=== PATIENT | male | born 1980 | race Caucasian/White ===

== ENCOUNTER → 2017-08-22 | Outpatient (CLI) | payer OTHER ==
--- NOTE | 2017-08-22 11:05 | XR ---
EXAMINATION TYPE: XR knee complete RT DATE OF EXAM: 08/22/2017 CLINICAL HISTORY: Fall injury at work today. TECHNIQUE: Three views of the right knee are obtained. COMPARISON: None. FINDINGS: There is no acute fracture/dislocation evident in right knee. There is mild joint space lo ss medial and lateral tibiofemoral compartments slightly more prominent medially. Mild to moderate aury int space loss patellofemoral compartment is seen. The overlying soft tissue appears unremarkable. IMPRESSION: There is no acute fracture or dislocation in the right knee.
== END | disposition home or self-care (01) ==
LOC: RADXRMAIN 10:33
PROVIDERS: ATTEND Emergency Medicine
DX: S83.8X1A Sprain of other specified parts of right knee, initial encounter (principal)

== ENCOUNTER → 2017-09-10 | Outpatient (CLI) | payer OTHER ==
--- NOTE | 2017-09-10 23:21 | MR ---
EXAMINATION TYPE: MR knee RT wo con DATE OF EXAM: 09/10/2017 COMPARISON: Brain August 22, 2017 HISTORY: Rt knee sprain per order. Pain and swelling after injury 3 weeks ago per patient. TECHNIQUE: Multiplanar, multisequence images of the knee is performed without IV contrast. FINDINGS: MEDIAL MENISCUS: Anterior and posterior horns are intact without tear. LATERAL MENISCUS: Anterior and posterior horns are intact without tear. CRUCIATE LIGAMENTS: The anterior and posterior cruciate ligaments are intact and unremarkable. COLLATERAL LIGAMENTS: The medial collateral ligament and lateral collateral ligament complex are inta ct and unremarkable. EXTENSOR MECHANISM: Visualized quadriceps and patellar tendons are intact. EFFUSION: There is a small suprapatellar joint effusion. POPLITEAL CYST: There is a small irregular popliteal/espinoza cyst. TRICOMPARTMENT SPACES: Tricompartment joint spaces are fairly well-maintained. No significant spurrin g is seen. CARTILAGE: Small focal area measuring 4 x 4 millimeters of cartilaginous injury posterior aspect dist al lateral femoral epicondyle seen on sagittal image 24 and coronal image 23. BONE MARROW SIGNAL: No focal abnormal marrow signal is appreciated. OTHER: No additional significant abnormality is appreciated. IMPRESSION: 1. No meniscal or ligamentous tear is seen. 2. Small area of cartilaginous injury without osseous edema or injury identified. 3. Small leaking popliteal cyst. 4. Small suprapatellar joint effusion.
== END | disposition home or self-care (01) ==
LOC: RADMRIMAIN 20:53
PROVIDERS: ATTEND Emergency Medicine
DX: S83.8X1D Sprain of other specified parts of right knee, subsequent encounter (principal); M71.21 Synovial cyst of popliteal space [Baker], right knee

== ENCOUNTER 2020-12-22 11:35 | Emergency (ER) | payer BC ==
[2020-12-22 11:46] VITALS: RESP 18
[2020-12-22] MEDS ORDERED: SODIUM CHLORIDE 0.9% 1,000 ML IV STA ×2 (11:53→13:29)
[2020-12-22] MEDS ORDERED: KETOROLAC 15 MG/ML 1 ML VIAL IVP STA (11:53)
[2020-12-22] MEDS ORDERED: ONDANSETRON 4 MG/2 ML VIAL IVP STA (11:53)
--- NOTE | 2020-12-22 11:57 | ED ---
General Adult HPI - General Chief complaint: Abdominal Pain Stated complaint: Dehydrated/nausea/vomiting 3xweeks/covid+ 12/06/00 Time Seen by Provider: 12/22/20 11:47 Source: patient Mode of arrival: ambulatory Limitations: no limitations - History of Present Illness Initial comments: 40-year-old male without any significant past medical history presents to the emergency room for a chief complaint of nausea vomiting diarrhea. Patient reports that he was diagnosed with Covid on 12/06/2020. States he has had nausea vomiting diarrhea since that time. He did start to feel better and went back to work a few days ago. However the past 2 days he started to feel worse again. He states he is not able to keep down liquids. He has been having diarrhea twice every hour for the past day. Admits to minimal left lower quadrant abdominal pain. Denies fevers or chills. Patient reports he saw his doctor yesterday who gave him omeprazole but it has not helped.Patient has no other complaints at this time including shortness of breath, chest pain, head ache, or visual changes. - Related Data Home Medications Medication Instructions Recorded Confirmed Omeprazole [PriLOSEC] 20 mg PO DAILY 12/22/20 12/22/20 Previous Rx's Medication Instructions Recorded Ondansetron [Zofran ODT] 4 mg PO Q8HR PRN #15 tab 12/22/20 Allergies Allergy/AdvReac Type Severity Reaction Status Date / Time codeine AdvReac Hallucinati Verified 12/22/20 12:24 ons Review of Systems ROS Statement: Those systems with pertinent positive or pertinent negative responses have been documented in the HPI. ROS Other: All systems not noted in ROS Statement are negative. Past Medical History Past Medical History: No Reported History History of Any Multi-Drug Resistant Organisms: None Reported Past Surgical History: No Surgical Hx Reported Past Psychological History: No Psychological Hx Reported Smoking Status: Never smoker Past Alcohol Use History: None Reported Past Drug Use History: None Reported General Exam Limitations: no limitations General appearance: alert Head exam: Present: atraumatic Eye exam: Present: normal appearance, PERRL, EOMI. Absent: scleral icterus ENT exam: Present: normal exam, mucous membranes moist Neck exam: Present: normal inspection, full ROM. Absent: tenderness Respiratory exam: Present: normal lung sounds bilaterally. Absent: respiratory distress, wheezes Cardiovascular Exam: Present: regular rate, normal rhythm, normal heart sounds GI/Abdominal exam: Present: soft, distended, tenderness (minimal LLQ tenderness), normal bowel sounds. Absent: guarding, rebound, rigid Back exam: Absent: CVA tenderness (R), CVA tenderness (L) Neurological exam: Present: alert Course Vital Signs 12/22/20 11:42 Temperature 98.5 F Pulse Rate 100 Respiratory 18 Rate Blood Pressure 116/72 O2 Sat by Pulse 98 Oximetry Medical Decision Making - Medical Decision Making Vitals are stable. CBC unremarkable. CMP does show mild hypokalemia likely secondary to diarrhea. This was replaced orally. Lactic acid of 2.5 is likely secondary to dehydration. Ketonuria likely secondary to dehydration as well. Patient was given 2 L of normal saline. CT abdomen and pelvis showed findings consistent with colitis. This is likely secondary to coronavirus. He'll be discharged home with Zofran and a few pills of Imodium. He will follow-up with his doctor. He will return here for any worsening symptoms. I discussed this case with attending Dr. Simeon who agrees with this assessment and treatment plan. - Lab Data Result diagrams: 12/22/20 12:06 12/22/20 12:06 Lab Results 12/22/20 12/22/20 12/22/20 Range/Units 12:06 12:06 12:06 WBC 9.9 (3.8-10.6) k/uL RBC 4.49 (4.30-5.90) m/uL Hgb 13.8 (13.0-17.5) gm/dL Hct 38.6 L (39.0-53.0) % MCV 85.9 (80.0-100.0) fL MCH 30.8 (25.0-35.0) pg MCHC 35.9 (31.0-37.0) g/dL RDW 12.1 (11.5-15.5) % Plt Count 278 (150-450) k/uL MPV 6.6 Neutrophils % (Manual) 57 % Band Neuts % (Manual) 14 % Lymphocytes % (Manual) 13 % Monocytes % (Manual) 17 % Metamyelocytes % 1 % Neutrophils # (Manual) 7.00 (1.3-7.7) k/uL Lymphocytes # (Manual) 1.29 (1.0-4.8) k/uL Monocytes # (Manual) 1.68 H (0-1.0) k/uL Metamyelocytes # (Man) 0.10 H (0) k/uL Nucleated RBCs 0 (0-0) /100 WBC Manual Slide Review Performed Toxic Granulation Present Sodium 132 L (137-145) mmol/L Potassium 3.3 L (3.5-5.1) mmol/L Chloride 94 L (98-107) mmol/L Carbon Dioxide 25 (22-30) mmol/L Anion Gap 13 mmol/L BUN 11 (9-20) mg/dL Creatinine 1.19 (0.66-1.25) mg/dL Est GFR (CKD-EPI)AfAm 87 (>60 ml/min/1.73 sqM) Est GFR (CKD-EPI)NonAf 76 (>60 ml/min/1.73 sqM) Glucose 114 H (74-99) mg/dL Plasma Lactic Acid Yemi 2.5 H* (0.7-2.0) mmol/L Calcium 8.6 (8.4-10.2) mg/dL Magnesium (1.6-2.3) mg/dL Total Bilirubin 1.3 (0.2-1.3) mg/dL AST 17 (17-59) U/L ALT 14 (4-49) U/L Alkaline Phosphatase 63 (38-126) U/L Total Protein 6.7 (6.3-8.2) g/dL Albumin 3.8 (3.5-5.0) g/dL Amylase 38 (30-110) U/L Lipase 35 (23-300) U/L Urine Color Urine Appearance (Clear) Urine pH (5.0-8.0) Ur Specific [place] (1.001-1.035) Urine Protein (Negative) Urine Glucose (UA) (Negative) Urine Ketones (Negative) Urine Blood (Negative) Urine Nitrite (Negative) Urine Bilirubin (Negative) Urine Urobilinogen (<2.0) mg/dL Ur Leukocyte Esterase (Negative) Urine RBC (0-5) /hpf Urine WBC (0-5) /hpf Ur Squamous Epith Cells (0-4) /hpf Urine Mucus (None) /hpf 12/22/20 12/22/20 Range/Units 12:06 13:09 WBC (3.8-10.6) k/uL RBC (4.30-5.90) m/uL Hgb (13.0-17.5) gm/dL Hct (39.0-53.0) % MCV (80.0-100.0) fL MCH (25.0-35.0) pg MCHC (31.0-37.0) g/dL RDW (11.5-15.5) % Plt Count (150-450) k/uL MPV Neutrophils % (Manual) % Band Neuts % (Manual) % Lymphocytes % (Manual) % Monocytes % (Manual) % Metamyelocytes % % Neutrophils # (Manual) (1.3-7.7) k/uL Lymphocytes # (Manual) (1.0-4.8) k/uL Monocytes # (Manual) (0-1.0) k/uL Metamyelocytes # (Man) (0) k/uL Nucleated RBCs (0-0) /100 WBC Manual Slide Review Toxic Granulation Sodium (137-145) mmol/L Potassium (3.5-5.1) mmol/L Chloride (98-107) mmol/L Carbon Dioxide (22-30) mmol/L Anion Gap mmol/L BUN (9-20) mg/dL Creatinine (0.66-1.25) mg/dL Est GFR (CKD-EPI)AfAm (>60 ml/min/1.73 sqM) Est GFR (CKD-EPI)NonAf (>60 ml/min/1.73 sqM) Glucose (74-99) mg/dL Plasma Lactic Acid Yemi (0.7-2.0) mmol/L Calcium (8.4-10.2) mg/dL Magnesium 1.6 (1.6-2.3) mg/dL Total Bilirubin (0.2-1.3) mg/dL AST (17-59) U/L ALT (4-49) U/L Alkaline Phosphatase (38-126) U/L Total Protein (6.3-8.2) g/dL Albumin (3.5-5.0) g/dL Amylase (30-110) U/L Lipase (23-300) U/L Urine Color Yellow Urine Appearance Clear (Clear) Urine pH 6.5 (5.0-8.0) Ur Specific [place] >1.050 H (1.001-1.035) Urine Protein 1+ H (Negative) Urine Glucose (UA) Negative (Negative) Urine Ketones 4+ H (Negative) Urine Blood Negative (Negative) Urine Nitrite Negative (Negative) Urine Bilirubin Negative (Negative) Urine Urobilinogen <2.0 (<2.0) mg/dL Ur Leukocyte Esterase Negative (Negative) Urine RBC 3 (0-5) /hpf Urine WBC 1 (0-5) /hpf Ur Squamous Epith Cells <1 (0-4) /hpf Urine Mucus Rare H (None) /hpf Disposition Clinical Impression: Nausea, vomiting, and diarrhea Disposition: HOME SELF-CARE Condition: Good Instructions (If sedation given, give patient instructions): Acute Diarrhea (ED), Potassium Content of Foods List (ED) Additional Instructions: Please eat a diet rich in high potassium. Take Zofran as needed for nausea. Take Imodium for the next day or 2 for diarrhea. Do not take this on an extended term basis. Follow-up with your doctor in one to 2 days. Return to the emergency room for any worsening symptoms. Prescriptions: Ondansetron [Zofran ODT] 4 mg PO Q8HR PRN #15 tab PRN Reason: Nausea Is patient prescribed a controlled substance at d/c from ED?: No Referrals: Joanne Mario NPC [REFERRING] - 1-2 days Time of Disposition: 13:43
[2020-12-22 12:25] LABS: HCT 38.6 % (39.0-53.0); HGB 13.8 gm/dL (13.0-17.5); MCH 30.8 pg (25.0-35.0); MCHC 35.9 g/dL (31.0-37.0); MCV 85.9 fL (80.0-100.0); Mean Platelet Volume 6.6; Platelet Count 278 k/uL (150-450); RBC 4.49 m/uL (4.30-5.90); RDW 12.1 % (11.5-15.5); WBC 9.9 k/uL (3.8-10.6)
[2020-12-22 12:33] LABS: Albumin 3.8 g/dL (3.5-5.0); Calcium 8.6 mg/dL (8.4-10.2); Potassium 3.3 mmol/L (3.5-5.1); Total Bilirubin 1.3 mg/dL (0.2-1.3); Total Protein 6.7 g/dL (6.3-8.2)
[2020-12-22 12:45] LABS: Metamyelocytes % 1 %; Monocytes # (M) 1.68 k/uL (0-1.0); Nucleated Red Blood Cells 0 /100 WBC (0-0)
[2020-12-22 12:47] LABS: Band Neutrophils % 14 %; Lymphocytes # (M) 1.29 k/uL (1.0-4.8); Neutrophils % (M) 57 %; Total Cells Counted 200
[2020-12-22 12:48] LABS: Toxic Granulation Present
[2020-12-22 13:26] LABS: Appearance,Urine Clear (Clear); Bilirubin,Urine Negative (Negative); Blood,Urine Negative (Negative); Color,Urine Yellow; Glucose,Urine (UA) Negative (Negative); Ketones,Urine 4+ (Negative); Leukocyte Esterase,Urine Negative (Negative); Mucus,Urine Rare /hpf; Nitrite,Urine Negative (Negative); PH, Urine 6.5 (5.0-8.0); Protein,Urine 1+ (Negative); RBC,Urine 3 /hpf (0-5); Squamous Epithelial Cell,Urine <1 /hpf (0-4); Urobilinogen,Urine <2.0 mg/dL (<2.0); WBC,Urine 1 /hpf (0-5)
[2020-12-22 13:27] LABS: Specific Gravity,Urine >1.050 (1.001-1.035)
[2020-12-22] MEDS ORDERED: POTASSIUM CHLORIDE ER 20 MEQ TAB.ER PO STA (13:29)
--- NOTE | 2020-12-22 13:34 | CT ---
EXAMINATION TYPE: CT abdomen pelvis w con DATE OF EXAM: 12/22/2020 COMPARISON: HISTORY: LLQ pain, positive covid diagnosis 12/06/2020 CT DLP: 957.1 mGycm Automated exposure control for dose reduction was used. TECHNIQUE: Helical acquisition of images from the lung bases through the pelvis have been completed. CONTRAST: Performed without Oral Contrast and with IV Contrast, patient injected with 100 mL of Isovue 300. FINDINGS: LUNG BASES: No significant abnormality is appreciated. AORTA: No significant abnormality is appreciated. LIVER/GB: No liver shows low attenuation and is enlarged consistent with hepatic steatosis. Gallbladd er is unremarkable. PANCREAS: No significant abnormality is seen. SPLEEN: Borderline enlarged ADRENALS: No significant abnormality is seen. KIDNEYS: No significant abnormality is seen. REPRODUCTIVE ORGANS: No significant abnormality is seen BOWEL: Diffuse colonic wall thickening is present, there is pericolonic inflammatory change seen. No evident bowel obstruction. The appendix is partially air filled, appendicolith is present proximally . FREE AIR: No Free Air visible. ASCITES: Small amount of fluid present in the pelvis. PELVIC ADENOPATHY: None visualized. RETROPERITONEAL ADENOPATHY: No Retroperitoneal Adenopathy visible. URINARY BLADDER: No significant abnormality is seen. OSSEOUS STRUCTURES: No significant abnormality is seen. IMPRESSION: FINDINGS CONSISTENT WITH COLITIS, CORRELATE. HEPATOSPLENOMEGALY, HEPATIC STEATOSIS.
[2020-12-22 15:04] VITALS: BP 133/78; PULSE 80; TEMP 98
== END 2020-12-22 15:04 | disposition home or self-care (01) ==
LOC: EC 11:35
DX: R11.2 Nausea with vomiting, unspecified (principal); R19.7 Diarrhea, unspecified; U07.1 COVID-19; R10.32 Left lower quadrant pain; R82.4 Acetonuria; E86.0 Dehydration; Z79.899 Other long term (current) drug therapy; Z88.5 Allergy status to narcotic agent
CPT/HCPCS: 36415; 80053; 82150; 83605; 83690; 83735; 85025; 81001; 74177; 99284; 96374; 96375; 96361 ×2; J2405; J1885; Q9967

== ENCOUNTER 2020-12-23 22:06 | Inpatient (IN) | payer BC ==
[2020-12-23] MEDS ORDERED: SODIUM CHLORIDE 0.9% 1,000 ML IV STA ×2 (22:38)
[2020-12-23] MEDS ORDERED: SODIUM CHLORIDE 0.9% 500 ML 500 ML IV STA (22:38)
[2020-12-23] MEDS ORDERED: PANTOPRAZOLE 40 MG/10 ML VIAL IVP STA (22:38)
[2020-12-23] MEDS ORDERED: ONDANSETRON 4 MG/2 ML VIAL IVP STA (22:38)
--- NOTE | 2020-12-23 22:59 | ED ---
Recheck HPI - General Chief Complaint: Abdominal Pain Stated Complaint: NVD Time Seen by Provider: 12/23/20 22:22 Source: patient, EMS, RN notes reviewed, old records reviewed Mode of arrival: EMS Limitations: no limitations - History of Present Illness Initial Comments: This is a 40-year-old male DF for evaluation. Patient is about 2 weeks of positive diagnosis for coronavirus. Persistent nausea vomiting and diarrhea symptoms have been progressive throughout the entire time but worsening yesterday was here in the ER and a progressively worsening today. Recurrent fevers. Generalized body aches and pains MD Complaint: other (Persistent nausea vomiting diarrhea and weakness) -: week(s) (2) Returns Today for: persistent/worsening pain related to initial visit, other (N [place] vomiting diarrhea) Symptoms Since Prior Visit: worsening pain, fever Associated Symptoms: fever, chills, malaise, nausea Treatments Prior to Arrival: other medications - Related Data Home Medications Medication Instructions Recorded Confirmed Omeprazole [PriLOSEC] 20 mg PO DAILY 12/22/20 12/22/20 Previous Rx's Medication Instructions Recorded Loperamide [Imodium] 2 mg PO TID #6 capsule 12/22/20 Ondansetron [Zofran ODT] 4 mg PO Q8HR PRN #15 tab 12/22/20 Allergies Allergy/AdvReac Type Severity Reaction Status Date / Time codeine AdvReac Hallucinati Verified 12/22/20 12:24 ons Review of Systems ROS Statement: Those systems with pertinent positive or pertinent negative responses have been documented in the HPI. ROS Other: All systems not noted in ROS Statement are negative. Past Medical History Past Medical History: No Reported History History of Any Multi-Drug Resistant Organisms: None Reported Past Surgical History: No Surgical Hx Reported Past Psychological History: No Psychological Hx Reported Smoking Status: Never smoker Past Alcohol Use History: None Reported Past Drug Use History: None Reported General Exam Limitations: no limitations General appearance: alert, in no apparent distress Head exam: Present: atraumatic, normocephalic, normal inspection Eye exam: Present: normal appearance, PERRL, EOMI. Absent: scleral icterus, conjunctival injection, periorbital swelling ENT exam: Present: normal exam, mucous membranes dry Neck exam: Present: normal inspection. Absent: tenderness, meningismus, lymphadenopathy Respiratory exam: Present: normal lung sounds bilaterally. Absent: respiratory distress, wheezes, rales, rhonchi, stridor Cardiovascular Exam: Present: normal rhythm, tachycardia, normal heart sounds. Absent: systolic murmur, diastolic murmur, rubs, gallop, clicks GI/Abdominal exam: Present: soft, normal bowel sounds. Absent: distended, tenderness, guarding, rebound, rigid Extremities exam: Present: normal inspection, full ROM, normal capillary refill. Absent: tenderness, pedal edema, joint swelling, calf tenderness Back exam: Present: normal inspection Neurological exam: Present: alert, oriented X3, CN II-XII intact Psychiatric exam: Present: normal affect, normal mood Skin exam: Present: warm, dry, intact, normal color. Absent: rash Course Vital Signs 12/23/20 12/24/20 22:10 00:00 Temperature 100.4 F H Pulse Rate 103 H 100 Respiratory 18 16 Rate Blood Pressure 132/78 128/68 O2 Sat by Pulse 99 97 Oximetry - Reevaluation(s) Reevaluation #1: 12/24/20 01:10 Medical records reviewed 12/24/20 01:10 Prior ER visit is been reviewed Medical Decision Making - Medical Decision Making 40 male DF for evaluation of persistent nausea vomiting diarrhea and fevers. Patient has persistent symptoms here in the ER as well as ER visit yesterday. Patient is to be admitted for further evaluation management - Lab Data Result diagrams: 12/23/20 22:57 12/23/20 22:57 Lab Results 12/23/20 12/23/20 12/23/20 Range/Units 22:57 22:57 22:57 WBC 10.0 (3.8-10.6) k/uL RBC 4.17 L (4.30-5.90) m/uL Hgb 12.6 L (13.0-17.5) gm/dL Hct 36.5 L (39.0-53.0) % MCV 87.5 (80.0-100.0) fL MCH 30.1 (25.0-35.0) pg MCHC 34.4 (31.0-37.0) g/dL RDW 12.5 (11.5-15.5) % Plt Count 235 (150-450) k/uL MPV 7.5 Neutrophils % (Manual) 68 % Band Neuts % (Manual) 15 % Lymphocytes % (Manual) 7 % Monocytes % (Manual) 10 % Neutrophils # (Manual) 8.30 H (1.3-7.7) k/uL Lymphocytes # (Manual) 0.70 L (1.0-4.8) k/uL Monocytes # (Manual) 1.00 (0-1.0) k/uL Nucleated RBCs 0 (0-0) /100 WBC Manual Slide Review Performed Sodium 132 L (137-145) mmol/L Potassium 3.9 (3.5-5.1) mmol/L Chloride 97 L (98-107) mmol/L Carbon Dioxide 22 (22-30) mmol/L Anion Gap 13 mmol/L BUN 9 (9-20) mg/dL Creatinine 1.05 (0.66-1.25) mg/dL Est GFR (CKD-EPI)AfAm >90 (>60 ml/min/1.73 sqM) Est GFR (CKD-EPI)NonAf 88 (>60 ml/min/1.73 sqM) Glucose 109 H (74-99) mg/dL Plasma Lactic Acid Yemi 1.1 (0.7-2.0) mmol/L Calcium 8.0 L (8.4-10.2) mg/dL Magnesium 1.9 (1.6-2.3) mg/dL Total Bilirubin 0.9 (0.2-1.3) mg/dL AST 17 (17-59) U/L ALT 13 (4-49) U/L Alkaline Phosphatase 48 (38-126) U/L Lactate Dehydrogenase 406 (313-618) U/L C-Reactive Protein 372.7 H (<10.0) mg/L Total Protein 5.7 L (6.3-8.2) g/dL Albumin 3.0 L (3.5-5.0) g/dL - EKG Data -: EKG Interpreted by Me (EKG is sinus tachycardia 103 [place] 1 6056 QRS 94 QTC 471) - Radiology Data Radiology results: report reviewed (Chest x-rays negative for acute disease), image reviewed Disposition Clinical Impression: Nausea, vomiting, and diarrhea, Abdominal pain, Coronavirus infection, Gastroenteritis Disposition: ADMITTED IP TO THIS [facility] Condition: Fair Is patient prescribed a controlled substance at d/c from ED?: No
[2020-12-23 23:17] LABS: ALT 13 U/L (4-49); AST 17 U/L (17-59); African American GFR (CKD) >90 (>60 ml/min/1.73 sqM); Alkaline Phosphatase 48 U/L (38-126); Anion Gap 13 mmol/L; Blood Urea Nitrogen 9 mg/dL (9-20); Carbon Dioxide 22 mmol/L (22-30); Chloride 97 mmol/L (98-107); Glucose 109 mg/dL (74-99); LDH 406 U/L (313-618); Magnesium 1.9 mg/dL (1.6-2.3); Non-African American GFR(CKD) 88 (>60 ml/min/1.73 sqM); Potassium 3.9 mmol/L (3.5-5.1); Sodium 132 mmol/L (137-145); Total Bilirubin 0.9 mg/dL (0.2-1.3); Total Protein 5.7 g/dL (6.3-8.2)
[2020-12-23 23:49] LABS: C Reactive Protein 372.7 mg/L (<10.0)
[2020-12-23 23:51] LABS: HCT 36.5 % (39.0-53.0); HGB 12.6 gm/dL (13.0-17.5); MCH 30.1 pg (25.0-35.0); MCHC 34.4 g/dL (31.0-37.0); MCV 87.5 fL (80.0-100.0); Mean Platelet Volume 7.5; Platelet Count 235 k/uL (150-450); RBC 4.17 m/uL (4.30-5.90); RDW 12.5 % (11.5-15.5)
[2020-12-24] LABS: Band Neutrophils % 15 %; Neutrophils % (M) 68 %; Nucleated Red Blood Cells 0 /100 WBC (0-0); Total Cells Counted 100
[2020-12-24] MEDS ORDERED: KETOROLAC 15 MG/ML 1 ML VIAL IVP STA (00:18)
[2020-12-24] MEDS ORDERED: ACETAMINOPHEN TAB 500 MG TAB PO STA (00:18)
[2020-12-24] MEDS ORDERED: NALOXONE 0.4 MG/ML 1 ML VIAL IV PRN (00:25)
[2020-12-24] MEDS ORDERED: MORPHINE SULFATE 4 MG/ML SYRINGE IV PRN (00:25)
[2020-12-24] MEDS ORDERED: ONDANSETRON 4 MG/2 ML VIAL IVP PRN (00:25)
[2020-12-24] MEDS ORDERED: HYDROmorphone 0.5 MG/0.5 ML SYRINGE IVP STA (00:48)
[2020-12-24] MEDS: SODIUM CHLORIDE 0.9% 1,000 ML IV SCH ×3 (00:48→17:45)
--- NOTE | 2020-12-24 01:02 | XR ---
EXAM: XR Chest, 1 View CLINICAL HISTORY: ITS.REASON XR Reason: fever TECHNIQUE: Frontal view of the chest. COMPARISON: No relevant prior studies available. FINDINGS: Lungs: Underinflated lungs with slightly prominent interstitial markings in the lung bases bilaterally. Mild interstitial infiltrate cannot be excluded. No focal consolidation is seen. Pleural space: No pneumothorax or pleural effusion is seen. Heart: Unremarkable. No cardiomegaly. Mediastinum: Unremarkable. Bones/joints: Unremarkable. IMPRESSION: Underinflated lungs with slightly prominent interstitial markings in the lung bases bilaterally. Mild interstitial infiltrate cannot be excluded. No focal consolidation is seen.
[2020-12-24] MEDS: ENOXAPARIN 40 MG/0.4 ML SYRINGE SQ SCH (07:56)
[2020-12-24] MEDS ORDERED: PANTOPRAZOLE 40 MG/10 ML VIAL IV SCH (09:00)
[2020-12-24 09:26] LABS: Ferritin 738.4 ng/mL (22.0-322.0)
--- NOTE | 2020-12-24 09:59 | P.HPIM ---
History of Present Illness Patient is a pleasant 48-year-old male came in with complaints of nausea vomiting diarrhea patient states he has multiple episodes around 20-30 episodes of diarrhea every day. Patient started having symptoms of diarrhea and fever on new years sulma fever resolved but the diarrhea continued. Patient was diagnosed with the hope did 19 shortly after. Patient is still having some body aches and pains patient is comparing of severe crampy lower abdominal pain patient was seen in ER about 3 days ago at that time patient had a CT of the abdomen which showed a colon colitis. C. diff will be obtained patient is bit hyponatremic and receiving IV fluids at this time. Review of Systems REVIEW OF SYSTEMS: CONSTITUTIONAL: No fever, no malaise, no fatigue. HEENT: No recent visual problems or hearing problems. Denied any sore throat. CARDIOVASCULAR: No chest pain, orthopnea, PND, no palpitations, no syncope. PULMONARY: No shortness of breath, no cough, no hemoptysis. GASTROINTESTINAL: As mentioned in HPI NEUROLOGICAL: No headaches, no weakness, no numbness. HEMATOLOGICAL: Denies any bleeding or petechiae. GENITOURINARY: Denies any burning micturition, frequency, or urgency. MUSCULOSKELETAL/RHEUMATOLOGICAL: Denies any joint pain, swelling, or any muscle pain. ENDOCRINE: Denies any polyuria or polydipsia. The rest of the 14-point review of systems is negative. Past Medical History Past Medical History: No Reported History History of Any Multi-Drug Resistant Organisms: None Reported Past Surgical History: No Surgical Hx Reported Past Anesthesia/Blood Transfusion Reactions: No Reported Reaction Past Psychological History: No Psychological Hx Reported Smoking Status: Never smoker Past Alcohol Use History: None Reported Past Drug Use History: None Reported Medications and Allergies Home Medications Medication Instructions Recorded Confirmed Type Ondansetron [Zofran ODT] 4 mg PO Q8HR PRN #15 tab 12/22/20 12/24/20 Rx Allergies Allergy/AdvReac Type Severity Reaction Status Date / Time codeine AdvReac Hallucinati Verified 12/24/20 07:27 ons Physical Exam Vitals: Vital Signs Temp Pulse Pulse Resp BP BP Pulse Ox 12/24/20 05:38 97.6 F 75 106/58 99 12/24/20 01:20 98.7 F 97 108/63 95 12/24/20 00:00 100 16 128/68 97 12/23/20 22:10 100.4 F H 103 H 18 132/78 99 Intake and Output 12/23/20 12/24/20 12/24/20 22:59 06:59 14:59 Other: Voiding Method Toilet Weight 90.718 kg 90.718 kg PHYSICAL EXAMINATION: GENERAL: The patient is alert and oriented x3, not in any acute distress. Well developed, well nourished. HEENT: Pupils are round and equally reacting to light. EOMI. No scleral icterus. No conjunctival pallor. Normocephalic, atraumatic. No pharyngeal erythema. No thyromegaly. CARDIOVASCULAR: S1 and S2 present. No murmurs, rubs, or gallops. PULMONARY: Chest is clear to auscultation, no wheezing or crackles. ABDOMEN: Soft, but distended with hyperactive bowel sounds, nondistended, No palpable organomegaly. MUSCULOSKELETAL: No joint swelling or deformity. EXTREMITIES: No cyanosis, clubbing, or pedal edema. NEUROLOGICAL: Gross neurological examination did not reveal any focal deficits. SKIN: No rashes. Results CBC & Chem 7: 12/23/20 22:57 12/23/20 22:57 Labs: Abnormal Lab Results - Last 24 Hours (Table) 12/23/20 12/23/20 Range/Units 22:57 22:57 RBC 4.17 L (4.30-5.90) m/uL Hgb 12.6 L (13.0-17.5) gm/dL Hct 36.5 L (39.0-53.0) % Neutrophils # (Manual) 8.30 H (1.3-7.7) k/uL Lymphocytes # (Manual) 0.70 L (1.0-4.8) k/uL Sodium 132 L (137-145) mmol/L Chloride 97 L (98-107) mmol/L Glucose 109 H (74-99) mg/dL Calcium 8.0 L (8.4-10.2) mg/dL Ferritin 738.4 H (22.0-322.0) ng/mL C-Reactive Protein 372.7 H (<10.0) mg/L Total Protein 5.7 L (6.3-8.2) g/dL Albumin 3.0 L (3.5-5.0) g/dL Thrombosis Risk Factor Assmnt - Choose All That Apply Each Factor Represents 1 point: Obesity (BMI >25) Thrombosis Risk Factor Assessment Total Risk Factor Score: 1 Thrombosis Risk Factor Assessment Level: Low Risk Assessment and Plan Plan: -Colitis: Secondary to possibly covid 19 considering the duration of symptoms, I'll consult the gastroenterology. Patient is on morphine which will be continued. We will obtain C. diff if C. diff is negative we'll start him on Bentyl. 3 with IV fluids -Hypovolemic hyponatremia: Continue with IV fluids -Covid 19 infection DVT prophylaxis with lower Lovenox
[2020-12-24] MEDS: CHOLESTYRAMINE (WITH SUGAR) 4 GM PACKET PO SCH ×3 (12:21→17:51)
[2020-12-24] MEDS ORDERED: TRIMETHOBENZAMIDE 300 MG CAP PO PRN (15:05)
--- NOTE | 2020-12-24 17:35 | XR ---
EXAMINATION TYPE: XR KUB DATE OF EXAM: 12/24/2020 COMPARISON: NONE HISTORY: Abdominal pain TECHNIQUE: 2 views FINDINGS: There are multiple distended gas-filled loops of bowel in the abdomen. There is gas down to the mid sigmoid colon. There is no sign of free air. There is some mild infiltrate and atelectasis l eft lung base. There are no pathologic calcifications over the kidneys. IMPRESSION: Large amount of intestinal gas consistent with ileus. No free air.
[2020-12-24] MEDS: ONDANSETRON 4 MG/2 ML VIAL IVP SCH (17:43)
[2020-12-24] MEDS: metroNIDAZOLE-NS PMX 500 MG in SALINE 1 100ML.BAG IVPB SCH (17:43)
[2020-12-24] MEDS: PANTOPRAZOLE 40 MG/10 ML VIAL IVP SCH (22:04)
--- NOTE | 2020-12-24 23:21 | CONS ---
CONSULTATION DATE OF SERVICE: 12/24/2020. REASON FOR CONSULTATION: Covid/Colitis. HISTORY OF PRESENT ILLNESS: The patient is 40-year-old male. Still having symptoms after the new year mostly with fever, nausea, vomiting and diarrhea. The patient mentioned that his fever subsequently resolved. However, he continued having diarrhea with multiple loose stools. No blood or mucus in the stool. Did have episodes of vomiting. Has been complaining of some crampy lower abdominal pain, intensity 5 to 6 out of 10 and no radiation and unable to keep anything down. With these symptoms, the patient was evaluated at [facility] on December 22 where the patient did have a CT of abdomen and pelvis which did show evidence of colitis. The patient was discharged home however presenting back to the hospital within 24 hours with persistent symptoms of nausea, vomiting and diarrhea. He also had a low-grade fever of 100.4. The patient did have a normal white count with no lymphopenia as well as left shift. Did have a normal creatinine . Liver enzymes are normal. CRP is 372. Procalcitonin 2.03. The patient did have a chest x-ray which shows under inflated lungs with slightly prominent interstitial markings in the lung bases bilaterally. Mild cannot be excluded. The patient has been admitted to the hospital. Infectious Disease was consulted with positive Covid test and sputum and GI symptoms. The patient currently denies having any fever or any chills and is breathing comfortably currently on 97% on room air. REVIEW OF SYSTEMS: Positive points have been mentioned in HPI. Rest of the systems are negative. PAST MEDICAL HISTORY: No major illnesses. PAST SURGICAL HISTORY: No surgery. SOCIAL HISTORY: Denies smoking, drinking or drug use. FAMILY HISTORY: No pertinent findings noticed. ALLERGIES: ALLERGIES TO CODEINE. MEDICATIONS: The patient is currently on Questran, Lovenox, morphine sulfate, Narcan, Zofran, Protonix, IV fluids and Tigan. PHYSICAL EXAMINATION: Blood pressure 115/74 with a pulse of 100. Temperature of 99.1, T-max 100.7. He is 97% on room air. General description is a middle-aged male lying in bed in no distress. No tachypnea or accessory muscles of respiration use. HEENT: Examination shows no pallor or scleral icterus. Oral mucous membranes dry. No pharyngeal erythema or thrush. NECK: Trachea central. No thyromegaly. LUNGS: Unlabored breathing and is clear to auscultation anteriorly. HEART: S1, S2. Regular rate. ABDOMEN: Soft. Mildly distended. No guarding. No rigidity. EXTREMITIES: No edema of the feet. SKIN examination: No rash or mass palpable. NEUROLOGICAL: Patient is awake, alert, oriented times three. Mood and affect normal. LABS: Hemoglobin is 12.7, white count 10.0. BUN of 9, creatinine 1.05. Electrolytes have been normal. Lactic acid was 1.1 and LDH 406. Ferritin elevated. CRP was 372. Procalcitonin 2.03. Stool for C difficile is negative. DIAGNOSTIC IMPRESSION AND PLAN: Patient admitted to hospital with intractable nausea, vomiting and diarrhea. This patient's symptoms have been going on for more than 2 weeks now with diagnosis of COVID- 19 on December 06, the patient currently did not have any respiratory symptoms and is saturating 97% on room air. Though most of his gastrointestinal symptoms more likely related to infectious etiology, question related to Covid versus other bacterial versus viral infection. PLAN: 1. We will obtain culture, stool for C difficile is currently negative. 2. We will empirically add Rocephin 2 grams daily and Flagyl in view of elevated procalcitonin. 3. Gentle IV fluids. 4. If symptoms persist or any worsening, may benefit from a repeat CT. 5. We will follow on his clinical condition and culture to further adjust medication if needed. Thank you for this consultation. We will follow the patient along with you. MMVIRGILL / CHELAN: [id number] /
[2020-12-25] MEDS: ONDANSETRON 4 MG/2 ML VIAL IVP SCH ×4 (00:12→23:54)
[2020-12-25] MEDS: metroNIDAZOLE-NS PMX 500 MG in SALINE 1 100ML.BAG IVPB SCH ×4 (00:17→23:53)
[2020-12-25] MEDS: SODIUM CHLORIDE 0.9% 1,000 ML IV SCH ×3 (05:19→22:15)
[2020-12-25] MEDS: PANTOPRAZOLE 40 MG/10 ML VIAL IVP SCH ×2 (07:54→22:10)
[2020-12-25] MEDS: ENOXAPARIN 40 MG/0.4 ML SYRINGE SQ SCH (07:59)
[2020-12-25] MEDS: CHOLESTYRAMINE (WITH SUGAR) 4 GM PACKET PO SCH (08:00)
[2020-12-25] MEDS: KETOROLAC 15 MG/ML 1 ML VIAL IVP PRN ×2 (08:48→22:09)
[2020-12-25] MEDS ORDERED: PANTOPRAZOLE 40 MG TABLET PO SCH (09:00)
[2020-12-25 09:38] LABS: African American GFR (CKD) >90 (>60 ml/min/1.73 sqM); Anion Gap 12 mmol/L; Blood Urea Nitrogen 9 mg/dL (9-20); Calcium 7.5 mg/dL (8.4-10.2); Carbon Dioxide 19 mmol/L (22-30); Chloride 102 mmol/L (98-107); Glucose 127 mg/dL (74-99); Non-African American GFR(CKD) >90 (>60 ml/min/1.73 sqM); Potassium 3.3 mmol/L (3.5-5.1); Sodium 133 mmol/L (137-145)
--- NOTE | 2020-12-25 11:14 | P.PN ---
Subjective Patient is a pleasant 48-year-old male came in with complaints of nausea vomiting diarrhea patient states he has multiple episodes around 20-30 episodes of diarrhea every day. Patient started having symptoms of diarrhea and fever on sulma fever resolved but the diarrhea continued. Patient was diagnosed with the hope did 19 shortly after. Patient is still having some body aches and pains patient is comparing of severe crampy lower abdominal pain patient was seen in ER about 3 days ago at that time patient had a CT of the abdomen which showed a colon colitis. C. diff will be obtained patient is bit hyponatremic and receiving IV fluids at this time. 12/25/2020 Patient diarrhea resolved the patient has very minimal diarrhea patient appears to have ileus at this time will obtain abdominal x-ray discontinue Questran, wean off morphine patient will be started on Toradol for pain we'll continue with IV fluids patient's sodium improved minimally potassium is low which will be replaced her creatinine improved. A she is abdomen is distended and tympanic. Patient was also started on IV antibiotics were infectious disease metronidazole and ceftriaxone for colitis Constitutional: Denied any fatigue denied any fever. Cardio vascular: denied any chest pain, palpitations Gastrointestinal the patient abdominal discomfort along with nausea Pulmonary: Denied any shortness of breath cough Neurologic denied any new focal deficits All inpatient medications were reviewed and appropriate changes in these medications as dictated in the interval history and assessment and plan. Objective - Vital Signs Vital signs: Vital Signs Temp 98.4 F 12/25/20 10:00 Pulse 89 12/25/20 10:00 Resp 20 12/25/20 10:00 BP 116/69 12/25/20 10:00 Pulse Ox 99 12/25/20 10:00 Intake & Output 12/24/20 12/25/20 12/25/20 18:59 06:59 18:59 Intake Total 1520 Balance 1520 Weight 90.718 kg Intake: Intake, IV Titration 1520 Amount Sodium Chloride 0.9% 1, 1320 000 ml @ 120 mls/hr IV . Q8H20M [facility] Rx#:[id number] cefTRIAXone 2 gm In 100 Sodium Chloride 0.9% 50 ml @ 100 mls/hr IVPB Q24HR [facility] Rx#:[id number] metroNIDAZOLE-NS PMX 500 100 mg In Saline 1 100ml.bag @ 100 mls/hr IVPB Q8HR [facility] Rx#:[id number] Other: Voiding Method Toilet # Voids 4 # Bowel Movements 4 - Exam PHYSICAL EXAMINATION: GENERAL: The patient is alert and oriented x3, not in any acute distress. Well developed, well nourished. HEENT: Pupils are round and equally reacting to light. EOMI. No scleral icterus. No conjunctival pallor. Normocephalic, atraumatic. No pharyngeal erythema. No thyromegaly. CARDIOVASCULAR: S1 and S2 present. No murmurs, rubs, or gallops. PULMONARY: Chest is clear to auscultation, no wheezing or crackles. ABDOMEN: Abdomen is distended bowel sounds are present tympanic MUSCULOSKELETAL: No joint swelling or deformity. EXTREMITIES: No cyanosis, clubbing, or pedal edema. NEUROLOGICAL: Gross neurological examination did not reveal any focal deficits. SKIN: No rashes. - Labs CBC & Chem 7: 12/23/20 22:57 12/25/20 09:09 Labs: Abnormal Lab Results - Last 24 Hours (Table) 12/23/20 12/25/20 Range/Units 22:57 09:09 Sodium 133 L (137-145) mmol/L Potassium 3.3 L (3.5-5.1) mmol/L Carbon Dioxide 19 L (22-30) mmol/L Glucose 127 H (74-99) mg/dL Calcium 7.5 L (8.4-10.2) mg/dL Procalcitonin 2.03 H (0.02-0.09) ng/mL Microbiology - Last 24 Hours (Table) 12/24/20 10:50 Stool Culture - Preliminary Stool Assessment and Plan Plan: -Colitis: Secondary to possibly covid 19 , patient was started on antivirals for an infectious colitis because of the duration of symptoms. Unable to obtain C. diff -Possible ileus: Patient will be made nothing by mouth bowel rest, wean off morphine discontinue Questran -Acute renal failure improved with IV fluids -Hypovolemic hyponatremia: Continue with IV fluids -Covid 19 infection DVT prophylaxis with lower Lovenox
--- NOTE | 2020-12-25 11:57 | P.CONS ---
History of Present Illness - Reason for Consult Consult date: 12/24/20 Diarrhea, colitis Requesting physician: Lesia Schumacher - Chief Complaint Diarrhea, abdominal pain - History of Present Illness 40-year-old male presenting to the hospital with nausea, vomiting and diarrhea. The patient was treated for infection with Covid 19 on 12/05/2020. He reports symptoms of nausea, vomiting and diarrhea which have been present since 11/25/2021. He reports loose frequent bowel movements up to 20-30 times per day. He underwent evaluation with computed tomography scan of the abdomen on 12/22/2020 consistent with colitis and hepatomegaly as well as hepatic steatosis. He reports associated diffuse abdominal pain and distention with nausea and vomiting. He reports poor oral intake and association with his symptoms. No prior colonoscopy. No chronicity of his symptoms. Testing for Clostridium difficile toxin was negative. Laboratory evaluation on presentation significant for WBC 10, hemoglobin 12.7, platelet count 235,000, total bilirubin 0.4, alkaline phosphatase 40, AST 17 and ALT 13 with CRP 327. Review of Systems REVIEW OF SYSTEMS: CONSTITUTIONAL: Denies any fevers, chills, weight change or fatigue. CARDIOVASCULAR: Denies any chest pain, palpitations high or low blood pressures RESPIRATORY: Denies any shortness of breath, hemoptysis or cough. GENITOURINARY: No dysuria or hematuria. MUSCULOSKELETAL: No weakness reported. SKIN: Denies any new rashes or lesions, jaundice or pallor. PSYCHIATRIC: Denies any depression or anxiety. NEUROLOGY: Denies headache, denies any new focal deficits. EARS/NOSE/THROAT: No recent hearing change, congestion, nasal discharge or sore throat. EYES: No pain in eyes, discharge or change in vision. GASTROINTESTINAL: As per HPI. Past Medical History Past Medical History: No Reported History History of Any Multi-Drug Resistant Organisms: None Reported Past Surgical History: No Surgical Hx Reported Past Anesthesia/Blood Transfusion Reactions: No Reported Reaction Past Psychological History: No Psychological Hx Reported Smoking Status: Never smoker Past Alcohol Use History: None Reported Past Drug Use History: None Reported Additional History: Family history: Reviewed with the patient and noncontributory to current medical presentation. Medications and Allergies Home Medications Medication Instructions Recorded Confirmed Type Ondansetron [Zofran ODT] 4 mg PO Q8HR PRN #15 tab 12/22/20 12/24/20 Rx Allergies Allergy/AdvReac Type Severity Reaction Status Date / Time codeine AdvReac Hallucinati Verified 12/24/20 07:27 ons Physical Exam Vitals: Vital Signs Temp Pulse Pulse Resp BP BP Pulse Ox 12/24/20 09:31 98.2 F 101 H 18 126/76 100 12/24/20 05:38 97.6 F 75 106/58 99 12/24/20 01:20 98.7 F 97 108/63 95 12/24/20 00:00 100 16 128/68 97 12/23/20 22:10 100.4 F H 103 H 18 132/78 99 Intake and Output 12/24/20 12/24/20 12/24/20 06:59 14:59 22:59 Other: Voiding Method Toilet Weight 90.718 kg 90.718 kg On physical examination, patient appears comfortable in no apparent distress. HEAD: Normocephalic, atraumatic. EYES: No scleral icterus. No conjunctival injection. MOUTH: No lesions, tongue midline. NECK: Trachea midline, no gross abnormalities. CHEST: Clear to auscultation with no wheezing or rhonchi appreciated. HEART: Regular rate and rhythm. ABDOMEN: Soft, mild diffuse tenderness and slightly distended. Bowel sounds are positive. No organomegaly. No guarding or rigidity. EXTREMITIES: No pedal edema. SKIN: No rashes, no jaundice. NEUROLOGIC: Alert and oriented x3. No focal deficits. Results CBC & Chem 7: 12/23/20 22:57 12/25/20 09:09 Labs: Abnormal Lab Results - Last 24 Hours (Table) 12/23/20 12/23/20 12/23/20 Range/Units 22:57 22:57 22:57 RBC 4.17 L (4.30-5.90) m/uL Hgb 12.6 L (13.0-17.5) gm/dL Hct 36.5 L (39.0-53.0) % Neutrophils # (Manual) 8.30 H (1.3-7.7) k/uL Lymphocytes # (Manual) 0.70 L (1.0-4.8) k/uL Sodium 132 L (137-145) mmol/L Chloride 97 L (98-107) mmol/L Glucose 109 H (74-99) mg/dL Calcium 8.0 L (8.4-10.2) mg/dL Ferritin 738.4 H (22.0-322.0) ng/mL C-Reactive Protein 372.7 H (<10.0) mg/L Total Protein 5.7 L (6.3-8.2) g/dL Albumin 3.0 L (3.5-5.0) g/dL Procalcitonin 2.03 H (0.02-0.09) ng/mL CT scan - abdomen: report reviewed (Computed tomography scan of the abdomen from 12/22 significant for diffuse colitis with hepatosplenomegaly and hepatic steatosis noted.) Assessment and Plan (1) Colitis Narrative/Plan: 40-year-old male presenting to the hospital with complaints of nausea, vomiting, diarrhea and abdominal pain. Previous diagnosis of infection with Covid 19 a presented back to the hospital with complaints of frequent loose bowel movements up to 20-30 daily with associated nausea and vomiting and diffuse abdominal pain. CT scan of the abdomen performed on 12/22/2020 consistent with diffuse colitis with hepatosplenomegaly and hepatic steatosis. Concern was for possible Clostridium difficile testing with initial EIA negative for C. diff toxin. The patient has been started on broad-spectrum antibiotic therapy. Unclear etiology, suspicion is for infective colitis, less likely ischemic or inflammatory process given the acuity of symptoms and diffuse nature of findings, may also be related to underlying infection with coronavirus or other etiology. Current Visit: Yes Status: Acute Code(s): K52.9 - NONINFECTIVE GASTROENTERITIS AND COLITIS, UNSPECIFIED SNOMED Code(s): 44317607 (2) Abdominal pain Current Visit: Yes Status: Acute Code(s): R10.9 - UNSPECIFIED ABDOMINAL PAIN SNOMED Code(s): 33732852 (3) Nausea, vomiting, and diarrhea Current Visit: Yes Status: Acute Code(s): R11.2 - NAUSEA WITH VOMITING, UNSPECIFIED; R19.7 - DIARRHEA, UNSPECIFIED SNOMED Code(s): 8432848 Plan: Supportive care Clear liquid diet So [place] ensure [id number] with Tigan as needed for breakthrough nausea Protonix increased to twice daily Abdominal x-ray ordered Continue broad-spectrum antibiotic therapy for treatment of colitis Infectious disease consult to see the patient Thank you for allowing us to participate in the care of the patient we will continue to follow
--- NOTE | 2020-12-25 14:37 | XR ---
EXAMINATION TYPE: XR abdomen acute w cxr DATE OF EXAM: 12/25/2020 COMPARISON: Yesterday HISTORY: Abdominal pain TECHNIQUE: 4 views FINDINGS: There is some mild subsegmental atelectasis at the lung bases. Heart size is normal. There are no hilar masses. There is no heart failure. There is gas-filled multiple loops of large and small bowel throughout the abdomen. There is some tiffanie mbprinting of the transverse colon. IMPRESSION: There is thumbprinting of the transverse colon near the hepatic flexure that is also evid ent on the CT scan of 12/22/2020 and suggestive of some nonspecific colitis.. No free air. Mild atelectasis at the lung bases.
--- NOTE | 2020-12-25 18:58 | PN ---
PROGRESS NOTE DATE OF SERVICE: 12/25/2020 REASON FOR FOLLOWUP: Colitis. INTERVAL HISTORY: The patient's overall fever pattern has improved. The patient is feeling better. No further vomiting. The patient's abdominal pain is decreased in intensity. Denies any chest pain. No shortness of breath or cough and diarrhea has slowed down. PHYSICAL EXAMINATION: Blood pressure 160/69, pulse of 89, temperature 98.4. He is 99% on room air. General description is a middle-aged male lying in bed in no distress. Respiratory system: Unlabored breathing, clear to auscultation anteriorly. Heart S1, S2. Regular rate and rhythm. Abdomen soft, mildly distended. No guarding, no rigidity. Extremities, no edema of the feet. LABS: BUN of 9, creatinine 0.90. DIAGNOSTIC IMPRESSION AND PLAN: Patient with colitis, possible infectious. Patient responding to Rocephin and Flagyl, to continue while waiting for the stool culture to finalize and continue supportive care. MMODL / IJN: [id number] /
[2020-12-26] MEDS: SODIUM CHLORIDE 0.9% 1,000 ML IV SCH ×2 (05:46→20:12)
[2020-12-26] MEDS: PANTOPRAZOLE 40 MG/10 ML VIAL IVP SCH ×2 (08:44→20:12)
[2020-12-26] MEDS: ENOXAPARIN 40 MG/0.4 ML SYRINGE SQ SCH (08:44)
[2020-12-26] MEDS: KETOROLAC 15 MG/ML 1 ML VIAL IVP PRN ×2 (08:45→20:12)
[2020-12-26] MEDS: ONDANSETRON 4 MG/2 ML VIAL IVP SCH ×3 (08:45→23:54)
[2020-12-26] MEDS: metroNIDAZOLE-NS PMX 500 MG in SALINE 1 100ML.BAG IVPB SCH ×3 (08:45→23:55)
[2020-12-26] MEDS ORDERED: Potassium Replacement Protocol 1 EACH MISC MISCELLANE PRN (10:04)
--- NOTE | 2020-12-26 10:08 | P.PN ---
Subjective Patient is a pleasant 48-year-old male came in with complaints of nausea vomiting diarrhea patient states he has multiple episodes around 20-30 episodes of diarrhea every day. Patient started having symptoms of diarrhea and fever on sulma fever resolved but the diarrhea continued. Patient was diagnosed with the hope did 19 shortly after. Patient is still having some body aches and pains patient is comparing of severe crampy lower abdominal pain patient was seen in ER about 3 days ago at that time patient had a CT of the abdomen which showed a colon colitis. C. diff will be obtained patient is bit hyponatremic and receiving IV fluids at this time. 12/25/2020 Patient diarrhea resolved the patient has very minimal diarrhea patient appears to have ileus at this time will obtain abdominal x-ray discontinue Questran, wean off morphine patient will be started on Toradol for pain we'll continue with IV fluids patient's sodium improved minimally potassium is low which will be replaced her creatinine improved. A she is abdomen is distended and tympanic. Patient was also started on IV antibiotics were infectious disease metronidazole and ceftriaxone for colitis 12/26/2020 Patient says she is still having diarrhea but small amount of stools patient abdomen was still distended. Abdominal x-ray did not show any free air but did show significant the colitis Constitutional: Denied any fatigue denied any fever. Cardio vascular: denied any chest pain, palpitations Gastrointestinal the patient abdominal discomfort along with nausea Pulmonary: Denied any shortness of breath cough Neurologic denied any new focal deficits All inpatient medications were reviewed and appropriate changes in these medications as dictated in the interval history and assessment and plan. Objective - Vital Signs Vital signs: Vital Signs Temp 98.1 F 12/26/20 05:53 Pulse 109 H 12/26/20 05:53 Resp 14 12/26/20 05:53 BP 119/64 12/26/20 05:53 Pulse Ox 97 12/26/20 05:53 Intake & Output 12/25/20 12/26/20 12/26/20 18:59 06:59 18:59 Intake Total 1450 1550 Balance 1450 1550 Intake: Intake, IV Titration 1450 1300 Amount Sodium Chloride 0.9% 1, 1200 1200 000 ml @ 100 mls/hr IV . Q10H [facility] Rx#:[id number] cefTRIAXone 2 gm In 50 Sodium Chloride 0.9% 50 ml @ 100 mls/hr IVPB Q24HR [facility] Rx#:[id number] metroNIDAZOLE-NS PMX 500 200 100 mg In Saline 1 100ml.bag @ 100 mls/hr IVPB Q8HR [facility] Rx#:[id number] Oral 250 Other: Voiding Method Toilet - Exam PHYSICAL EXAMINATION: GENERAL: The patient is alert and oriented x3, not in any acute distress. Well developed, well nourished. HEENT: Pupils are round and equally reacting to light. EOMI. No scleral icterus. No conjunctival pallor. Normocephalic, atraumatic. No pharyngeal erythema. No thyromegaly. CARDIOVASCULAR: S1 and S2 present. No murmurs, rubs, or gallops. PULMONARY: Chest is clear to auscultation, no wheezing or crackles. ABDOMEN: Abdomen is distended bowel sounds are present tympanic MUSCULOSKELETAL: No joint swelling or deformity. EXTREMITIES: No cyanosis, clubbing, or pedal edema. NEUROLOGICAL: Gross neurological examination did not reveal any focal deficits. SKIN: No rashes. - Labs CBC & Chem 7: 12/23/20 22:57 12/25/20 09:09 Assessment and Plan Plan: -Colitis: Secondary to possibly covid 19 , patient was started on antivirals for an infectious colitis because of the duration of symptoms. She still having diarrhea awaiting recommendations from gastroenterology -Acute renal failure improved with IV fluids -Hypovolemic hyponatremia: Continue with IV fluids -Covid 19 infection DVT prophylaxis with lower Lovenox
[2020-12-26 10:59] LABS: African American GFR (CKD) 122.5 (60.0-200.0); Anion Gap 12.2 mmol/L (4.00-12.00); BUN/Creat Ratio 11.11 Ratio (12.00-20.00); Calcium 7.8 mg/dL (8.7-10.3); Carbon Dioxide 21.8 mmol/L (21.6-31.8); Non-African American GFR(CKD) 105.7 (60.0-200.0); Potassium 3.4 mmol/L (3.5-5.5)
[2020-12-26 12:22] LABS: HCT 34.1 % (39.0-53.0); HGB 11.1 gm/dL (13.0-17.5); MCH 29.1 pg (25.0-35.0); MCHC 32.7 g/dL (31.0-37.0); MCV 89.1 fL (80.0-100.0); Platelet Count 339 k/uL (150-450); RBC 3.82 m/uL (4.30-5.90); RDW 12.7 % (11.5-15.5); WBC 6.8 k/uL (3.8-10.6)
[2020-12-26 12:49] LABS: Nucleated Red Blood Cells 0 /100 WBC (0-0)
[2020-12-26 12:52] LABS: Band Neutrophils % 18 %; Lymphocytes # (M) 0.95 k/uL (1.0-4.8); Metamyelocytes % 3 %; Monocytes # (M) 0.88 k/uL (0-1.0); Neutrophils % (M) 52 %; Total Cells Counted 200
[2020-12-26 12:53] LABS: Poikilocytosis (M) Present; Toxic Granulation Present
--- NOTE | 2020-12-26 14:02 | XR ---
EXAMINATION TYPE: XR chest 1V portable DATE OF EXAM: 12/26/2020 COMPARISON: Chest x-ray dated 12/24/2020 HISTORY: NG tube placement TECHNIQUE: Single frontal view of the chest is obtained. FINDINGS: There is been interval placement of NG tube which is coiled within the stomach. No other s ignificant interval change. IMPRESSION: NG tube as described.
--- NOTE | 2020-12-26 18:28 | P.PN ---
Subjective Progress Note Date: 12/25/20 Principal diagnosis: colitis, abdominal pain, nausea and vomiting Attempted to see the patient today, however he was undergoing imaging and not available. Will follow up tomorrow. Continue current medical management. Objective - Vital Signs Vital signs: Vital Signs Temp 98.4 F 12/25/20 10:00 Pulse 89 12/25/20 10:00 Resp 20 12/25/20 10:00 BP 116/69 12/25/20 10:00 Pulse Ox 99 12/25/20 10:00 Intake & Output 12/24/20 12/25/20 12/25/20 18:59 06:59 18:59 Intake Total 1520 Balance 1520 Weight 90.718 kg Intake: Intake, IV Titration 1520 Amount Sodium Chloride 0.9% 1, 1320 000 ml @ 120 mls/hr IV . Q8H20M [facility] Rx#:[id number] cefTRIAXone 2 gm In 100 Sodium Chloride 0.9% 50 ml @ 100 mls/hr IVPB Q24HR [facility] Rx#:[id number] metroNIDAZOLE-NS PMX 500 100 mg In Saline 1 100ml.bag @ 100 mls/hr IVPB Q8HR [facility] Rx#:[id number] Other: Voiding Method Toilet # Voids 4 # Bowel Movements 4 - Labs CBC & Chem 7: 12/26/20 05:54 12/26/20 05:54 Labs: Abnormal Lab Results - Last 24 Hours (Table) 12/25/20 Range/Units 09:09 Sodium 133 L (137-145) mmol/L Potassium 3.3 L (3.5-5.1) mmol/L Carbon Dioxide 19 L (22-30) mmol/L Glucose 127 H (74-99) mg/dL Calcium 7.5 L (8.4-10.2) mg/dL Microbiology - Last 24 Hours (Table) 12/24/20 10:50 Stool Culture - Preliminary Stool Assessment and Plan (1) Colitis Current Visit: Yes Status: Acute Code(s): K52.9 - NONINFECTIVE GASTROENTERITIS AND COLITIS, UNSPECIFIED SNOMED Code(s): 59870644 (2) Abdominal pain Current Visit: Yes Status: Acute Code(s): R10.9 - UNSPECIFIED ABDOMINAL PAIN SNOMED Code(s): 51483481 (3) Nausea, vomiting, and diarrhea Current Visit: Yes Status: Acute Code(s): R11.2 - NAUSEA WITH VOMITING, UNSP ECIFIED; R19.7 - DIARRHEA, UNSPECIFIED SNOMED Code(s): 5334939
--- NOTE | 2020-12-26 18:33 | P.PN ---
Subjective Progress Note Date: 12/26/20 Principal diagnosis: colitis, abdominal pain, nausea and vomiting The patient was seen lying in bed today still reporting abdominal distention. He has passed small amounts of stool and a little bit of bright red blood. No further nausea or vomiting. Objective - Vital Signs Vital signs: Vital Signs Temp 98.1 F 12/26/20 05:53 Pulse 109 H 12/26/20 08:45 Resp 14 12/26/20 08:45 BP 119/64 12/26/20 05:53 Pulse Ox 97 12/26/20 05:53 Intake & Output 12/25/20 12/26/20 12/26/20 18:59 06:59 18:59 Intake Total 1450 1550 Balance 1450 1550 Intake: Intake, IV Titration 1450 1300 Amount Sodium Chloride 0.9% 1, 1200 1200 000 ml @ 100 mls/hr IV . Q10H [facility] Rx#:[id number] cefTRIAXone 2 gm In 50 Sodium Chloride 0.9% 50 ml @ 100 mls/hr IVPB Q24HR [facility] Rx#:[id number] metroNIDAZOLE-NS PMX 500 200 100 mg In Saline 1 100ml.bag @ 100 mls/hr IVPB Q8HR [facility] Rx#:[id number] Oral 250 Other: Voiding Method Toilet Toilet - Exam On physical examination, patient appears comfortable in no apparent distress. HEAD: Normocephalic, atraumatic. EYES: No scleral icterus. No conjunctival injection. MOUTH: No lesions, tongue midline. NECK: Trachea midline, no gross abnormalities. ABDOMEN: Soft, obese, mildly tender and distended. Bowel sounds are positive. No organomegaly. No guarding or rigidity. EXTREMITIES: No pedal edema. SKIN: No rashes, no jaundice. NEUROLOGIC: Alert and oriented x3. No focal deficits. - Labs CBC & Chem 7: 12/26/20 05:54 12/26/20 05:54 Assessment and Plan (1) Colitis Narrative/Plan: 40-year-old male presenting to the hospital with complaints of nausea, vomiting, diarrhea and abdominal pain. Previous diagnosis of infection with Covid 19 a presented back to the hospital with complaints of frequent loose bowel movements up to 20-30 daily with associated nausea and vomiting and diffuse abdominal pain. CT scan of the abdomen performed on 12/22/2020 consistent with diffuse colitis with hepatosplenomegaly and hepatic steatosis. Concern was for possible Clostridium difficile testing with initial EIA negative for C. diff toxin. The patient has been started on broad-spectrum antibiotic therapy. Unclear etiology, suspicion is for infective colitis, less likely ischemic or inflammatory process given the acuity of symptoms and diffuse nature of findings, may also be related to underlying infection with coronavirus or other etiology. x-ray performed in evaluation 2 days ago showed ileus and yesterday consistent with colitis. Today he continues to complain of distention. Current Visit: Yes Status: Acute Code(s): K52.9 - NONINFECTIVE GASTROENTERITIS AND COLITIS, UNSPECIFIED SNOMED Code(s): 94443077 (2) Abdominal pain Current Visit: Yes Status: Acute Code(s): R10.9 - UNSPECIFIED ABDOMINAL PAIN SNOMED Code(s): 77522086 (3) Nausea, vomiting, and diarrhea Current Visit: Yes Status: Acute Code(s): R11.2 - NAUSEA WITH VOMITING, UNSPECIFIED; R19.7 - DIARRHEA, UNSPECIFIED SNOMED Code(s): 1378672 Plan: Supportive care nothing by mouth Discussed with the primary team and based on continued abdominal distention and findings of ileus on x-ray previously would recommend nasogastric tube placement on low intermittent suction and surgical consult Continue antiemetic therapy as needed for nausea Protonix twice daily Abdominal series from yesterday consistent with colitis, can consider reimaging with computed tomography scan if symptoms persist Continue broad-spectrum antibiotic therapy for treatment of colitis Infectious disease following the patient Thank you for allowing us to participate in the care of the patient we will continue to follow
--- NOTE | 2020-12-26 23:47 | PN ---
PROGRESS NOTE DATE OF SERVICE: 12/26/2020 REASON FOR FOLLOWUP: Fever and colitis. INTERVAL HISTORY: The patient overall fever has resolved. The patient did have an NG tube placed in for the ileus. The patient denies having any chest pain or shortness of breath or cough. Still having diarrhea. PHYSICAL EXAMINATION: Blood pressure is 118/70 with a pulse of 108. Temperature 98.3. He is 95% on room air. General description is a middle-aged male lying in bed in no distress. Respiratory system: Unlabored breathing. Clear to auscultation anteriorly. HEART S1, S2. Regular rate and rhythm. ABDOMEN: Soft, nondistended. No guarding. No rigidity. LABS: Hemoglobin 11.1, white count 6.8. BUN of 10, creatinine 0.9. Wound cultures currently pending. DIAGNOSTIC IMPRESSION AND PLAN: Patient admitted to the hospital with acute nausea, vomiting, diarrhea and abdominal pain with evidence of C colitis. The patient's stool culture pending. Currently covered with Rocephin and Flagyl to continue and may benefit from repeat CT or endoscopy. We will discuss with surgery GI. Continue supportive care. MMODL / IJN: [id number] /
[2020-12-27] MEDS: SODIUM CHLORIDE 0.9% 1,000 ML IV SCH ×4 (02:27→23:32)
[2020-12-27] MEDS: ONDANSETRON 4 MG/2 ML VIAL IVP SCH ×3 (08:35→23:38)
[2020-12-27] MEDS: PANTOPRAZOLE 40 MG/10 ML VIAL IVP SCH ×2 (08:35→21:09)
[2020-12-27] MEDS: ENOXAPARIN 40 MG/0.4 ML SYRINGE SQ SCH (08:35)
[2020-12-27] MEDS: metroNIDAZOLE-NS PMX 500 MG in SALINE 1 100ML.BAG IVPB SCH ×2 (08:39→19:09)
[2020-12-27 10:44] LABS: Basophils % (A) 0 %; Eosinophils # (A) 0.1 k/uL (0-0.7); Eosinophils % (A) 1 %; HCT 31.8 % (39.0-53.0); Lymphocytes # (A) 0.8 k/uL (1.0-4.8); Lymphocytes % (A) 10 %; MCH 30.6 pg (25.0-35.0); MCHC 34.7 g/dL (31.0-37.0); MCV 88.1 fL (80.0-100.0); Mean Platelet Volume 6.6; Monocytes # (A) 0.6 k/uL (0-1.0); Monocytes % (A) 7 %; Neutrophils # (A) 6.4 k/uL (1.3-7.7); Neutrophils % (A) 79 %; Platelet Count 297 k/uL (150-450); RBC 3.61 m/uL (4.30-5.90); RDW 12.7 % (11.5-15.5); WBC 8.2 k/uL (3.8-10.6)
[2020-12-27 11:10] LABS: African American GFR (CKD) >90 (>60 ml/min/1.73 sqM); Anion Gap 11 mmol/L; Blood Urea Nitrogen 10 mg/dL (9-20); Calcium 7.3 mg/dL (8.4-10.2); Carbon Dioxide 19 mmol/L (22-30); Chloride 102 mmol/L (98-107); Glucose 97 mg/dL (74-99); Non-African American GFR(CKD) >90 (>60 ml/min/1.73 sqM); Potassium 3.3 mmol/L (3.5-5.1); Sodium 132 mmol/L (137-145)
[2020-12-27] MEDS: KETOROLAC 15 MG/ML 1 ML VIAL IVP PRN (11:44)
--- NOTE | 2020-12-27 12:21 | P.PN ---
Subjective Patient is a pleasant 48-year-old male came in with complaints of nausea vomiting diarrhea patient states he has multiple episodes around 20-30 episodes of diarrhea every day. Patient started having symptoms of diarrhea and fever on sulma fever resolved but the diarrhea continued. Patient was diagnosed with the hope did 19 shortly after. Patient is still having some body aches and pains patient is comparing of severe crampy lower abdominal pain patient was seen in ER about 3 days ago at that time patient had a CT of the abdomen which showed a colon colitis. C. diff will be obtained patient is bit hyponatremic and receiving IV fluids at this time. 12/25/2020 Patient diarrhea resolved the patient has very minimal diarrhea patient appears to have ileus at this time will obtain abdominal x-ray discontinue Questran, wean off morphine patient will be started on Toradol for pain we'll continue with IV fluids patient's sodium improved minimally potassium is low which will be replaced her creatinine improved. A she is abdomen is distended and tympanic. Patient was also started on IV antibiotics were infectious disease metronidazole and ceftriaxone for colitis 12/26/2020 Patient says she is still having diarrhea but small amount of stools patient abdomen was still distended. Abdominal x-ray did not show any free air but did show significant the colitis 12/27/2020 Still has abdominal distention patient had an NG tube drained about 800 mL presently has additional 200 mL in the canister now patient's IV fluids will be increased and patient continues to have diarrhea. Increasing the IV fluids to 1 25 mL/h Constitutional: Denied any fatigue denied any fever. Cardio vascular: denied any chest pain, palpitations Gastrointestinal the patient abdominal discomfort along with nausea Pulmonary: Denied any shortness of breath cough Neurologic denied any new focal deficits All inpatient medications were reviewed and appropriate changes in these medications as dictated in the interval history and assessment and plan. Objective - Vital Signs Vital signs: Vital Signs Temp 98.4 F 12/27/20 09:20 Pulse 91 12/27/20 09:20 Resp 18 12/27/20 09:20 BP 118/72 12/27/20 09:20 Pulse Ox 95 12/27/20 09:20 Intake & Output 12/26/20 12/27/20 12/27/20 18:59 06:59 18:59 Intake Total 1450 1840 Output Total 200 800 Balance 1250 1840 -800 Intake: Intake, IV Titration 1450 1300 Amount Sodium Chloride 0.9% 1, 1200 1200 000 ml @ 100 mls/hr IV . Q10H [facility] Rx#:[id number] cefTRIAXone 2 gm In 50 Sodium Chloride 0.9% 50 ml @ 100 mls/hr IVPB Q24HR [facility] Rx#:[id number] metroNIDAZOLE-NS PMX 500 200 100 mg In Saline 1 100ml.bag @ 100 mls/hr IVPB Q8HR [facility] Rx#:[id number] Oral 540 Output: Gastric Drainage 200 800 Other: Voiding Method Toilet Toilet - Exam PHYSICAL EXAMINATION: GENERAL: The patient is alert and oriented x3, not in any acute distress. Well developed, well nourished. HEENT: Pupils are round and equally reacting to light. EOMI. No scleral icterus. No conjunctival pallor. Normocephalic, atraumatic. No pharyngeal erythema. No thyromegaly. CARDIOVASCULAR: S1 and S2 present. No murmurs, rubs, or gallops. PULMONARY: Chest is clear to auscultation, no wheezing or crackles. ABDOMEN: Abdomen is distended bowel sounds are present tympanic MUSCULOSKELETAL: No joint swelling or deformity. EXTREMITIES: No cyanosis, clubbing, or pedal edema. NEUROLOGICAL: Gross neurological examination did not reveal any focal deficits. SKIN: No rashes. - Labs CBC & Chem 7: 12/27/20 10:16 12/27/20 10:16 Labs: Abnormal Lab Results - Last 24 Hours (Table) 12/26/20 12/27/20 12/27/20 Range/Units 05:54 10:16 10:16 RBC 3.82 L 3.61 L (4.30-5.90) m/uL Hgb 11.1 L 11.0 L (13.0-17.5) gm/dL Hct 34.1 L 31.8 L (39.0-53.0) % Lymphocytes # 0.8 L (1.0-4.8) k/uL Lymphocytes # (Manual) 0.95 L (1.0-4.8) k/uL Metamyelocytes # (Man) 0.20 H (0) k/uL Sodium 132 L (137-145) mmol/L Potassium 3.3 L (3.5-5.1) mmol/L Carbon Dioxide 19 L (22-30) mmol/L Calcium 7.3 L (8.4-10.2) mg/dL Assessment and Plan Plan: -Colitis and enteritis: Secondary to possibly covid 19 , patient was started on antivirals for an infectious colitis because of the duration of symptoms. She still having diarrhea awaiting recommendations from gastroenterology patient is still having diarrhea and still having abdominal distention presently has an NG tube in place for and bowel rest and patient will remain nothing by mouth. Although eating ice chips. -Acute renal failure improved with IV fluids -Hypovolemic hyponatremia: Continue with IV fluids and increase IV fluids 1 50 mL per hour -Covid 19 infection DVT prophylaxis with Lovenox
--- NOTE | 2020-12-27 14:12 | P.PN ---
Subjective Progress Note Date: 12/27/20 HISTORY OF PRESENT ILLNESS This is a 40-year-old male patient treated for fever and colitis. Patient has NG tube in place for ileus. He states that his belly pain is improving. He had 6 episodes of diarrhea last evening. He states he was told there was some blood in it. No mucus. Abdomen is less tender. Patient is currently covered with Rocephin and Flagyl. WBC 8.2, hemoglobin 11, creatinine 0.84. COVID-19 positive. C. difficile toxin negative PHYSICAL EXAMINATION Gen: This is a 40-year-old male patient. He is resting but appears to be comfortable. HEENT: Head is atraumatic, normocephalic. Pupils equal, round. Sclerae is anicteric. NECK: Supple. No JVD. No lymphadenopathy. LUNGS: Clear to auscultation. No wheezes or rhonchi. No intercostal retractions. HEART: Regular rate and rhythm. No murmur. ABDOMEN: Soft. Bowel sounds are present. No masses. Mild tenderness. EXTREMITIES: No pedal edema. No calf tenderness. NEUROLOGICAL: Patient is awake, alert and oriented x3. ASSESSMENT Colitis Ileus COVID-19 infection PLAN Continue Rocephin and Flagyl Continue supportive care The above dictated assessment and findings were discussed with Dr. Pantoja. The impression and plan of care have been directed as dictated. Tamanna Goodson nurse practitioner acting as scribe for Dr. Pantoja. Objective - Vital Signs Vital signs: Vital Signs Temp 98.4 F 12/27/20 09:20 Pulse 91 12/27/20 09:20 Resp 18 12/27/20 09:20 BP 118/72 12/27/20 09:20 Pulse Ox 95 12/27/20 09:20 Intake & Output 12/26/20 12/27/20 12/27/20 18:59 06:59 18:59 Intake Total 1450 1840 Output Total 200 800 Balance 1250 1840 -800 Intake: Intake, IV Titration 1450 1300 Amount Sodium Chloride 0.9% 1, 1200 1200 000 ml @ 100 mls/hr IV . Q10H [facility] Rx#:[id number] cefTRIAXone 2 gm In 50 Sodium Chloride 0.9% 50 ml @ 100 mls/hr IVPB Q24HR [facility] Rx#:[id number] metroNIDAZOLE-NS PMX 500 200 100 mg In Saline 1 100ml.bag @ 100 mls/hr IVPB Q8HR [facility] Rx#:[id number] Oral 540 Output: Gastric Drainage 200 800 Other: Voiding Method Toilet Toilet - Labs CBC & Chem 7: 12/27/20 10:16 12/27/20 10:16 Labs: Abnormal Lab Results - Last 24 Hours (Table) 12/26/20 12/26/20 Range/Units 05:54 05:54 RBC 3.82 L (4.30-5.90) m/uL Hgb 11.1 L (13.0-17.5) gm/dL Hct 34.1 L (39.0-53.0) % Lymphocytes # (Manual) 0.95 L (1.0-4.8) k/uL Metamyelocytes # (Man) 0.20 H (0) k/uL Potassium 3.4 L (3.5-5.5) mmol/L Anion Gap 12.20 H (4.00-12.00) mmol/L BUN/Creatinine Ratio 11.11 L (12.00-20.00) Ratio Calcium 7.8 L (8.7-10.3) mg/dL
[2020-12-27] MEDS: IOPAMIDOL CONTRAST (ORAL USE) VIAL PO PRN ×2 (14:47→16:21)
--- NOTE | 2020-12-27 14:56 | P.GSCN ---
History of Present Illness Consult date: 12/27/20 History of present illness: CHIEF COMPLAINT: Abdominal pain HISTORY OF PRESENT ILLNESS: This is a 40-year-old male who presented to hospital with complaints of nausea, vomiting and diarrhea. Patient did have Covid 19 on 12/05/2020. Patient has had frequent bowel movements up to 20-30 times per day. He is being followed by GI service. He had a computed tomography scan of the abdomen and pelvis on 12/22/2020 consistent with colitis, hepatomegaly and hepatic steatosis. He also is complaining of abdominal distention with diffuse abdominal pain. He's had no prior history of colonoscopy. Denies any family history of inflammatory bowel disease. Patient's stool for C. diff was negative. Patient has NG tube in place with minimal yellowish fluid output. Acute abdominal series x-ray shows thumbprinting of the transverse colon near the hepatic flexure that is also evident on the CT on 12/22/2020 and suggestive of non-specific colitis. No free air. Patient denies any fever chills or sweats. He is having bloody watery stools. PAST MEDICAL HISTORY: See list. PAST SURGICAL HISTORY: See list. MEDICATIONS: See list. ALLERGIES: See list. SOCIAL HISTORY: No illicit drug use. REVIEW OF SYSTEMS: CONSTITUTIONAL: Denies fever or chills. HEENT: Denies blurred vision, vision changes, or eye pain. Denies hemoptysis CARDIOVASCULAR: Denies chest pain or pressure. RESPIRATORY: No shortness of breath. GASTROINTESTINAL: See HPI for pertinent findings HEMATOLOGIC: Denies bleeding disorders. GENITOURINARY: Denies any blood in urine or increased urinary frequency. SKIN: Denies pruitis. Denies rash. PHYSICAL EXAM: VITAL SIGNS: Reviewed GENERAL: Well-developed in no acute distress. HEENT: No sclera icterus. Extraocular movements grossly intact. Moist buccal mucosa. Head is atraumatic, normocephalic. No nasal drainage. ABDOMEN: Distended with diffuse abdominal tenderness NEUROLOGIC: Alert and oriented. Cranial nerves II through XII grossly intact. LABORATORY DATA: WBC 8.2 hemoglobin 11.0 sodium 132 potassium is 3.3 creatinine 0.84 Covid detected C. diff negative LFTs normal C-reactive active protein elevated IMAGING: computed tomography scan of the abdomen and pelvis on 12/22/2020 consistent with colitis, hepatomegaly and hepatic steatosis acute abdominal series x-ray shows thumbprinting of the transverse colon near the hepatic flexure that is also evident on the CT on 12/22/2020 and suggestive of non-specific colitis ASSESSMENT: 1. Abdominal pain with abdominal distention 2. Nausea vomiting and bloody diarrhea 3. Colitis 4. Hypokalemia replace per protocol and check magnesium level PLAN: -Discussed case with GI service they've ordered a computed tomography scan of the abdomen and pelvis with contrast -We will follow-up on computed tomography scan results -Continue supportive care -Continue NG tube for decompression -Continue IV fluids -Antibiotics per ID Thank you for this consultation Physician Tower Switch Operator note has been reviewed by physician. Signing provider agrees with the documented findings, assessment, and plan of care. Past Medical History Past Medical History: No Reported History History of Any Multi-Drug Resistant Organisms: None Reported Past Surgical History: No Surgical Hx Reported Past Anesthesia/Blood Transfusion Reactions: No Reported Reaction Past Psychological History: No Psychological Hx Reported Smoking Status: Never smoker Past Alcohol Use History: None Reported Past Drug Use History: None Reported Medications and Allergies Home Medications Medication Instructions Recorded Confirmed Type Ondansetron [Zofran ODT] 4 mg PO Q8HR PRN #15 tab 12/22/20 12/24/20 Rx Allergies Allergy/AdvReac Type Severity Reaction Status Date / Time codeine AdvReac Hallucinati Verified 12/24/20 07:27 ons Surgical - Exam Vital Signs Temp Pulse Resp BP Pulse Ox 100.4 F H 103 H 18 132/78 99 12/23/20 22:10 12/23/20 22:10 12/23/20 22:10 12/23/20 22:10 12/23/20 22:10 Results - Labs 12/27/20 10:16 12/27/20 10:16 Abnormal Lab Results - Last 24 Hours (Table) 12/27/20 12/27/20 12/27/20 Range/Units 10:16 10:16 12:50 RBC 3.61 L (4.30-5.90) m/uL Hgb 11.0 L (13.0-17.5) gm/dL Hct 31.8 L (39.0-53.0) % Lymphocytes # 0.8 L (1.0-4.8) k/uL Sodium 132 L (137-145) mmol/L Potassium 3.3 L (3.5-5.1) mmol/L Carbon Dioxide 19 L (22-30) mmol/L Calcium 7.3 L (8.4-10.2) mg/dL Coronavirus (PCR) Detected A (Not Detectd) Diabetes panel 12/27/20 Range/Units 10:16 Sodium 132 L (137-145) mmol/L Potassium 3.3 L (3.5-5.1) mmol/L Chloride 102 (98-107) mmol/L Carbon Dioxide 19 L (22-30) mmol/L BUN 10 (9-20) mg/dL Creatinine 0.84 (0.66-1.25) mg/dL Glucose 97 (74-99) mg/dL Calcium 7.3 L (8.4-10.2) mg/dL Calcium panel 12/27/20 Range/Units 10:16 Calcium 7.3 L (8.4-10.2) mg/dL Pituitary panel 12/27/20 Range/Units 10:16 Sodium 132 L (137-145) mmol/L Potassium 3.3 L (3.5-5.1) mmol/L Chloride 102 (98-107) mmol/L Carbon Dioxide 19 L (22-30) mmol/L BUN 10 (9-20) mg/dL Creatinine 0.84 (0.66-1.25) mg/dL Glucose 97 (74-99) mg/dL Calcium 7.3 L (8.4-10.2) mg/dL Adrenal panel 12/27/20 Range/Units 10:16 Sodium 132 L (137-145) mmol/L Potassium 3.3 L (3.5-5.1) mmol/L Chloride 102 (98-107) mmol/L Carbon Dioxide 19 L (22-30) mmol/L BUN 10 (9-20) mg/dL Creatinine 0.84 (0.66-1.25) mg/dL Glucose 97 (74-99) mg/dL Calcium 7.3 L (8.4-10.2) mg/dL
--- NOTE | 2020-12-27 15:07 | P.PN ---
Subjective Progress Note Date: 12/27/20 Principal diagnosis: Colitis, abdominal pain, nausea and vomiting This is a 40-year-old male who presented to the hospital with complaints of nausea vomiting and diarrhea. He tested positive for occult 19 infection 12/06/2020. He came into the hospital with severe abdominal pain, 20-30 episodes of diarrhea daily along with vomiting. Over the weekend he had terminal x-rays which showed ileus, continued abdominal dilation and therefore NG tube was placed and surgical consult ordered. Today he is seen and examined with complaints of abdominal pain, he states his distention has improved some, diarrhea has improved as well as no further episodes of vomiting. He states th ough he did have 7 episodes of diarrhea through the evening with small amounts of streaks of blood. It was reported he had 800 mL of fluid from his NG tube through the night, however patient has been also having ice chips. Objective - Vital Signs Vital signs: Vital Signs Temp 97.6 F 12/27/20 14:00 Pulse 78 12/27/20 14:00 Resp 18 12/27/20 14:00 BP 109/70 12/27/20 14:00 Pulse Ox 96 12/27/20 14:00 Intake & Output 12/26/20 12/27/20 12/27/20 18:59 06:59 18:59 Intake Total 1450 1840 Output Total 200 800 Balance 1250 1840 -800 Weight 90.718 kg Intake: Intake, IV Titration 1450 1300 Amount Sodium Chloride 0.9% 1, 1200 1200 000 ml @ 100 mls/hr IV . Q10H [facility] Rx#:[id number] cefTRIAXone 2 gm In 50 Sodium Chloride 0.9% 50 ml @ 100 mls/hr IVPB Q24HR [facility] Rx#:[id number] metroNIDAZOLE-NS PMX 500 200 100 mg In Saline 1 100ml.bag @ 100 mls/hr IVPB Q8HR [facility] Rx#:[id number] Oral 540 Output: Gastric Drainage 200 800 Other: Voiding Method Toilet Toilet - Exam General appearance: The patient is alert, oriented, appears in no acute distress. HET: Head is normocephalic and atraumatic. Conjunctiva pink. Sclera anicteric. NG tube intact with suction. Neck: Supple without lymphadenopathy. Abdomen: Soft, diffuse tenderness, distended with bowel sounds. No guarding or rigidity. Extremities: Normal skin color and turgor. No pedal edema Neurological: No focal deficits. Alert and oriented 3. - Labs CBC & Chem 7: 12/27/20 10:16 12/27/20 10:16 Labs: Abnormal Lab Results - Last 24 Hours (Table) 12/27/20 12/27/20 12/27/20 Range/Units 10:16 10:16 12:50 RBC 3.61 L (4.30-5.90) m/uL Hgb 11.0 L (13.0-17.5) gm/dL Hct 31.8 L (39.0-53.0) % Lymphocytes # 0.8 L (1.0-4.8) k/uL Sodium 132 L (137-145) mmol/L Potassium 3.3 L (3.5-5.1) mmol/L Carbon Dioxide 19 L (22-30) mmol/L Calcium 7.3 L (8.4-10.2) mg/dL Coronavirus (PCR) Detected A (Not Detectd) Assessment and Plan (1) Colitis Narrative/Plan: 40-year-old male presenting to the hospital with complaints of nausea, vomiting, diarrhea and abdominal pain. Previous diagnosis of infection with Covid 19 a presented back to the hospital with complaints of frequent loose bowel movements up to 20-30 daily with associated nausea and vomiting and diffuse abdominal pain. CT scan of the abdomen performed on 12/22/2020 consistent with diffuse colitis with hepatosplenomegaly and hepatic steatosis. Concern was for possible Clostridium difficile testing with initial EIA negative for C. diff toxin. The patient has been started on broad-spectrum antibiotic therapy. Unclear etiology, suspicion is for infective colitis, less likely ischemic or inflammatory process given the acuity of symptoms and diffuse nature of findings, may also be related to underlying infection with coronavirus or other etiology. x-ray performed in evaluation 2 days ago showed ileus and yesterday consistent with colitis. Today he continues to complain of distention. Current Visit: Yes Status: Acute Code(s): K52.9 - NONINFECTIVE GASTROENTERITIS AND COLITIS, UNSPECIFIED SNOMED Code(s): 12183926 (2) Abdominal pain Current Visit: Yes Status: Acute Code(s): R10.9 - UNSPECIFIED ABDOMINAL PAIN SNOMED Code(s): 82775981 (3) Nausea, vomiting, and diarrhea Current Visit: Yes Status: Acute Code(s): R11.2 - NAUSEA WITH VOMITING, UNSPECIFIED; R19.7 - DIARRHEA, UNSPECIFIED SNOMED Code(s): 9817953 Plan: Supportive care nothing by mouth Continue nasogastric tube placement on low intermittent suction Continue antiemetic therapy as needed for nausea Protonix twice daily CT abdomen pelvis with oral and IV contrast Continue broad-spectrum antibiotic therapy for treatment of colitis Infectious disease following the patient Appreciate recommendations from surgical services Thank you for allowing us to participate in the care of the patient we will continue to follow Dr. Mir Eng I agree with the dictator's note, documented as a scribe by Radha Rodas.
[2020-12-27] MEDS: POTASSIUM CHLORIDE 10 MEQ in WATER FOR INJECTION 1 100ML.BAG IVPB SCH ×3 (16:22→23:31)
[2020-12-27] MEDS ORDERED: Magnesium Replacement Protocol 1 EACH MISC MISCELLANE PRN (17:50)
--- NOTE | 2020-12-27 18:10 | CT ---
EXAMINATION TYPE: CT abdomen pelvis w con DATE OF EXAM: 12/27/2020 COMPARISON: 12/22/2020 HISTORY: abdominal distention, abdominal pain CT DLP: 1072.2 mGycm Automated exposure control for dose reduction was used. CONTRAST: Performed with IV Contrast, patient injected with 100 mL of Isovue 300. Images were obtained from the diaphragm to the floor the pelvis with oral and IV contrast. There are mild bilateral pleural effusions. There is bilateral basilar infiltrate and atelectasis. He art size is normal. There is no pericardial effusion. There is nasogastric tube in the gastric antrum . Liver and spleen are intact. The bile ducts are not dilated. Gallbladder measures 4.2 cm. There is no evidence of pancreatic mass. The stomach has normal size. There is no adrenal mass. Kidneys show satisfactory contrast opacification. There is no hydronephrosi s. Delayed images show normal renal excretion. The ureters are not dilated. There are some distended fluid-filled small bowel loops in the mid abdomen. These measure up to 3 cm. There is some diffuse wall thickening of the large bowel. This is more noticeable in the cecum and in the sigmoid colon. The appendix is normal. There is no free air. There is tiny amount of fluid in th e paracolic gutters. Bladder distends smoothly. There is no inguinal hernia. The lumbar vertebra have normal alignment. Th ere is no compression fracture. The bony pelvis is intact. There is free fluid in the pelvis. This sosa s low attenuation. IMPRESSION: There is large bowel wall thickening consistent with colitis that appears worse than recent CT scan. There is mild abdominal ascites fluid slightly increased compared to old exam. There are mildly diste nded small bowel loops with fluid levels consistent with ileus. There is new small pleural effusions and basilar pulmonary infiltrates and atelectasis compared to re cent exam.
[2020-12-28] MEDS: metroNIDAZOLE-NS PMX 500 MG in SALINE 1 100ML.BAG IVPB SCH ×4 (00:37→23:32)
[2020-12-28] MEDS: POTASSIUM CHLORIDE 10 MEQ in WATER FOR INJECTION 1 100ML.BAG IVPB SCH ×2 (01:38→21:03)
[2020-12-28] MEDS: KETOROLAC 15 MG/ML 1 ML VIAL IVP PRN ×3 (07:38→22:11)
[2020-12-28] MEDS: PANTOPRAZOLE 40 MG/10 ML VIAL IVP SCH ×2 (07:38→21:05)
[2020-12-28 09:23] LABS: HCT 31.4 % (39.6-50.0); HGB 10.3 g/dL (13.0-17.0); MCH 29.2 pg (27.0-32.0); MCHC 32.8 g/dL (32.0-37.0); Mean Platelet Volume 9.5 fL (9.5-12.2); Platelet Count 342 X 10*3/uL (140-440); RBC 3.53 X 10*6/uL (4.40-5.60)
[2020-12-28 09:48] LABS: African American GFR (CKD) 128.6 (60.0-200.0); Anion Gap 11.9 mmol/L (4.00-12.00); Calcium 7.3 mg/dL (8.7-10.3); Carbon Dioxide 21.1 mmol/L (21.6-31.8); Magnesium 1.9 mg/dL (1.5-2.4); Potassium 3.7 mmol/L (3.5-5.5)
[2020-12-28] MEDS: ENOXAPARIN 40 MG/0.4 ML SYRINGE SQ SCH (09:49)
[2020-12-28] MEDS: ONDANSETRON 4 MG/2 ML VIAL IVP SCH ×3 (09:49→23:32)
--- NOTE | 2020-12-28 13:39 | P.PN ---
Subjective Progress Note Date: 12/28/20 Principal diagnosis: Colitis, abdominal pain, nausea and vomiting This is a 40-year-old male who presented to the hospital with complaints of nausea vomiting and diarrhea. He tested positive for occult 19 infection 12/06/2020. He came into the hospital with severe abdominal pain, 20-30 episodes of diarrhea daily along with vomiting. Over the weekend he had abdominal x-rays which showed ileus, continued abdominal dilation and therefore NG tube was placed and surgical consult ordered. Today he is seen and examined, and abdominal pain and distention have improved. He denies any further episodes of nausea or vomiting. He has had about 8-10 episodes of diarrhea through the night, he states they are nonbloody but does have some blood on the tissue with wiping. CT of the abdomen yesterday which showed some worsening of large bowel wall thickening. Objective - Vital Signs Vital signs: Vital Signs Temp 98.8 F 12/28/20 06:00 Pulse 97 12/28/20 06:00 Resp 20 12/28/20 06:00 BP 128/71 12/28/20 06:00 Pulse Ox 97 12/28/20 06:00 Intake & Output 12/27/20 12/28/20 12/28/20 18:59 06:59 18:59 Intake Total 0 Output Total 800 Balance -800 0 Weight 90.718 kg Intake: Oral 0 Output: Gastric Drainage 800 Other: Voiding Method Toilet Toilet # Voids 4 3 - Exam General appearance: The patient is alert, oriented, appears in no acute distress. HET: Head is normocephalic and atraumatic. Conjunctiva pink. Sclera anicteric. NG tube intact with suction. Neck: Supple without lymphadenopathy. Abdomen: Soft, I'll tenderness, mild distention with improvement with bowel sounds. No guarding or rigidity. Extremities: Normal skin color and turgor. No pedal edema Neurological: No focal deficits. Alert and oriented 3. - Labs CBC & Chem 7: 12/28/20 04:19 12/28/20 04:19 Labs: Abnormal Lab Results - Last 24 Hours (Table) 12/27/20 12/27/20 12/27/20 Range/Units 10:16 10:16 12:50 RBC (4.40-5.60) X 10*6/uL Hgb (13.0-17.0) g/dL Hct (39.6-50.0) % Sodium 132 L (137-145) mmol/L Potassium 3.3 L (3.5-5.1) mmol/L Carbon Dioxide 19 L (22-30) mmol/L BUN (9.0-27.0) mg/dL BUN/Creatinine Ratio (12.00-20.00) Ratio Calcium 7.3 L (8.4-10.2) mg/dL Procalcitonin 0.77 H (0.02-0.09) ng/mL Coronavirus (PCR) Detected A (Not Detectd) 12/28/20 12/28/20 Range/Units 04:19 04:19 RBC 3.53 L (4.40-5.60) X 10*6/uL Hgb 10.3 L (13.0-17.0) g/dL Hct 31.4 L (39.6-50.0) % Sodium (137-145) mmol/L Potassium (3.5-5.1) mmol/L Carbon Dioxide 21.1 L (22-30) mmol/L BUN 8.0 L (9.0-27.0) mg/dL BUN/Creatinine Ratio 10.00 L (12.00-20.00) Ratio Calcium 7.3 L (8.4-10.2) mg/dL Procalcitonin (0.02-0.09) ng/mL Coronavirus (PCR) (Not Detectd) Microbiology - Last 24 Hours (Table) 12/24/20 10:50 Stool Culture - Final Stool Assessment and Plan (1) Colitis Narrative/Plan: 40-year-old male presenting to the hospital with complaints of nausea, vomiting, diarrhea and abdominal pain. Previous diagnosis of infection with Covid 19 a presented back to the hospital with complaints of frequent loose bowel movements up to 20-30 daily with associated nausea and vomiting and diffuse abdominal pain. CT scan of the abdomen performed on 12/22/2020 consistent with diffuse colitis with hepatosplenomegaly and hepatic steatosis. Concern was for possible Clostridium difficile testing with initial EIA negative for C. diff toxin. The patient has been started on broad-spectrum antibiotic therapy. Unclear etiology, suspicion is for infective colitis, less likely ischemic or inflammatory process given the acuity of symptoms and diffuse nature of findings, may also be related to underlying infection with coronavirus or other etiology. x-ray performed in evaluation 2 days ago showed ileus and yesterday consistent with colitis. CT of the abdomen repeated, there is large bowel wall thickening consistent with colitis that appears worse than recent computed tomography scan. Mild abdominal ascites fluid slightly increased compared to old exam. There are mildly distended small bowel loops fluid-filled levels consistent with ileus. New small pleural effusions and basilar pulmonary infiltrates and atelectasis compared to recent exam. Current Visit: Yes Status: Acute Code(s): K52.9 - NONINFECTIVE GASTROENTERITIS AND COLITIS, UNSPECIFIED SNOMED Code(s): 62279126 (2) Abdominal pain Current Visit: Yes Status: Acute Code(s): R10.9 - UNSPECIFIED ABDOMINAL PAIN SNOMED Code(s): 62224675 (3) Nausea, vomiting, and diarrhea Current Visit: Yes Status: Acute Code(s): R11.2 - NAUSEA WITH VOMITING, UNSPECIFIED; R19.7 - DIARRHEA, UNSPECIFIED SNOMED Code(s): 2794475 Plan: Supportive care nothing by mouth Continue nasogastric tube placement on low intermittent suction Continue antiemetic therapy as needed for nausea Protonix twice daily CT abdomen pelvis ordered and reviewed Continue broad-spectrum antibiotic therapy for treatment of colitis Infectious disease following the patient Appreciate recommendations from surgical services Patient is scheduled for flex sigmoid/colonoscopy tomorrow Bowel prep this evening Thank you for allowing us to participate in the care of the patient we will c david to follow Dr. Mir Eng I agree with the dictator's note, documented as a scribe by Radha Rodas.
--- NOTE | 2020-12-28 14:24 | P.PN ---
Subjective Progress Note Date: 12/28/20 CHIEF COMPLAINT: Abdominal pain with nausea and vomiting HISTORY OF PRESENT ILLNESS: Patient is being followed for colitis. He has NG tube in place. His abdominal distention is improving. He is having diarrhea. No blood in stools. He had 300 of brownish fluid output through NG tube. Computed tomography scan abdomen and pelvis shows large bowel wall thickening consistent with colitis that appears worse than recent CT. There is mild abdominal ascites fluid slightly increased compared to old exam. There are mildly distended small bowel loops with fluid levels consistent with ileus. Afebrile. WBC 8.90 hemoglobin 10.3 potassium 3.7 magnesium 1.9 PHYSICAL EXAM: VITAL SIGNS: Reviewed. GENERAL: Well-developed in no acute distress. HEENT: No sclera icterus. Extraocular movements grossly intact. Moist buccal mucosa. Head is atraumatic, normocephalic. ABDOMEN: Soft. Decrease in abdominal distention NEUROLOGIC: Alert and oriented. Cranial nerves II through XII grossly intact. ASSESSMENT: 1. Abdominal pain with abdominal distention 2. Nausea vomiting diarrhea 3. Colitis 4. Ileus 5. Hypokalemia improved PLAN: -Continue NG tube for decompression -Continue supportive care -Continue IV fluids -Antibiotics per ID -No plans for surgical intervention Physician Bus Monitor note has been reviewed by physician. Signing provider agrees with the documented findings, assessment, and plan of care. Objective - Vital Signs Vital signs: Vital Signs Temp 99.3 F 12/28/20 10:00 Pulse 79 12/28/20 10:00 Resp 18 12/28/20 10:00 BP 108/66 12/28/20 10:00 Pulse Ox 96 12/28/20 10:00 Intake & Output 12/27/20 12/28/20 12/28/20 18:59 06:59 18:59 Intake Total 0 Output Total 800 Balance -800 0 Weight 90.718 kg Intake: Oral 0 Output: Gastric Drainage 800 Other: Voiding Method Toilet Toilet # Voids 4 3 - Labs CBC & Chem 7: 12/28/20 04:19 12/28/20 04:19 Labs: Abnormal Lab Results - Last 24 Hours (Table) 12/27/20 12/28/20 12/28/20 Range/Units 10:16 04:19 04:19 RBC 3.53 L (4.40-5.60) X 10*6/uL Hgb 10.3 L (13.0-17.0) g/dL Hct 31.4 L (39.6-50.0) % Carbon Dioxide 21.1 L (21.6-31.8) mmol/L BUN 8.0 L (9.0-27.0) mg/dL BUN/Creatinine Ratio 10.00 L (12.00-20.00) Ratio Calcium 7.3 L (8.7-10.3) mg/dL Procalcitonin 0.77 H (0.02-0.09) ng/mL Microbiology - Last 24 Hours (Table) 12/24/20 10:50 Stool Culture - Final Stool
--- NOTE | 2020-12-28 16:04 | P.PN ---
Subjective Progress Note Date: 12/28/20 Patient is a pleasant 48-year-old male came in with complaints of nausea vomiting diarrhea patient states he has multiple episodes around 20-30 episodes of diarrhea every day. Patient started having symptoms of diarrhea and fever on sulma fever resolved but the diarrhea continued. Patient was diagnosed with the hope did 19 shortly after. Patient is still having some body aches and pains patient is comparing of severe crampy lower abdominal pain patient was seen in ER about 3 days ago at that time patient had a CT of the abdomen which showed a colon colitis. C. diff will be obtained patient is bit hyponatremic and receiving IV fluids at this time. 12/25/2020 Patient diarrhea resolved the patient has very minimal diarrhea patient appears to have ileus at this time will obtain abdominal x-ray discontinue Questran, wean off morphine patient will be started on Toradol for pain we'll continue with IV fluids patient's sodium improved minimally potassium is low which will be replaced her creatinine improved. A she is abdomen is distended and tympanic. Patient was also started on IV antibiotics were infectious disease metronidazole and ceftriaxone for colitis 12/26/2020 Patient says she is still having diarrhea but small amount of stools patient abdomen was still distended. Abdominal x-ray did not show any free air but did show significant the colitis 12/27/2020 Still has abdominal distention patient had an NG tube drained about 800 mL presently has additional 200 mL in the canister now patient's IV fluids will be increased and patient continues to have diarrhea. Increasing the IV fluids to 125 mL/h 12/28/2020 Patient is seen and evaluated in follow-up this morning and continues to have diarrhea and was noted to have some blood in the stool and GI was consulted. P atient states he has a past medical history of hemorrhoids and has been having diarrhea for the last month. Patient currently continues with an NG tube and continues to have abdominal distention and will continue at this time. In pain on IV fluids along with IV antibiotics in the form of ceftriaxone and Flagyl. Infectious disease is following. Patient underwent abdominal CT showing large bowel wall thickening consistent with colitis that appears worse than recent CT along with mild abdominal ascites fluid that is increased since previous exam and mildly distended small bowel loops with fluid levels consistent with ileus along with new small pleural effusions and basilar pulmonary infiltrates and atelectasis. Sodium today is 140 with a potassium of 3.7 and current creatinine is 0.8 and magnesium is 1.9. GI recommending possible flex sigmoidoscopy in the a.m. Hemoglobin today is 10.3. Incentive spirometer ordered. Constitutional: Denied any fatigue denied any fever. Cardio vascular: denied any chest pain, palpitations Gastrointestinal: patient reports continued abdominal discomfort and distention along with continued diarrhea multiple times daily Pulmonary: Denied any shortness of breath cough Neurologic denied any new focal deficits All inpatient medications were reviewed and appropriate changes in these medications as dictated in the interval history and assessment and plan. Objective - Vital Signs Vital signs: Vital Signs Temp 98.8 F 12/28/20 06:00 Pulse 97 12/28/20 06:00 Resp 20 12/28/20 06:00 BP 128/71 12/28/20 06:00 Pulse Ox 97 12/28/20 06:00 Intake & Output 12/27/20 12/28/20 12/28/20 18:59 06:59 18:59 Intake Total 0 Output Total 800 Balance -800 0 Weight 90.718 kg Intake: Oral 0 Output: Gastric Drainage 800 Other: Voiding Method Toilet Toilet # Voids 4 3 - Exam GENERAL: The patient is alert and oriented x3, not in any acute distress. Well developed, well nourished. HEENT: Pupils are round and equally reacting to light. EOMI. No scleral icterus. No conjunctival pallor. Normocephalic, atraumatic. No pharyngeal erythema. No thyromegaly. CARDIOVASCULAR: S1 and S2 present. No murmurs, rubs, or gallops. PULMONARY: Chest is clear to auscultation, no wheezing or crackles. ABDOMEN: Abdomen is distended bowel sounds are present tympanic MUSCULOSKELETAL: No joint swelling or deformity. EXTREMITIES: No cyanosis, clubbing, or pedal edema. NEUROLOGICAL: Gross neurological examination did not reveal any focal deficits. SKIN: No rashes. - Labs CBC & Chem 7: 12/28/20 04:19 12/28/20 04:19 Labs: Abnormal Lab Results - Last 24 Hours (Table) 12/27/20 12/27/20 12/27/20 Range/Units 10:16 10:16 12:50 RBC (4.40-5.60) X 10*6/uL Hgb (13.0-17.0) g/dL Hct (39.6-50.0) % Sodium 132 L (137-145) mmol/L Potassium 3.3 L (3.5-5.1) mmol/L Carbon Dioxide 19 L (22-30) mmol/L BUN (9.0-27.0) mg/dL BUN/Creatinine Ratio (12.00-20.00) Ratio Calcium 7.3 L (8.4-10.2) mg/dL Procalcitonin 0.77 H (0.02-0.09) ng/mL Coronavirus (PCR) Detected A (Not Detectd) 12/28/20 12/28/20 Range/Units 04:19 04:19 RBC 3.53 L (4.40-5.60) X 10*6/uL Hgb 10.3 L (13.0-17.0) g/dL Hct 31.4 L (39.6-50.0) % Sodium (137-145) mmol/L Potassium (3.5-5.1) mmol/L Carbon Dioxide 21.1 L (22-30) mmol/L BUN 8.0 L (9.0-27.0) mg/dL BUN/Creatinine Ratio 10.00 L (12.00-20.00) Ratio Calcium 7.3 L (8.4-10.2) mg/dL Procalcitonin (0.02-0.09) ng/mL Coronavirus (PCR) (Not Detectd) Microbiology - Last 24 Hours (Table) 12/24/20 10:50 Stool Culture - Final Stool Assessment and Plan Assessment: -Colitis and enteritis: Secondary to possibly covid 19 , patient was started on antivirals for an infectious colitis because of the duration of symptoms. Patient continues to have diarrhea and will undergo flex sigmoidoscopy with GI tomorrow. Continue with NG tube and bowel rest and IV fluids along with antibiotic in the form of ceftriaxone and Flagyl -Acute renal failure improved with IV fluids -Hypovolemic hyponatremia: Continue with IV fluids -Covid 19 infection -DVT prophylaxis with Lovenox -GI prophylaxis Protonix -Full code Plan: Continue with current medications and continue with IV antibiotics. Patient undergo flex sigmoidoscopy with GI in the morning. Continue with bowel rest with occasional ice chips and maintain NG tube for abdominal distention and decompression. Incentive spirometer ordered instructed the patient to continue using at least 10 times every hour while awake. Will repeat a.m. labs.
[2020-12-28] MEDS ORDERED: LIDOCAINE 1% (10MG/ML) FOR IV START INTRADERMA PRN (17:21)
[2020-12-28] MEDS ORDERED: LACTATED RINGERS 1,000 ML IV SCH (17:30)
[2020-12-28] MEDS: SODIUM CHLORIDE 0.9% 1,000 ML IV SCH ×2 (17:31)
--- NOTE | 2020-12-28 18:40 | PN ---
PROGRESS NOTE DATE OF SERVICE: 12/28/2020 REASON FOR FOLLOWUP: Colitis. INTERVAL HISTORY: The patient is currently afebrile. The patient is feeling slightly better today. Abdominal pain has decreased in intensity. Denies having any chest pain or shortness of breath or cough. Still has the NG and continues to complain of diarrhea. PHYSICAL EXAMINATION: Blood pressure 109/70 with a pulse 88, temperature 98.6. He is 97% on room air. General description is a middle-aged male lying in bed in no distress. RESPIRATORY SYSTEM: Unlabored breathing. Clear to auscultation anteriorly. HEART: S1, S2. Regular rate and rhythm. ABDOMEN: Soft. Mildly distended. No guarding or rigidity. LABS: Hemoglobin 10.3, white count 8.90, BUN of 8, creatinine 0.8. C difficile PCR negative. [place] PCR is positive. Stool culture has been negative. DIAGNOSTIC IMPRESSION AND PLAN: Patient with colitis without a clear etiology. Workup has been negative so far. The patient continues to have an NG for decompression and is on empiric Rocephin and Flagyl; to continue. Will discuss further with GI. Continue with supportive care. MMODL / IJN: [id number] /
[2020-12-28] MEDS ORDERED: Potassium Replacement Protocol 1 EACH MISC MISCELLANE PRN (18:54)
[2020-12-28] MEDS ORDERED: MAGNESIUM CITRATE 296 ML BOTTLE PO ONE (19:00)
[2020-12-29] MEDS: POTASSIUM CHLORIDE 10 MEQ in WATER FOR INJECTION 1 100ML.BAG IVPB SCH (01:05)
[2020-12-29] MEDS: SODIUM CHLORIDE 0.9% 1,000 ML IV SCH ×4 (01:53→17:06)
[2020-12-29] MEDS: KETOROLAC 15 MG/ML 1 ML VIAL IVP PRN ×3 (03:39→23:43)
[2020-12-29] MEDS: PANTOPRAZOLE 40 MG/10 ML VIAL IVP SCH ×2 (07:59→20:11)
[2020-12-29] MEDS: metroNIDAZOLE-NS PMX 500 MG in SALINE 1 100ML.BAG IVPB SCH ×3 (08:00→23:44)
[2020-12-29] MEDS: ENOXAPARIN 40 MG/0.4 ML SYRINGE SQ SCH (08:00)
[2020-12-29] MEDS: ONDANSETRON 4 MG/2 ML VIAL IVP SCH ×3 (08:00→23:43)
[2020-12-29 09:46] LABS: African American GFR (CKD) 122.5 (60.0-200.0); Anion Gap 15.5 mmol/L (4.00-12.00); Calcium 7.4 mg/dL (8.7-10.3); Carbon Dioxide 18.5 mmol/L (21.6-31.8); Non-African American GFR(CKD) 105.7 (60.0-200.0); Potassium 3.9 mmol/L (3.5-5.5)
[2020-12-29 10:47] LABS: HCT 32.3 % (39.6-50.0); HGB 10.8 g/dL (13.0-17.0); MCH 29.6 pg (27.0-32.0); MCHC 33.4 g/dL (32.0-37.0); MCV 88.5 fL (80.0-97.0); Mean Platelet Volume 9.3 fL (9.5-12.2); Platelet Count 341 X 10*3/uL (140-440); RBC 3.65 X 10*6/uL (4.40-5.60); RDW 13.2 % (11.5-14.5); WBC 6.95 X 10*3/uL (4.50-10.00)
[2020-12-29 10:48] LABS: Basophils # (M) 0 X 10*3/uL (0.00-0.10); Eosinophils # (M) 0.07 X 10*3/uL (0.04-0.35); Lymphocytes # (M) 0.21 X 10*3/uL (0.90-5.00); Metamyelocytes % 4 % (0-0); Monocytes # (M) 0.76 X 10*3/uL (0.20-1.00); Myelocytes % 2 % (0-0); Neutrophils # (M) 5.49 X 10*3/uL (2.00-8.90); Neutrophils % (M) 79 %
[2020-12-29] MEDS ORDERED: PROPOFOL 10 MG/ML 20 ML VIAL IV ONE (13:53)
[2020-12-29] MEDS ORDERED: LIDOCAINE 1% INJ 10MG/ML (20 ML MDV) ONE (13:53)
[2020-12-29] MEDS ORDERED: SODIUM CHLORIDE 0.9% 500 ML 500 ML IV ONE ×2 (14:02)
--- NOTE | 2020-12-29 14:17 | P.PCN ---
Date of Procedure: 12/29/20 Procedure(s) Performed: BRIEF HISTORY: Patient is a 40-year-old pleasant white male admitted hospital with chronic diarrhea for the last 1 month duration. He initially was having bowel movements anywhere from 4-6 a day still loose to watery in consistency however for the last 1 week history of having 10-15 bowel movements daily. CAT scan of abdomen showed diffuse thickening of the colon consistent with colitis. He was started on proximal rectum antibiotics and he continues remains symptomatic. He developed ileus 3 days ago and hence had an NG tube placed. Stool studies so far have been negative. His and scheduled for colonoscopy to evaluate for inflammatory bowel disease. PROCEDURE PERFORMED: Colonoscopy multiple random biopsies . PREOPERATIVE DIAGNOSIS: Chronic diarrhea for 1 month duration/CAT scan showing diffuse thickening of the colon. IV sedation per Anesthesia. PROCEDURE: After informed consent was obtained, the patient, was brought into the endoscopy unit. IV sedation was administered by Anesthesia under continuous monitoring. Digital rectal examination was normal. Initially the Olympus CF-160 flexible video colonoscope was then inserted in the rectum, gradually advanced into the cecum without any difficulty. Careful examination was performed as the scope was gradually being withdrawn. Ileocecal valve and the appendiceal orifice were visualized and appeared normal. There was severe diffuse colitis noted throughout the entire colon with mucosal edema friability and severe cobblestoning of the mucosa involving the entire colon except the cecum and mild involvement in the rectum consistent with inflammatory bowel disease. Multiple random biopsies were done in the colon.. The patient tolerated the procedure well. IMPRESSION: Severe diffuse colitis involving the entire colon with mucosal erythema, friability and cobblestoning of the mucosa involving the entire colon except the cecum and mild involvement in the rectum all consistent with inflammatory bowel disease RECOMMENDATIONS: Findings of this examination were discussed with the patient . He will be started on IV Solu-Medrol 20 mg every 8 hours. Consider starting TPN.
--- NOTE | 2020-12-29 14:48 | P.PN ---
Subjective Progress Note Date: 12/29/20 Patient is a pleasant 48-year-old male came in with complaints of nausea vomiting diarrhea patient states he has multiple episodes around 20-30 episodes of diarrhea every day. Patient started having symptoms of diarrhea and fever on sulma fever resolved but the diarrhea continued. Patient was diagnosed with the hope did 19 shortly after. Patient is still having some body aches and pains patient is comparing of severe crampy lower abdominal pain patient was seen in ER about 3 days ago at that time patient had a CT of the abdomen which showed a colon colitis. C. diff will be obtained patient is bit hyponatremic and receiving IV fluids at this time. 12/25/2020 Patient diarrhea resolved the patient has very minimal diarrhea patient appears to have ileus at this time will obtain abdominal x-ray discontinue Questran, wean off morphine patient will be started on Toradol for pain we'll continue with IV fluids patient's sodium improved minimally potassium is low which will be replaced her creatinine improved. A she is abdomen is distended and tympanic. Patient was also started on IV antibiotics were infectious disease metronidazole and ceftriaxone for colitis 12/26/2020 Patient says she is still having diarrhea but small amount of stools patient abdomen was still distended. Abdominal x-ray did not show any free air but did show significant the colitis 12/27/2020 Still has abdominal distention patient had an NG tube drained about 800 mL presently has additional 200 mL in the canister now patient's IV fluids will be increased and patient continues to have diarrhea. Increasing the IV fluids to 125 mL/h 12/28/2020 Patient is seen and evaluated in follow-up this morning and continues to have diarrhea and was noted to have some blood in the stool and GI was consulted. P atient states he has a past medical history of hemorrhoids and has been having diarrhea for the last month. Patient currently continues with an NG tube and continues to have abdominal distention and will continue at this time. In pain on IV fluids along with IV antibiotics in the form of ceftriaxone and Flagyl. Infectious disease is following. Patient underwent abdominal CT showing large bowel wall thickening consistent with colitis that appears worse than recent CT along with mild abdominal ascites fluid that is increased since previous exam and mildly distended small bowel loops with fluid levels consistent with ileus along with new small pleural effusions and basilar pulmonary infiltrates and atelectasis. Sodium today is 140 with a potassium of 3.7 and current creatinine is 0.8 and magnesium is 1.9. GI recommending possible flex sigmoidoscopy in the a.m. Hemoglobin today is 10.3. Incentive spirometer ordered. 12/29/2020 Patient is seen this morning continues to have output noted in the NG with abdominal distention and discomfort. Patient also continues with multiple epi sodes of loose stool and waiting to undergo flex sigmoidoscopy with GI Dr. Eng today. Infectious disease and surgery also following and patient is maintained on IV antibiotics in the form of ceftriaxone and Flagyl and will continue at this time. Per patient there is some white blood noted in the stool and hemoglobin today is 10.8. Current sodium is 140 with a potassium of 3.9, current creatinine is 0.9. Patient has been nothing by mouth with just occasional ice chips and is maintained on IV fluids. Constitutional: Denied any fatigue denied any fever. Cardio vascular: denied any chest pain, palpitations Gastrointestinal: patient reports continued abdominal discomfort and distention along with continued loose stools multiple times today. Reports some mild blood in the stool noted Pulmonary: Denied any shortness of breath cough Neurologic denied any new focal deficits All inpatient medications were reviewed and appropriate changes in these medications as dictated in the interval history and assessment and plan. Objective - Vital Signs Vital signs: Vital Signs Temp 98.6 F 12/29/20 05:35 Pulse 109 H 12/29/20 05:35 Resp 18 12/29/20 05:35 BP 121/71 12/29/20 05:35 Pulse Ox 94 L 12/29/20 05:35 Intake & Output 12/28/20 12/29/20 12/29/20 18:59 06:59 18:59 Intake Total 0 Output Total 300 904 Balance -300 -904 Intake: Oral 0 Output: Gastric Drainage 300 400 Stool 500 Urine/Stool Mix 3 Emesis 1 Other: Voiding Method Toilet # Voids 3 1 # Bowel Movements 1 - Exam GENERAL: The patient is alert and oriented x3, not in any acute distress. Well developed, well nourished. HEENT: Pupils are round and equally reacting to light. EOMI. No scleral icterus. No conjunctival pallor. Normocephalic, atraumatic. No pharyngeal erythema. No thyromegaly. NG tube noted CARDIOVASCULAR: S1 and S2 present. No murmurs, rubs, or gallops. PULMONARY: Chest is clear to auscultation, no wheezing or crackles. ABDOMEN: Abdomen is distended bowel sounds are present, tympanic, slightly improved distention MUSCULOSKELETAL: No joint swelling or deformity. EXTREMITIES: No cyanosis, clubbing, or pedal edema. NEUROLOGICAL: Gross neurological examination did not reveal any focal deficits. SKIN: No rashes. - Labs CBC & Chem 7: 12/29/20 05:41 12/29/20 05:41 Labs: Abnormal Lab Results - Last 24 Hours (Table) 12/28/20 12/28/20 Range/Units 04:19 04:19 RBC 3.53 L (4.40-5.60) X 10*6/uL Hgb 10.3 L (13.0-17.0) g/dL Hct 31.4 L (39.6-50.0) % Carbon Dioxide 21.1 L (21.6-31.8) mmol/L BUN 8.0 L (9.0-27.0) mg/dL BUN/Creatinine Ratio 10.00 L (12.00-20.00) Ratio Calcium 7.3 L (8.7-10.3) mg/dL Microbiology - Last 24 Hours (Table) 12/24/20 10:50 Stool Culture - Final Stool Assessment and Plan Assessment: -Colitis and enteritis: Secondary to possibly covid 19 , patient was started on antivirals for an infectious colitis because of the duration of symptoms. Patient scheduled to undergo flex sigmoidoscopy with GI this afternoon. Continue with NG tube and bowel rest and IV fluids along with antibiotic in the form of ceftriaxone and Flagyl. Patient is nothing by mouth and will discuss possible parenteral nutrition (TPN) -Severe diffuse colitis with mucosal erythema and cobblestoning of the mucosa consistent with IBS as noted on sigmoidoscopy, GI is following, patient will be started on IV steroids -Acute renal failure improved with IV fluids -Hypovolemic hyponatremia: Continue with IV fluids -Covid 19 infection -DVT prophylaxis with Lovenox -GI prophylaxis Protonix -Full code Plan: Continue with current medications and continue with IV antibiotics. Patient underwent flex sigmoidoscopy with GI showing severe diffuse colitis involving the entire colon with mucosal erythema, friability, and cobblestoning of the mucosa involving the entire colon except the cecum and mild involvement in the rectum all consistent with IBS. Patient be started on IV steroids with the possibility of TPN as patient has been nothing by mouth. Will order PICC line and consult dietitian. Continue with bowel rest and maintain NG tube for abdominal distention and decompression. Continue to encourage Incentive spirometer. Will repeat a.m. labs. Consult dietitian.
[2020-12-29 15:08] LABS: INR 1.6 (<1.2); Prothrombin Time 16.3 sec (9.0-12.0)
[2020-12-29] MEDS: methylPREDNISolone SOD SUCCI 40 MG/ML 1 ML VIAL IV SCH ×3 (15:25→23:45)
[2020-12-29 15:33] LABS: Ionized Calcium 5.1 mg/dL (4.5-5.3)
[2020-12-29 15:46] LABS: Magnesium 2.1 mg/dL (1.6-2.3); Phosphorus 3.2 mg/dL (2.5-4.5)
--- NOTE | 2020-12-29 16:22 | P.PN ---
Progress Note - Text Progress Note Date: 12/29/20 Patient states he feels better. He still is having diarrhea. He is less abdominal distention. Patient underwent colonoscopy Dr. Eng today he has severe colitis involving the entire colon. Multiple biopsies were performed. Colitis pathology pending. Patient will receive supportive care.
--- NOTE | 2020-12-29 23:24 | PN ---
PROGRESS NOTE DATE OF SERVICE: 12/29/2020 REASON FOR FOLLOWUP: Colitis, possible inflammatory bowel disease. INTERVAL HISTORY: The patient is currently afebrile. The patient was taken to the OR. The patient is status post colonoscopy with evidence of significant inflammatory changes to his colon with some necrotic changes. The patient's abdominal pain is currently controlled. He still has the NG and no worsening diarrhea. PHYSICAL EXAMINATION: Blood pressure 102/66, pulse of 75, temperature 98. He is 94% on room air. General description is a middle-aged male lying in bed in no distress. RESPIRATORY SYSTEM: Unlabored breathing. Clear to auscultation anteriorly. HEART: S1, S2. Regular rate and rhythm. ABDOMEN: Soft. Mildly distended. No guarding or rigidity. LABS: Hemoglobin is 10, white count 6.95, BUN of 9, creatinine 0.9. DIAGNOSTIC IMPRESSION AND PLAN: Patient with colitis and concern about inflammatory bowel disease involving most of his colon. General Surgery is on the case. The patient may need a total colectomy as per discussion with GI. Steroid has been added. Continue with empiric Rocephin and Flagyl while monitoring his clinical course closely. MMODL / IJN: [id number] /
[2020-12-30] MEDS: SODIUM CHLORIDE 0.9% 1,000 ML IV SCH ×3 (03:32→14:08)
[2020-12-30] MEDS: methylPREDNISolone SOD SUCCI 40 MG/ML 1 ML VIAL IV SCH ×4 (05:47→23:39)
[2020-12-30] MEDS: PANTOPRAZOLE 40 MG/10 ML VIAL IVP SCH ×2 (08:36→20:15)
[2020-12-30] MEDS: ENOXAPARIN 40 MG/0.4 ML SYRINGE SQ SCH (08:37)
[2020-12-30] MEDS: ONDANSETRON 4 MG/2 ML VIAL IVP SCH ×3 (08:37→23:39)
[2020-12-30] MEDS: metroNIDAZOLE-NS PMX 500 MG in SALINE 1 100ML.BAG IVPB SCH ×3 (08:38→23:39)
[2020-12-30] MEDS ORDERED: LIDOCAINE 1% INJ 10MG/ML (20 ML MDV) ONE (10:49)
[2020-12-30] MEDS ORDERED: LIDOCAINE 1% INJ 10MG/ML (20 ML MDV) SQ ONE (11:21)
[2020-12-30 12:00] LABS: African American GFR (CKD) 128.6 (60.0-200.0); Anion Gap 13.5 mmol/L (4.00-12.00); Calcium 7.8 mg/dL (8.7-10.3); Carbon Dioxide 21.5 mmol/L (21.6-31.8); Magnesium 2.2 mg/dL (1.5-2.4); Potassium 4.4 mmol/L (3.5-5.5)
--- NOTE | 2020-12-30 12:21 | XR ---
EXAMINATION TYPE: XR chest 1V portable DATE OF EXAM: 12/30/2020 COMPARISON: 12/26/2020 INDICATION: PICC line placement TECHNIQUE: Single frontal view of the chest is obtained. FINDINGS: The heart size is normal. The pulmonary vasculature is normal. The lungs are clear. Nasogastric tube transverses the thorax the tip within the right upper quadrant of the abdomen. PICC line is been placed on the left tip within the proximal right atrium. IMPRESSION: 1. No acute pulmonary process. 2. PICC line placement with tip in the proximal right atrium.
--- NOTE | 2020-12-30 13:01 | IR ---
EXAMINATION TYPE: IR cvc insert >=5 years DATE OF EXAM: 12/30/2020 COMPARISON: NONE HISTORY: Needs long-term intravenous access for total parenteral nutrition, Crohn's disease, Covid in fection FINDINGS: Maximal barrier technique was utilized. Hand hygiene obtained with soap and water and alco hol-based hand rub. The skin overlying the left basilic vein was localized with ultrasound and noted to be compressible and patent by ultrasound. An ultrasound image was obtained and submitted on yadi soto's chart. Sterile technique utilized with the ultrasound machine. The skin overlying was prepped an d draped and Lidocaine used for local anesthesia. A skin davide was made with a scalpel. Access was g ained to the vein under direct ultrasound guidance with a 21-gauge needle and a 0.018 inch wire was a dvanced. Access site was dilated with a peel-away sheath and the catheter tailored to length. Mariajose ter advanced centrally and a post procedure chest x-ray verified placement with the tip in the right atrium. Catheter was fixed to the skin and a sterile dressing placed. Hemostasis achieved and the c atheter was aspirated and flushed with sterile saline. The patient remained in stable condition. IMPRESSION: STATUS POST ULTRASOUND GUIDED PICC LINE PLACEMENT, READY FOR USE. THIS PROCEDURE WAS PER FORMED BY THE UNDERSIGNED.
--- NOTE | 2020-12-30 13:31 | P.PN ---
Subjective Progress Note Date: 12/30/20 Patient is a pleasant 48-year-old male came in with complaints of nausea vomiting diarrhea patient states he has multiple episodes around 20-30 episodes of diarrhea every day. Patient started having symptoms of diarrhea and fever on sulma fever resolved but the diarrhea continued. Patient was diagnosed with the hope did 19 shortly after. Patient is still having some body aches and pains patient is comparing of severe crampy lower abdominal pain patient was seen in ER about 3 days ago at that time patient had a CT of the abdomen which showed a colon colitis. C. diff will be obtained patient is bit hyponatremic and receiving IV fluids at this time. 12/25/2020 Patient diarrhea resolved the patient has very minimal diarrhea patient appears to have ileus at this time will obtain abdominal x-ray discontinue Questran, wean off morphine patient will be started on Toradol for pain we'll continue with IV fluids patient's sodium improved minimally potassium is low which will be replaced her creatinine improved. A she is abdomen is distended and tympanic. Patient was also started on IV antibiotics were infectious disease metronidazole and ceftriaxone for colitis 12/26/2020 Patient says she is still having diarrhea but small amount of stools patient abdomen was still distended. Abdominal x-ray did not show any free air but did show significant the colitis 12/27/2020 Still has abdominal distention patient had an NG tube drained about 800 mL presently has additional 200 mL in the canister now patient's IV fluids will be increased and patient continues to have diarrhea. Increasing the IV fluids to 125 mL/h 12/28/2020 Patient is seen and evaluated in follow-up this morning and continues to have diarrhea and was noted to have some blood in the stool and GI was consulted. P atient states he has a past medical history of hemorrhoids and has been having diarrhea for the last month. Patient currently continues with an NG tube and continues to have abdominal distention and will continue at this time. In pain on IV fluids along with IV antibiotics in the form of ceftriaxone and Flagyl. Infectious disease is following. Patient underwent abdominal CT showing large bowel wall thickening consistent with colitis that appears worse than recent CT along with mild abdominal ascites fluid that is increased since previous exam and mildly distended small bowel loops with fluid levels consistent with ileus along with new small pleural effusions and basilar pulmonary infiltrates and atelectasis. Sodium today is 140 with a potassium of 3.7 and current creatinine is 0.8 and magnesium is 1.9. GI recommending possible flex sigmoidoscopy in the a.m. Hemoglobin today is 10.3. Incentive spirometer ordered. 12/29/2020 Patient is seen this morning continues to have output noted in the NG with abdominal distention and discomfort. Patient also continues with multiple epi sodes of loose stool and waiting to undergo flex sigmoidoscopy with GI Dr. Eng today. Infectious disease and surgery also following and patient is maintained on IV antibiotics in the form of ceftriaxone and Flagyl and will continue at this time. Per patient there is some white blood noted in the stool and hemoglobin today is 10.8. Current sodium is 140 with a potassium of 3.9, current creatinine is 0.9. Patient has been nothing by mouth with just occasional ice chips and is maintained on IV fluids. 12/30/2020 Patient continues to have abdominal discomfort with occasional nausea and cont inued diarrhea noted. Patient is status post sigmoidoscopy showing severe diffuse colitis involving the entire colon with mucosal erythema, friability, pot cobblestoning of the mucosa involving the entire colon except the cecum and mild involvement in the rectum. NG tube currently clamped per GI r ecommendations. She is to receive a PICC line today and will initiate TPN. Dietitian consulted. Potassium currently 4.4, sodium is 143, current creatinine is 0.8 and magnesium is 2.2. Patient is maintained on IV antibiotics in the form of Flagyl and ceftriaxone. Infectious disease is following. Patient started on IV Solu-Medrol and will continue with IV hydration as well. Will repeat a.m. labs. Constitutional: Denied any fatigue denied any fever. Cardio vascular: denied any chest pain, palpitations Gastrointestinal: patient reports continued abdominal discomfort and distention along with continued loose stools multiple times today. Reports continued mild blood in the stool noted Pulmonary: Denied any shortness of breath cough Neurologic denied any new focal deficits All inpatient medications were reviewed and appropriate changes in these medications as dictated in the interval history and assessment and plan. Objective - Vital Signs Vital signs: Vital Signs Temp 98.0 F 12/30/20 06:00 Pulse 85 12/30/20 06:00 Resp 19 12/30/20 06:00 BP 110/71 12/30/20 06:00 Pulse Ox 97 12/30/20 06:00 Intake & Output 12/29/20 12/30/20 12/30/20 18:59 06:59 18:59 Intake Total 100 Output Total 400 Balance 100 -400 Weight 90.718 kg Intake: IV 100 Oral 0 Output: Gastric Drainage 300 Stool 100 Other: Voiding Method Toilet # Voids 3 1 - Exam GENERAL: The patient is alert and oriented x3, not in any acute distress. Well developed, well nourished. HEENT: Pupils are round and equally reacting to light. EOMI. No scleral icterus. No conjunctival pallor. Normocephalic, atraumatic. No pharyngeal erythema. No thyromegaly. NG tube noted andcurrently clamped CARDIOVASCULAR: S1 and S2 present. No murmurs, rubs, or gallops. PULMONARY: Chest is clear to auscultation, no wheezing or crackles. ABDOMEN: Abdomen is distended bowel sounds are present, tympanic, tenderness noted on exam, slightly improved distention MUSCULOSKELETAL: No joint swelling or deformity. EXTREMITIES: No cyanosis, clubbing, or pedal edema. NEUROLOGICAL: Gross neurological examination did not reveal any focal deficits. SKIN: No rashes. - Labs CBC & Chem 7: 12/29/20 05:41 12/30/20 06:05 Labs: Abnormal Lab Results - Last 24 Hours (Table) 12/29/20 12/29/20 12/29/20 Range/Units 05:41 05:41 05:41 RBC 3.65 L (4.40-5.60) X 10*6/uL Hgb 10.8 L (13.0-17.0) g/dL Hct 32.3 L (39.6-50.0) % MPV 9.3 L (9.5-12.2) fL Metamyelocytes % 4 H (0-0) % Myelocytes % 2 H (0-0) % Lymphocytes # (Manual) 0.21 L (0.90-5.00) X 10*3/uL PT 16.3 H (9.0-12.0) sec INR 1.6 H (<1.2) Carbon Dioxide 18.5 L (21.6-31.8) mmol/L Anion Gap 15.50 H (4.00-12.00) mmol/L BUN/Creatinine Ratio 10.00 L (12.00-20.00) Ratio Calcium 7.4 L (8.7-10.3) mg/dL Albumin (3.5-5.0) g/dL 12/29/20 Range/Units 05:41 RBC (4.40-5.60) X 10*6/uL Hgb (13.0-17.0) g/dL Hct (39.6-50.0) % MPV (9.5-12.2) fL Metamyelocytes % (0-0) % Myelocytes % (0-0) % Lymphocytes # (Manual) (0.90-5.00) X 10*3/uL PT (9.0-12.0) sec INR (<1.2) Carbon Dioxide (21.6-31.8) mmol/L Anion Gap (4.00-12.00) mmol/L BUN/Creatinine Ratio (12.00-20.00) Ratio Calcium (8.7-10.3) mg/dL Albumin 2.0 L (3.5-5.0) g/dL Assessment and Plan Assessment: -Colitis and enteritis: Secondary to possibly covid 19 , patient was started on antivirals for an infectious colitis because of the duration of symptoms. Osorio maradiaga underwent flex sigmoidoscopy with GI as mentioned previously. Continue with NG tube and bowel rest and IV fluids along with antibiotic in the form of ceftriaxone and Flagyl. Patient is nothing by mouth and awaiting receive PICC line for TPN, NG tube currently clamped per GI recommendations. -Severe diffuse colitis with mucosal erythema and cobblestoning of the mucosa consistent with IBS as noted on sigmoidoscopy, GI is following, patient maintained on IV steroids -Acute renal failure improved with IV fluids -Hypovolemic hyponatremia: Continue with IV fluids -Covid 19 infection -DVT prophylaxis with Lovenox -GI prophylaxis Protonix -Full code Plan: Continue with current medications and continue with IV antibiotics. Patient was started on IV steroids and will continue. Patient underwent flex sigmoidoscopy with GI showing severe diffuse colitis involving the entire colon with mucosal erythema, friability, and cobblestoning of the mucosa involving the entire colon except the cecum and mild involvement in the rectum all consistent with IBS. Patient to receive a PICC line and initiate TPN and continue with bowel rest. Patient continues to have multiple episodes of diarrhea and reports blood noted in the stool. Will repeat CBC with a.m. labs. Continue to encourage Incentive spirometer. If clinical status continues to show no improvement patient may likely require transfer to tertiary treatment center and will discuss with GI along with case management in the near future.
--- NOTE | 2020-12-30 13:35 | P.PN ---
Subjective Progress Note Date: 12/30/20 CHIEF COMPLAINT: Abdominal pain with nausea and vomiting HISTORY OF PRESENT ILLNESS: Patient is being followed for colitis. Patient is status post colonoscopy which had shown severe colitis. GI services started patient on IV Solu-Medrol and ordered TPN. He is scheduled for his PICC line placement today to start TPN. He is currently nothing by mouth. He did have 300 mL output through his NG tube last night. His abdominal pain and distention has slightly improved. He is still having bloody diarrhea. He denies any nausea. His NG tube is currently clamped. And working on trying to discontinue NG tube. Patient is hesitant to have it removed and then have to have it replaced. Afebrile. PHYSICAL EXAM: VITAL SIGNS: Reviewed. GENERAL: Well-developed in no acute distress. HEENT: No sclera icterus. Extraocular movements grossly intact. Moist buccal mucosa. Head is atraumatic, normocephalic. ABDOMEN: Soft. Decrease in abdominal distention NEUROLOGIC: Alert and oriented. Cranial nerves II through XII grossly intact. ASSESSMENT: 1. Severe colitis 2. Ileus PLAN: -If patient has no nausea with NG tube clamped. NG tube can be discontinued -Continue supportive care -Continue IV fluids -Antibiotics per ID -Continue to monitor Physician Regional Operations Director note has been reviewed by physician. Signing provider agrees with the documented findings, assessment, and plan of care. Objective - Vital Signs Vital signs: Vital Signs Temp 98.4 F 12/30/20 10:00 Pulse 83 12/30/20 10:00 Resp 18 12/30/20 10:00 BP 105/70 12/30/20 10:00 Pulse Ox 100 12/30/20 10:00 Intake & Output 12/29/20 12/30/20 12/30/20 18:59 06:59 18:59 Intake Total 100 Output Total 400 Balance 100 -400 Weight 90.718 kg Intake: IV 100 Oral 0 Output: Gastric Drainage 300 Stool 100 Other: Voiding Method Toilet # Voids 3 1 - Labs CBC & Chem 7: 12/29/20 05:41 12/30/20 06:05 Labs: Abnormal Lab Results - Last 24 Hours (Table) 12/29/20 12/29/20 12/30/20 Range/Units 05:41 05:41 06:05 PT 16.3 H (9.0-12.0) sec INR 1.6 H (<1.2) Carbon Dioxide 21.5 L (21.6-31.8) mmol/L Anion Gap 13.50 H (4.00-12.00) mmol/L Glucose 131 H (70-110) mg/dL Calcium 7.8 L (8.7-10.3) mg/dL Albumin 2.0 L (3.5-5.0) g/dL
[2020-12-30] MEDS ORDERED: MVI, ADULT NO.4 WITH VIT K 10 ML, TRACE (CONC-1ML/DOSE) 1 ML in AMINO ACID 5%-D20W+LYTE... IV SCH ×3 (14:00)
--- NOTE | 2020-12-30 15:04 | P.PN ---
Subjective Progress Note Date: 12/30/20 Principal diagnosis: Colitis, abdominal pain, nausea and vomiting This is a 40-year-old male who presented to the hospital with complaints of nausea vomiting and diarrhea. He tested positive for occult 19 infection 12/06/2020. He came into the hospital with severe abdominal pain, 20-30 episodes of diarrhea daily along with vomiting. The patient underwent colonoscopy yesterday which showed severe diffuse colitis friability, cobblestoning CONSISTENT with irritable bowel disease. He was started on Solu- Medrol 20 mg every 8 hours. NG tube was clamped, however through the night he was connected to intermittent suction with another 300-400 mL of output. He has seen and examined today. He states his abdominal pain has improved, however he still had some discomfort yesterday evening. Continues with diarrhea with some noted blood streaks, states he had approximately 7 episodes. Objective - Vital Signs Vital signs: Vital Signs Temp 98.0 F 12/30/20 06:00 Pulse 85 12/30/20 06:00 Resp 19 12/30/20 06:00 BP 110/71 12/30/20 06:00 Pulse Ox 97 12/30/20 06:00 Intake & Output 12/29/20 12/30/20 12/30/20 18:59 06:59 18:59 Intake Total 100 Output Total 400 Balance 100 -400 Weight 90.718 kg Intake: IV 100 Oral 0 Output: Gastric Drainage 300 Stool 100 Other: Voiding Method Toilet # Voids 3 1 - Exam General appearance: The patient is alert, oriented, appears in no acute distress. HET: Head is normocephalic and atraumatic. Conjunctiva pink. Sclera anicteric. NG tube intact with suction. Neck: Supple without lymphadenopathy. Abdomen: Soft, lower abdominal tenderness, mild distention. No guarding or rigidity. Extremities: Normal skin color and turgor. No pedal edema Neurological: No focal deficits. Alert and oriented 3. - Labs CBC & Chem 7: 12/29/20 05:41 12/30/20 06:05 Labs: Abnormal Lab Results - Last 24 Hours (Table) 12/29/20 12/29/20 12/29/20 Range/Units 05:41 05:41 05:41 RBC 3.65 L (4.40-5.60) X 10*6/uL Hgb 10.8 L (13.0-17.0) g/dL Hct 32.3 L (39.6-50.0) % MPV 9.3 L (9.5-12.2) fL Metamyelocytes % 4 H (0-0) % Myelocytes % 2 H (0-0) % Lymphocytes # (Manual) 0.21 L (0.90-5.00) X 10*3/uL PT 16.3 H (9.0-12.0) sec INR 1.6 H (<1.2) Carbon Dioxide 18.5 L (21.6-31.8) mmol/L Anion Gap 15.50 H (4.00-12.00) mmol/L BUN/Creatinine Ratio 10.00 L (12.00-20.00) Ratio Calcium 7.4 L (8.7-10.3) mg/dL Albumin (3.5-5.0) g/dL 12/29/20 Range/Units 05:41 RBC (4.40-5.60) X 10*6/uL Hgb (13.0-17.0) g/dL Hct (39.6-50.0) % MPV (9.5-12.2) fL Metamyelocytes % (0-0) % Myelocytes % (0-0) % Lymphocytes # (Manual) (0.90-5.00) X 10*3/uL PT (9.0-12.0) sec INR (<1.2) Carbon Dioxide (21.6-31.8) mmol/L Anion Gap (4.00-12.00) mmol/L BUN/Creatinine Ratio (12.00-20.00) Ratio Calcium (8.7-10.3) mg/dL Albumin 2.0 L (3.5-5.0) g/dL Assessment and Plan (1) Colitis Narrative/Plan: 40-year-old male presenting to the hospital with complaints of nausea, vomiting, diarrhea and abdominal pain. Previous diagnosis of infection with Covid 19 a pr esented back to the hospital with complaints of frequent loose bowel movements up to 20-30 daily with associated nausea and vomiting and diffuse abdominal pain. CT scan of the abdomen performed on 12/22/2020 consistent with diffuse colitis with hepatosplenomegaly and hepatic steatosis. Concern was for possible Clostridium difficile testing with initial EIA negative for C. diff toxin. The patient has been started on broad-spectrum antibiotic therapy. Unclear etiology, suspicion is for infective colitis, less likely ischemic or inflammatory process given the acuity of symptoms and diffuse nature of findings, may also be related to underlying infection with coronavirus or other etiology. x-ray performed in evaluation 2 days ago showed ileus and yesterday consistent with colitis. CT of the abdomen repeated, there is large bowel wall thickening consistent with colitis that appears worse than recent computed tomography scan. Mild abdominal ascites fluid slightly increased compared to old exam. There are mildly distended small bowel loops fluid-filled levels consistent with ileus. New small pleural effusions and basilar pulmonary infiltrates and atelectasis compared to recent exam. Patient is status post colonoscopy with findings of severe use colitis involving the entire colon with mucosal erythema, friability, and cobblestoning of the mucosa involving the entire colon except the cecum and mild involvement in the rectum CONSISTENT WITH INFLAMMATORY BOWEL DISEASE. Current Visit: Yes Status: Acute Code(s): K52.9 - NONINFECTIVE GASTROENTERITIS AND COLITIS, UNSPECIFIED SNOMED Code(s): 71665738 (2) Abdominal pain Current Visit: Yes Status: Acute Code(s): R10.9 - UNSPECIFIED ABDOMINAL PAIN SNOMED Code(s): 19147864 (3) Nausea, vomiting, and diarrhea Current Visit: Yes Status: Acute Code(s): R11.2 - NAUSEA WITH VOMITING, UNSPECIFIED; R19.7 - DIARRHEA, UNSPECIFIED SNOMED Code(s): 9396550 Plan: Supportive care A advanced to clear liquid diet Nasogastric tube may be clamped Continue antiemetic therapy as needed for nausea Protonix twice daily CT abdomen pelvis ordered and reviewed Continue broad-spectrum antibiotic therapy for treatment of colitis Infectious disease following the patient Appreciate recommendations from surgical services Patient is status post colonoscopy IV Solu-Medrol 20 mg IV push every 8 hours Sed rate and CRP and morning It was discussed with the patient if no continued improvement, may consider transfer to tertiary center Thank you for allowing us to participate in the care of the patient we will continue to follow Dr. Mir Eng I agree with the dictator's note, documented as a scribe by Radha Rodas.
--- NOTE | 2020-12-30 15:31 | PN ---
PROGRESS NOTE DATE OF SERVICE: 12/30/2020 REASON FOR FOLLOWUP: Colitis. INTERVAL HISTORY: The patient is currently afebrile. Patient is breathing comfortably. The patient's abdominal pain has currently decreased in intensity. No chest pain, shortness of breath or cough. PHYSICAL EXAMINATION: Blood pressure 105/70 with a pulse of 83, temperature 98.4. He is 100% on room air. General description is a middle-aged male lying in bed in no distress. RESPIRATORY SYSTEM: Unlabored breathing, clear to auscultation anteriorly. HEART: S1, S2. Regular rate and rhythm. ABDOMEN: Soft. Mildly distended. No guarding or rigidity. LABS: Creatinine 0.8, white count 6.95. DIAGNOSTIC IMPRESSION AND PLAN: Patient with colitis, extensive, possibly inflammatory bowel disease is currently being treated with bowel rest, steroids, antibiotic to continue and monitor clinical course closely. MMODL / IJN: [id number] /
[2020-12-30 17:07] LABS: Glucose,Whole Blood 178 mg/dL (75-99)
[2020-12-30] MEDS: INSULIN ASPART (NovoLOG) 100 UNIT/ML VIAL SQ SCH ×2 (17:29→23:38)
[2020-12-30] MEDS: KETOROLAC 15 MG/ML 1 ML VIAL IVP PRN (18:27)
[2020-12-30 23:37] LABS: Glucose,Whole Blood 225 mg/dL (75-99)
[2020-12-31] MEDS: KETOROLAC 15 MG/ML 1 ML VIAL IVP PRN ×3 (02:21→15:10)
[2020-12-31] MEDS: SODIUM CHLORIDE 0.9% 1,000 ML IV SCH ×3 (05:04→23:21)
[2020-12-31 05:37] LABS: Glucose,Whole Blood 227 mg/dL (75-99)
[2020-12-31] MEDS: methylPREDNISolone SOD SUCCI 40 MG/ML 1 ML VIAL IV SCH ×4 (05:56→23:19)
[2020-12-31] MEDS: INSULIN ASPART (NovoLOG) 100 UNIT/ML VIAL SQ SCH ×4 (05:57→23:19)
[2020-12-31] MEDS: metroNIDAZOLE-NS PMX 500 MG in SALINE 1 100ML.BAG IVPB SCH ×3 (09:28→23:20)
[2020-12-31] MEDS: ONDANSETRON 4 MG/2 ML VIAL IVP SCH ×3 (09:28→23:19)
[2020-12-31] MEDS: FAT EMULSION 20% 250 ML in EMPTY BAG 1 BAG IV SCH (09:29)
[2020-12-31] MEDS: ENOXAPARIN 40 MG/0.4 ML SYRINGE SQ SCH (09:29)
[2020-12-31] MEDS: PANTOPRAZOLE 40 MG/10 ML VIAL IVP SCH ×2 (09:29→20:59)
[2020-12-31 09:55] LABS: African American GFR (CKD) 135.9 (60.0-200.0); Anion Gap 4.7 mmol/L (4.00-12.00); BUN/Creat Ratio 22.86 Ratio (12.00-20.00); C Reactive Protein 10.6 mg/dL (0.0-0.8); Calcium 7.2 mg/dL (8.7-10.3); Carbon Dioxide 26.3 mmol/L (21.6-31.8); Magnesium 2.1 mg/dL (1.5-2.4); Non-African American GFR(CKD) 117.2 (60.0-200.0); Phosphorus 2.8 mg/dL (2.4-5.1); Potassium 3.9 mmol/L (3.5-5.5)
[2020-12-31 10:23] LABS: Anisocytosis (M) 2+; Basophils # (A) 0.01 X 10*3/uL (0.00-0.10); Basophils % (A) 0.1 %; Eosinophils # (A) 0 X 10*3/uL (0.04-0.35); Eosinophils % (A) 0 %; HGB 10.5 g/dL (13.0-17.0); Lymphocytes # (A) 0.72 X 10*3/uL (0.90-5.00); Lymphocytes % (A) 9.7 %; MCH 29.7 pg (27.0-32.0); MCHC 33.9 g/dL (32.0-37.0); MCV 87.6 fL (80.0-97.0); Mean Platelet Volume 9.5 fL (9.5-12.2); Monocytes # (A) 0.49 X 10*3/uL (0.20-1.00); Monocytes % (A) 6.6 %; Neutrophils # (A) 5.91 X 10*3/uL (1.80-7.70); Platelet Count 347 X 10*3/uL (140-440); RBC 3.54 X 10*6/uL (4.40-5.60); RDW 13.3 % (11.5-14.5)
--- NOTE | 2020-12-31 11:22 | P.PN ---
Subjective Progress Note Date: 12/31/20 CHIEF COMPLAINT: Abdominal pain with nausea and vomiting HISTORY OF PRESENT ILLNESS: Patient is being followed for colitis. Patient is status post colonoscopy which had shown severe colitis. GI services started patient on IV Solu-Medrol. He is nothing by mouth and has been started on TPN due to being on bowel rest. He does have some abdominal pain but better than admission. He has some abdominal distention but reports that he just ate that clear breakfast tray. He denies any nausea or vomiting. His NG tube is currently clamped. His diarrhea is becoming less frequent but still has blood present. Pathology report did show chronic and active colitis with focal ulceration in the ascending colon, transverse colon and descending colon. Rectal biopsy had shown active proctitis. Afebrile. WBC 7.4 CRP down to 10.6 GI services recommending that patient be transferred to tertiary care center PHYSICAL EXAM: VITAL SIGNS: Reviewed. GENERAL: Well-developed in no acute distress. HEENT: No sclera icterus. Extraocular movements grossly intact. Moist buccal mucosa. Head is atraumatic, normocephalic. ABDOMEN: Soft. Distended NEUROLOGIC: Alert and oriented. Cranial nerves II through XII grossly intact. ASSESSMENT: 1. Severe colitis 2. Ileus PLAN: -Continue supportive care -Continue IV fluids -Continue TPN for nutrition support -Continue IV steroids per GI service -Antibiotics per ID Physician Multicultural Manager note has been reviewed by physician. Signing provider agrees with the documented findings, assessment, and plan of care. Objective - Vital Signs Vital signs: Vital Signs Temp 98.1 F 12/31/20 10:00 Pulse 93 12/31/20 10:00 Resp 18 12/31/20 10:00 BP 115/78 12/31/20 10:00 Pulse Ox 94 L 12/31/20 10:00 Intake & Output 12/30/20 12/31/20 12/31/20 18:59 06:59 18:59 Output Total 100 Balance -100 Output: Stool 100 Other: Voiding Method Toilet # Voids 3 3 - Labs CBC & Chem 7: 12/31/20 06:12 12/31/20 06:12 Labs: Abnormal Lab Results - Last 24 Hours (Table) 12/30/20 12/30/20 12/30/20 Range/Units 06:05 17:05 23:35 RBC (4.40-5.60) X 10*6/uL Hgb (13.0-17.0) g/dL Hct (39.6-50.0) % Absolute Nucleated RBC (0.00-0.00) X 10*3/uL Immature Gran # (0.00-0.04) X 10*3/uL Lymphocytes # (0.90-5.00) X 10*3/uL Eosinophils # (0.04-0.35) X 10*3/uL NRBC/100 WBC Diff (0.0-0.0) /100 WBCS Carbon Dioxide 21.5 L (21.6-31.8) mmol/L Anion Gap 13.50 H (4.00-12.00) mmol/L BUN/Creatinine Ratio (12.00-20.00) Ratio Glucose 131 H (70-110) mg/dL POC Glucose (mg/dL) 178 H 225 H (75-99) mg/dL Calcium 7.8 L (8.7-10.3) mg/dL C-Reactive Protein (0.0-0.8) mg/dL 12/31/20 12/31/20 12/31/20 Range/Units 05:35 06:12 06:12 RBC 3.54 L (4.40-5.60) X 10*6/uL Hgb 10.5 L (13.0-17.0) g/dL Hct 31.0 L (39.6-50.0) % Absolute Nucleated RBC 0.02 H (0.00-0.00) X 10*3/uL Immature Gran # 0.27 H (0.00-0.04) X 10*3/uL Lymphocytes # 0.72 L (0.90-5.00) X 10*3/uL Eosinophils # 0 L (0.04-0.35) X 10*3/uL NRBC/100 WBC Diff 0.3 H (0.0-0.0) /100 WBCS Carbon Dioxide (21.6-31.8) mmol/L Anion Gap (4.00-12.00) mmol/L BUN/Creatinine Ratio 22.86 H (12.00-20.00) Ratio Glucose 216 H (70-110) mg/dL POC Glucose (mg/dL) 227 H (75-99) mg/dL Calcium 7.2 L (8.7-10.3) mg/dL C-Reactive Protein 10.6 H (0.0-0.8) mg/dL
[2020-12-31 12:07] LABS: Glucose,Whole Blood 191 mg/dL (75-99)
[2020-12-31 12:10] LABS: Erythrocyte Sedimentation Rate 34 mm/Hr (0-15)
--- NOTE | 2020-12-31 13:41 | P.PN ---
Subjective Progress Note Date: 12/31/20 Principal diagnosis: Colitis, abdominal pain, nausea and vomiting This is a 40-year-old male who presented to the hospital with complaints of nausea vomiting and diarrhea. He tested positive for occult 19 infection 12/06/2020. He came into the hospital with severe abdominal pain, 20-30 episodes of diarrhea daily along with vomiting. The patient underwent colonoscopy which showed severe diffuse colitis friability, cobblestoning CONSISTENT with irritable bowel disease. He was started on Solu-Medrol 20 mg every 8 hours. NG tube was clamped, was started on clear liquid diet. He states he had approximately 7 bowel movements in the night, while her quantity without blood. He is having some increased abdominal pain after liquids with increased abdominal distention. Objective - Vital Signs Vital signs: Vital Signs Temp 98.2 F 12/31/20 05:49 Pulse 73 12/31/20 05:49 Resp 18 12/31/20 05:49 BP 139/78 12/31/20 05:49 Pulse Ox 96 12/31/20 05:49 Intake & Output 12/30/20 12/31/20 12/31/20 18:59 06:59 18:59 Output Total 100 Balance -100 Output: Stool 100 Other: Voiding Method Toilet # Voids 3 3 - Exam General appearance: The patient is alert, oriented, appears in no acute distress. HET: Head is normocephalic and atraumatic. Conjunctiva pink. Sclera anicteric. NG tube intact with suction. Neck: Supple without lymphadenopathy. Abdomen: Soft, diffuse abdominal tenderness, distended. No guarding or rigidity. Extremities: Normal skin color and turgor. Bilateral pedal edema. Neurological: No focal deficits. Alert and oriented 3. - Labs CBC & Chem 7: 12/31/20 06:12 12/31/20 06:12 Labs: Abnormal Lab Results - Last 24 Hours (Table) 12/30/20 12/30/20 12/30/20 Range/Units 06:05 17:05 23:35 Carbon Dioxide 21.5 L (21.6-31.8) mmol/L Anion Gap 13.50 H (4.00-12.00) mmol/L Glucose 131 H (70-110) mg/dL POC Glucose (mg/dL) 178 H 225 H (75-99) mg/dL Calcium 7.8 L (8.7-10.3) mg/dL 12/31/20 Range/Units 05:35 Carbon Dioxide (21.6-31.8) mmol/L Anion Gap (4.00-12.00) mmol/L Glucose (70-110) mg/dL POC Glucose (mg/dL) 227 H (75-99) mg/dL Calcium (8.7-10.3) mg/dL Assessment and Plan (1) Colitis Current Visit: Yes Status: Acute Code(s): K52.9 - NONINFECTIVE GASTROENTERITIS AND COLITIS, UNSPECIFIED SNOMED Code(s): 54531934 (2) Abdominal pain Current Visit: Yes Status: Acute Code(s): R10.9 - UNSPECIFIED ABDOMINAL PAIN SNOMED Code(s): 20451299 (3) Nausea, vomiting, and diarrhea Current Visit: Yes Status: Acute Code(s): R11.2 - NAUSEA WITH VOMITING, UNSPECIFIED; R19.7 - DIARRHEA, UNSPECIFIED SNOMED Code(s): 6910993 Plan: Supportive care Advanced to clear liquid diet Nasogastric tube may be clamped Continue antiemetic therapy as needed for nausea Protonix twice daily CT abdomen pelvis ordered and reviewed Continue broad-spectrum antibiotic therapy for treatment of colitis Infectious disease following the patient Appreciate recommendations from surgical services Patient is status post colonoscopy with biopsy IV Solu-Medrol 20 mg IV push every 8 hours TPN started per dietitian Abdominal x-ray ordered Recommend transfer to tertiary center for higher level of care, [facility] or [facility] Case management consulted for transfer Thank you for allowing us to participate in the care of the patient we will continue to follow Dr. Mir Eng I agree with the dictator's note, documented as a scribe by Radha Rodas.
[2020-12-31] MEDS ORDERED: SODIUM CHLORIDE 0.9% 1,000 ML IV ONE ×2 (14:29→20:42)
[2020-12-31] MEDS: MORPHINE SULFATE 4 MG/ML SYRINGE IV PRN ×3 (14:39→23:59)
--- NOTE | 2020-12-31 14:47 | PN ---
PROGRESS NOTE DATE OF SERVICE: 12/31/2020 REASON FOR FOLLOWUP: Colitis, possible inflammatory bowel disease. INTERVAL HISTORY: The patient is currently afebrile, has been breathing comfortably. The patient mentioned he was doing good last night. However, he ate something this morning and having more abdominal pain now. He still has the NG, no worsening output and no worsening diarrhea. PHYSICAL EXAMINATION: Blood pressure 115/78 with a pulse of 93, temperature 98.1. He is 94% on room air. General description is a middle-aged male lying in bed in no distress. RESPIRATORY SYSTEM: Unlabored breathing, clear to auscultation anteriorly. HEART: S1, S2. Regular rate and rhythm. ABDOMEN: Soft, no tenderness. LABS: Hemoglobin 10.5, white count 7.40, BUN of 16, creatinine 0.7. DIAGNOSTIC IMPRESSION AND PLAN: Patient with colitis, possible inflammatory bowel disease, status post colonoscopy, biopsy. Biopsy report is currently pending. Patient is covered with and Flagyl to continue while monitoring his clinical course closely. MMODL / IJN: [id number] /
--- NOTE | 2020-12-31 16:03 | XR ---
EXAMINATION TYPE: XR abdomen 1V DATE OF EXAM: 12/31/2020 COMPARISON: NONE HISTORY: Pain TECHNIQUE: Single supine KUB image of the abdomen is obtained FINDINGS: There is double wall sign noted which can indicate underlying pneumoperitoneum. NG tube is in place. There is dilated small bowel measuring up to 4.3 cm. Nodular thickening is noted of the transverse co juanjose. IMPRESSION: 1. The findings are felt to reflect pneumoperitoneum. 2. NG tube appropriately placed. A Red level critical message alert has been initiated for Tahir Morrison via the [employer] System on 12/31/2020 4:01 PM. This message alert has been sent to Tahir Morrison via [employer] preferences provided by the clinician for the receipt of Radiology Critical Findings. Message ID [id number].
--- NOTE | 2020-12-31 16:07 | XR ---
EXAMINATION TYPE: XR chest 1V portable DATE OF EXAM: 12/31/2020 COMPARISON: CT abdomen pelvis 12/27/2020, chest x-ray 12/30/2020 HISTORY: Abdominal and epigastric pain TECHNIQUE: Single frontal view of the chest is obtained. FINDINGS: There is been interval development of a large amount of free air underneath the hemidiaphr agms. NG tube remains in place. There is no evident pneumothorax. Bibasilar airspace disease or basil ar atelectasis is present. Left-sided PICC line remains in place with the distal tip in the right atr ium. IMPRESSION: Pneumoperitoneum has developed in the interval. A Red level critical message alert has been initiated for Tahir Morrison via the [employer] System on 12/31/2020 4:04 PM. This message alert has been sent to Tahir Morrison via e preferences provided by the clinician for the receipt of Radiology Critical Findings. Message ID [id number].
[2020-12-31 17:12] LABS: Glucose,Whole Blood 162 mg/dL (75-99)
--- NOTE | 2020-12-31 17:41 | P.PN ---
Subjective Progress Note Date: 12/31/20 48-year-old male came in with complaints of nausea vomiting diarrhea patient states he has multiple episodes around 20-30 episodes of diarrhea every day. Patient started having symptoms of diarrhea and fever on new years sulma fever resolved but the diarrhea continued. Patient was diagnosed with the hope did 19 shortly after. Patient is still having some body aches and pains patient is comparing of severe crampy lower abdominal pain patient was seen in ER about 3 days ago at that time patient had a CT of the abdomen which showed a colon colitis. C. diff will be obtained patient is bit hyponatremic and receiving IV fluids at this time. 12/31/2020 Patient is seen and evaluated in room at bedside; patient is demanding to be transferred to here; her social work lecturer talked to the patient and recommended possible transfer to [facility] due to possibility of patient being accepted today; patient is agreeable; Arrangements were made for patient's transferred to [facility] under Dr. Khalil, however abdominal x-ray done this afternoon reveals pneumoperiton eum; surgery was notified; Dr. Deal we will see the patient with possibility of OR tonight; fluid was called and spoke with RN and canceled patient transferred to [facility] Objective - Vital Signs Vital signs: Vital Signs Temp 98.1 F 12/31/20 10:00 Pulse 93 12/31/20 10:00 Resp 18 12/31/20 10:00 BP 115/78 12/31/20 10:00 Pulse Ox 94 L 12/31/20 10:00 Intake & Output 12/30/20 12/31/20 12/31/20 18:59 06:59 18:59 Output Total 100 Balance -100 Output: Stool 100 Other: Voiding Method Toilet # Voids 3 3 - Exam GENERAL: The patient is alert and oriented x3, not in any acute distress. Well developed, well nourished. HEENT: Pupils are round and equally reacting to light. EOMI. No scleral icterus. No conjunctival pallor. Normocephalic, atraumatic. No pharyngeal erythema. No thyromegaly. NG tube noted andcurrently clamped CARDIOVASCULAR: S1 and S2 present. No murmurs, rubs, or gallops. PULMONARY: Chest is clear to auscultation, no wheezing or crackles. ABDOMEN: Abdomen is distended bowel sounds are present, tympanic, tenderness noted on exam, slightly improved distention MUSCULOSKELETAL: No joint swelling or deformity. EXTREMITIES: No cyanosis, clubbing, or pedal edema. NEUROLOGICAL: Gross neurological examination did not reveal any focal deficits. SKIN: No rashes. - Labs CBC & Chem 7: 12/31/20 06:12 12/31/20 06:12 Labs: Abnormal Lab Results - Last 24 Hours (Table) 12/30/20 12/30/20 12/31/20 Range/Units 17:05 23:35 05:35 RBC (4.40-5.60) X 10*6/uL Hgb (13.0-17.0) g/dL Hct (39.6-50.0) % Absolute Nucleated RBC (0.00-0.00) X 10*3/uL Immature Gran # (0.00-0.04) X 10*3/uL Lymphocytes # (0.90-5.00) X 10*3/uL Eosinophils # (0.04-0.35) X 10*3/uL NRBC/100 WBC Diff (0.0-0.0) /100 WBCS ESR (0-15) mm/Hr BUN/Creatinine Ratio (12.00-20.00) Ratio Glucose (70-110) mg/dL POC Glucose (mg/dL) 178 H 225 H 227 H (75-99) mg/dL Calcium (8.7-10.3) mg/dL C-Reactive Protein (0.0-0.8) mg/dL 12/31/20 12/31/20 12/31/20 Range/Units 06:12 06:12 11:56 RBC 3.54 L (4.40-5.60) X 10*6/uL Hgb 10.5 L (13.0-17.0) g/dL Hct 31.0 L (39.6-50.0) % Absolute Nucleated RBC 0.02 H (0.00-0.00) X 10*3/uL Immature Gran # 0.27 H (0.00-0.04) X 10*3/uL Lymphocytes # 0.72 L (0.90-5.00) X 10*3/uL Eosinophils # 0 L (0.04-0.35) X 10*3/uL NRBC/100 WBC Diff 0.3 H (0.0-0.0) /100 WBCS ESR 34 H (0-15) mm/Hr BUN/Creatinine Ratio 22.86 H (12.00-20.00) Ratio Glucose 216 H (70-110) mg/dL POC Glucose (mg/dL) 191 H (75-99) mg/dL Calcium 7.2 L (8.7-10.3) mg/dL C-Reactive Protein 10.6 H (0.0-0.8) mg/dL Assessment and Plan Assessment: - Pneumoperitoneum on abdominal x-ray; we will plan to hold patient's transfer to [facility] for urgent evaluation by surgical team -Colitis and enteritis: Secondary to possibly covid 19 , patient was started on antivirals for an infectious colitis because of the duration of symptoms. Patient underwent flex sigmoidoscopy with GI as mentioned previously. Continue with NG tube and bowel rest and IV fluids along with antibiotic in the form of ceftriaxone and Flagyl. Patient is nothing by mouth and awaiting receive PICC line for TPN, NG tube currently clamped per GI recommendations. -Severe diffuse colitis with mucosal erythema and cobblestoning of the mucosa consistent with IBS as noted on sigmoidoscopy, GI is following, patient maintained on IV steroids -Acute renal failure improved with IV fluids -Hypovolemic hyponatremia: Continue with IV fluids -Covid 19 infection -DVT prophylaxis with Lovenox -GI prophylaxis Protonix -Full code Plan: Continue with current medications and continue with IV antibiotics. Patient was started on IV steroids and will continue. Patient underwent flex sigmoidoscopy with GI showing severe diffuse colitis involving the entire colon with mucosal erythema, friability, and cobblestoning of the mucosa involving the entire colon except the cecum and mild involvement in the rectum all consistent with IBS. Patient to receive a PICC line and initiate TPN and continue with bowel rest. Patient continues to have multiple episodes of diarrhea and reports blood noted in the stool. Will repeat CBC with a.m. labs. Continue to encourage Incentive spirometer. If clinical status continues to show no improvement patient may likely require transfer to tertiary treatment center and will discuss with GI along with case management in the near future.
[2020-12-31] MEDS: 1: MVI, ADULT NO.4 WITH VIT K 10 ML, TRACE (CONC-1ML/DOSE) 1 ML in AMINO ACID 5%-D20W+LY IV SCH ×6 (18:18→23:21)
[2020-12-31] MEDS ORDERED: KETAMINE 10 MG/ML 20 ML VIAL ONE (19:16)
[2020-12-31] MEDS ORDERED: HYDROmorphone (PF) 1 MG/ML ONE (19:16)
[2020-12-31] MEDS ORDERED: MIDAZOLAM 2 MG/2 ML VIAL ONE (19:16)
[2020-12-31] MEDS ORDERED: PROPOFOL 10 MG/ML 20 ML VIAL IV ONE (19:16)
[2020-12-31] MEDS ORDERED: fentaNYL (PF) 50 MCG/ML 2 ML AMP ONE (19:16)
[2020-12-31] MEDS ORDERED: SUCCINYLCHOLINE CHLORIDE 100 MG/5 ML SYR IV ONE (19:16)
[2020-12-31] MEDS ORDERED: KETOROLAC 15 MG/ML 1 ML VIAL ONE (19:16)
[2020-12-31] MEDS ORDERED: NEOSTIGMINE 1 MG/ML 10 ML VIAL ONE (19:16)
[2020-12-31] MEDS ORDERED: ROCURONIUM 10 MG/ML (5 ML VIAL) IV ONE (19:16)
[2020-12-31] MEDS ORDERED: LIDOCAINE 1% INJ 10MG/ML (20 ML MDV) ONE (19:16)
[2020-12-31] MEDS ORDERED: GLYCOPYRROLATE 0.2 MG/ML 2 ML VIAL ONE (19:16)
[2020-12-31] MEDS ORDERED: LACTATED RINGERS 1,000 ML IV ONE ×3 (19:20→21:25)
--- NOTE | 2020-12-31 19:41 | P.GSCN ---
History of Present Illness Consult date: 12/31/20 History of present illness: This is a 40-year-old male who I was called about by Dr. Eng. He has been in the hospital being followed for ulcerative colitis he was also COVID19 positive last month month ago and was tested positive again this week. The patient had been being followed by another surgical service apparently today the patient became unstable on the floor hypotensive severe abdominal pain he is found to have pneumoperitoneum and fulminant ulcerative colitis. The surgical team that was covering for him and following him stated they were unavailable to operate. I was asked to consult on the patient urgently at 6:30 PM. He apparently was hypotensive on the floor at 1 PM. Patient states that he's having severe abdominal pain he denies any past surgical history he denies any significant past medical history other than the Covid positive result from a month ago he denies ever having a cough loss of taste or smell or fevers. Past Medical History Past Medical History: No Reported History History of Any Multi-Drug Resistant Organisms: None Reported Past Surgical History: No Surgical Hx Reported Past Anesthesia/Blood Transfusion Reactions: No Reported Reaction Past Psychological History: No Psychological Hx Reported Smoking Status: Never smoker Past Alcohol Use History: None Reported Past Drug Use History: None Reported Medications and Allergies Home Medications Medication Instructions Recorded Confirmed Type Ondansetron [Zofran ODT] 4 mg PO Q8HR PRN #15 tab 12/22/20 12/24/20 Rx Allergies Allergy/AdvReac Type Severity Reaction Status Date / Time codeine AdvReac Hallucinati Verified 12/24/20 07:27 ons Surgical - Exam Osteopathic Statement: *. No significant issues noted on an osteopathic structural exam other than those noted in the History and Physical/Consult. Vital Signs Temp Pulse Resp BP Pulse Ox 100.4 F H 103 H 18 132/78 99 12/23/20 22:10 12/23/20 22:10 12/23/20 22:10 12/23/20 22:10 12/23/20 22:10 - General well developed, well nourished, severe distress, severe pain - Neck trachea midline - Cardiovascular Rhythm: regular - Abdomen Distended markedly, rigid, grossly peritoneal - Neurologic normal coordination, normal sensation - Psychiatric oriented to time, oriented to person, oriented to place Results - Labs 12/31/20 06:12 12/31/20 06:12 Abnormal Lab Results - Last 24 Hours (Table) 12/30/20 12/31/20 12/31/20 Range/Units 23:35 05:35 06:12 RBC (4.40-5.60) X 10*6/uL Hgb (13.0-17.0) g/dL Hct (39.6-50.0) % Absolute Nucleated RBC (0.00-0.00) X 10*3/uL Immature Gran # (0.00-0.04) X 10*3/uL Lymphocytes # (0.90-5.00) X 10*3/uL Eosinophils # (0.04-0.35) X 10*3/uL NRBC/100 WBC Diff (0.0-0.0) /100 WBCS ESR (0-15) mm/Hr BUN/Creatinine Ratio 22.86 H (12.00-20.00) Ratio Glucose 216 H (70-110) mg/dL POC Glucose (mg/dL) 225 H 227 H (75-99) mg/dL Calcium 7.2 L (8.7-10.3) mg/dL C-Reactive Protein 10.6 H (0.0-0.8) mg/dL 12/31/20 12/31/20 12/31/20 Range/Units 06:12 11:56 16:45 RBC 3.54 L (4.40-5.60) X 10*6/uL Hgb 10.5 L (13.0-17.0) g/dL Hct 31.0 L (39.6-50.0) % Absolute Nucleated RBC 0.02 H (0.00-0.00) X 10*3/uL Immature Gran # 0.27 H (0.00-0.04) X 10*3/uL Lymphocytes # 0.72 L (0.90-5.00) X 10*3/uL Eosinophils # 0 L (0.04-0.35) X 10*3/uL NRBC/100 WBC Diff 0.3 H (0.0-0.0) /100 WBCS ESR 34 H (0-15) mm/Hr BUN/Creatinine Ratio (12.00-20.00) Ratio Glucose (70-110) mg/dL POC Glucose (mg/dL) 191 H 162 H (75-99) mg/dL Calcium (8.7-10.3) mg/dL C-Reactive Protein (0.0-0.8) mg/dL Diabetes panel 12/31/20 Range/Units 06:12 Sodium 139 (135-145) mmol/L Potassium 3.9 (3.5-5.5) mmol/L Chloride 108 (96-109) mmol/L Carbon Dioxide 26.3 (21.6-31.8) mmol/L BUN 16.0 (9.0-27.0) mg/dL Creatinine 0.7 (0.6-1.5) mg/dL Glucose 216 H (70-110) mg/dL Calcium 7.2 L (8.7-10.3) mg/dL Calcium panel 12/31/20 Range/Units 06:12 Calcium 7.2 L (8.7-10.3) mg/dL Phosphorus 2.8 (2.4-5.1) mg/dL Pituitary panel 12/31/20 Range/Units 06:12 Sodium 139 (135-145) mmol/L Potassium 3.9 (3.5-5.5) mmol/L Chloride 108 (96-109) mmol/L Carbon Dioxide 26.3 (21.6-31.8) mmol/L BUN 16.0 (9.0-27.0) mg/dL Creatinine 0.7 (0.6-1.5) mg/dL Glucose 216 H (70-110) mg/dL Calcium 7.2 L (8.7-10.3) mg/dL Adrenal panel 12/31/20 Range/Units 06:12 Sodium 139 (135-145) mmol/L Potassium 3.9 (3.5-5.5) mmol/L Chloride 108 (96-109) mmol/L Carbon Dioxide 26.3 (21.6-31.8) mmol/L BUN 16.0 (9.0-27.0) mg/dL Creatinine 0.7 (0.6-1.5) mg/dL Glucose 216 H (70-110) mg/dL Calcium 7.2 L (8.7-10.3) mg/dL Assessment and Plan Assessment: Fulminant ulcerative colitis Septic shock Pneumoperitoneum Plan: Although this patient has been hypotensive since 1 PM I was just consult on him. Plan is for immediate surgical intervention patient has fulminant ulcerative colitis with pneumoperitoneum and will not survive without subtotal colectomy this was discussed with the patient who was agreeable to subtotal colectomy with end ileostomy. I did have a discussion with Dr. Eng who performed his colonoscopy and stated that there was minimal rectal involvement and she thought that we could safely spare his rectum. Patient will be resuscitated with IV fluid bolus as needed
--- NOTE | 2020-12-31 22:04 | P.OP ---
Date of Procedure: 12/31/20 Preoperative Diagnosis: Fulminant ulcerative colitis Perforated viscus pneumoperitoneum Postoperative Diagnosis: Same Procedure(s) Performed: Exploratory laparotomy with subtotal colectomy and creation of end ileostomy Anesthesia: MAC Surgeon: Shyam Chris Estimated Blood Loss (ml): 100 Condition: critical Disposition: ICU Description of Procedure: Patient was brought back to the operative suite remained in supine position underwent general endotracheal anesthesia per Department of anesthesia prepped and draped usual sterile fashion timeout was performed correct patient correct procedure correct site was verified. Incision was made in the midline carried down the fascia which was incised in the usual fashion and opened immediately there was a large amount of foul-smelling air and purulent fluid. 3 L of purulent brown fluid were suctioned this appeared to be stool. The entire colon was inspected and the entire colon to the rectum was noted to be ischemic appearing with multiple perforations this is consistent with fulminant ulcerative colitis. The terminal ileum was identified and stapled across using a 60 mm purple load Endo SD stapler. The colon was released from its peritoneal attachments along the white line on the right the hepatic flexure was taken down the splenic flexure was taken down and the colon was released along the white line of Toldt on the left colon. Using an ensure LigaSure device the mesenteric attachments to the colon were taken down being sure to visualize the duodenum the ligament of Treitz. This was taken down into the pelvis ensuring that the ureter was preserved. The colon was dissected down to the peritoneal reflection and healthy colon was noted at the rectum. A black load 60 mm Endo SD stapler was used to staple across the rectosigmoid junction. The specimen was removed and sent to pathology. A 19-Azeri channel drain was placed in the pelvis and sutured to the skin using 3-0 nylon all 4 quadrants were copiously irrigated and suctioned the terminal ileum was dissected free the entire small bowel was run and noted to be healthy and pink 3cm circular incision was made in the right lower quadrant carried down the fascia was incised and the rectus was bluntly spread the terminal ileum was brought up through this and noted to be free and pain with good blood supply. The midline incision was then closed with looped PDS sutures skin sierra were used and sterile towel was placed over the dressing while the ostomy was matured 3-0 Vicryl stitches were used as brooking stitches and simple interrupted 3-0 Vicryl stitches. Ostomy appliance was applied sterile dressing was applied patient tolerated the procedure well he will go to the ICU in critical condition.
[2020-12-31 23:14] LABS: Glucose,Whole Blood 174 mg/dL (75-99)
[2021-01-01] MEDS: KETOROLAC 15 MG/ML 1 ML VIAL IVP PRN ×3 (04:33→15:58)
[2021-01-01 04:35] LABS: ALT 12 U/L (4-49); AST 16 U/L (17-59); Albumin 1.5 g/dL (3.5-5.0); Alkaline Phosphatase 28 U/L (38-126); Total Bilirubin 0.8 mg/dL (0.2-1.3); Total Protein 3.4 g/dL (6.3-8.2)
[2021-01-01 06:12] LABS: Glucose,Whole Blood 264 mg/dL (75-99)
[2021-01-01] MEDS: INSULIN ASPART (NovoLOG) 100 UNIT/ML VIAL SQ SCH ×4 (06:17→23:28)
[2021-01-01] MEDS: methylPREDNISolone SOD SUCCI 40 MG/ML 1 ML VIAL IV SCH ×4 (06:17→23:27)
[2021-01-01 07:11] LABS: Potassium 3.8 mmol/L (3.5-5.1)
[2021-01-01 07:12] LABS: African American GFR (CKD) >90 (>60 ml/min/1.73 sqM); Anion Gap 6 mmol/L; Blood Urea Nitrogen 14 mg/dL (9-20); Carbon Dioxide 23 mmol/L (22-30); Chloride 105 mmol/L (98-107); Glucose 240 mg/dL (74-99); Non-African American GFR(CKD) >90 (>60 ml/min/1.73 sqM); Phosphorus 3.7 mg/dL (2.5-4.5); Sodium 134 mmol/L (137-145)
--- NOTE | 2021-01-01 07:33 | XR ---
EXAMINATION TYPE: XR chest 1V portable DATE OF EXAM: 01/01/2021 COMPARISON: NONE HISTORY: SOB, Follow Up FINDINGS: Indwelling tubes and catheters are unchanged. Basilar atelectasis persists. Stable appearance of the cardio-mediastinal structures at this time. IMPRESSION: 1. Basilar atelectasis. Clinical correlation and follow up until resolution is recommended.
[2021-01-01] MEDS: ENOXAPARIN 40 MG/0.4 ML SYRINGE SQ SCH (08:47)
[2021-01-01] MEDS: metroNIDAZOLE-NS PMX 500 MG in SALINE 1 100ML.BAG IVPB SCH (08:47)
[2021-01-01] MEDS: PANTOPRAZOLE 40 MG/10 ML VIAL IVP SCH ×2 (08:47→19:56)
[2021-01-01] MEDS: ONDANSETRON 4 MG/2 ML VIAL IVP SCH ×3 (08:48→23:27)
[2021-01-01] MEDS: MORPHINE SULFATE 4 MG/ML SYRINGE IV PRN (09:22)
[2021-01-01 10:28] LABS: HCT 30.4 % (39.0-53.0); HGB 10.3 gm/dL (13.0-17.5); MCH 30.2 pg (25.0-35.0); MCHC 33.9 g/dL (31.0-37.0); Platelet Count 298 k/uL (150-450); Poikilocytosis Slight; RBC 3.41 m/uL (4.30-5.90); RDW 13.5 % (11.5-15.5); WBC 20.9 k/uL (3.8-10.6)
[2021-01-01 11:24] LABS: Basophils # (M) 0 X 10*3/uL (0.00-0.10); Eosinophils # (M) 0 X 10*3/uL (0.04-0.35); HGB 10.1 g/dL (13.0-17.0); Lymphocytes # (M) 1.03 X 10*3/uL (0.90-5.00); MCH 29.4 pg (27.0-32.0); MCHC 32.6 g/dL (32.0-37.0); MCV 90.4 fL (80.0-97.0); Mean Platelet Volume 9.6 fL (9.5-12.2); Metamyelocytes % 1 % (0-0); Monocytes # (M) 0.41 X 10*3/uL (0.20-1.00); Myelocytes % 2 % (0-0); Neutrophils # (M) 18.47 X 10*3/uL (2.00-8.90); Neutrophils % (M) 90 %; Platelet Count 323 X 10*3/uL (140-440); RBC 3.43 X 10*6/uL (4.40-5.60); RDW 13.7 % (11.5-14.5); WBC 20.52 X 10*3/uL (4.50-10.00)
--- NOTE | 2021-01-01 11:28 | P.CNPUL ---
History of Present Illness Consult date: 01/01/21 Requesting physician: Lesia Schumacher Reason for consult: other Chief complaint: Perforated viscus, ICU management History of present illness: 40-year-old male who presented to the emergency department on December 23 at 2206. He apparently was brought in by EMS. His chief complaint at that time was abdominal pain, but he also had persistent nausea, vomiting, diarrhea. The patient tested positive for coronavirus, initially on December 06, and then again on December 27. His symptoms of nausea, vomiting, diarrhea, abdominal pain, have been going on for a day or so prior to admission, but got worse a day of admission. That's why he came in. In addition, the patient had recurrent temperature elevations, with generalized body aches and pains. Apparently yesterday, according to the surgeon, it was noted that he had a perforated viscus, and he went to the operating room where he had an exploratory laparotomy, and a colectomy with ileostomy. The surgeon was Dr. Chris. The patient was able to be extubated in the recovery area, but the surgeon was concerned about the patient's overall situation and wanted the patient watched in the intensive care unit. We spoke on the phone and I agreed to take the patient. Currently, the patient's on O2 at 4 L by nasal cannula, saline at 75 mL an hour, and TPN at 75 mL an hour. Prior to this episode, according to his medical records, the patient has no prior medical history, and no prior surgical history. He wasn't really taking any medication at home on a regular basis. Abdominal and pelvic computed tomography scan on December 27 showed large bowel wall thickening consistent with colitis, mild abdominal ascites, distended small bowel loops with air-fluid levels consistent with ileus, and small bilateral pleural effusions and basilar atelectasis. Current white count is 20.9, hemoglobin 10.3, hematocrit 30.4, and platelet count 298,000. Sodium 134, potassium 3.8, chlorides 105, CO2 23, anion gap 6, BUN 14, and creatinine 0.89. Albumin is 1.5. Review of Systems REVIEW OF SYSTEMS: CONSTITUTIONAL: Fever. NEUROLOGIC: [ Negative.] HEENT: [ Negative.] CARDIAC: [Negative.] PULMONARY: [Negative.] GI: Abdominal pain, nausea, vomiting, and diarrhea. : [Negative.] RHEUMATOLOGIC: [ Negative.] IMMUNOLOGIC: [ Negative.] ENDOCRINE: [Negative. ] DERMATOLOGIC: [Negative.] Past Medical History Past Medical History: No Reported History History of Any Multi-Drug Resistant Organisms: None Reported Past Surgical History: No Surgical Hx Reported Past Anesthesia/Blood Transfusion Reactions: No Reported Reaction Past Psychological History: No Psychological Hx Reported Smoking Status: Never smoker Past Alcohol Use History: None Reported Past Drug Use History: None Reported Medications and Allergies Home Medications Medication Instructions Recorded Confirmed Type Ondansetron [Zofran ODT] 4 mg PO Q8HR PRN #15 tab 12/22/20 12/24/20 Rx Allergies Allergy/AdvReac Type Severity Reaction Status Date / Time codeine AdvReac Hallucinati Verified 12/24/20 07:27 ons Physical Exam Osteopathic Statement: *. No significant issues noted on an osteopathic structural exam other than those noted in the History and Physical/Consult. Vitals: Vital Signs Temp Pulse Pulse Resp BP BP Pulse Ox 01/01/21 10:00 82 16 101/63 94 L 01/01/21 09:30 83 14 95/62 94 L 01/01/21 09:00 82 16 90/59 94 L 01/01/21 08:30 80 16 91/58 95 01/01/21 08:00 98.0 F 79 26 H 90/58 96 01/01/21 07:30 79 16 91/56 95 01/01/21 07:00 80 13 92/59 95 01/01/21 06:30 84 14 92/55 94 L 01/01/21 06:00 80 13 93/55 95 01/01/21 05:30 82 13 100/64 95 01/01/21 05:00 83 16 98/64 95 01/01/21 04:30 87 15 90/58 96 01/01/21 04:00 98.5 F 90 12 93/59 95 01/01/21 03:30 84 14 95 01/01/21 03:00 85 15 92/59 97 01/01/21 02:30 82 13 92/60 96 01/01/21 02:00 85 13 92/60 96 01/01/21 01:30 87 15 89/62 95 01/01/21 01:00 89 11 L 90/61 97 01/01/21 00:30 86 13 90/59 96 02/06/21 00:10 87 14 97 01/01/21 00:00 98.4 F 84 12 92/63 98 12/31/20 23:30 87 15 97/67 98 12/31/20 23:00 85 12 98/65 97 12/31/20 22:30 86 15 101/65 99 12/31/20 18:30 98.5 F 65 18 99/61 94 L 12/31/20 18:00 98.5 F 109 H 18 114/67 96 12/31/20 14:00 98.5 F 85 18 95/66 95 Intake and Output 12/31/20 01/01/21 01/01/21 22:59 06:59 14:59 Intake Total 3500 1428.75 600 Output Total 603 410 365 Balance 2897 1018.75 235 Intake: IV 3500 525 300 .9 @ 75 mL/hr 525 300 Intake, IV Titration 903.75 300 Amount Amino Acid 5%-D20w+Lytes* 525 225 E* 1,000 ml @ 75 mls/hr IV .BY DURATION [facility] Rx#: [id number] Mvi, Adult No.4 with Vit 75 K 10 ml Trace (Conc-1Ml/ Dose) 1 ml In Amino Acid 5%-D20w+Lytes*E* 1,000 ml @ 30 mls/hr IV .Q24H [facility] Rx#:[id number] Mvi, Adult No.4 with Vit 378.75 K 10 ml Trace (Conc-1Ml/ Dose) 1 ml In Amino Acid 5%-D20w+Lytes*E* 1,000 ml @ 75 mls/hr IV .BY DURATION [facility] Rx#: [id number] Output: Gastric Drainage 150 Drainage 110 140 Abdomen 110 140 Urine 350 300 225 Urine/Stool Mix 3 Estimated Blood Loss 100 Other: Voiding Method Indwelling Catheter Indwelling Catheter # Voids 3 Weight 95.9 kg No acute distress, oriented 3. Nasal O2 at 4 L/m. HEENT examination is grossly unremarkable. Mucous membranes are moist. No oral lesions. Neck supple. Full range of motion. No adenopathy thyromegaly or neck vein distention. Cardiovascular examination reveals regular rhythm rate. S1-S2 normal. No S3 or S4. No discernible murmur noted. Heart rate 82 bpm. Lungs reveal mostly clear breath sounds. Her sounds are equal bilaterally. Few scattered rhonchi noted. Abdomen soft without bowel sounds. Ileostomy noted. Surgical incision is covered. Extremities are intact. No cyanosis clubbing or edema. Skin is without rash or lesion. Neurologic examination is brief but nonfocal. Results - Laboratory Findings CBC and BMP: 01/01/21 10:11 01/01/21 04:03 PT/INR, D-dimer PT 16.3 sec (9.0-12.0) H 12/29/20 05:41 INR 1.6 (<1.2) H 12/29/20 05:41 Abnormal lab findings: Abnormal Labs 12/23/20 12/23/20 12/23/20 22:57 22:57 22:57 WBC RBC 4.17 L Hgb 12.6 L Hct 36.5 L MPV Absolute Nucleated RBC Metamyelocytes % Myelocytes % Immature Gran # Neutrophils # (Manual) 8.30 H Lymphocytes # (Manual) 0.70 L Lymphocytes # Eosinophils # Metamyelocytes # (Man) NRBC/100 WBC Diff ESR PT INR Sodium 132 L Potassium Chloride 97 L Carbon Dioxide Anion Gap BUN BUN/Creatinine Ratio Glucose 109 H POC Glucose (mg/dL) Calcium 8.0 L Ferritin 738.4 H AST Alkaline Phosphatase C-Reactive Protein 372.7 H Total Protein 5.7 L Albumin 3.0 L Procalcitonin 2.03 H Coronavirus (PCR) 12/25/20 12/26/20 12/26/20 09:09 05:54 05:54 WBC RBC 3.82 L Hgb 11.1 L Hct 34.1 L MPV Absolute Nucleated RBC Metamyelocytes % Myelocytes % Immature Gran # Neutrophils # (Manual) Lymphocytes # (Manual) 0.95 L Lymphocytes # Eosinophils # Metamyelocytes # (Man) 0.20 H NRBC/100 WBC Diff ESR PT INR Sodium 133 L Potassium 3.3 L 3.4 L Chloride Carbon Dioxide 19 L Anion Gap 12.20 H BUN BUN/Creatinine Ratio 11.11 L Glucose 127 H POC Glucose (mg/dL) Calcium 7.5 L 7.8 L Ferritin AST Alkaline Phosphatase C-Reactive Protein Total Protein Albumin Procalcitonin Coronavirus (PCR) 12/27/20 12/27/20 12/27/20 10:16 10:16 10:16 WBC RBC 3.61 L Hgb 11.0 L Hct 31.8 L MPV Absolute Nucleated RBC Metamyelocytes % Myelocytes % Immature Gran # Neutrophils # (Manual) Lymphocytes # (Manual) Lymphocytes # 0.8 L Eosinophils # Metamyelocytes # (Man) NRBC/100 WBC Diff ESR PT INR Sodium 132 L Potassium 3.3 L Chloride Carbon Dioxide 19 L Anion Gap BUN BUN/Creatinine Ratio Glucose POC Glucose (mg/dL) Calcium 7.3 L Ferritin AST Alkaline Phosphatase C-Reactive Protein Total Protein Albumin Procalcitonin 0.77 H Coronavirus (PCR) 12/27/20 12/28/20 12/28/20 12:50 04:19 04:19 WBC RBC 3.53 L Hgb 10.3 L Hct 31.4 L MPV Absolute Nucleated RBC Metamyelocytes % Myelocytes % Immature Gran # Neutrophils # (Manual) Lymphocytes # (Manual) Lymphocytes # Eosinophils # Metamyelocytes # (Man) NRBC/100 WBC Diff ESR PT INR Sodium Potassium Chloride Carbon Dioxide 21.1 L Anion Gap BUN 8.0 L BUN/Creatinine Ratio 10.00 L Glucose POC Glucose (mg/dL) Calcium 7.3 L Ferritin AST Alkaline Phosphatase C-Reactive Protein Total Protein Albumin Procalcitonin Coronavirus (PCR) Detected A 12/29/20 12/29/20 12/29/20 05:41 05:41 05:41 WBC RBC 3.65 L Hgb 10.8 L Hct 32.3 L MPV 9.3 L Absolute Nucleated RBC Metamyelocytes % 4 H Myelocytes % 2 H Immature Gran # Neutrophils # (Manual) Lymphocytes # (Manual) 0.21 L Lymphocytes # Eosinophils # Metamyelocytes # (Man) NRBC/100 WBC Diff ESR PT 16.3 H INR 1.6 H Sodium Potassium Chloride Carbon Dioxide 18.5 L Anion Gap 15.50 H BUN BUN/Creatinine Ratio 10.00 L Glucose POC Glucose (mg/dL) Calcium 7.4 L Ferritin AST Alkaline Phosphatase C-Reactive Protein Total Protein Albumin Procalcitonin Coronavirus (PCR) 12/29/20 12/30/20 12/30/20 05:41 06:05 17:05 WBC RBC Hgb Hct MPV Absolute Nucleated RBC Metamyelocytes % Myelocytes % Immature Gran # Neutrophils # (Manual) Lymphocytes # (Manual) Lymphocytes # Eosinophils # Metamyelocytes # (Man) NRBC/100 WBC Diff ESR PT INR Sodium Potassium Chloride Carbon Dioxide 21.5 L Anion Gap 13.50 H BUN BUN/Creatinine Ratio Glucose 131 H POC Glucose (mg/dL) 178 H Calcium 7.8 L Ferritin AST Alkaline Phosphatase C-Reactive Protein Total Protein Albumin 2.0 L Procalcitonin Coronavirus (PCR) 12/30/20 12/31/20 12/31/20 23:35 05:35 06:12 WBC RBC Hgb Hct MPV Absolute Nucleated RBC Metamyelocytes % Myelocytes % Immature Gran # Neutrophils # (Manual) Lymphocytes # (Manual) Lymphocytes # Eosinophils # Metamyelocytes # (Man) NRBC/100 WBC Diff ESR PT INR Sodium Potassium Chloride Carbon Dioxide Anion Gap BUN BUN/Creatinine Ratio 22.86 H Glucose 216 H POC Glucose (mg/dL) 225 H 227 H Calcium 7.2 L Ferritin AST Alkaline Phosphatase C-Reactive Protein 10.6 H Total Protein Albumin Procalcitonin Coronavirus (PCR) 12/31/20 12/31/20 12/31/20 06:12 11:56 16:45 WBC RBC 3.54 L Hgb 10.5 L Hct 31.0 L MPV Absolute Nucleated RBC 0.02 H Metamyelocytes % Myelocytes % Immature Gran # 0.27 H Neutrophils # (Manual) Lymphocytes # (Manual) Lymphocytes # 0.72 L Eosinophils # 0 L Metamyelocytes # (Man) NRBC/100 WBC Diff 0.3 H ESR 34 H PT INR Sodium Potassium Chloride Carbon Dioxide Anion Gap BUN BUN/Creatinine Ratio Glucose POC Glucose (mg/dL) 191 H 162 H Calcium Ferritin AST Alkaline Phosphatase C-Reactive Protein Total Protein Albumin Procalcitonin Coronavirus (PCR) 12/31/20 01/01/21 01/01/21 23:12 04:03 06:10 WBC RBC Hgb Hct MPV Absolute Nucleated RBC Metamyelocytes % Myelocytes % Immature Gran # Neutrophils # (Manual) Lymphocytes # (Manual) Lymphocytes # Eosinophils # Metamyelocytes # (Man) NRBC/100 WBC Diff ESR PT INR Sodium 134 L Potassium Chloride Carbon Dioxide Anion Gap BUN BUN/Creatinine Ratio Glucose 240 H POC Glucose (mg/dL) 174 H 264 H Calcium 7.0 L Ferritin AST 16 L Alkaline Phosphatase 28 L C-Reactive Protein Total Protein 3.4 L Albumin 1.5 L Procalcitonin Coronavirus (PCR) 01/01/21 10:11 WBC 20.9 H RBC 3.41 L Hgb 10.3 L Hct 30.4 L MPV Absolute Nucleated RBC Metamyelocytes % Myelocytes % Immature Gran # Neutrophils # (Manual) Lymphocytes # (Manual) Lymphocytes # Eosinophils # Metamyelocytes # (Man) NRBC/100 WBC Diff ESR PT INR Sodium Potassium Chloride Carbon Dioxide Anion Gap BUN BUN/Creatinine Ratio Glucose POC Glucose (mg/dL) Calcium Ferritin AST Alkaline Phosphatase C-Reactive Protein Total Protein Albumin Procalcitonin Coronavirus (PCR) - Diagnostic Findings Chest x-ray: image reviewed Assessment and Plan Assessment: Postop day #1, status post exploratory laparotomy with subtotal colectomy and creation of end ileostomy, secondary to perforated viscus and pneumoperitoneum and fulminant ulcerative colitis. History of COVID 19 infection, initially, positive, December 06, and subsequently positive, December 27, 2020. No prior significant past medical history. Plan: Plan dated 01/01/2021. Currently, the patient is doing reasonably well. The patient was able to be successfully extubated in the recovery area. He remains on saline at 75 mL an hour, TPN at 75 mL an hour, and nasal O2 at 4 L. He currently is on Flagyl, and Rocephin. If the patient is stable, he can move to the general medical floor tomorrow. No additional recommendations are made. Prognosis is guarded. We'll continue to see the patient and make recommendations are necessary. Time with Patient: Greater than 30
[2021-01-01 11:52] LABS: Glucose,Whole Blood 297 mg/dL (75-99)
--- NOTE | 2021-01-01 12:08 | P.PN ---
Subjective Progress Note Date: 01/01/21 Patient sen and examined, vitals are stable, he is having some pain, no output from ileostomy. NGT in place. [facility] from [facility] Objective - Vital Signs Vital signs: Vital Signs Temp 98.0 F 01/01/21 08:00 Pulse 76 01/01/21 11:00 Resp 16 01/01/21 11:00 BP 93/60 01/01/21 11:00 Pulse Ox 96 01/01/21 11:00 Intake & Output 12/31/20 01/01/21 01/01/21 18:59 06:59 18:59 Intake Total 4928.75 600 Output Total 163 860 365 Balance -163 4068.75 235 Weight 90.718 kg 95.9 kg Intake: IV 4025 300 .9 @ 75 mL/hr 525 300 Intake, IV Titration 903.75 300 Amount Amino Acid 5%-D20w+Lytes* 525 225 E* 1,000 ml @ 75 mls/hr IV .BY DURATION [facility] Rx#: [id number] Mvi, Adult No.4 with Vit 75 K 10 ml Trace (Conc-1Ml/ Dose) 1 ml In Amino Acid 5%-D20w+Lytes*E* 1,000 ml @ 30 mls/hr IV .Q24H [facility] Rx#:[id number] Mvi, Adult No.4 with Vit 378.75 K 10 ml Trace (Conc-1Ml/ Dose) 1 ml In Amino Acid 5%-D20w+Lytes*E* 1,000 ml @ 75 mls/hr IV .BY DURATION [facility] Rx#: [id number] Output: Gastric Drainage 150 Drainage 110 140 Abdomen 110 140 Urine 650 225 Urine/Stool Mix 3 Emesis 10 Estimated Blood Loss 100 Other: Voiding Method Indwelling Catheter Indwelling Catheter # Voids 3 - Labs CBC & Chem 7: 01/01/21 10:11 01/01/21 04:03 Labs: Abnormal Lab Results - Last 24 Hours (Table) 12/31/20 12/31/20 12/31/20 Range/Units 06:12 11:56 16:45 WBC (4.50-10.00) X 10*3/uL RBC (4.40-5.60) X 10*6/uL Hgb (13.0-17.0) g/dL Hct (39.6-50.0) % Absolute Nucleated RBC (0.00-0.00) X 10*3/uL Metamyelocytes % (0-0) % Myelocytes % (0-0) % Neutrophils # (Manual) (2.00-8.90) X 10*3/uL Eosinophils # (Manual) (0.04-0.35) X 10*3/uL NRBC/100 WBC Diff (0.0-0.0) /100 WBCS ESR 34 H (0-15) mm/Hr Sodium (137-145) mmol/L Glucose (74-99) mg/dL POC Glucose (mg/dL) 191 H 162 H (75-99) mg/dL Calcium (8.4-10.2) mg/dL AST (17-59) U/L Alkaline Phosphatase (38-126) U/L Total Protein (6.3-8.2) g/dL Albumin (3.5-5.0) g/dL 12/31/20 01/01/21 01/01/21 Range/Units 23:12 04:03 04:03 WBC 20.52 H (4.50-10.00) X 10*3/uL RBC 3.43 L (4.40-5.60) X 10*6/uL Hgb 10.1 L (13.0-17.0) g/dL Hct 31.0 L (39.6-50.0) % Absolute Nucleated RBC 0.05 H (0.00-0.00) X 10*3/uL Metamyelocytes % 1 H (0-0) % Myelocytes % 2 H (0-0) % Neutrophils # (Manual) 18.47 H (2.00-8.90) X 10*3/uL Eosinophils # (Manual) 0 L (0.04-0.35) X 10*3/uL NRBC/100 WBC Diff 0.2 H (0.0-0.0) /100 WBCS ESR (0-15) mm/Hr Sodium 134 L (137-145) mmol/L Glucose 240 H (74-99) mg/dL POC Glucose (mg/dL) 174 H (75-99) mg/dL Calcium 7.0 L (8.4-10.2) mg/dL AST 16 L (17-59) U/L Alkaline Phosphatase 28 L (38-126) U/L Total Protein 3.4 L (6.3-8.2) g/dL Albumin 1.5 L (3.5-5.0) g/dL 01/01/01/01/21 01/01/21 Range/Units 06:10 10:11 11:50 WBC 20.9 H (4.50-10.00) X 10*3/uL RBC 3.41 L (4.40-5.60) X 10*6/uL Hgb 10.3 L (13.0-17.0) g/dL Hct 30.4 L (39.6-50.0) % Absolute Nucleated RBC (0.00-0.00) X 10*3/uL Metamyelocytes % (0-0) % Myelocytes % (0-0) % Neutrophils # (Manual) (2.00-8.90) X 10*3/uL Eosinophils # (Manual) (0.04-0.35) X 10*3/uL NRBC/100 WBC Diff (0.0-0.0) /100 WBCS ESR (0-15) mm/Hr Sodium (137-145) mmol/L Glucose (74-99) mg/dL POC Glucose (mg/dL) 264 H 297 H (75-99) mg/dL Calcium (8.4-10.2) mg/dL AST (17-59) U/L Alkaline Phosphatase (38-126) U/L Total Protein (6.3-8.2) g/dL Albumin (3.5-5.0) g/dL Assessment and Plan Assessment: POD#1 Ex lap subtotal colectomy with 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 OOBTC today. We can add robaxin for pain control today.
[2021-01-01] MEDS ORDERED: INSULIN ASPART (NovoLOG) 100 UNIT/ML VIAL SQ ONE (12:18)
[2021-01-01] MEDS: SODIUM CHLORIDE 0.9% 1,000 ML IV SCH (12:23)
[2021-01-01] MEDS: 1: MVI, ADULT NO.4 WITH VIT K 10 ML, TRACE (CONC-1ML/DOSE) 1 ML in AMINO ACID 5%-D20W+LY IV SCH ×3 (12:34)
[2021-01-01] MEDS ORDERED: DIAZEPAM 5 MG/ML 2 ML INJ IVP ONE (13:00)
[2021-01-01] MEDS: PIPERACILLIN-TAZOBACTAM 3.375 GM in SODIUM CHLORIDE 0.9% 100 ML IVPB SCH ×2 (15:59→23:27)
--- NOTE | 2021-01-01 17:37 | P.PN ---
Subjective Progress Note Date: 01/01/21 48-year-old male came in with complaints of nausea vomiting diarrhea patient states he has multiple episodes around 20-30 episodes of diarrhea every day. Patient started having symptoms of diarrhea and fever on new years sulma fever resolved but the diarrhea continued. Patient was diagnosed with the hope did 19 shortly after. Patient is still having some body aches and pains patient is comparing of severe crampy lower abdominal pain patient was seen in ER about 3 days ago at that time patient had a CT of the abdomen which showed a colon colitis. C. diff will be obtained patient is bit hyponatremic and receiving IV fluids at this time. 12/31/2020 Patient is seen and evaluated in room at bedside; patient is demanding to be transferred to here; her social service coordinator talked to the patient and recommended possible transfer to [facility] due to possibility of patient being accepted today; patient is agreeable; Arrangements were made for patient's transferred to [facility] under Dr. Khalil, however abdominal x-ray done this afternoon reveals pneumoperiton eum; surgery was notified; Dr. Deal we will see the patient with possibility of OR tonight; fluid was called and spoke with RN and canceled patient transferred to [facility] 01/01/2021 Patient is seen and evaluated in ICU that he was transferred post exploratory laparotomy with colectomy with ileostomy; patient was able to be successfully extubated the patient's on O2 at 4 L by nasal cannula, saline at 75 mL an hour, and TPN at 75 mL an hour. Prior to this episode, according to his medical records, the patient has no prior medical history, and no prior surgical history. He wasn't really taking any medication at home on a regular basis. Abdominal and pelvic computed tomography scan on December 27 showed large bowel wall thickening consistent with colitis, mild abdominal ascites, distended small bowel loops with air-fluid levels consistent with ileus, and small bilateral pleural effusions and basilar atelectasis. Current white count is 20.9, hemoglobin 10.3, hematocrit 30.4, and platelet count 298,000. Sodium 134, potassium 3.8, chlorides 105, CO2 23, anion gap 6, BUN 14, and creatinine 0.89. Albumin is 1.5. Patient remains on IV antibiotics in form of Flagyl and Rocephin Objective - Vital Signs Vital signs: Vital Signs Temp 97.7 F 01/01/21 12:00 Pulse 80 01/01/21 12:30 Resp 12 01/01/21 12:30 BP 99/65 01/01/21 12:30 Pulse Ox 96 01/01/21 12:30 Intake & Output 12/31/20 01/01/21 01/01/21 18:59 06:59 18:59 Intake Total 4928.75 1050 Output Total 163 860 644 Balance -163 4068.75 406 Weight 90.718 kg 95.9 kg Intake: IV 4025 525 .9 @ 75 mL/hr 525 525 Intake, IV Titration 903.75 525 Amount Amino Acid 5%-D20w+Lytes* 525 450 E* 1,000 ml @ 75 mls/hr IV .BY DURATION [facility] Rx#: [id number] Mvi, Adult No.4 with Vit 75 K 10 ml Trace (Conc-1Ml/ Dose) 1 ml In Amino Acid 5%-D20w+Lytes*E* 1,000 ml @ 30 mls/hr IV .Q24H [facility] Rx#:[id number] Mvi, Adult No.4 with Vit 378.75 K 10 ml Trace (Conc-1Ml/ Dose) 1 ml In Amino Acid 5%-D20w+Lytes*E* 1,000 ml @ 75 mls/hr IV .BY DURATION [facility] Rx#: [id number] Output: Gastric Drainage 150 Drainage 110 230 Abdomen 110 230 Urine 650 414 Urine/Stool Mix 3 Emesis 10 Estimated Blood Loss 100 Other: Voiding Method Indwelling Catheter Indwelling Catheter # Voids 3 - Exam GENERAL: The patient is alert and oriented x3, not in any acute distress. Well developed, well nourished. HEENT: Pupils are round and equally reacting to light. EOMI. No scleral icterus. No conjunctival pallor. Normocephalic, atraumatic. No pharyngeal erythema. No thyromegaly. NG tube noted andcurrently clamped CARDIOVASCULAR: S1 and S2 present. No murmurs, rubs, or gallops. PULMONARY: Chest is clear to auscultation, no wheezing or crackles. ABDOMEN: Abdomen is distended bowel sounds are present, tympanic, tenderness noted on exam, slightly improved distention MUSCULOSKELETAL: No joint swelling or deformity. EXTREMITIES: No cyanosis, clubbing, or pedal edema. NEUROLOGICAL: Gross neurological examination did not reveal any focal deficits. SKIN: No rashes. - Labs CBC & Chem 7: 01/01/21 10:11 01/01/21 04:03 Labs: Abnormal Lab Results - Last 24 Hours (Table) 12/31/20 12/31/20 01/01/21 Range/Units 16:45 23:12 04:03 WBC (4.50-10.00) X 10*3/uL RBC (4.40-5.60) X 10*6/uL Hgb (13.0-17.0) g/dL Hct (39.6-50.0) % Absolute Nucleated RBC (0.00-0.00) X 10*3/uL Metamyelocytes % (0-0) % Myelocytes % (0-0) % Neutrophils # (Manual) (2.00-8.90) X 10*3/uL Eosinophils # (Manual) (0.04-0.35) X 10*3/uL NRBC/100 WBC Diff (0.0-0.0) /100 WBCS Sodium 134 L (137-145) mmol/L Glucose 240 H (74-99) mg/dL POC Glucose (mg/dL) 162 H 174 H (75-99) mg/dL Calcium 7.0 L (8.4-10.2) mg/dL AST 16 L (17-59) U/L Alkaline Phosphatase 28 L (38-126) U/L Total Protein 3.4 L (6.3-8.2) g/dL Albumin 1.5 L (3.5-5.0) g/dL 01/01/21 01/01/21 01/01/21 Range/Units 04:03 06:10 10:11 WBC 20.52 H 20.9 H (4.50-10.00) X 10*3/uL RBC 3.43 L 3.41 L (4.40-5.60) X 10*6/uL Hgb 10.1 L 10.3 L (13.0-17.0) g/dL Hct 31.0 L 30.4 L (39.6-50.0) % Absolute Nucleated RBC 0.05 H (0.00-0.00) X 10*3/uL Metamyelocytes % 1 H (0-0) % Myelocytes % 2 H (0-0) % Neutrophils # (Manual) 18.47 H (2.00-8.90) X 10*3/uL Eosinophils # (Manual) 0 L (0.04-0.35) X 10*3/uL NRBC/100 WBC Diff 0.2 H (0.0-0.0) /100 WBCS Sodium (137-145) mmol/L Glucose (74-99) mg/dL POC Glucose (mg/dL) 264 H (75-99) mg/dL Calcium (8.4-10.2) mg/dL AST (17-59) U/L Alkaline Phosphatase (38-126) U/L Total Protein (6.3-8.2) g/dL Albumin (3.5-5.0) g/dL 01/01/21 Range/Units 11:50 WBC (4.50-10.00) X 10*3/uL RBC (4.40-5.60) X 10*6/uL Hgb (13.0-17.0) g/dL Hct (39.6-50.0) % Absolute Nucleated RBC (0.00-0.00) X 10*3/uL Metamyelocytes % (0-0) % Myelocytes % (0-0) % Neutrophils # (Manual) (2.00-8.90) X 10*3/uL Eosinophils # (Manual) (0.04-0.35) X 10*3/uL NRBC/100 WBC Diff (0.0-0.0) /100 WBCS Sodium (137-145) mmol/L Glucose (74-99) mg/dL POC Glucose (mg/dL) 297 H (75-99) mg/dL Calcium (8.4-10.2) mg/dL AST (17-59) U/L Alkaline Phosphatase (38-126) U/L Total Protein (6.3-8.2) g/dL Albumin (3.5-5.0) g/dL Assessment and Plan Assessment: - Pneumoperitoneum on abdominal x-ray; we will plan to hold patient's transfer to [facility] for urgent evaluation by surgical team -Colitis and enteritis: Secondary to possibly covid 19 , patient was started on antivirals for an infectious colitis because of the duration of symptoms. Patient underwent flex sigmoidoscopy with GI as mentioned previously. Continue with NG tube and bowel rest and IV fluids along with antibiotic in the form of ceftriaxone and Flagyl. Patient is nothing by mouth and awaiting receive PICC line for TPN, NG tube currently clamped per GI recommendations. -Severe diffuse colitis with mucosal erythema and cobblestoning of the mucosa consistent with IBS as noted on sigmoidoscopy, GI is following, patient maintained on IV steroids -Acute renal failure improved with IV fluids -Hypovolemic hyponatremia: Continue with IV fluids -Covid 19 infection -DVT prophylaxis with Lovenox -GI prophylaxis Protonix -Full code Plan: Continue with current medications and continue with IV antibiotics. Patient was started on IV steroids and will continue. Patient underwent flex sigmoidoscopy with GI showing severe diffuse colitis involving the entire colon with mucosal erythema, friability, and cobblestoning of the mucosa involving the entire colon except the cecum and mild involvement in the rectum all consistent with IBS. Patient to receive a PICC line and initiate TPN and continue with bowel rest. Patient continues to have multiple episodes of diarrhea and reports blood noted in the stool. Will repeat CBC with a.m. labs. Continue to encourage Incentive spirometer. If clinical status continues to show no improvement patient may likely require transfer to tertiary treatment center and will discuss with GI along with case management in the near future.
[2021-01-01 18:00] LABS: Glucose,Whole Blood 253 mg/dL (75-99)
[2021-01-01] MEDS: ACETAMINOPHEN IV (For NPO) 1,000 MG in EMPTY BAG 1 BAG IVPB SCH ×2 (18:05→23:20)
--- NOTE | 2021-01-01 18:18 | PN ---
PROGRESS NOTE DATE OF SERVICE: 01/01/2021 REASON FOR FOLLOWUP: Perforated colon with secondary peritonitis. INTERVAL HISTORY: The patient did have worsening abdominal pain yesterday. He was noticed to have a perforated large bowel. The patient has been taken to OR and is status post subtotal colectomy and ileostomy formation. The patient is currently in the ICU. The patient denies having any chest pain. No shortness of breath or cough. No worsening abdominal pain. PHYSICAL EXAMINATION: Blood pressure 96/64, pulse of 81, temperature is 97.7. General description is a male lying in bed in no distress. Respiratory system: Unlabored breathing, clear to auscultation anteriorly. Heart S1, S2. Regular rate and rhythm. Abdomen soft, mildly distended. No guarding, no rigidity. LABS: Hemoglobin is 10.8, white count 20.9. DIAGNOSTIC IMPRESSION AND PLAN: Patient with secondary peritonitis and perforated large bowel, had ( ) colitis, status post subtotal colectomy and diverting colostomy. The patient's antibiotic will be broadened to Zosyn 3.75 g every 8 hours. We will monitor clinical course closely. Continue supportive care. MMODL / IJN: [id number] /
[2021-01-01 23:05] LABS: Glucose,Whole Blood 245 mg/dL (75-99)
[2021-01-02] MEDS: 1: MVI, ADULT NO.4 WITH VIT K 10 ML, TRACE (CONC-1ML/DOSE) 1 ML in AMINO ACID 5%-D20W+LY IV SCH ×6 (00:16→18:28)
[2021-01-02] MEDS: KETOROLAC 15 MG/ML 1 ML VIAL IVP PRN ×3 (00:17→14:29)
[2021-01-02 03:50] LABS: Magnesium 2.4 mg/dL (1.6-2.3); Phosphorus 3.1 mg/dL (2.5-4.5)
[2021-01-02 03:57] LABS: Basophils # (A) 0.1 k/uL (0-0.2); Basophils % (A) 0 %; Eosinophils % (A) 0 %; HCT 27.8 % (39.0-53.0); Lymphocytes # (A) 0.5 k/uL (1.0-4.8); Lymphocytes % (A) 3 %; MCH 28.6 pg (25.0-35.0); MCHC 31.8 g/dL (31.0-37.0); Mean Platelet Volume 7.4; Monocytes # (A) 0.5 k/uL (0-1.0); Monocytes % (A) 2 %; Neutrophils # (A) 19.1 k/uL (1.3-7.7); Neutrophils % (A) 94 %; Platelet Count 301 k/uL (150-450); RBC 3.09 m/uL (4.30-5.90); RDW 13.8 % (11.5-15.5); WBC 20.3 k/uL (3.8-10.6)
[2021-01-02 04:20] LABS: HGB 8.8 gm/dL (13.0-17.5)
[2021-01-02 06:04] LABS: Glucose,Whole Blood 297 mg/dL (75-99)
[2021-01-02] MEDS: ACETAMINOPHEN IV (For NPO) 1,000 MG in EMPTY BAG 1 BAG IVPB SCH ×2 (06:07→19:21)
[2021-01-02] MEDS: methylPREDNISolone SOD SUCCI 40 MG/ML 1 ML VIAL IV SCH ×4 (06:07→23:50)
[2021-01-02] MEDS: INSULIN ASPART (NovoLOG) 100 UNIT/ML VIAL SQ SCH ×3 (06:07→19:30)
[2021-01-02 06:10] LABS: African American GFR (CKD) >90 (>60 ml/min/1.73 sqM); Anion Gap 5 mmol/L; Blood Urea Nitrogen 15 mg/dL (9-20); Calcium 7.1 mg/dL (8.4-10.2); Carbon Dioxide 25 mmol/L (22-30); Chloride 105 mmol/L (98-107); Glucose 261 mg/dL (74-99); Non-African American GFR(CKD) >90 (>60 ml/min/1.73 sqM); Potassium 2.8 mmol/L (3.5-5.1); Sodium 135 mmol/L (137-145)
[2021-01-02] MEDS: SODIUM CHLORIDE 0.9% 1,000 ML IV SCH ×2 (06:10→22:32)
[2021-01-02] MEDS ORDERED: POTASSIUM BICARBONATE/CIT AC 20 MEQ TABLET.EFF NG-TUBE SCH (07:00)
--- NOTE | 2021-01-02 07:55 | P.PN ---
Subjective Progress Note Date: 01/01/21 Principal diagnosis: colitis, abdominal pain, nausea and vomiting, status post total colectomy with end ileostomy formation The patient is seen lying in bed status post colectomy with end ileostomy formation yesterday. Currently reporting pain is controlled. No nausea or vomi ting. Objective - Vital Signs Vital signs: Vital Signs Temp 98.0 F 01/01/21 08:00 Pulse 82 01/01/21 10:00 Resp 16 01/01/21 10:00 BP 101/63 01/01/21 10:00 Pulse Ox 94 L 01/01/21 10:00 Intake & Output 12/31/20 01/01/21 01/01/21 18:59 06:59 18:59 Intake Total 4928.75 600 Output Total 163 860 365 Balance -163 4068.75 235 Weight 90.718 kg 95.9 kg Intake: IV 4025 300 .9 @ 75 mL/hr 525 300 Intake, IV Titration 903.75 300 Amount Amino Acid 5%-D20w+Lytes* 525 225 E* 1,000 ml @ 75 mls/hr IV .BY DURATION [facility] Rx#: [id number] Mvi, Adult No.4 with Vit 75 K 10 ml Trace (Conc-1Ml/ Dose) 1 ml In Amino Acid 5%-D20w+Lytes*E* 1,000 ml @ 30 mls/hr IV .Q24H [facility] Rx#:[id number] Mvi, Adult No.4 with Vit 378.75 K 10 ml Trace (Conc-1Ml/ Dose) 1 ml In Amino Acid 5%-D20w+Lytes*E* 1,000 ml @ 75 mls/hr IV .BY DURATION [facility] Rx#: [id number] Output: Gastric Drainage 150 Drainage 110 140 Abdomen 110 140 Urine 650 225 Urine/Stool Mix 3 Emesis 10 Estimated Blood Loss 100 Other: Voiding Method Indwelling Catheter Indwelling Catheter # Voids 3 - Exam On physical examination, patient appears comfortable in no apparent distress. HEAD: Normocephalic, atraumatic. EYES: No scleral icterus. No conjunctival injection. MOUTH: No lesions, tongue midline. NECK: Trachea midline, no gross abnormalities. ABDOMEN: Soft, status post ostomy formation which appears clean/eyes/intact with a small amount of output. Bowel sounds are positive. No organomegaly. No gu arding or rigidity. EXTREMITIES: No pedal edema. SKIN: No rashes, no jaundice. NEUROLOGIC: Alert and oriented x3. No focal deficits. - Labs CBC & Chem 7: 01/02/21 03:11 01/02/21 03:11 Labs: Abnormal Lab Results - Last 24 Hours (Table) 12/31/20 12/31/20 12/31/20 Range/Units 06:12 11:56 16:45 RBC 3.54 L (4.40-5.60) X 10*6/uL Hgb 10.5 L (13.0-17.0) g/dL Hct 31.0 L (39.6-50.0) % Absolute Nucleated RBC 0.02 H (0.00-0.00) X 10*3/uL Immature Gran # 0.27 H (0.00-0.04) X 10*3/uL Lymphocytes # 0.72 L (0.90-5.00) X 10*3/uL Eosinophils # 0 L (0.04-0.35) X 10*3/uL NRBC/100 WBC Diff 0.3 H (0.0-0.0) /100 WBCS ESR 34 H (0-15) mm/Hr Sodium (137-145) mmol/L Glucose (74-99) mg/dL POC Glucose (mg/dL) 191 H 162 H (75-99) mg/dL Calcium (8.4-10.2) mg/dL AST (17-59) U/L Alkaline Phosphatase (38-126) U/L Total Protein (6.3-8.2) g/dL Albumin (3.5-5.0) g/dL 12/31/20 01/01/21 01/01/21 Range/Units 23:12 04:03 06:10 RBC (4.40-5.60) X 10*6/uL Hgb (13.0-17.0) g/dL Hct (39.6-50.0) % Absolute Nucleated RBC (0.00-0.00) X 10*3/uL Immature Gran # (0.00-0.04) X 10*3/uL Lymphocytes # (0.90-5.00) X 10*3/uL Eosinophils # (0.04-0.35) X 10*3/uL NRBC/100 WBC Diff (0.0-0.0) /100 WBCS ESR (0-15) mm/Hr Sodium 134 L (137-145) mmol/L Glucose 240 H (74-99) mg/dL POC Glucose (mg/dL) 174 H 264 H (75-99) mg/dL Calcium 7.0 L (8.4-10.2) mg/dL AST 16 L (17-59) U/L Alkaline Phosphatase 28 L (38-126) U/L Total Protein 3.4 L (6.3-8.2) g/dL Albumin 1.5 L (3.5-5.0) g/dL Assessment and Plan (1) Colitis Narrative/Plan: 40-year-old male presenting to the hospital with complaints of nausea, vomiting, diarrhea and abdominal pain. Previous diagnosis of infection with Covid 19 a presented back to the hospital with complaints of frequent loose bowel movements up to 20-30 daily with associated nausea and vomiting and diffuse abdominal pain. CT scan of the abdomen performed on 12/22/2020 consistent with diffuse colitis with hepatosplenomegaly and hepatic steatosis. Concern was for possible Clostridium difficile testing with initial EIA negative for C. diff toxin. The patient has been started on broad-spectrum antibiotic therapy. Patient was t aken for flexible sigmoidoscopy with biopsies consistent with ulcerative colitis. Initially patient did well on steroid therapy and antibiotic therapy however subsequently had worsening in his condition with imaging suggestive of perforation the patient was taken for colectomy with end ileostomy formation is seen lying in bed. Current Visit: Yes Status: Acute Code(s): K52.9 - NONINFECTIVE GASTROENTERITIS AND COLITIS, UNSPECIFIED SNOMED Code(s): 27678115 (2) Abdominal pain Current Visit: Yes Status: Acute Code(s): R10.9 - UNSPECIFIED ABDOMINAL PAIN SNOMED Code(s): 41292024 (3) Nausea, vomiting, and diarrhea Current Visit: Yes Status: Acute Code(s): R11.2 - NAUSEA WITH VOMITING, UNSPECIFIED; R19.7 - DIARRHEA, UNSPECIFIED SNOMED Code(s): 8017652 Plan: Supportive care nothing by mouth, advance diet as per recommendations by the surgical service The patient's case was discussed with the surgical service and okay to continue steroid therapy for now Encourage ambulation and up to bed as tolerated Continue pain control Patient will need follow-up with gastroenterology after discharge given findings from biopsies on colonoscopy and suspected ulcerative colitis Thank you for allowing us to participate in the care of the patient
[2021-01-02] MEDS: PIPERACILLIN-TAZOBACTAM 3.375 GM in SODIUM CHLORIDE 0.9% 100 ML IVPB SCH ×3 (09:07→23:51)
[2021-01-02] MEDS: PANTOPRAZOLE 40 MG/10 ML VIAL IVP SCH ×2 (09:09→20:38)
[2021-01-02] MEDS: ONDANSETRON 4 MG/2 ML VIAL IVP SCH ×3 (09:09→23:51)
[2021-01-02] MEDS: ENOXAPARIN 40 MG/0.4 ML SYRINGE SQ SCH (09:09)
[2021-01-02] MEDS: POTASSIUM CHLORIDE 20 MEQ in WATER FOR INJECTION 1 100ML.BAG IVPB SCH ×2 (09:09→12:53)
--- NOTE | 2021-01-02 11:29 | P.PN ---
Subjective Progress Note Date: 01/02/21 Principal diagnosis: Perforated viscus pneumoperitoneum 40-year-old male who presented to the emergency department on December 23 at 2206. He apparently was brought in by EMS. His chief complaint at that time was abdominal pain, but he also had persistent nausea, vomiting, diarrhea. The patient tested positive for coronavirus, initially on December 06, and then again on December 27. His symptoms of nausea, vomiting, diarrhea, abdominal pain, have been going on for a day or so prior to admission, but got worse a day of admission. That's why he came in. In addition, the patient had recurrent temperature elevations, with generalized body aches and pains. Apparently yest erday, according to the surgeon, it was noted that he had a perforated viscus, and he went to the operating room where he had an exploratory laparotomy, and a colectomy with ileostomy. The surgeon was Dr. Chris. The patient was able to be extubated in the recovery area, but the surgeon was concerned about the patient's overall situation and wanted the patient watched in the intensive care unit. We spoke on the phone and I agreed to take the patient. Currently, the patient's on O2 at 4 L by nasal cannula, saline at 75 mL an hour, and TPN at 75 mL an hour. Prior to this episode, according to his medical records, the patient has no prior medical history, and no prior surgical history. He wasn't really taking any medication at home on a regular basis. Abdominal and pelvic computed tomography scan on December 27 showed large bowel wall thickening consistent with colitis, mild abdominal ascites, distended small bowel loops with air-fluid levels consistent with ileus, and small bilateral pleural effusions and basilar atelectasis. Current white count is 20.9, hemoglobin 10.3, hematocrit 30.4, and platelet count 298,000. Sodium 134, potassium 3.8, chlorides 105, CO2 23, anion gap 6, BUN 14, and creatinine 0.89. Albumin is 1.5. The patient is seen today for her 2020 in follow-up in the intensive care unit. He is currently awake and alert in no acute distress. He is m aintaining good O2 saturations in the 90s on room air. He has 0.9 normal saline at 75 ML's per hour. TPN at 75 mL per hour. He is receiving lipids on Sunday. White count 20.3. Hemoglobin 8.8. Sodium 135. Potassium 2.8. Creatinine 0.68. C-reactive protein 217. He remains on Lovenox for DVT prophylaxis. Protonix for GI prophylaxis. Antibiotics in the form of Zosyn. Objective - Vital Signs Vital signs: Vital Signs Temp 96.6 F L 01/02/21 08:00 Pulse 65 01/02/21 09:00 Resp 16 01/02/21 09:00 BP 111/74 01/02/21 10:00 Pulse Ox 95 01/02/21 09:00 Intake & Output 01/01/21 01/02/21 01/02/21 18:59 06:59 18:59 Intake Total 2961 1950 700 Output Total 1139 760 360 Balance 1822 1190 340 Weight 94.6 kg Intake: IV 975 825 300 .9 @ 75 mL/hr 975 825 300 Intake, IV Titration 1985 1125 400 Amount ACETAMINOPHEN IV (For NPO 200 ) 1,000 mg In Empty Bag 1 bag @ 400 mls/hr IVPB Q6HR [facility] Rx#:[id number] Amino Acid 5%-D20w+Lytes* 750 825 75 E* 1,000 ml @ 75 mls/hr IV .BY DURATION [facility] Rx#: [id number] Mvi, Adult No.4 with Vit 75 K 10 ml Trace (Conc-1Ml/ Dose) 1 ml In Amino Acid 5%-D20w+Lytes*E* 1,000 ml @ 30 mls/hr IV .Q24H [facility] Rx#:[id number] Mvi, Adult No.4 with Vit 1011 K 10 ml Trace (Conc-1Ml/ Dose) 1 ml In Amino Acid 5%-D20w+Lytes*E* 1,000 ml @ 75 mls/hr IV .BY DURATION [facility] Rx#: [id number] Piperacillin-Tazobactam 3 100 100 .375 gm In Sodium Chloride 0.9% 100 ml @ 25 mls/hr IVPB Q8HR [facility] Rx# :[id number] Sodium Acetate 40 meq 225 Potassium Chloride 40 meq Calcium Gluconate 1 gm Potassium Phosphate 15 mmol Mvi, Adult No.4 with Vit K 10 ml Trace (Conc- 1Ml/Dose) 1 ml In Amino Acids 5 %/Dextrose 20 % 1 ,000 ml @ 75 mls/hr IV . BY DURATION [facility] Rx#: [id number] Sodium Chloride 0.9% 1, 150 000 ml @ 75 mls/hr IV . [id number] [facility] Rx#:[id number] Output: Drainage 380 110 130 Abdomen 380 110 130 Urine 759 650 210 Stool 20 Other: Voiding Method Indwelling Catheter Indwelling Catheter Indwelling Catheter - Exam Very pleasant 40-year-old gentleman. On room air. No acute distress, oriented 3. HEENT examination is grossly unremarkable. Mucous membranes are moist. No oral lesions. Neck supple. Full range of motion. No adenopathy thyromegaly or neck vein distention. Cardiovascular examination reveals regular rhythm rate. S1-S2 normal. No S3 or S4. No discernible murmur noted. Heart rate 82 bpm. Lungs reveal mostly clear breath sounds, equal bilaterally. Few scattered rhonchi noted. Abdomen soft without bowel sounds. Ileostomy noted. Surgical incision is covered. Extremities are intact. No cyanosis clubbing or edema. Skin is without rash or lesion. Neurologic examination is brief but nonfocal. - Labs CBC & Chem 7: 01/02/21 03:11 01/02/21 03:11 Labs: Abnormal Lab Results - Last 24 Hours (Table) 01/01/21 01/01/21 01/01/21 Range/Units 04:03 11:50 17:58 WBC 20.52 H (4.50-10.00) X 10*3/uL RBC 3.43 L (4.40-5.60) X 10*6/uL Hgb 10.1 L (13.0-17.0) g/dL Hct 31.0 L (39.6-50.0) % Absolute Nucleated RBC 0.05 H (0.00-0.00) X 10*3/uL Metamyelocytes % 1 H (0-0) % Myelocytes % 2 H (0-0) % Neutrophils # (1.3-7.7) k/uL Neutrophils # (Manual) 18.47 H (2.00-8.90) X 10*3/uL Lymphocytes # (1.0-4.8) k/uL Eosinophils # (Manual) 0 L (0.04-0.35) X 10*3/uL NRBC/100 WBC Diff 0.2 H (0.0-0.0) /100 WBCS Sodium (137-145) mmol/L Potassium (3.5-5.1) mmol/L Glucose (74-99) mg/dL POC Glucose (mg/dL) 297 H 253 H (75-99) mg/dL Calcium (8.4-10.2) mg/dL Magnesium (1.6-2.3) mg/dL C-Reactive Protein (<10.0) mg/L 01/01/21 01/02/21 01/02/21 Range/Units 23:02 03:11 03:11 WBC 20.3 H (4.50-10.00) X 10*3/uL RBC 3.09 L (4.40-5.60) X 10*6/uL Hgb 8.8 L D (13.0-17.0) g/dL Hct 27.8 L (39.6-50.0) % Absolute Nucleated RBC (0.00-0.00) X 10*3/uL Metamyelocytes % (0-0) % Myelocytes % (0-0) % Neutrophils # 19.1 H (1.3-7.7) k/uL Neutrophils # (Manual) (2.00-8.90) X 10*3/uL Lymphocytes # 0.5 L (1.0-4.8) k/uL Eosinophils # (Manual) (0.04-0.35) X 10*3/uL NRBC/100 WBC Diff (0.0-0.0) /100 WBCS Sodium (137-145) mmol/L Potassium (3.5-5.1) mmol/L Glucose (74-99) mg/dL POC Glucose (mg/dL) 245 H (75-99) mg/dL Calcium (8.4-10.2) mg/dL Magnesium 2.4 H (1.6-2.3) mg/dL C-Reactive Protein (<10.0) mg/L 01/02/21 01/02/21 01/02/21 Range/Units 03:11 03:11 06:03 WBC (4.50-10.00) X 10*3/uL RBC (4.40-5.60) X 10*6/uL Hgb (13.0-17.0) g/dL Hct (39.6-50.0) % Absolute Nucleated RBC (0.00-0.00) X 10*3/uL Metamyelocytes % (0-0) % Myelocytes % (0-0) % Neutrophils # (1.3-7.7) k/uL Neutrophils # (Manual) (2.00-8.90) X 10*3/uL Lymphocytes # (1.0-4.8) k/uL Eosinophils # (Manual) (0.04-0.35) X 10*3/uL NRBC/100 WBC Diff (0.0-0.0) /100 WBCS Sodium 135 L (137-145) mmol/L Potassium 2.8 L (3.5-5.1) mmol/L Glucose 261 H (74-99) mg/dL POC Glucose (mg/dL) 297 H (75-99) mg/dL Calcium 7.1 L (8.4-10.2) mg/dL Magnesium (1.6-2.3) mg/dL C-Reactive Protein 217.3 H (<10.0) mg/L Assessment and Plan Assessment: Postop day #2, status post exploratory laparotomy with subtotal colectomy and creation of end ileostomy, secondary to perforated viscus and pneumoperitoneum and fulminant ulcerative colitis. History of COVID 19 infection, initially, positive, December 06, and subsequently positive, December 27, 2020. No prior significant past medical history. Plan: The patient was seen and evaluated by Dr. Parks Currently stable from the pulmonary and critical care standpoint To be transferred out of the ICU to the general medical floor today Continue Zosyn Encouraged regarding the increased use the incentive spirometer and cough and deep breathing exercises Increase his activity as tolerated I, the cosigning physician, performed a history & physical examination of the patient. Lungs sounds with few scattered rhonchi. Maintaining good O2 saturations in the 90s on room air. I discussed the assessment and plan of care with my nurse practitioner, Naty Onofre. I attest to the above note as dictated by her.
[2021-01-02 12:00] LABS: Glucose,Whole Blood 251 mg/dL (75-99)
[2021-01-02 13:29] VITALS: BMI 27.5
--- NOTE | 2021-01-02 14:44 | P.PN ---
Subjective Progress Note Date: 01/02/21 Patient seen and examined, vitals are stable, pain is well tolerated, small amount of gas and bile output from ileostomy. NGT in place. Serosang from [facility] Objective - Vital Signs Vital signs: Vital Signs Temp 96.6 F L 01/02/21 08:00 Pulse 65 01/02/21 09:00 Resp 16 01/02/21 09:00 BP 111/74 01/02/21 10:00 Pulse Ox 95 01/02/21 09:00 Intake & Output 01/01/21 01/02/21 01/02/21 18:59 06:59 18:59 Intake Total 2961 1950 700 Output Total 1139 760 360 Balance 1822 1190 340 Weight 94.6 kg 94.6 kg Intake: IV 975 825 300 .9 @ 75 mL/hr 975 825 300 Intake, IV Titration 1985 1125 400 Amount ACETAMINOPHEN IV (For NPO 200 ) 1,000 mg In Empty Bag 1 bag @ 400 mls/hr IVPB Q6HR [facility] Rx#:[id number] Amino Acid 5%-D20w+Lytes* 750 825 75 E* 1,000 ml @ 75 mls/hr IV .BY DURATION [facility] Rx#: [id number] Mvi, Adult No.4 with Vit 75 K 10 ml Trace (Conc-1Ml/ Dose) 1 ml In Amino Acid 5%-D20w+Lytes*E* 1,000 ml @ 30 mls/hr IV .Q24H [facility] Rx#:[id number] Mvi, Adult No.4 with Vit 1011 K 10 ml Trace (Conc-1Ml/ Dose) 1 ml In Amino Acid 5%-D20w+Lytes*E* 1,000 ml @ 75 mls/hr IV .BY DURATION [facility] Rx#: [id number] Piperacillin-Tazobactam 3 100 100 .375 gm In Sodium Chloride 0.9% 100 ml @ 25 mls/hr IVPB Q8HR [facility] Rx# :[id number] Sodium Acetate 40 meq 225 Potassium Chloride 40 meq Calcium Gluconate 1 gm Potassium Phosphate 15 mmol Mvi, Adult No.4 with Vit K 10 ml Trace (Conc- 1Ml/Dose) 1 ml In Amino Acids 5 %/Dextrose 20 % 1 ,000 ml @ 75 mls/hr IV . BY DURATION [facility] Rx#: [id number] Sodium Chloride 0.9% 1, 150 000 ml @ 75 mls/hr IV . [id number] [facility] Rx#:[id number] Output: Drainage 380 110 130 Abdomen 380 110 130 Urine 759 650 210 Stool 20 Other: Voiding Method Indwelling Catheter Indwelling Catheter Indwelling Catheter - Constitutional General appearance: Present: cooperative - Respiratory Details: nonlabored - Cardiovascular Rhythm: regular - Gastrointestinal Gastrointestinal Comment(s): S/NT/ND, incision CDI [facility] serous Ostomy pink patient with bile and gas in bag - Psychiatric Psychiatric: Present: A&O x's 3 - Labs CBC & Chem 7: 01/02/21 03:11 01/02/21 03:11 Labs: Abnormal Lab Results - Last 24 Hours (Table) 01/01/21 01/01/21 01/02/21 Range/Units 17:58 23:02 03:11 WBC (3.8-10.6) k/uL RBC (4.30-5.90) m/uL Hgb (13.0-17.5) gm/dL Hct (39.0-53.0) % Neutrophils # (1.3-7.7) k/uL Lymphocytes # (1.0-4.8) k/uL Sodium (137-145) mmol/L Potassium (3.5-5.1) mmol/L Glucose (74-99) mg/dL POC Glucose (mg/dL) 253 H 245 H (75-99) mg/dL Calcium (8.4-10.2) mg/dL Magnesium 2.4 H (1.6-2.3) mg/dL C-Reactive Protein (<10.0) mg/L 01/02/21 01/02/21 01/02/21 Range/Units 03:11 03:11 03:11 WBC 20.3 H (3.8-10.6) k/uL RBC 3.09 L (4.30-5.90) m/uL Hgb 8.8 L D (13.0-17.5) gm/dL Hct 27.8 L (39.0-53.0) % Neutrophils # 19.1 H (1.3-7.7) k/uL Lymphocytes # 0.5 L (1.0-4.8) k/uL Sodium 135 L (137-145) mmol/L Potassium 2.8 L (3.5-5.1) mmol/L Glucose 261 H (74-99) mg/dL POC Glucose (mg/dL) (75-99) mg/dL Calcium 7.1 L (8.4-10.2) mg/dL Magnesium (1.6-2.3) mg/dL C-Reactive Protein 217.3 H (<10.0) mg/L 01/02/21 01/02/21 Range/Units 06:03 11:58 WBC (3.8-10.6) k/uL RBC (4.30-5.90) m/uL Hgb (13.0-17.5) gm/dL Hct (39.0-53.0) % Neutrophils # (1.3-7.7) k/uL Lymphocytes # (1.0-4.8) k/uL Sodium (137-145) mmol/L Potassium (3.5-5.1) mmol/L Glucose (74-99) mg/dL POC Glucose (mg/dL) 297 H 251 H (75-99) mg/dL Calcium (8.4-10.2) mg/dL Magnesium (1.6-2.3) mg/dL C-Reactive Protein (<10.0) mg/L Assessment and Plan Assessment: POD#2 Ex lap subtotal colectomy with creation of end ileostomy Fulminant ulcerative colitis Septic shock Pneumoperitoneum Plan: Clamp NGT, DC smith, decrease IVF, cont. TPN. Patient pregressing well, up to chair. Ambulate in halls. Continue IS. SCDs and subQ heparin
[2021-01-02 15:54] LABS: Basophils # (A) 0.1 k/uL (0-0.2); Basophils % (A) 0 %; Eosinophils % (A) 0 %; HCT 28.3 % (39.0-53.0); HGB 9.1 gm/dL (13.0-17.5); Lymphocytes # (A) 0.9 k/uL (1.0-4.8); Lymphocytes % (A) 4 %; MCV 90.5 fL (80.0-100.0); Mean Platelet Volume 7.4; Monocytes # (A) 0.7 k/uL (0-1.0); Monocytes % (A) 3 %; Neutrophils # (A) 21.5 k/uL (1.3-7.7); Neutrophils % (A) 92 %; Platelet Count 326 k/uL (150-450); Poikilocytosis Slight; RBC 3.12 m/uL (4.30-5.90); RDW 14.2 % (11.5-15.5); WBC 23.4 k/uL (3.8-10.6)
--- NOTE | 2021-01-02 16:19 | P.PN ---
Subjective Progress Note Date: 01/02/21 Principal diagnosis: colitis, abdominal pain, nausea and vomiting, status post total colectomy with end ileostomy formation The patient is seen sitting bedside postop day #2 after colectomy with end ileostomy formation. He is asking for something to drink. he is still reporti ng some postsurgical abdominal pain with some gas and liquid output from his ostomy. Objective - Vital Signs Vital signs: Vital Signs Temp 96.6 F L 01/02/21 08:00 Pulse 65 01/02/21 09:00 Resp 16 01/02/21 09:00 BP 112/75 01/02/21 09:00 Pulse Ox 95 01/02/21 09:00 Intake & Output 01/01/21 01/02/21 01/02/21 18:59 06:59 18:59 Intake Total 2961 1950 700 Output Total 1139 760 360 Balance 1822 1190 340 Weight 94.6 kg Intake: IV 975 825 300 .9 @ 75 mL/hr 975 825 300 Intake, IV Titration 1985 1125 400 Amount ACETAMINOPHEN IV (For NPO 200 ) 1,000 mg In Empty Bag 1 bag @ 400 mls/hr IVPB Q6HR [facility] Rx#:[id number] Amino Acid 5%-D20w+Lytes* 750 825 75 E* 1,000 ml @ 75 mls/hr IV .BY DURATION [facility] Rx#: [id number] Mvi, Adult No.4 with Vit 75 K 10 ml Trace (Conc-1Ml/ Dose) 1 ml In Amino Acid 5%-D20w+Lytes*E* 1,000 ml @ 30 mls/hr IV .Q24H [facility] Rx#:[id number] Mvi, Adult No.4 with Vit 1011 K 10 ml Trace (Conc-1Ml/ Dose) 1 ml In Amino Acid 5%-D20w+Lytes*E* 1,000 ml @ 75 mls/hr IV .BY DURATION [facility] Rx#: [id number] Piperacillin-Tazobactam 3 100 100 .375 gm In Sodium Chloride 0.9% 100 ml @ 25 mls/hr IVPB Q8HR [facility] Rx# :[id number] Sodium Acetate 40 meq 225 Potassium Chloride 40 meq Calcium Gluconate 1 gm Potassium Phosphate 15 mmol Mvi, Adult No.4 with Vit K 10 ml Trace (Conc- 1Ml/Dose) 1 ml In Amino Acids 5 %/Dextrose 20 % 1 ,000 ml @ 75 mls/hr IV . BY DURATION [facility] Rx#: [id number] Sodium Chloride 0.9% 1, 150 000 ml @ 75 mls/hr IV . [id number] [facility] Rx#:[id number] Output: Drainage 380 110 130 Abdomen 380 110 130 Urine 759 650 210 Stool 20 Other: Voiding Method Indwelling Catheter Indwelling Catheter Indwelling Catheter - Exam On physical examination, patient appears comfortable in no apparent distress. HEAD: Normocephalic, atraumatic. EYES: No scleral icterus. No conjunctival injection. MOUTH: No lesions, tongue midline. NECK: Trachea midline, no gross abnormalities. ABDOMEN: Soft, status post ostomy formation which appears clean/eyes/intact with a small amount of output. Bowel sounds are positive. No organomegaly. No guarding or rigidity. EXTREMITIES: No pedal edema. SKIN: No rashes, no jaundice. NEUROLOGIC: Alert and oriented x3. No focal deficits. - Labs CBC & Chem 7: 01/02/21 15:00 01/02/21 03:11 Labs: Abnormal Lab Results - Last 24 Hours (Table) 01/01/21 01/01/21 01/01/21 Range/Units 04:03 10:11 11:50 WBC 20.52 H 20.9 H (4.50-10.00) X 10*3/uL RBC 3.43 L 3.41 L (4.40-5.60) X 10*6/uL Hgb 10.1 L 10.3 L (13.0-17.0) g/dL Hct 31.0 L 30.4 L (39.6-50.0) % Absolute Nucleated RBC 0.05 H (0.00-0.00) X 10*3/uL Metamyelocytes % 1 H (0-0) % Myelocytes % 2 H (0-0) % Neutrophils # (1.3-7.7) k/uL Neutrophils # (Manual) 18.47 H (2.00-8.90) X 10*3/uL Lymphocytes # (1.0-4.8) k/uL Eosinophils # (Manual) 0 L (0.04-0.35) X 10*3/uL NRBC/100 WBC Diff 0.2 H (0.0-0.0) /100 WBCS Sodium (137-145) mmol/L Potassium (3.5-5.1) mmol/L Glucose (74-99) mg/dL POC Glucose (mg/dL) 297 H (75-99) mg/dL Calcium (8.4-10.2) mg/dL Magnesium (1.6-2.3) mg/dL 01/01/21 01/01/21 01/02/21 Range/Units 17:58 23:02 03:11 WBC (4.50-10.00) X 10*3/uL RBC (4.40-5.60) X 10*6/uL Hgb (13.0-17.0) g/dL Hct (39.6-50.0) % Absolute Nucleated RBC (0.00-0.00) X 10*3/uL Metamyelocytes % (0-0) % Myelocytes % (0-0) % Neutrophils # (1.3-7.7) k/uL Neutrophils # (Manual) (2.00-8.90) X 10*3/uL Lymphocytes # (1.0-4.8) k/uL Eosinophils # (Manual) (0.04-0.35) X 10*3/uL NRBC/100 WBC Diff (0.0-0.0) /100 WBCS Sodium (137-145) mmol/L Potassium (3.5-5.1) mmol/L Glucose (74-99) mg/dL POC Glucose (mg/dL) 253 H 245 H (75-99) mg/dL Calcium (8.4-10.2) mg/dL Magnesium 2.4 H (1.6-2.3) mg/dL 01/02/21 01/02/21 01/02/21 Range/Units 03:11 03:11 06:03 WBC 20.3 H (4.50-10.00) X 10*3/uL RBC 3.09 L (4.40-5.60) X 10*6/uL Hgb 8.8 L D (13.0-17.0) g/dL Hct 27.8 L (39.6-50.0) % Absolute Nucleated RBC (0.00-0.00) X 10*3/uL Metamyelocytes % (0-0) % Myelocytes % (0-0) % Neutrophils # 19.1 H (1.3-7.7) k/uL Neutrophils # (Manual) (2.00-8.90) X 10*3/uL Lymphocytes # 0.5 L (1.0-4.8) k/uL Eosinophils # (Manual) (0.04-0.35) X 10*3/uL NRBC/100 WBC Diff (0.0-0.0) /100 WBCS Sodium 135 L (137-145) mmol/L Potassium 2.8 L (3.5-5.1) mmol/L Glucose 261 H (74-99) mg/dL POC Glucose (mg/dL) 297 H (75-99) mg/dL Calcium 7.1 L (8.4-10.2) mg/dL Magnesium (1.6-2.3) mg/dL Assessment and Plan (1) Colitis Narrative/Plan: 40-year-old male presenting to the hospital with complaints of nausea, vomiting, diarrhea and abdominal pain. Previous diagnosis of infection with Covid 19 a presented back to the hospital with complaints of frequent loose bowel movements up to 20-30 daily with associated nausea and vomiting and diffuse abdominal pain. CT scan of the abdomen performed on 12/22/2020 consistent with diffuse colitis with hepatosplenomegaly and hepatic steatosis. Concern was for possible Clostridium difficile testing with initial EIA negative for C. diff toxin. The patient has been started on broad-spectrum antibiotic therapy. Patient was taken for flexible sigmoidoscopy with biopsies consistent with ulcerative col itis. Initially patient did well on steroid therapy and antibiotic therapy however subsequently had worsening in his condition with imaging suggestive of perforation the patient was taken for colectomy with end ileostomy formation. Current Visit: Yes Status: Acute Code(s): K52.9 - NONINFECTIVE GASTROENTERITIS AND COLITIS, UNSPECIFIED SNOMED Code(s): 57942901 (2) Abdominal pain Current Visit: Yes Status: Acute Code(s): R10.9 - UNSPECIFIED ABDOMINAL PAIN SNOMED Code(s): 56797068 (3) Nausea, vomiting, and diarrhea Current Visit: Yes Status: Acute Code(s): R11.2 - NAUSEA WITH VOMITING, UNSPECIFIED; R19.7 - DIARRHEA, UNSPECIFIED SNOMED Code(s): 4649613 Plan: Supportive care nothing by mouth, advance diet as per recommendations by the surgical service Encourage ambulation and up to chair as tolerated Continue pain control continue broad-spectrum antibiotic therapy Continue steroid therapy Patient will need follow-up with gastroenterology after discharge given findings from biopsies on colonoscopy and suspected ulcerative colitis Thank you for allowing us to participate in the care of the patient
[2021-01-02 17:00] LABS: Glucose,Whole Blood 124 mg/dL (75-99)
[2021-01-02] MEDS: CALCIUM GLUCONATE IV SCH ×7 (18:27)
[2021-01-02] MEDS: POTASSIUM CHLORIDE IV SCH ×7 (18:27)
[2021-01-02] MEDS: [UNRECOGNIZED DRUG - OTHER] IV SCH ×7 (18:27)
[2021-01-02] MEDS: SODIUM ACETATE IV SCH ×7 (18:27)
[2021-01-02] MEDS: MORPHINE SULFATE 4 MG/ML SYRINGE IV PRN (20:39)
[2021-01-02] MEDS ORDERED: INSULIN DETEMIR (LEVEMIR) 100 UNIT/ML SYR SQ ONE (23:30)
--- NOTE | 2021-01-02 23:41 | PN ---
PROGRESS NOTE DATE OF SERVICE: 01/02/2021 REASON FOR FOLLOWUP: Secondary peritonitis from perforated bowel. INTERVAL HISTORY: The patient is currently afebrile. Patient is breathing comfortably. Abdominal pain seems to be controlled. At this point, denies having nausea. No vomiting. No chest pain, shortness of breath or cough. PHYSICAL EXAMINATION: Blood pressure 118/70 with a pulse of 80. Temperature is 97.8. He is 97% on room air. General description: The patient is a middle-aged male lying in bed in no distress. Respiratory system: Unlabored breathing, clear to auscultation anteriorly. Heart S1, S2. Regular rate and rhythm. ABDOMEN: Soft, mildly distended. No guarding. No rigidity. LABS: Hemoglobin is 9.1, white count 23.2. Creatinine 0.68. DIAGNOSTIC IMPRESSION AND PLAN: Patient with perforated bowel with ulcerative colitis, status post subtotal colectomy and diverting ileostomy. The patient is covered with Zosyn. White count slightly jumping. Monitor closely. Continue supportive care. MMODL / IJN: [id number] /
[2021-01-03 00:28] LABS: Glucose,Whole Blood 186 mg/dL (75-99)
[2021-01-03] MEDS: MORPHINE SULFATE 4 MG/ML SYRINGE IV PRN ×4 (01:39→21:55)
--- NOTE | 2021-01-03 02:19 | P.PN ---
Subjective Progress Note Date: 01/03/21 Patient seen and examined, vitals are stable, pain is well tolerated, small amount of gas and bile output from ileostomy. NGT in place. Serosang from [facility] Had some nausea along with urinary retention Objective - Vital Signs Vital signs: Vital Signs Temp 97.8 F 01/02/21 17:45 Pulse 80 01/02/21 17:45 Resp 17 01/02/21 17:45 BP 111/70 01/02/21 17:45 Pulse Ox 97 01/02/21 17:45 Intake & Output 01/02/21 01/02/21 01/03/21 06:59 18:59 06:59 Intake Total 1950 700 Output Total 760 800 Balance 1190 -100 Weight 94.6 kg 94.6 kg Intake: IV 825 300 .9 @ 75 mL/hr 825 300 Intake, IV Titration 1125 400 Amount ACETAMINOPHEN IV (For NPO 200 ) 1,000 mg In Empty Bag 1 bag @ 400 mls/hr IVPB Q6HR [facility] Rx#:[id number] Amino Acid 5%-D20w+Lytes* 825 75 E* 1,000 ml @ 75 mls/hr IV .BY DURATION [facility] Rx#: [id number] Piperacillin-Tazobactam 3 100 100 .375 gm In Sodium Chloride 0.9% 100 ml @ 25 mls/hr IVPB Q8HR [facility] Rx# :[id number] Sodium Acetate 40 meq 225 Potassium Chloride 40 meq Calcium Gluconate 1 gm Potassium Phosphate 15 mmol [facility], Adult No.4 with Vit K 10 ml Trace (Conc- 1Ml/Dose) 1 ml In Amino Acids 5 %/Dextrose 20 % 1 ,000 ml @ 75 mls/hr IV . BY DURATION [facility] Rx#: [id number] Output: Drainage 110 170 Abdomen 110 170 Urine 650 610 Uretheral (Smith) 400 Stool 20 Other: Voiding Method Indwelling Catheter Indwelling Catheter - Gastrointestinal Gastrointestinal Comment(s): S/NT ostomy pink patent [facility] serous - Labs CBC & Chem 7: 01/02/21 15:00 01/02/21 03:11 Labs: Abnormal Lab Results - Last 24 Hours (Table) 01/02/21 01/02/21 01/02/21 Range/Units 03:11 03:11 03:11 WBC 20.3 H (3.8-10.6) k/uL RBC 3.09 L (4.30-5.90) m/uL Hgb 8.8 L D (13.0-17.5) gm/dL Hct 27.8 L (39.0-53.0) % Neutrophils # 19.1 H (1.3-7.7) k/uL Lymphocytes # 0.5 L (1.0-4.8) k/uL Sodium 135 L (137-145) mmol/L Potassium 2.8 L (3.5-5.1) mmol/L Glucose 261 H (74-99) mg/dL POC Glucose (mg/dL) (75-99) mg/dL Calcium 7.1 L (8.4-10.2) mg/dL Magnesium 2.4 H (1.6-2.3) mg/dL C-Reactive Protein (<10.0) mg/L Procalcitonin (0.02-0.09) ng/mL 01/02/21 01/02/21 01/02/21 Range/Units 03:11 03:11 06:03 WBC (3.8-10.6) k/uL RBC (4.30-5.90) m/uL Hgb (13.0-17.5) gm/dL Hct (39.0-53.0) % Neutrophils # (1.3-7.7) k/uL Lymphocytes # (1.0-4.8) k/uL Sodium (137-145) mmol/L Potassium (3.5-5.1) mmol/L Glucose (74-99) mg/dL POC Glucose (mg/dL) 297 H (75-99) mg/dL Calcium (8.4-10.2) mg/dL Magnesium (1.6-2.3) mg/dL C-Reactive Protein 217.3 H (<10.0) mg/L Procalcitonin 0.48 H (0.02-0.09) ng/mL 01/02/21 01/02/21 01/02/21 Range/Units 11:58 15:00 16:58 WBC 23.4 H (3.8-10.6) k/uL RBC 3.12 L (4.30-5.90) m/uL Hgb 9.1 L (13.0-17.5) gm/dL Hct 28.3 L (39.0-53.0) % Neutrophils # 21.5 H (1.3-7.7) k/uL Lymphocytes # 0.9 L (1.0-4.8) k/uL Sodium (137-145) mmol/L Potassium (3.5-5.1) mmol/L Glucose (74-99) mg/dL POC Glucose (mg/dL) 251 H 124 H (75-99) mg/dL Calcium (8.4-10.2) mg/dL Magnesium (1.6-2.3) mg/dL C-Reactive Protein (<10.0) mg/L Procalcitonin (0.02-0.09) ng/mL 01/03/21 Range/Units 00:27 WBC (3.8-10.6) k/uL RBC (4.30-5.90) m/uL Hgb (13.0-17.5) gm/dL Hct (39.0-53.0) % Neutrophils # (1.3-7.7) k/uL Lymphocytes # (1.0-4.8) k/uL Sodium (137-145) mmol/L Potassium (3.5-5.1) mmol/L Glucose (74-99) mg/dL POC Glucose (mg/dL) 186 H (75-99) mg/dL Calcium (8.4-10.2) mg/dL Magnesium (1.6-2.3) mg/dL C-Reactive Protein (<10.0) mg/L Procalcitonin (0.02-0.09) ng/mL Assessment and Plan Assessment: POD#3 Ex lap subtotal colectomy with creation of end ileostomy Fulminant ulcerative colitis Septic shock Pneumoperitoneum Plan: Cont NGT and smith, decrease IVF, cont. TPN. Patient pregressing well, up to chair. Ambulate in halls. Continue IS. SCDs and subQ heparin
[2021-01-03] MEDS: INSULIN ASPART (NovoLOG) 100 UNIT/ML VIAL SQ SCH ×4 (02:36→17:03)
[2021-01-03 05:55] LABS: Glucose,Whole Blood 227 mg/dL (75-99)
[2021-01-03] MEDS: methylPREDNISolone SOD SUCCI 40 MG/ML 1 ML VIAL IV SCH ×3 (06:07→17:03)
[2021-01-03 07:40] LABS: Basophils # (A) 0.1 k/uL (0-0.2); Basophils % (A) 0 %; Eosinophils % (A) 0 %; Lymphocytes # (A) 0.5 k/uL (1.0-4.8); Lymphocytes % (A) 3 %; MCH 29.9 pg (25.0-35.0); MCHC 33.4 g/dL (31.0-37.0); MCV 89.5 fL (80.0-100.0); Mean Platelet Volume 7.7; Monocytes # (A) 0.5 k/uL (0-1.0); Monocytes % (A) 3 %; Neutrophils # (A) 16.2 k/uL (1.3-7.7); Neutrophils % (A) 93 %; Platelet Count 323 k/uL (150-450); Poikilocytosis Slight; RBC 3.02 m/uL (4.30-5.90); RDW 14.1 % (11.5-15.5); WBC 17.4 k/uL (3.8-10.6)
[2021-01-03] MEDS: FAT EMULSION 20% 250 ML in EMPTY BAG 1 BAG IV SCH (08:29)
[2021-01-03] MEDS: ENOXAPARIN 40 MG/0.4 ML SYRINGE SQ SCH (08:30)
[2021-01-03] MEDS: PANTOPRAZOLE 40 MG/10 ML VIAL IVP SCH ×2 (08:30→20:39)
[2021-01-03] MEDS: [UNRECOGNIZED DRUG - OTHER] IV SCH ×14 (08:30→20:38)
[2021-01-03] MEDS: POTASSIUM CHLORIDE IV SCH ×14 (08:30→20:38)
[2021-01-03] MEDS: PIPERACILLIN-TAZOBACTAM 3.375 GM in SODIUM CHLORIDE 0.9% 100 ML IVPB SCH ×2 (08:30→17:03)
[2021-01-03] MEDS: SODIUM ACETATE IV SCH ×14 (08:30→20:38)
[2021-01-03] MEDS: CALCIUM GLUCONATE IV SCH ×14 (08:30→20:38)
[2021-01-03 09:53] LABS: African American GFR (CKD) 144.7 (60.0-200.0); Anion Gap 7.4 mmol/L (4.00-12.00); BUN/Creat Ratio 33.33 Ratio (12.00-20.00); Calcium 6.9 mg/dL (8.7-10.3); Carbon Dioxide 25.6 mmol/L (21.6-31.8); Non-African American GFR(CKD) 124.9 (60.0-200.0); Phosphorus 4.3 mg/dL (2.4-5.1); Potassium 3.5 mmol/L (3.5-5.5)
[2021-01-03 11:23] LABS: Glucose,Whole Blood 234 mg/dL (75-99)
[2021-01-03] MEDS: POTASSIUM CHLORIDE 20 MEQ in WATER FOR INJECTION 1 100ML.BAG IVPB SCH ×2 (11:35→15:00)
--- NOTE | 2021-01-03 12:03 | P.PN ---
Subjective Progress Note Date: 01/03/21 40-year-old male who presented to the emergency department on December 23 at 2206. He apparently was brought in by EMS. His chief complaint at that time was abdominal pain, but he also had persistent nausea, vomiting, diarrhea. The patient tested positive for coronavirus, initially on December 06, and then again on December 27. His symptoms of nausea, vomiting, diarrhea, abdominal pain, have been going on for a day or so prior to admission, but got worse a day of admission. That's why he came in. In addition, the patient had recurrent temperature elevations, with generalized body aches and pains. Apparently yesterday, according to the surgeon, it was noted that he had a perforated viscus, and he went to the operating room where he had an exploratory laparotomy, and a colectomy with ileostomy. The surgeon was Dr. Chris. The patient was able to be extubated in the recovery area, but the surgeon was concerned about the patient's overall situation and wanted the patient watched in the intensive care unit. We spoke on the phone and I agreed to take the patient. Currently, the patient's on O2 at 4 L by nasal cannula, saline at 75 mL an hour, and TPN at 75 mL an hour. Prior to this episode, according to his medical records, the patient has no prior medical history, and no prior surgical history. He wasn't really taking any medication at home on a regular basis. Abdominal and pelvic computed tomography scan on December 27 showed large bowel wall thickening consistent with colitis, mild abdominal ascites, distended small bowel loops with air-fluid levels consistent with ileus, and small bilateral pleural effusions and basilar atelectasis. Current white count is 20.9, hemogl obin 10.3, hematocrit 30.4, and platelet count 298,000. Sodium 134, potassium 3.8, chlorides 105, CO2 23, anion gap 6, BUN 14, and creatinine 0.89. Albumin is 1.5. The patient is seen today for her 2020 in follow-up in the intensive care unit. He is currently awake and alert in no acute distress. He is maintaining good O2 saturations in the 90s on room air. He has 0.9 normal saline at 75 ML's per hour. TPN at 75 mL per hour. He is receiving lipids on Sunday. White count 20.3. Hemoglobin 8.8. Sodium 135. Potassium 2.8. Creatinine 0.68. C-reactive protein 217. He remains on Lovenox for DVT prophylaxis. Protonix for GI prophylaxis. Antibiotics in the form of Zosyn. On 01/03/2021 I'm seeing this patient for a follow-up. As mentioned earlier he was possible Covid 19 back in November 2020 and the patient got hospitalized for abdominal complaints and pain and is notable for mother bowel disease in the form of ulcerative colitis. Upon further evaluation, the patient was found to have perforated viscus and he was taken to the operating room where he underwent a and the surgery was done on December 312020 and the patient underwent a subtotal colectomy and creation of an and ileostomy. This was a complication of fulminant ulcerative colitis. He was in septic shock and he obviously had a pneumoperitoneum. At this point in time, the patient has a JUANCHO drain in place. Surgical wound site is dry clean and intact. Ileostomy site is showing some liquidy output. He remains on TPN for nutritional support. He is on IV Zosyn as an empiric antibiotic coverage. He is on Lovenox 40 mg subcu for DVT prophylaxis. He remains on IV Solu Medrol 20 mg every 6 hours. Note that the patient was not taking any form of steroids regarding his ulcerative colitis. He has an NG tube in place. He has a Sahni catheter in place. He ambulates in the hallway. He is using incentive spirometer. He has sequential compression devices to his lower extremities. Note that the patient was having symptoms of colitis with nausea vomiting and diarrhea and abdominal pain. He was having frequent loose bowel movements approximately 20 or 30 of them on a daily basis associated with some nausea and vomiting and diffuse abdominal pain. CAT scan of the abdomen was done on 12/22/2020 showed she is colitis with hepatosplenomegaly and hepatic steatosis. Stool for C. diff was negative. This was an inflammatory process suspected to be related to Objective - Vital Signs Vital signs: Vital Signs Temp 98.7 F 01/03/21 10:00 Pulse 90 01/03/21 10:00 Resp 18 01/03/21 10:00 BP 114/72 01/03/21 10:00 Pulse Ox 92 L 01/03/21 10:00 Intake & Output 01/02/21 01/03/21 01/03/21 18:59 06:59 18:59 Intake Total 700 Output Total 800 791 Balance -100 -791 Weight 94.6 kg Intake: IV 300 .9 @ 75 mL/hr 300 Intake, IV Titration 400 Amount Amino Acid 5%-D20w+Lytes* 75 E* 1,000 ml @ 75 mls/hr IV .BY DURATION [facility] Rx#: [id number] Piperacillin-Tazobactam 3 100 .375 gm In Sodium Chloride 0.9% 100 ml @ 25 mls/hr IVPB Q8HR [facility] Rx# :[id number] Sodium Acetate 40 meq 225 Potassium Chloride 40 meq Calcium Gluconate 1 gm Potassium Phosphate 15 mmol Mvi, Adult No.4 with Vit K 10 ml Trace (Conc- 1Ml/Dose) 1 ml In Amino Acids 5 %/Dextrose 20 % 1 ,000 ml @ 75 mls/hr IV . BY DURATION [facility] Rx#: [id number] Output: Drainage 170 240 Abdomen 170 240 Urine 610 550 Uretheral (Sahni) 400 550 Stool 20 Emesis 1 Other: Voiding Method Indwelling Catheter Indwelling Catheter Indwelling Catheter - Exam Very pleasant 40-year-old gentleman. On room air. No acute distress, oriented 3. The patient has an NG tube in place. HEENT examination is grossly unremarkable. Mucous membranes are moist. No oral lesions. Neck supple. Full range of motion. No adenopathy thyromegaly or neck vein distention. Cardiovascular examination reveals regular rhythm rate. S1-S2 normal. No S3 or S4. No discernible murmur noted. Heart rate 82 bpm. Lungs reveal mostly clear breath sounds, equal bilaterally. Few scattered rhonchi noted. Abdomen soft without bowel sounds. Ileostomy noted. Surgical incision is covered. Surgical wound site is dry clean and intact. Ileostomy site is viable and function with some minimal amount of liquidy output. JUANCHO drain is in place. Extremities are intact. No cyanosis clubbing or edema. Skin is without rash or lesion. Neurologic examination is brief but nonfocal. - Labs CBC & Chem 7: 01/03/21 05:24 01/03/21 05:21 Labs: Abnormal Lab Results - Last 24 Hours (Table) 01/02/21 01/02/21 01/02/21 Range/Units 03:11 11:58 15:00 WBC 23.4 H (3.8-10.6) k/uL RBC 3.12 L (4.30-5.90) m/uL Hgb 9.1 L (13.0-17.5) gm/dL Hct 28.3 L (39.0-53.0) % Neutrophils # 21.5 H (1.3-7.7) k/uL Lymphocytes # 0.9 L (1.0-4.8) k/uL BUN/Creatinine Ratio (12.00-20.00) Ratio Glucose (70-110) mg/dL POC Glucose (mg/dL) 251 H (75-99) mg/dL Calcium (8.7-10.3) mg/dL Procalcitonin 0.48 H (0.02-0.09) ng/mL 01/02/21 01/03/21 01/03/21 Range/Units 16:58 00:27 05:21 WBC (3.8-10.6) k/uL RBC (4.30-5.90) m/uL Hgb (13.0-17.5) gm/dL Hct (39.0-53.0) % Neutrophils # (1.3-7.7) k/uL Lymphocytes # (1.0-4.8) k/uL BUN/Creatinine Ratio 33.33 H (12.00-20.00) Ratio Glucose 225 H (70-110) mg/dL POC Glucose (mg/dL) 124 H 186 H (75-99) mg/dL Calcium 6.9 L (8.7-10.3) mg/dL Procalcitonin (0.02-0.09) ng/mL 01/03/21 01/03/21 01/03/21 Range/Units 05:24 05:53 11:18 WBC 17.4 H (3.8-10.6) k/uL RBC 3.02 L (4.30-5.90) m/uL Hgb 9.0 L (13.0-17.5) gm/dL Hct 27.0 L (39.0-53.0) % Neutrophils # 16.2 H (1.3-7.7) k/uL Lymphocytes # 0.5 L (1.0-4.8) k/uL BUN/Creatinine Ratio (12.00-20.00) Ratio Glucose (70-110) mg/dL POC Glucose (mg/dL) 227 H 234 H (75-99) mg/dL Calcium (8.7-10.3) mg/dL Procalcitonin (0.02-0.09) ng/mL Assessment and Plan Plan: 1 Postop day #3, status post exploratory laparotomy with subtotal colectomy and creation of end ileostomy, secondary to perforated viscus and pneumoperitoneum and fulminant ulcerative colitis. 2 History of COVID 19 infection, initially, positive, December 06, and subsequently positive, December 27, 2020. 3 leukocytosis secondary to intra-abdominal sepsis, recovered and her white cell count is also essentially improving 4 NPO patient is receiving TPN for nutritional support via PICC line in the left upper extremity Plan Keep the patient nothing by mouth for now TPN for nutritional support IV Zosyn White cell count is improving Pathology is consistent with ulcerative colitis and the patient is currently on IV Solu-Medrol and GI is on the case in general surgeries on the case folder the output from the JUANCHO drain Surgical wound site is dry clean and intact Education regarding ileostomy care Management of the NG tube for general surgery Follow
--- NOTE | 2021-01-03 15:29 | P.PN ---
Subjective Progress Note Date: 01/03/21 Principal diagnosis: Colitis, abdominal pain, nausea and vomiting Seen and examined lying in bed. He has status postop day #3 after colectomy with end ileostomy formation.He started having some nausea and vomiting or the night. Dr. estrella came in to see the patient, NG tube was restarted on intermittent suction. Patient also states he had urinary retention, Sahni catheter reinserted. There is approximately 400 mL from NG tube. Denies any fevers or chills. She used to have abdominal discomfort, states he has had minimal output from the ileostomy. Objective - Vital Signs Vital signs: Vital Signs Temp 97.6 F 01/03/21 05:10 Pulse 85 01/03/21 05:10 Resp 17 01/03/21 05:10 BP 115/73 01/03/21 05:10 Pulse Ox 93 L 01/03/21 05:10 Intake & Output 01/02/21 01/03/21 01/03/21 18:59 06:59 18:59 Intake Total 700 Output Total 800 791 Balance -100 -791 Weight 94.6 kg Intake: IV 300 .9 @ 75 mL/hr 300 Intake, IV Titration 400 Amount Amino Acid 5%-D20w+Lytes* 75 E* 1,000 ml @ 75 mls/hr IV .BY DURATION [facility] Rx#: [id number] Piperacillin-Tazobactam 3 100 .375 gm In Sodium Chloride 0.9% 100 ml @ 25 mls/hr IVPB Q8HR [facility] Rx# :[id number] Sodium Acetate 40 meq 225 Potassium Chloride 40 meq Calcium Gluconate 1 gm Potassium Phosphate 15 mmol Mvi, Adult No.4 with Vit K 10 ml Trace (Conc- 1Ml/Dose) 1 ml In Amino Acids 5 %/Dextrose 20 % 1 ,000 ml @ 75 mls/hr IV . BY DURATION [facility] Rx#: [id number] Output: Drainage 170 240 Abdomen 170 240 Urine 610 550 Uretheral (Sahni) 400 550 Stool 20 Emesis 1 Other: Voiding Method Indwelling Catheter Indwelling Catheter - Exam General appearance: The patient is alert, oriented, appears in no acute distress. HET: Head is normocephalic and atraumatic. Conjunctiva pink. Sclera anicteric. NG tube intact with suction. Neck: Supple without lymphadenopathy. Abdomen: Somewhat firm, ileostomy with that, incision with dressing clean dry and intact, Paul-Marley drain with serosanguineous drainage. Abdominal binder in place. No guarding or rigidity. Extremities: Normal skin color and turgor. Bilateral pedal edema. Neurological: No focal deficits. Alert and oriented 3. - Labs CBC & Chem 7: 01/03/21 05:24 01/03/21 05:21 Labs: Abnormal Lab Results - Last 24 Hours (Table) 01/02/21 01/02/21 01/02/21 Range/Units 03:11 03:11 11:58 WBC (3.8-10.6) k/uL RBC (4.30-5.90) m/uL Hgb (13.0-17.5) gm/dL Hct (39.0-53.0) % Neutrophils # (1.3-7.7) k/uL Lymphocytes # (1.0-4.8) k/uL POC Glucose (mg/dL) 251 H (75-99) mg/dL C-Reactive Protein 217.3 H (<10.0) mg/L Procalcitonin 0.48 H (0.02-0.09) ng/mL 01/02/21 01/02/21 01/03/21 Range/Units 15:00 16:58 00:27 WBC 23.4 H (3.8-10.6) k/uL RBC 3.12 L (4.30-5.90) m/uL Hgb 9.1 L (13.0-17.5) gm/dL Hct 28.3 L (39.0-53.0) % Neutrophils # 21.5 H (1.3-7.7) k/uL Lymphocytes # 0.9 L (1.0-4.8) k/uL POC Glucose (mg/dL) 124 H 186 H (75-99) mg/dL C-Reactive Protein (<10.0) mg/L Procalcitonin (0.02-0.09) ng/mL 01/03/21 01/03/21 Range/Units 05:24 05:53 WBC 17.4 H (3.8-10.6) k/uL RBC 3.02 L (4.30-5.90) m/uL Hgb 9.0 L (13.0-17.5) gm/dL Hct 27.0 L (39.0-53.0) % Neutrophils # 16.2 H (1.3-7.7) k/uL Lymphocytes # 0.5 L (1.0-4.8) k/uL POC Glucose (mg/dL) 227 H (75-99) mg/dL C-Reactive Protein (<10.0) mg/L Procalcitonin (0.02-0.09) ng/mL Assessment and Plan (1) Colitis Narrative/Plan: 40-year-old male presenting to the hospital with complaints of nausea, vomiting, diarrhea and abdominal pain. Previous diagnosis of infection with Covid 19 a presented back to the hospital with complaints of frequent loose bowel movements up to 20-30 daily with associated nausea and vomiting and diffuse abdominal pain. CT scan of the abdomen performed on 12/22/2020 consistent with diffuse colitis with hepatosplenomegaly and hepatic steatosis. Concern was for possible Clostridium difficile toxin with initial EIA negative for C. diff toxin. The patient has been started on broad-spectrum antibiotic therapy. he was taken for flexible sigmoidoscopy with biopsy consistent with ulcerative colitis. Initially patient did well on steroid therapy and antibiotic therapy however subsequently had worsened being in his condition and imaging suggestive of perforation. The patient was taken for colectomy with end ileostomy formation. Current Visit: Yes Status: Acute Code(s): K52.9 - NONINFECTIVE GAS TROENTERITIS AND COLITIS, UNSPECIFIED SNOMED Code(s): 69260306 (2) Abdominal pain Current Visit: Yes Status: Acute Code(s): R10.9 - UNSPECIFIED ABDOMINAL PAIN SNOMED Code(s): 20980676 (3) Nausea, vomiting, and diarrhea Current Visit: Yes Status: Acute Code(s): R11.2 - NAUSEA WITH VOMITING, UNSPECIFIED; R19.7 - DIARRHEA, UNSPECIFIED SNOMED Code(s): 7381051 Plan: Supportive care nothing by mouth, advance diet per recommendations by surgical services Continue antiemetic therapy as needed for nausea Protonix twice daily Encourage to increase ambulation and incentive spirometer use IV Solu-Medrol 20 mg IV push every 8 hours, consider swithcing to oral once patient is able to tolerate TPN started per dietitian Thank you for allowing us to participate in the care of the patient we will cont inue to follow Dr. Hubbard I agree with the dictator's note, documented as a scribe by Radha Rodas.
[2021-01-03] MEDS: ONDANSETRON 4 MG/2 ML VIAL IVP PRN ×2 (15:39→21:56)
[2021-01-03 16:47] LABS: Glucose,Whole Blood 225 mg/dL (75-99)
--- NOTE | 2021-01-03 21:53 | PN ---
PROGRESS NOTE DATE OF SERVICE: 01/03/2021 REASON FOR FOLLOWUP: Perforated colon with secondary peritonitis. INTERVAL HISTORY: The patient is currently afebrile. The patient is breathing comfortably. Denies having any chest pain or shortness of breath or cough. Abdominal pain is currently controlled. He still has the NG tube in. More output in the colostomy bag. PHYSICAL EXAMINATION: Blood pressure is 114/72 with a pulse of 90, temperature 98.7. He is 92% on room air. General description is a middle-aged male up in the chair in no distress. RESPIRATORY SYSTEM: Unlabored breathing. Clear to auscultation anteriorly. HEART: S1, S2. Regular rate and rhythm. ABDOMEN: Soft. No tenderness. LABS: Hemoglobin is 9, white count 17.4, BUN of 20, creatinine 0.6. DIAGNOSTIC IMPRESSION AND PLAN: Patient with fulminant ulcerative colitis with bowel perforation, status post subtotal colectomy and ileostomy. The patient's white count is showing a downward trend. Will continue with Zosyn. We will monitor his clinical course closely. MMODL / IJN: [id number] /
[2021-01-03] MEDS: SODIUM CHLORIDE 0.9% 1,000 ML IV SCH (22:05)
[2021-01-03 23:59] LABS: Glucose,Whole Blood 227 mg/dL (75-99)
[2021-01-04] MEDS: PIPERACILLIN-TAZOBACTAM 3.375 GM in SODIUM CHLORIDE 0.9% 100 ML IVPB SCH ×3 (00:06→17:06)
[2021-01-04] MEDS: methylPREDNISolone SOD SUCCI 40 MG/ML 1 ML VIAL IV SCH ×3 (00:07→11:44)
[2021-01-04] MEDS: INSULIN ASPART (NovoLOG) 100 UNIT/ML VIAL SQ SCH ×4 (00:08→17:06)
[2021-01-04 05:50] LABS: Glucose,Whole Blood 214 mg/dL (75-99)
[2021-01-04] MEDS: MORPHINE SULFATE 4 MG/ML SYRINGE IV PRN ×4 (06:00→17:08)
[2021-01-04] MEDS: ENOXAPARIN 40 MG/0.4 ML SYRINGE SQ SCH (08:42)
[2021-01-04] MEDS: PANTOPRAZOLE 40 MG/10 ML VIAL IVP SCH ×2 (08:42→21:35)
[2021-01-04] MEDS: ONDANSETRON 4 MG/2 ML VIAL IVP PRN ×2 (08:49→17:08)
[2021-01-04 10:27] LABS: HCT 26.4 % (39.6-50.0); HGB 8.5 g/dL (13.0-17.0); MCHC 32.2 g/dL (32.0-37.0); MCV 90.1 fL (80.0-97.0); Mean Platelet Volume 9.8 fL (9.5-12.2); Platelet Count 333 X 10*3/uL (140-440); RBC 2.93 X 10*6/uL (4.40-5.60); RDW 13.7 % (11.5-14.5)
[2021-01-04 10:28] LABS: Basophils # (M) 0 X 10*3/uL (0.00-0.10); Eosinophils # (M) 0 X 10*3/uL (0.04-0.35); Lymphocytes # (M) 0.77 X 10*3/uL (0.90-5.00); Monocytes # (M) 0.65 X 10*3/uL (0.20-1.00); Neutrophils # (M) 11.48 X 10*3/uL (2.00-8.90); Neutrophils % (M) 89 %
[2021-01-04] MEDS: [UNRECOGNIZED DRUG - OTHER] IV SCH ×7 (10:38)
[2021-01-04] MEDS: CALCIUM GLUCONATE IV SCH ×7 (10:38)
[2021-01-04] MEDS: SODIUM ACETATE IV SCH ×7 (10:38)
[2021-01-04] MEDS: POTASSIUM CHLORIDE IV SCH ×7 (10:38)
--- NOTE | 2021-01-04 10:41 | P.PN ---
Subjective Progress Note Date: 01/03/21 Principal diagnosis: Pneumoperitoneum Fulminant ulcerative colitis Septic shock Covid19 infection in November 2020 48-year-old male came in with complaints of nausea vomiting diarrhea patient states he has multiple episodes around 20-30 episodes of diarrhea every day. Patient started having symptoms of diarrhea and fever on new sulma fever resolved but the diarrhea continued. Patient was diagnosed with the hope did 19 shortly after. Patient is still having some body aches and pains patient is comparing of severe crampy lower abdominal pain patient was seen in ER about 3 days ago at that time patient had a CT of the abdomen which showed a colon colitis. C. diff will be obtained patient is bit hyponatremic and receiving IV fluids at this time. 12/31/2020 Patient is seen and evaluated in room at bedside; patient is demanding to be transferred to here; her group social worker talked to the patient and recommended possible transfer to [facility] due to possibility of patient being accepted today; patient is agreeable; Arrangements were made for patient's transferred to [facility] under Dr. Khalil, however abdominal x-ray done this afternoon reveals pneumoperitoneum; surgery was notified; Dr. Deal we will see the patient with possibility of OR tonight; fluid was called and spoke with RN and canceled patient transferred to [facility] 01/01/2021 Patient is seen and evaluated in ICU that he was transferred post exploratory laparotomy with colectomy with ileostomy; patient was able to be successfully extubated the patient's on O2 at 4 L by nasal cannula, saline at 75 mL an hour, and TPN at 75 mL an hour. Prior to this episode, according to his medical records, the patient has no prior medical history, and no prior surgical history. He wasn't really taking any medication at home on a regular basis. Abdominal and pelvic computed tomography scan on December 27 showed large bowel wall thickening consistent with colitis, mild abdominal ascites, distended small bowel loops with air-fluid levels consistent with ileus, and small bilateral pleural effusions and basilar atelectasis. Current white count is 20.9, hemoglobin 10.3, hematocrit 30.4, and platelet count 298,000. Sodium 134, potassium 3.8, chlorides 105, CO2 23, anion gap 6, BUN 14, and creatinine 0.89. Albumin is 1.5. Patient remains on IV antibiotics in form of Flagyl and Rocephin 01/03/2021 Patient is currently lying in the bed. Pain is daily controlled. Status post expiratory laparotomy with subtotal colectomy and creation of end ileostomy due to fulminant ulcerative colitis, pneumoperitoneum and septic shock. Postoperative day 3 Patient is on antibiotics in the form of Zosyn. Patient does have nausea and episode of vomiting O overnight. Currently being continued on NG tube. Sahni catheter is in place due to urinary retention. Patient is on TPN currently. Pulmonary, GI and general surgery is on board. Laboratory data showed WBC 17.420 down from 23.4, hemoglobin 9.0, BUN 20 and creatinine 0.6 calcium 6.9 Current medications reviewed. Objective - Vital Signs Vital signs: Vital Signs Temp 98.7 F 01/03/21 10:00 Pulse 90 01/03/21 10:00 Resp 18 01/03/21 10:00 BP 114/72 01/03/21 10:00 Pulse Ox 92 L 01/03/21 10:00 Intake & Output 01/02/21 01/03/21 01/03/21 18:59 06:59 18:59 Intake Total 700 Output Total 800 791 100 Balance -100 -791 -100 Weight 94.6 kg Intake: IV 300 .9 @ 75 mL/hr 300 Intake, IV Titration 400 Amount Amino Acid 5%-D20w+Lytes* 75 E* 1,000 ml @ 75 mls/hr IV .BY DURATION [facility] Rx#: [id number] Piperacillin-Tazobactam 3 100 .375 gm In Sodium Chloride 0.9% 100 ml @ 25 mls/hr IVPB Q8HR [facility] Rx# :[id number] Sodium Acetate 40 meq 225 Potassium Chloride 40 meq Calcium Gluconate 1 gm Potassium Phosphate 15 mmol Mvi, Adult No.4 with Vit K 10 ml Trace (Conc- 1Ml/Dose) 1 ml In Amino Acids 5 %/Dextrose 20 % 1 ,000 ml @ 75 mls/hr IV . BY DURATION [facility] Rx#: [id number] Output: Drainage 170 240 100 Abdomen 170 240 100 Urine 610 550 Uretheral (Sahni) 400 550 Stool 20 Emesis 1 Other: Voiding Method Indwelling Catheter Indwelling Catheter Indwelling Catheter - Exam - Exam GENERAL: The patient is alert and oriented x3, not in any acute distress. Lethargic and drowsy. Well developed, well nourished. HEENT: Pupils are round and equally reacting to light. EOMI. No scleral icterus. No conjunctival pallor. Normocephalic, atraumatic. No pharyngeal erythema. No thyromegaly. NG tube is present. CARDIOVASCULAR: S1 and S2 present. No murmurs, rubs, or gallops. PULMONARY: Chest is clear to auscultation, no wheezing or crackles. ABDOMEN: Abdomen soft with minimal distention and tenderness. Ostomy is pink with elevated JUANCHO drain with serous discharge. No guarding. MUSCULOSKELETAL: No joint swelling or deformity. EXTREMITIES: No cyanosis, clubbing, or pedal edema. NEUROLOGICAL: Gross neurological examination did not reveal any focal deficits. SKIN: No rashes. - Labs CBC & Chem 7: 01/04/21 05:45 01/03/21 05:21 Labs: Abnormal Lab Results - Last 24 Hours (Table) 01/02/21 01/02/21 01/02/21 Range/Units 03:11 15:00 16:58 WBC 23.4 H (3.8-10.6) k/uL RBC 3.12 L (4.30-5.90) m/uL Hgb 9.1 L (13.0-17.5) gm/dL Hct 28.3 L (39.0-53.0) % Neutrophils # 21.5 H (1.3-7.7) k/uL Lymphocytes # 0.9 L (1.0-4.8) k/uL BUN/Creatinine Ratio (12.00-20.00) Ratio Glucose (70-110) mg/dL POC Glucose (mg/dL) 124 H (75-99) mg/dL Calcium (8.7-10.3) mg/dL Procalcitonin 0.48 H (0.02-0.09) ng/mL 01/03/21 01/03/21 01/03/21 Range/Units 00:27 05:21 05:24 WBC 17.4 H (3.8-10.6) k/uL RBC 3.02 L (4.30-5.90) m/uL Hgb 9.0 L (13.0-17.5) gm/dL Hct 27.0 L (39.0-53.0) % Neutrophils # 16.2 H (1.3-7.7) k/uL Lymphocytes # 0.5 L (1.0-4.8) k/uL BUN/Creatinine Ratio 33.33 H (12.00-20.00) Ratio Glucose 225 H (70-110) mg/dL POC Glucose (mg/dL) 186 H (75-99) mg/dL Calcium 6.9 L (8.7-10.3) mg/dL Procalcitonin (0.02-0.09) ng/mL 01/03/21 01/03/21 Range/Units 05:53 11:18 WBC (3.8-10.6) k/uL RBC (4.30-5.90) m/uL Hgb (13.0-17.5) gm/dL Hct (39.0-53.0) % Neutrophils # (1.3-7.7) k/uL Lymphocytes # (1.0-4.8) k/uL BUN/Creatinine Ratio (12.00-20.00) Ratio Glucose (70-110) mg/dL POC Glucose (mg/dL) 227 H 234 H (75-99) mg/dL Calcium (8.7-10.3) mg/dL Procalcitonin (0.02-0.09) ng/mL Assessment and Plan Assessment: -Fulminant colitis with Pneumoperitoneum on abdominal x-ray; was planning to transfer patient to [facility] but needed urgent evaluation by surgical team. Patient underwent flex sigmoidoscopy with GI as mentioned previously. Continue with NG tube and bowel rest and IV fluids along with antibiotic in the form of Zosyn. -Status post subtotal colectomy with creation of endileostomy by general surgery. -Severe diffuse colitis with mucosal erythema and cobblestoning of the mucosa consistent with IBS as noted on sigmoidoscopy, GI is following, patient maintained on IV steroids -Acute renal failure improved with IV fluids -Hypovolemic hyponatremia: Continue with IV fluids -Covid 19 infection -DVT prophylaxis with Lovenox -GI prophylaxis Protonix -Full code Plan: Continue with current medications and continue with IV antibiotics. Patient was started on IV steroids and will continue. Patient underwent flex sigmoidoscopy with GI showing severe diffuse colitis involving the entire colon with mucosal erythema, friability, and cobblestoning of the mucosa involving the entire colon except the cecum and mild involvement in the rectum all consistent with IBS. Patient was seen by general surgery due to pneumoperitoneum. Status post subtotal colectomy and ostomy placement. Patient to receive a PICC line and initiate TPN and continue with bowel rest. Will repeat CBC with a.m. labs. Continue to encourage Incentive spirometer. Pulmonary, GI and general surgery is on board. Time with Patient: Greater than 30
[2021-01-04 11:38] LABS: Glucose,Whole Blood 187 mg/dL (75-99)
[2021-01-04 11:54] LABS: African American GFR (CKD) 144.7 (60.0-200.0); Albumin 2.6 g/dL (3.80-4.90); Anion Gap 4.7 mmol/L (4.00-12.00); Calcium 7.4 mg/dL (8.7-10.3); Carbon Dioxide 33.3 mmol/L (21.6-31.8); Magnesium 2.1 mg/dL (1.5-2.4); Non-African American GFR(CKD) 124.9 (60.0-200.0); Phosphorus 4.1 mg/dL (2.4-5.1); Potassium 4.7 mmol/L (3.5-5.5)
--- NOTE | 2021-01-04 12:24 | P.PN ---
Subjective Progress Note Date: 01/04/21 40-year-old male who presented to the emergency department on December 23 at 2206. He apparently was brought in by EMS. His chief complaint at that time was abdominal pain, but he also had persistent nausea, vomiting, diarrhea. The patient tested positive for coronavirus, initially on December 06, and then again on December 27. His symptoms of nausea, vomiting, diarrhea, abdominal pain, have been going on for a day or so prior to admission, but got worse a day of admission. That's why he came in. In addition, the patient had recurrent temperature elevations, with generalized body aches and pains. Apparently yesterday, according to the surgeon, it was noted that he had a perforated viscus, and he went to the operating room where he had an exploratory laparotomy, and a colectomy with ileostomy. The surgeon was Dr. Chris. The patient was able to be extubated in the recovery area, but the surgeon was concerned about the patient's overall situation and wanted the patient watched in the intensive care unit. We spoke on the phone and I agreed to take the patient. Currently, the patient's on O2 at 4 L by nasal cannula, saline at 75 mL an hour, and TPN at 75 mL an hour. Prior to this episode, according to his medical records, the patient has no prior medical history, and no prior surgical history. He wasn't really taking any medication at home on a regular basis. Abdominal and pelvic computed tomography scan on December 27 showed large bowel wall thickening consistent with colitis, mild abdominal ascites, distended small bowel loops with air-fluid levels consistent with ileus, and small bilateral pleural effusions and basilar atelectasis. Current white count is 20.9, hemogl obin 10.3, hematocrit 30.4, and platelet count 298,000. Sodium 134, potassium 3.8, chlorides 105, CO2 23, anion gap 6, BUN 14, and creatinine 0.89. Albumin is 1.5. The patient is seen today for her 2020 in follow-up in the intensive care unit. He is currently awake and alert in no acute distress. He is maintaining good O2 saturations in the 90s on room air. He has 0.9 normal saline at 75 ML's per hour. TPN at 75 mL per hour. He is receiving lipids on Sunday. White count 20.3. Hemoglobin 8.8. Sodium 135. Potassium 2.8. Creatinine 0.68. C-reactive protein 217. He remains on Lovenox for DVT prophylaxis. Protonix for GI prophylaxis. Antibiotics in the form of Zosyn. On 01/03/2021 I'm seeing this patient for a follow-up. As mentioned earlier he was possible Covid 19 back in November 2020 and the patient got hospitalized for abdominal complaints and pain and is notable for mother bowel disease in the form of ulcerative colitis. Upon further evaluation, the patient was found to have perforated viscus and he was taken to the operating room where he underwent a and the surgery was done on December 312020 and the patient underwent a subtotal colectomy and creation of an and ileostomy. This was a complication of fulminant ulcerative colitis. He was in septic shock and he obviously had a pneumoperitoneum. At this point in time, the patient has a JUANCHO drain in place. Surgical wound site is dry clean and intact. Ileostomy site is showing some liquidy output. He remains on TPN for nutritional support. He is on IV Zosyn as an empiric antibiotic coverage. He is on Lovenox 40 mg subcu for DVT prophylaxis. He remains on IV Solu Medrol 20 mg every 6 hours. Note that the patient was not taking any form of steroids regarding his ulcerative colitis. He has an NG tube in place. He has a Sahni catheter in place. He ambulates in the hallway. He is using incentive spirometer. He has sequential compression devices to his lower extremities. Note that the patient was having symptoms of colitis with nausea vomiting and diarrhea and abdominal pain. He was having frequent loose bowel movements approximately 20 or 30 of them on a daily basis associated with some nausea and vomiting and diffuse abdominal pain. CAT scan of the abdomen was done on 12/22/2020 showed she is colitis with hepatosplenomegaly and hepatic steatosis. Stool for C. diff was negative. This was an inflammatory process suspected to be related to IBD 01/04/2021, the patient is sitting up on a chair. NG tube has been clamped as the output from the NG tube is a minimal and it may be possibly removed today. He is having some liquidy output and his ileostomy. There is also some minimal amount of stool forming and is passing gas. No signs of any respiratory distress. No fever or chills. He remains on TPN for nutritional support. Remains on IV Zosyn. He remains on IV Solu-Medrol 20 mg every 6 hours and he is also receiving Lovenox subcu for DVT prophylaxis. No altered mentation. He is quite weak. Surgical wound site is dry clean and intact. JUANCHO drain is in place and putting on some minimal amount of serosanguineous drainage. The patient is ambulating without help of a Objective - Vital Signs Vital signs: Vital Signs Temp 97.9 F 01/04/21 10:00 Pulse 64 01/04/21 10:00 Resp 18 01/04/21 10:00 BP 135/81 01/04/21 10:00 Pulse Ox 95 01/04/21 10:00 Intake & Output 01/03/21 01/04/21 01/04/21 18:59 06:59 18:59 Intake Total 1055 1066 Output Total 1590 1115 50 Balance -535 -49 -50 Intake: Intake, IV Titration 1055 1066 Amount Sodium Acetate 40 meq 1055 Potassium Chloride 40 meq Calcium Gluconate 1 gm Potassium Phosphate 15 mmol In Amino Acids 5 %/ Dextrose 20 % 1,000 ml @ 75 mls/hr IV .BY DURATION [facility] Rx#:[id number] Sodium Acetate 40 meq 1066 Potassium Chloride 40 meq Calcium Gluconate 1 gm Potassium Phosphate 15 mmol Mvi, Adult No.4 with Vit K 10 ml Trace (Conc- 1Ml/Dose) 1 ml In Amino Acids 5 %/Dextrose 20 % 1 ,000 ml @ 75 mls/hr IV . BY DURATION [facility] Rx#: [id number] Output: Gastric Drainage 500 100 Drainage 190 65 50 Abdomen 190 65 50 Urine 900 950 Other: Voiding Method Indwelling Catheter Indwelling Catheter Indwelling Catheter - Exam Very pleasant 40-year-old gentleman. On room air. No acute distress, oriented 3. The patient has an NG tube in place. The NG tube is clamped at this point in time. HEENT examination is grossly unremarkable. Mucous membranes are moist. No oral lesions. Neck supple. Full range of motion. No adenopathy thyromegaly or neck vein distention. Cardiovascular examination reveals regular rhythm rate. S1-S2 normal. No S3 or S4. No discernible murmur noted. Heart rate 82 bpm. Lungs reveal mostly clear breath sounds, equal bilaterally. Few scattered rhonchi noted. Abdomen soft without bowel sounds. Ileostomy noted. Surgical incision is covered. Surgical wound site is dry clean and intact. Ileostomy site is viable and function with some minimal amount of liquidy output. JUANCHO drain is in place. Extremities are intact. No cyanosis clubbing or edema. Skin is without rash or lesion. Neurologic examination is brief but nonfocal. - Labs CBC & Chem 7: 01/04/21 05:45 01/04/21 05:45 Labs: Abnormal Lab Results - Last 24 Hours (Table) 01/03/21 01/03/21 01/04/21 Range/Units 16:44 23:58 05:45 WBC (4.50-10.00) X 10*3/uL RBC (4.40-5.60) X 10*6/uL Hgb (13.0-17.0) g/dL Hct (39.6-50.0) % Absolute Nucleated RBC (0.00-0.00) X 10*3/uL Neutrophils # (Manual) (2.00-8.90) X 10*3/uL Lymphocytes # (Manual) (0.90-5.00) X 10*3/uL Eosinophils # (Manual) (0.04-0.35) X 10*3/uL NRBC/100 WBC Diff (0.0-0.0) /100 WBCS Carbon Dioxide 33.3 H (21.6-31.8) mmol/L BUN/Creatinine Ratio 30.00 H (12.00-20.00) Ratio Glucose 211 H (70-110) mg/dL POC Glucose (mg/dL) 225 H 227 H (75-99) mg/dL Calcium 7.4 L (8.7-10.3) mg/dL Albumin 2.60 L (3.80-4.90) g/dL 01/04/21 01/04/21 01/04/21 Range/Units 05:45 05:47 11:30 WBC 12.90 H (4.50-10.00) X 10*3/uL RBC 2.93 L (4.40-5.60) X 10*6/uL Hgb 8.5 L (13.0-17.0) g/dL Hct 26.4 L (39.6-50.0) % Absolute Nucleated RBC 0.03 H (0.00-0.00) X 10*3/uL Neutrophils # (Manual) 11.48 H (2.00-8.90) X 10*3/uL Lymphocytes # (Manual) 0.77 L (0.90-5.00) X 10*3/uL Eosinophils # (Manual) 0 L (0.04-0.35) X 10*3/uL NRBC/100 WBC Diff 0.2 H (0.0-0.0) /100 WBCS Carbon Dioxide (21.6-31.8) mmol/L BUN/Creatinine Ratio (12.00-20.00) Ratio Glucose (70-110) mg/dL POC Glucose (mg/dL) 214 H 187 H (75-99) mg/dL Calcium (8.7-10.3) mg/dL Albumin (3.80-4.90) g/dL Assessment and Plan Plan: 1 Postop day #4, status post exploratory laparotomy with subtotal colectomy and creation of end ileostomy, secondary to perforated viscus and pneumoperitoneum and fulminant ulcerative colitis. 2 History of COVID 19 infection, initially, positive, December 06, and subsequently positive, December 27, 2020. 3 leukocytosis secondary to intra-abdominal sepsis, recovered and her white cell count is also essentially improving 4 NPO patient is receiving TPN for nutritional support via PICC line in the left upper extremity Plan NG tube currently clamped and possibly will be removed at a later stage of no nausea or abdominal distention TPN for nutritional support IV Zosyn White cell count is improving Pathology is consistent with ulcerative colitis and the patient is currently on IV Solu-Medrol and GI is on the case in general surgeries on the case management rn the output from the JUANCHO drain Surgical wound site is dry clean and intact Education regarding ileostomy care Management of the NG tube for general surgery No active pulmonary or critical. Initial and pulmonary care services will signed off
--- NOTE | 2021-01-04 15:21 | P.PN ---
Subjective Progress Note Date: 01/04/21 Patient seen and examined, vitals are stable, pain is well tolerated, small amount of gas and bile output from ileostomy. NGT in place. Serosang from JUANCHO Objective - Vital Signs Vital signs: Vital Signs Temp 97.5 F L 01/04/21 14:00 Pulse 71 01/04/21 14:00 Resp 18 01/04/21 14:00 BP 126/84 01/04/21 14:00 Pulse Ox 96 01/04/21 14:00 Intake & Output 01/03/21 01/04/21 01/04/21 18:59 06:59 18:59 Intake Total 1055 1066 Output Total 1590 1115 50 Balance -535 -49 -50 Intake: Intake, IV Titration 1055 1066 Amount Sodium Acetate 40 meq 1055 Potassium Chloride 40 meq Calcium Gluconate 1 gm Potassium Phosphate 15 mmol In Amino Acids 5 %/ Dextrose 20 % 1,000 ml @ 75 mls/hr IV .BY DURATION [facility] Rx#:[id number] Sodium Acetate 40 meq 1066 Potassium Chloride 40 meq Calcium Gluconate 1 gm Potassium Phosphate 15 mmol Mvi, Adult No.4 with Vit K 10 ml Trace (Conc- 1Ml/Dose) 1 ml In Amino Acids 5 %/Dextrose 20 % 1 ,000 ml @ 75 mls/hr IV . BY DURATION [facility] Rx#: [id number] Output: Gastric Drainage 500 100 Drainage 190 65 50 Abdomen 190 65 50 Urine 900 950 Other: Voiding Method Indwelling Catheter Indwelling Catheter Indwelling Catheter - Constitutional General appearance: Present: cooperative - Cardiovascular Rhythm: regular - Gastrointestinal Gastrointestinal Comment(s): S/NT/ND incision CDI ostomy pink and patent JUANCHO serosang - Psychiatric Psychiatric: Present: A&O x's 3 - Labs CBC & Chem 7: 01/04/21 05:45 01/04/21 05:45 Labs: Abnormal Lab Results - Last 24 Hours (Table) 01/03/21 01/03/21 01/04/21 Range/Units 16:44 23:58 05:45 WBC (4.50-10.00) X 10*3/uL RBC (4.40-5.60) X 10*6/uL Hgb (13.0-17.0) g/dL Hct (39.6-50.0) % Absolute Nucleated RBC (0.00-0.00) X 10*3/uL Neutrophils # (Manual) (2.00-8.90) X 10*3/uL Lymphocytes # (Manual) (0.90-5.00) X 10*3/uL Eosinophils # (Manual) (0.04-0.35) X 10*3/uL NRBC/100 WBC Diff (0.0-0.0) /100 WBCS Carbon Dioxide 33.3 H (21.6-31.8) mmol/L BUN/Creatinine Ratio 30.00 H (12.00-20.00) Ratio Glucose 211 H (70-110) mg/dL POC Glucose (mg/dL) 225 H 227 H (75-99) mg/dL Calcium 7.4 L (8.7-10.3) mg/dL Albumin 2.60 L (3.80-4.90) g/dL //21 01/04/21 01/04/21 Range/Units 05:45 05:47 11:30 WBC 12.90 H (4.50-10.00) X 10*3/uL RBC 2.93 L (4.40-5.60) X 10*6/uL Hgb 8.5 L (13.0-17.0) g/dL Hct 26.4 L (39.6-50.0) % Absolute Nucleated RBC 0.03 H (0.00-0.00) X 10*3/uL Neutrophils # (Manual) 11.48 H (2.00-8.90) X 10*3/uL Lymphocytes # (Manual) 0.77 L (0.90-5.00) X 10*3/uL Eosinophils # (Manual) 0 L (0.04-0.35) X 10*3/uL NRBC/100 WBC Diff 0.2 H (0.0-0.0) /100 WBCS Carbon Dioxide (21.6-31.8) mmol/L BUN/Creatinine Ratio (12.00-20.00) Ratio Glucose (70-110) mg/dL POC Glucose (mg/dL) 214 H 187 H (75-99) mg/dL Calcium (8.7-10.3) mg/dL Albumin (3.80-4.90) g/dL Assessment and Plan Assessment: POD#4 Ex lap subtotal colectomy with creation of end ileostomy Fulminant ulcerative colitis Septic shock Pneumoperitoneum Plan: Cont NGT and smith, cont. TPN. Patient pregressing well, up to chair. Ambulate in halls. Continue IS. SCDs and subQ heparin
--- NOTE | 2021-01-04 15:44 | P.PN ---
Subjective Progress Note Date: 01/04/21 Pneumoperitoneum Fulminant ulcerative colitis Septic shock Covid19 infection in November 2020 48-year-old male came in with complaints of nausea vomiting diarrhea patient states he has multiple episodes around 20-30 episodes of diarrhea every day. Patient started having symptoms of diarrhea and fever on sulma fever resolved but the diarrhea continued. Patient was diagnosed with the hope did 19 shortly after. Patient is still having some body aches and pains patient is comparing of severe crampy lower abdominal pain patient was seen in ER about 3 days ago at that time patient had a CT of the abdomen which showed a colon colitis. C. diff will be obtained patient is bit hyponatremic and receiving IV fluids at this time. 12/31/2020 Patient is seen and evaluated in room at bedside; patient is demanding to be transferred to here; her executive secretary social welfare talked to the patient and recommended possible transfer to [facility] due to possibility of patient being accepted today; patient is agreeable; Arrangements were made for patient's transferred to [facility] under Dr. Khalil, however abdominal x-ray done this afternoon reveals pneumoperitoneum; surgery was notified; Dr. Deal we will see the patient with possibility of OR tonight; fluid was called and spoke with RN and canceled patient transferred to [facility] 01/01/2021 Patient is seen and evaluated in ICU that he was transferred post exploratory laparotomy with colectomy with ileostomy; patient was able to be successfully extubated the patient's on O2 at 4 L by nasal cannula, saline at 75 mL an hour, and TPN at 75 mL an hour. Prior to this episode, according to his medical records, the patient has no prior medical history, and no prior surgical history. He wasn't really taking any medication at home on a regular basis. Abdominal and pelvic computed tomography scan on December 27 showed large bowel wall thickening consistent with colitis, mild abdominal ascites, distended small bowel loops with air-fluid levels consistent with ileus, and small bilateral pleural effusions and basilar atelectasis. Current white count is 20.9, hemoglobin 10.3, hematocrit 30.4, and platelet count 298,000. Sodium 134, potassium 3.8, chlorides 105, CO2 23, anion gap 6, BUN 14, and creatinine 0.89. Albumin is 1.5. Patient remains on IV antibiotics in form of Flagyl and Rocephin 01/03/2021 Patient is currently lying in the bed. Pain is daily controlled. Status post expiratory laparotomy with subtotal colectomy and creation of end ileostomy due to fulminant ulcerative colitis, pneumoperitoneum and septic shock. Postoperative day 3 Patient is on antibiotics in the form of Zosyn. Patient does have nausea and episode of vomiting O overnight. Currently being continued on NG tube. Sahni catheter is in place due to urinary retention. Patient is on TPN currently. Pulmonary, GI and general surgery is on board. Laboratory data showed WBC 17.420 down from 23.4, hemoglobin 9.0, BUN 20 and creatinine 0.6 calcium 6.9 01/04/2021 Patient is currently sitting up in the chair working with physical therapy. Patient continues to be extremely weak requiring assistance and the use of a walker. Continue with NG tube along with indwelling Sahni catheter and NG tube is currently clamped at this time. Multiple medical consultations including pulmonary, GI, and surgery following. Small amount of gas was heard and noted in the ostomy along with a scant amount of stool as well. Discussed with the today about treatment plan. Patient to continue with IV antibiotics and infectious disease is following. Patient to continue TPN until surgery clearance and then will slowly advance diet as tolerated. Hemoglobin is 8.5, white blood count is 12.9 and trending down, current sodium is 141 with a potassium of 4.7 and creatinine is stable at 0.6. Magnesium is 2.1. Continues to have abdominal tenderness although no reports of nausea and vomiting today. Review of systems: Constitutional: No reports of fatigue, fever, or chills Cardiovascular: No reports of chest pain or palpitations Respiratory: No reports of shortness of breath or cough GI: No reports of nausea, vomiting, reports abdominal tenderness : No reports of dysuria or retention Neurovascular: Reports generalized weakness All medications have been reviewed Objective - Vital Signs Vital signs: Vital Signs Temp 97.9 F 01/04/21 10:00 Pulse 64 01/04/21 10:00 Resp 18 01/04/21 10:00 BP 135/81 01/04/21 10:00 Pulse Ox 95 01/04/21 10:00 Intake & Output 01/03/21 01/04/21 01/04/21 18:59 06:59 18:59 Intake Total 1055 1066 Output Total 1590 1115 50 Balance -535 -49 -50 Intake: Intake, IV Titration 1055 1066 Amount Sodium Acetate 40 meq 1055 Potassium Chloride 40 meq Calcium Gluconate 1 gm Potassium Phosphate 15 mmol In Amino Acids 5 %/ Dextrose 20 % 1,000 ml @ 75 mls/hr IV .BY DURATION [facility] Rx#:[id number] Sodium Acetate 40 meq 1066 Potassium Chloride 40 meq Calcium Gluconate 1 gm Potassium Phosphate 15 mmol Mvi, Adult No.4 with Vit K 10 ml Trace (Conc- 1Ml/Dose) 1 ml In Amino Acids 5 %/Dextrose 20 % 1 ,000 ml @ 75 mls/hr IV . BY DURATION [facility] Rx#: [id number] Output: Gastric Drainage 500 100 Drainage 190 65 50 Abdomen 190 65 50 Urine 900 950 Other: Voiding Method Indwelling Catheter Indwelling Catheter Indwelling Catheter - Exam GENERAL: The patient is alert and oriented x3, not in any acute distress. Well developed, well nourished. HEENT: Pupils are round and equally reacting to light. EOMI. No scleral icterus. No conjunctival pallor. Normocephalic, atraumatic. No pharyngeal erythema. No thyromegaly. NG tube noted and currently clamped CARDIOVASCULAR: S1 and S2 present. No murmurs, rubs, or gallops. PULMONARY: Chest is clear to auscultation, no wheezing or crackles. ABDOMEN: Abdomen is tender on palpation, bowel sounds are present, as noted to be heard on exam and in the ostomy with a scant amount of stool noted as well MUSCULOSKELETAL: No joint swelling or deformity. EXTREMITIES: No cyanosis, clubbing, or pedal edema. NEUROLOGICAL: Gross neurological examination did not reveal any focal deficits. SKIN: No rashes. - Labs CBC & Chem 7: 01/04/21 05:45 01/04/21 05:45 Labs: Abnormal Lab Results - Last 24 Hours (Table) 01/03/21 01/03/21 01/04/21 Range/Units 16:44 23:58 05:45 WBC (4.50-10.00) X 10*3/uL RBC (4.40-5.60) X 10*6/uL Hgb (13.0-17.0) g/dL Hct (39.6-50.0) % Absolute Nucleated RBC (0.00-0.00) X 10*3/uL Neutrophils # (Manual) (2.00-8.90) X 10*3/uL Lymphocytes # (Manual) (0.90-5.00) X 10*3/uL Eosinophils # (Manual) (0.04-0.35) X 10*3/uL NRBC/100 WBC Diff (0.0-0.0) /100 WBCS Carbon Dioxide 33.3 H (21.6-31.8) mmol/L BUN/Creatinine Ratio 30.00 H (12.00-20.00) Ratio Glucose 211 H (70-110) mg/dL POC Glucose (mg/dL) 225 H 227 H (75-99) mg/dL Calcium 7.4 L (8.7-10.3) mg/dL Albumin 2.60 L (3.80-4.90) g/dL 01/04/21 01/04/21 01/04/21 Range/Units 05:45 05:47 11:30 WBC 12.90 H (4.50-10.00) X 10*3/uL RBC 2.93 L (4.40-5.60) X 10*6/uL Hgb 8.5 L (13.0-17.0) g/dL Hct 26.4 L (39.6-50.0) % Absolute Nucleated RBC 0.03 H (0.00-0.00) X 10*3/uL Neutrophils # (Manual) 11.48 H (2.00-8.90) X 10*3/uL Lymphocytes # (Manual) 0.77 L (0.90-5.00) X 10*3/uL Eosinophils # (Manual) 0 L (0.04-0.35) X 10*3/uL NRBC/100 WBC Diff 0.2 H (0.0-0.0) /100 WBCS Carbon Dioxide (21.6-31.8) mmol/L BUN/Creatinine Ratio (12.00-20.00) Ratio Glucose (70-110) mg/dL POC Glucose (mg/dL) 214 H 187 H (75-99) mg/dL Calcium (8.7-10.3) mg/dL Albumin (3.80-4.90) g/dL Assessment and Plan Assessment: -Fulminant Colitis with pneumoperitoneum on abdominal x-ray: Secondary to possibly covid 19, status post subtotal colectomy with creation of end ileostomy and surgery following closely. -Severe diffuse colitis with mucosal erythema and cobblestoning of the mucosa consistent with IBS as noted on sigmoidoscopy, GI is following, patient maint ained on IV steroids -Acute renal failure improved with IV fluids -Hypovolemic hyponatremia: Improved -Covid 19 infection -DVT prophylaxis with Lovenox -GI prophylaxis Protonix -Full code Plan: Continue with current medications and continue with IV antibiotics. Patient was started on IV steroids and will continue. Patient underwent flex sigmoidoscopy with GI showing severe diffuse colitis involving the entire colon with mucosal erythema, friability, and cobblestoning of the mucosa involving the entire colon except the cecum and mild involvement in the rectum all consistent with IBS. Patient is currently receiving TPN and will continue with NG tube at this time. Surgery Dr. estrella following. Patient is status post subtotal colectomy with creation of end ileostomy due to pneumoperitoneum. Will repeat a.m. labs. Continue to encourage Incentive spirometer. Patient working with PT/OT therapy for continued strength and mobility as patient continues to be quite weak.
[2021-01-04 17:00] LABS: Glucose,Whole Blood 190 mg/dL (75-99)
--- NOTE | 2021-01-04 23:21 | PN ---
PROGRESS NOTE DATE OF SERVICE: 01/04/2021 REASON FOR FOLLOWUP: Secondary peritonitis from perforated bowel. INTERVAL HISTORY: The patient is currently afebrile. The patient is breathing comfortably. Denies having any chest pain, shortness of breath or cough. Abdominal pain is currently controlled. He still has the NG tube in. PHYSICAL EXAMINATION: Blood pressure 127/72 with a pulse of 59, temperature 97.8. He is 95% on room air. General description is a middle-aged male lying in bed in no distress. RESPIRATORY SYSTEM: Unlabored breathing with decreased breath sounds at the base. No wheeze. HEART: S1, S2. Regular rate and rhythm. ABDOMEN: Soft. No tenderness. LABS: White count 12.90, BUN of 18, creatinine 0.60. DIAGNOSTIC IMPRESSION AND PLAN: Patient with secondary peritonitis from perforated bowel in this patient who is status post laparotomy and subtotal colectomy along with a diverting ileostomy. The patient is covered with Zosyn. White count is on a downward trend. Continue with supportive care. MMODL / IJN: [id number] /
[2021-01-05 00:01] LABS: Glucose,Whole Blood 167 mg/dL (75-99)
[2021-01-05] MEDS: PIPERACILLIN-TAZOBACTAM 3.375 GM in SODIUM CHLORIDE 0.9% 100 ML IVPB SCH ×4 (00:14→23:30)
[2021-01-05] MEDS: CALCIUM GLUCONATE IV SCH ×14 (00:15→15:35)
[2021-01-05] MEDS: [UNRECOGNIZED DRUG - OTHER] IV SCH ×14 (00:15→15:35)
[2021-01-05] MEDS: POTASSIUM CHLORIDE IV SCH ×14 (00:15→15:35)
[2021-01-05] MEDS: SODIUM ACETATE IV SCH ×14 (00:15→15:35)
[2021-01-05] MEDS: ONDANSETRON 4 MG/2 ML VIAL IVP PRN ×2 (00:16→05:35)
[2021-01-05] MEDS: MORPHINE SULFATE 4 MG/ML SYRINGE IV PRN ×2 (00:16→05:35)
[2021-01-05] MEDS: INSULIN ASPART (NovoLOG) 100 UNIT/ML VIAL SQ SCH ×5 (00:17→23:30)
[2021-01-05 05:30] LABS: Glucose,Whole Blood 171 mg/dL (75-99)
[2021-01-05] MEDS: SODIUM CHLORIDE 0.9% 1,000 ML IV SCH ×2 (05:44→21:50)
[2021-01-05] MEDS: FAT EMULSION 20% 250 ML in EMPTY BAG 1 BAG IV SCH (09:54)
[2021-01-05] MEDS: ENOXAPARIN 40 MG/0.4 ML SYRINGE SQ SCH (09:55)
[2021-01-05] MEDS: PANTOPRAZOLE 40 MG/10 ML VIAL IVP SCH ×2 (09:55→21:51)
--- NOTE | 2021-01-05 10:37 | P.PN ---
Subjective Progress Note Date: 01/05/21 Principal diagnosis: Colitis, abdominal pain, nausea and vomiting Should seen and examined at the bedside. He is postop day #5 for colectomy with ileostomy. NG tube still intact. Sahni catheter in place. Small amount of output from ileostomy. No acute changes through the night, he denies any fevers or chills. States he had quite a bit of output from his ileostomy, noted as brown. He denies any nausea or vomiting, states pain has improved. Objective - Vital Signs Vital signs: Vital Signs Temp 98.4 F 01/05/21 10:00 Pulse 96 01/05/21 10:00 Resp 18 01/05/21 10:00 BP 102/65 01/05/21 10:00 Pulse Ox 96 01/05/21 10:00 Intake & Output 01/04/21 01/05/21 01/05/21 18:59 06:59 18:59 Intake Total 1055 Output Total 3823 486 1750 Balance -65 -120 -1300 Intake: Intake, IV Titration 1055 Amount Sodium Acetate 40 meq 1055 Potassium Chloride 40 meq Calcium Gluconate 1 gm Potassium Phosphate 15 mmol In Amino Acids 5 %/ Dextrose 20 % 1,000 ml @ 75 mls/hr IV .BY DURATION [facility] Rx#:[id number] Output: Drainage 120 50 Abdomen 120 50 Urine 1000 1200 Stool 70 100 Other: Voiding Method Indwelling Catheter Indwelling Catheter - Exam General appearance: The patient is alert, oriented, appears in no acute distr ess. HET: Head is normocephalic and atraumatic. Conjunctiva pink. Sclera anicteric. NG tube intact with suction. Neck: Supple without lymphadenopathy. Abdomen: Somewhat firm, ileostomy with that, incision with dressing clean dry and intact, Paul-Marley drain with serosanguineous drainage. Abdominal binder in place. No guarding or rigidity. Extremities: Normal skin color and turgor. Bilateral pedal edema. Neurological: No focal deficits. Alert and oriented 3. - Labs CBC & Chem 7: 01/04/21 05:45 01/04/21 05:45 Labs: Abnormal Lab Results - Last 24 Hours (Table) 01/04/21 01/04/21 01/04/21 Range/Units 05:45 05:45 11:30 Neutrophils # (Manual) 11.48 H (2.00-8.90) X 10*3/uL Lymphocytes # (Manual) 0.77 L (0.90-5.00) X 10*3/uL Eosinophils # (Manual) 0 L (0.04-0.35) X 10*3/uL Carbon Dioxide 33.3 H (21.6-31.8) mmol/L BUN/Creatinine Ratio 30.00 H (12.00-20.00) Ratio Glucose 211 H (70-110) mg/dL POC Glucose (mg/dL) 187 H (75-99) mg/dL Calcium 7.4 L (8.7-10.3) mg/dL Albumin 2.60 L (3.80-4.90) g/dL 01/04/21 01/05/21 01/05/21 Range/Units 16:43 00:00 05:28 Neutrophils # (Manual) (2.00-8.90) X 10*3/uL Lymphocytes # (Manual) (0.90-5.00) X 10*3/uL Eosinophils # (Manual) (0.04-0.35) X 10*3/uL Carbon Dioxide (21.6-31.8) mmol/L BUN/Creatinine Ratio (12.00-20.00) Ratio Glucose (70-110) mg/dL POC Glucose (mg/dL) 190 H 167 H 171 H (75-99) mg/dL Calcium (8.7-10.3) mg/dL Albumin (3.80-4.90) g/dL Assessment and Plan (1) Colitis Narrative/Plan: 40-year-old male presenting to the hospital with complaints of nausea, vomiting, diarrhea and abdominal pain. Previous diagnosis of infection with Covid 19 a presented back to the hospital with complaints of frequent loose bowel movements up to 20-30 daily with associated nausea and vomiting and diffuse abdominal pain. CT scan of the abdomen performed on 12/22/2020 consistent with diffuse colitis with hepatosplenomegaly and hepatic steatosis. Concern was for possible Clostridium difficile toxin with initial EIA negative for C. diff toxin. The patient has been started on broad-spectrum antibiotic therapy. he was taken for flexible sigmoidoscopy with biopsy consistent with ulcerative colitis. Initially patient did well on steroid therapy and antibiotic therapy however subsequently had worsened being in his condition and imaging suggestive of perforation. The patient was taken for colectomy with end ileostomy formation. Current Visit: Yes Status: Acute Code(s): K52.9 - NONINFECTIVE GASTROENTERITIS AND COLITIS, UNSPECIFIED SNOMED Code(s): 88101738 (2) Abdominal pain Current Visit: Yes Status: Acute Code(s): R10.9 - UNSPECIFIED ABDOMINAL PAIN SNOMED Code(s): 80507133 (3) Nausea, vomiting, and diarrhea Current Visit: Yes Status: Acute Code(s): R11.2 - NAUSEA WITH VOMITING, UNSPECIFIED; R19.7 - DIARRHEA, UNSPECIFIED SNOMED Code(s): 1757303 Plan: Supportive care nothing by mouth, advance diet per recommendations by surgical services Continue antiemetic therapy as needed for nausea Protonix twice daily Encourage to increase ambulation and incentive spirometer use TPN started per dietitian Thank you for allowing us to participate in the care of the patient we will continue to follow Dr. Hubbard I agree with the dictator's note, documented as a scribe by Radha Rodas.
[2021-01-05 11:24] LABS: Glucose,Whole Blood 154 mg/dL (75-99)
--- NOTE | 2021-01-05 11:44 | P.PN ---
Subjective Progress Note Date: 01/04/21 Principal diagnosis: colitis, abdominal pain, nausea and vomiting, status post total colectomy with end ileostomy formation The patient is seen sitting bedside postop day #4 after colectomy with end ileostomy formation. The patient is feeling somewhat better today with less ab dominal distention. His nasogastric tube is been clamped. No nausea or vomiting. Objective - Vital Signs Vital signs: Vital Signs Temp 97.9 F 01/04/21 10:00 Pulse 64 01/04/21 10:00 Resp 18 01/04/21 10:00 BP 135/81 01/04/21 10:00 Pulse Ox 95 01/04/21 10:00 Intake & Output 01/03/21 01/04/21 01/04/21 18:59 06:59 18:59 Intake Total 1055 1066 Output Total 1590 1115 50 Balance -535 -49 -50 Intake: Intake, IV Titration 1055 1066 Amount Sodium Acetate 40 meq 1055 Potassium Chloride 40 meq Calcium Gluconate 1 gm Potassium Phosphate 15 mmol In Amino Acids 5 %/ Dextrose 20 % 1,000 ml @ 75 mls/hr IV .BY DURATION [facility] Rx#:[id number] Sodium Acetate 40 meq 1066 Potassium Chloride 40 meq Calcium Gluconate 1 gm Potassium Phosphate 15 mmol Mvi, Adult No.4 with Vit K 10 ml Trace (Conc- 1Ml/Dose) 1 ml In Amino Acids 5 %/Dextrose 20 % 1 ,000 ml @ 75 mls/hr IV . BY DURATION [facility] Rx#: [id number] Output: Gastric Drainage 500 100 Drainage 190 65 50 Abdomen 190 65 50 Urine 900 950 Other: Voiding Method Indwelling Catheter Indwelling Catheter Indwelling Catheter - Exam On physical examination, patient appears comfortable in no apparent distress. HEAD: Normocephalic, atraumatic. EYES: No scleral icterus. No conjunctival injection. MOUTH: No lesions, tongue midline. NECK: Trachea midline, no gross abnormalities. ABDOMEN: Soft, status post ostomy formation which appears clean/dry/intact with a small amount of output. Bowel sounds are positive. No organomegaly. No guarding or rigidity. EXTREMITIES: No pedal edema. SKIN: No rashes, no jaundice. NEUROLOGIC: Alert and oriented x3. No focal deficits. - Labs CBC & Chem 7: 01/04/21 05:45 01/04/21 05:45 Labs: Abnormal Lab Results - Last 24 Hours (Table) 01/03/21 01/03/21 01/04/21 Range/Units 16:44 23:58 05:45 WBC (4.50-10.00) X 10*3/uL RBC (4.40-5.60) X 10*6/uL Hgb (13.0-17.0) g/dL Hct (39.6-50.0) % Absolute Nucleated RBC (0.00-0.00) X 10*3/uL Neutrophils # (Manual) (2.00-8.90) X 10*3/uL Lymphocytes # (Manual) (0.90-5.00) X 10*3/uL Eosinophils # (Manual) (0.04-0.35) X 10*3/uL NRBC/100 WBC Diff (0.0-0.0) /100 WBCS Carbon Dioxide 33.3 H (21.6-31.8) mmol/L BUN/Creatinine Ratio 30.00 H (12.00-20.00) Ratio Glucose 211 H (70-110) mg/dL POC Glucose (mg/dL) 225 H 227 H (75-99) mg/dL Calcium 7.4 L (8.7-10.3) mg/dL Albumin 2.60 L (3.80-4.90) g/dL 01/04/21 01/04/21 01/04/21 Range/Units 05:45 05:47 11:30 WBC 12.90 H (4.50-10.00) X 10*3/uL RBC 2.93 L (4.40-5.60) X 10*6/uL Hgb 8.5 L (13.0-17.0) g/dL Hct 26.4 L (39.6-50.0) % Absolute Nucleated RBC 0.03 H (0.00-0.00) X 10*3/uL Neutrophils # (Manual) 11.48 H (2.00-8.90) X 10*3/uL Lymphocytes # (Manual) 0.77 L (0.90-5.00) X 10*3/uL Eosinophils # (Manual) 0 L (0.04-0.35) X 10*3/uL NRBC/100 WBC Diff 0.2 H (0.0-0.0) /100 WBCS Carbon Dioxide (21.6-31.8) mmol/L BUN/Creatinine Ratio (12.00-20.00) Ratio Glucose (70-110) mg/dL POC Glucose (mg/dL) 214 H 187 H (75-99) mg/dL Calcium (8.7-10.3) mg/dL Albumin (3.80-4.90) g/dL Assessment and Plan (1) Colitis Narrative/Plan: 40-year-old male presenting to the hospital with complaints of nausea, vomiting, diarrhea and abdominal pain. Previous diagnosis of infection with Covid 19 a presented back to the hospital with complaints of frequent loose bowel movements up to 20-30 daily with associated nausea and vomiting and diffuse abdominal pain. CT scan of the abdomen performed on 12/22/2020 consistent with diffuse colitis with hepatosplenomegaly and hepatic steatosis. Concern was for possible Clostridium difficile testing with initial EIA negative for C. diff toxin. The patient has been started on broad-spectrum antibiotic therapy. Patient was taken for flexible sigmoidoscopy with biopsies consistent with ulcerative colitis. Initially patient did well on steroid therapy and antibiotic therapy however subsequently had worsening in his condition with imaging suggestive of perforation the patient was taken for colectomy with end ileostomy formation for treatment of what ulcerative colitis. Current Visit: Yes Status: Acute Code(s): K52.9 - NONINFECTIVE GASTROENTERI TIS AND COLITIS, UNSPECIFIED SNOMED Code(s): 70996514 (2) Abdominal pain Current Visit: Yes Status: Acute Code(s): R10.9 - UNSPECIFIED ABDOMINAL PAIN SNOMED Code(s): 71346245 (3) Nausea, vomiting, and diarrhea Current Visit: Yes Status: Acute Code(s): R11.2 - NAUSEA WITH VOMITING, UNSPECIFIED; R19.7 - DIARRHEA, UNSPECIFIED SNOMED Code(s): 9611796 Plan: Supportive care nothing by mouth, advance diet as per recommendations by the surgical service Encourage ambulation and up to chair as tolerated Continue pain control continue broad-spectrum antibiotic therapy At this time we'll discontinue steroid therapy, can consider steroid enemas if patient has any signs of active disease in the rectal stump Patient will need follow-up with gastroenterology after discharge given findings from biopsies on colonoscopy consistent with ulcerative colitis Thank you for allowing us to participate in the care of the patient
[2021-01-05 12:46] LABS: African American GFR (CKD) 135.9 (60.0-200.0); Anion Gap 4.3 mmol/L (4.00-12.00); BUN/Creat Ratio 27.14 Ratio (12.00-20.00); Calcium 7.4 mg/dL (8.7-10.3); Carbon Dioxide 33.7 mmol/L (21.6-31.8); Magnesium 1.8 mg/dL (1.5-2.4); Non-African American GFR(CKD) 117.2 (60.0-200.0); Phosphorus 3.8 mg/dL (2.4-5.1); Potassium 4.6 mmol/L (3.5-5.5)
--- NOTE | 2021-01-05 14:04 | P.PN ---
Subjective Progress Note Date: 01/05/21 Pneumoperitoneum Fulminant ulcerative colitis Septic shock Covid19 infection in November 2020 48-year-old male came in with complaints of nausea vomiting diarrhea patient states he has multiple episodes around 20-30 episodes of diarrhea every day. Patient started having symptoms of diarrhea and fever on sulma fever resolved but the diarrhea continued. Patient was diagnosed with the hope did 19 shortly after. Patient is still having some body aches and pains patient is comparing of severe crampy lower abdominal pain patient was seen in ER about 3 days ago at that time patient had a CT of the abdomen which showed a colon colitis. C. diff will be obtained patient is bit hyponatremic and receiving IV fluids at this time. 12/31/2020 Patient is seen and evaluated in room at bedside; patient is demanding to be transferred to here; her social media community manager talked to the patient and recommended possible transfer to [facility] due to possibility of patient being accepted today; patient is agreeable; Arrangements were made for patient's transferred to [facility] under Dr. Khalil, however abdominal x-ray done this afternoon reveals pneumoperitoneum; surgery was notified; Dr. Deal we will see the patient with possibility of OR tonight; fluid was called and spoke with RN and canceled patient transferred to [facility] 01/01/2021 Patient is seen and evaluated in ICU that he was transferred post exploratory laparotomy with colectomy with ileostomy; patient was able to be successfully extubated the patient's on O2 at 4 L by nasal cannula, saline at 75 mL an hour, and TPN at 75 mL an hour. Prior to this episode, according to his medical records, the patient has no prior medical history, and no prior surgical history. He wasn't really taking any medication at home on a regular basis. Abdominal and pelvic computed tomography scan on December 27 showed large bowel wall thickening consistent with colitis, mild abdominal ascites, distended small bowel loops with air-fluid levels consistent with ileus, and small bilateral pleural effusions and basilar atelectasis. Current white count is 20.9, hemoglobin 10.3, hematocrit 30.4, and platelet count 298,000. Sodium 134, potassium 3.8, chlorides 105, CO2 23, anion gap 6, BUN 14, and creatinine 0.89. Albumin is 1.5. Patient remains on IV antibiotics in form of Flagyl and Rocephin 01/03/2021 Patient is currently lying in the bed. Pain is daily controlled. Status post expiratory laparotomy with subtotal colectomy and creation of end ileostomy due to fulminant ulcerative colitis, pneumoperitoneum and septic shock. Postoperative day 3 Patient is on antibiotics in the form of Zosyn. Patient does have nausea and episode of vomiting O overnight. Currently being continued on NG tube. Sahni catheter is in place due to urinary retention. Patient is on TPN currently. Pulmonary, GI and general surgery is on board. Laboratory data showed WBC 17.420 down from 23.4, hemoglobin 9.0, BUN 20 and creatinine 0.6 calcium 6.9 01/04/2021 Patient is currently sitting up in the chair working with physical therapy. Patient continues to be extremely weak requiring assistance and the use of a walker. Continue with NG tube along with indwelling Sahni catheter and NG tube is currently clamped at this time. Multiple medical consultations including pulmonary, GI, and surgery following. Small amount of gas was heard and noted in the ostomy along with a scant amount of stool as well. Discussed with the today about treatment plan. Patient to continue with IV antibiotics and infectious disease is following. Patient to continue TPN until surgery clearance and then will slowly advance diet as tolerated. Hemoglobin is 8.5, white blood count is 12.9 and trending down, current sodium is 141 with a potassium of 4.7 and creatinine is stable at 0.6. Magnesium is 2.1. Continues to have abdominal tenderness although no reports of nausea and vomiting today. 01/05/2021 Patient is seen and evaluated in follow-up this morning stating he continues to have abdominal discomfort and tenderness at the surgical site although has improved from yesterday. Patient was up and walking with physical therapy and nursing staff and was able to walk the halls. Patient is having active gas noted in large amounts of output in the ostomy. Patient continues with NG and will continue at this time. Abdominal distention noted although no worse than previous. Patient continues to have some discomfort although does not like the effects of the narcotics and requesting something different. Patient did all right Toradol although discussed with patient and nursing staff to defer to surgeon on proper medications to administer. He functions are stable and creatinine is 0.7 with a BUN of 19, blood sugars being monitored and treated with sliding scale and will continue. Calcium is 7.4 improved and technetium is 1.8. Patient states he was given a popsicle yesterday although unsure if tolerated as he continued to have abdominal discomfort. Patient is maintained on TPN and will continue and will need to discuss with surgery and GI about weaning attempts once diet is more tolerated. Review of systems: Constitutional: No reports of fatigue, fever, or chills Cardiovascular: No reports of chest pain or palpitations Respiratory: No reports of shortness of breath or cough GI: Reports intermittent periods of nausea, no reports of vomiting, reports abdominal tenderness : No reports of dysuria or retention, continued indwelling Sahni catheter for strict intake and output Neurovascular: Reports generalized weakness, although improved and has been up and walking the halls All medications have been reviewed Objective - Vital Signs Vital signs: Vital Signs Temp 98.4 F 01/05/21 10:00 Pulse 96 01/05/21 10:00 Resp 18 01/05/21 10:00 BP 102/65 01/05/21 10:00 Pulse Ox 96 01/05/21 10:00 Intake & Output 01/04/21 01/05/21 01/05/21 18:59 06:59 18:59 Intake Total 1055 Output Total 6939 299 8206 Balance -65 -120 -1300 Intake: Intake, IV Titration 1055 Amount Sodium Acetate 40 meq 1055 Potassium Chloride 40 meq Calcium Gluconate 1 gm Potassium Phosphate 15 mmol In Amino Acids 5 %/ Dextrose 20 % 1,000 ml @ 75 mls/hr IV .BY DURATION [facility] Rx#:[id number] Output: Drainage 120 50 Abdomen 120 50 Urine 1000 1200 Stool 70 100 Other: Voiding Method Indwelling Catheter Indwelling Catheter - Exam GENERAL: The patient is alert and oriented x3, not in any acute distress. Well developed, well nourished. HEENT: Pupils are round and equally reacting to light. EOMI. No scleral icterus. No conjunctival pallor. Normocephalic, atraumatic. No pharyngeal erythema. No thyromegaly. NG tube noted and currently clamped CARDIOVASCULAR: S1 and S2 present. No murmurs, rubs, or gallops. PULMONARY: Chest is clear to auscultation, no wheezing or crackles. ABDOMEN: Abdomen is tender on palpation, bowel sounds are present, as noted to be heard on exam and in the ostomy with brown stool noted as well MUSCULOSKELETAL: No joint swelling or deformity. EXTREMITIES: No cyanosis, clubbing, or pedal edema. NEUROLOGICAL: Gross neurological examination did not reveal any focal deficits. SKIN: No rashes. - Labs CBC & Chem 7: 01/04/21 05:45 01/05/21 06:43 Labs: Abnormal Lab Results - Last 24 Hours (Table) 01/04/21 01/04/21 01/04/21 Range/Units 05:45 11:30 16:43 Carbon Dioxide 33.3 H (21.6-31.8) mmol/L BUN/Creatinine Ratio 30.00 H (12.00-20.00) Ratio Glucose 211 H (70-110) mg/dL POC Glucose (mg/dL) 187 H 190 H (75-99) mg/dL Calcium 7.4 L (8.7-10.3) mg/dL Albumin 2.60 L (3.80-4.90) g/dL 01/05/21 01/05/21 Range/Units 00:00 05:28 Carbon Dioxide (21.6-31.8) mmol/L BUN/Creatinine Ratio (12.00-20.00) Ratio Glucose (70-110) mg/dL POC Glucose (mg/dL) 167 H 171 H (75-99) mg/dL Calcium (8.7-10.3) mg/dL Albumin (3.80-4.90) g/dL Assessment and Plan Assessment: -Fulminant Colitis with pneumoperitoneum on abdominal x-ray: Secondary to possibly covid 19, status post subtotal colectomy with creation of end ileostomy and surgery following closely. -Severe diffuse colitis with mucosal erythema and cobblestoning of the mucosa consistent with IBS as noted on sigmoidoscopy, GI is following -Acute renal failure improved with IV fluids -Hypovolemic hyponatremia: Improved -Covid 19 infection -DVT prophylaxis with Lovenox -GI prophylaxis Protonix -Full code Plan: Continue with current medications and continue with IV antibiotics. Patient underwent flex sigmoidoscopy with GI showing severe diffuse colitis involving the entire colon with mucosal erythema, friability, and cobblestoning of the mucosa involving the entire colon except the cecum and mild involvement in the rectum all consistent with IBS. Patient is currently receiving TPN and will continue with NG tube at this time. Surgery Dr. estrella following. Patient is status post subtotal colectomy with creation of end ileostomy due to pneumoperitoneum. Gas and stool noted in the ostomy. Will repeat a.m. labs. Continue to encourage Incentive spirometer. Patient working with PT/OT therapy for continued strength and mobility as patient continues to be quite weak. Per nursing staff and patient he was able to walk the halls and will continue to increase activity as tolerated. Further Recommendations to follow.
[2021-01-05] MEDS: KETOROLAC 15 MG/ML 1 ML VIAL IVP PRN ×2 (15:34→23:29)
[2021-01-05] MEDS: MAGNESIUM SULFATE-D5W PMX 1 GM in DEXTROSE/WATER 1 100ML.BAG IVPB SCH ×2 (15:36→18:32)
--- NOTE | 2021-01-05 15:54 | P.PN ---
Subjective Progress Note Date: 01/05/21 Patient seen and examined, vitals are stable, pain is well tolerated, more gas and bile output from ileostomy. NGT in place. Serosang from [facility] Objective - Vital Signs Vital signs: Vital Signs Temp 99.0 F 01/05/21 13:59 Pulse 93 01/05/21 13:59 Resp 18 01/05/21 13:59 BP 100/65 01/05/21 13:59 Pulse Ox 95 01/05/21 13:59 Intake & Output 01/04/21 01/05/21 01/05/21 18:59 06:59 18:59 Intake Total 1055 1066 Output Total 0770 110 9171 Balance -65 946 -1305 Weight 94.6 kg Intake: Intake, IV Titration 1055 1066 Amount Sodium Acetate 40 meq 1055 Potassium Chloride 40 meq Calcium Gluconate 1 gm Potassium Phosphate 15 mmol In Amino Acids 5 %/ Dextrose 20 % 1,000 ml @ 75 mls/hr IV .BY DURATION [facility] Rx#:[id number] Sodium Acetate 40 meq 1066 Potassium Chloride 40 meq Calcium Gluconate 1 gm Potassium Phosphate 15 mmol Mvi, Adult No.4 with Vit K 10 ml Trace (Conc- 1Ml/Dose) 1 ml In Amino Acids 5 %/Dextrose 20 % 1 ,000 ml @ 75 mls/hr IV . BY DURATION [facility] Rx#: [id number] Output: Drainage 120 50 5 Abdomen 120 50 5 Urine 1000 1200 Stool 70 100 Other: Voiding Method Indwelling Catheter Indwelling Catheter Indwelling Catheter - Constitutional General appearance: Present: cooperative - Cardiovascular Rhythm: regular - Gastrointestinal Gastrointestinal Comment(s): S/NT/ND incision CDI ostomy pink patent with bile and gas in bag [facility] serosang - Psychiatric Psychiatric: Present: A&O x's 3 - Labs CBC & Chem 7: 01/04/21 05:45 01/05/21 06:43 Labs: Abnormal Lab Results - Last 24 Hours (Table) 01/04/21 01/05/21 01/05/21 Range/Units 16:43 00:00 05:28 Carbon Dioxide (21.6-31.8) mmol/L BUN/Creatinine Ratio (12.00-20.00) Ratio Glucose (70-110) mg/dL POC Glucose (mg/dL) 190 H 167 H 171 H (75-99) mg/dL Calcium (8.7-10.3) mg/dL 01/05/21 01/05/21 Range/Units 06:43 11:22 Carbon Dioxide 33.7 H (21.6-31.8) mmol/L BUN/Creatinine Ratio 27.14 H (12.00-20.00) Ratio Glucose 152 H (70-110) mg/dL POC Glucose (mg/dL) 154 H (75-99) mg/dL Calcium 7.4 L (8.7-10.3) mg/dL Assessment and Plan Assessment: POD#5 Ex lap subtotal colectomy with creation of end ileostomy Fulminant ulcerative colitis Septic shock Pneumoperitoneum Plan: clamp NGT , cont. TPN. Patient pregressing well, up to chair. Ambulate in halls. Continue IS. SCDs and subQ heparin Add reglan if patient is nauseated
[2021-01-05 17:58] LABS: Glucose,Whole Blood 170 mg/dL (75-99)
--- NOTE | 2021-01-05 22:51 | PN ---
PROGRESS NOTE DATE OF SERVICE: 01/05/2021. REASON FOR FOLLOWUP: Secondary peritonitis from perforated bowel. INTERVAL HISTORY: Patient is currently afebrile. Patient is breathing comfortably. Denies having any chest pain, no shortness of breath or cough. Abdominal pain is currently controlled. Still has the NG in and did have output in the colostomy. PHYSICAL EXAMINATION: Blood pressure 99/63, pulse of 83, temperature 98.7. He is 96% on room air. General description: The patient is a middle-aged male up in the chair in no distress. Respiratory system: Unlabored breathing. Clear to auscultation anteriorly. HEART: S1, S2. Regular rate and rhythm. ABDOMEN: Soft, mildly tender. No guarding. No rigidity. LABS: BUN of 19, creatinine 0.7. DIAGNOSTIC IMPRESSION AND PLAN: Patient with secondary peritonitis from perforated bowel in this patient who is status post laparotomy and diverting subtotal colectomy and ileostomy. The patient is covered with Zosyn to continue and monitor clinical course closely. Continue supportive care. MMODL / IJN: [id number] /
[2021-01-05 23:11] LABS: Glucose,Whole Blood 187 mg/dL (75-99)
[2021-01-06] MEDS: CALCIUM GLUCONATE IV SCH ×7 (03:07)
[2021-01-06] MEDS: POTASSIUM CHLORIDE IV SCH ×7 (03:07)
[2021-01-06] MEDS: SODIUM ACETATE IV SCH ×7 (03:07)
[2021-01-06] MEDS: [UNRECOGNIZED DRUG - OTHER] IV SCH ×7 (03:07)
--- NOTE | 2021-01-06 03:07 | XR ---
EXAM: XR Chest, 1 View CLINICAL HISTORY: ITS.REASON XR Reason: Check NGT placement TECHNIQUE: Frontal view of the chest. COMPARISON: 01/01/2021 IMPRESSION: NG tube terminates in the mid stomach. Mild pleural effusions.
[2021-01-06] MEDS: ONDANSETRON 4 MG/2 ML VIAL IVP PRN (03:26)
[2021-01-06] MEDS: [UNRECOGNIZED DRUG - REMARK] IV SCH ×8 (04:22→18:18)
[2021-01-06 06:07] LABS: Glucose,Whole Blood 194 mg/dL (75-99)
[2021-01-06] MEDS: INSULIN ASPART (NovoLOG) 100 UNIT/ML VIAL SQ SCH ×3 (06:15→18:17)
[2021-01-06 10:32] LABS: Basophils # (A) 0.05 X 10*3/uL (0.00-0.10); Basophils % (A) 0.3 %; Eosinophils # (A) 0 X 10*3/uL (0.04-0.35); Eosinophils % (A) 0 %; HCT 31.3 % (39.6-50.0); HGB 10.2 g/dL (13.0-17.0); Lymphocytes # (A) 1.04 X 10*3/uL (0.90-5.00); Lymphocytes % (A) 5.6 %; MCH 29.2 pg (27.0-32.0); MCHC 32.6 g/dL (32.0-37.0); MCV 89.7 fL (80.0-97.0); Mean Platelet Volume 9.7 fL (9.5-12.2); Monocytes # (A) 0.86 X 10*3/uL (0.20-1.00); Monocytes % (A) 4.6 %; Neutrophils # (A) 15.79 X 10*3/uL (1.80-7.70); Neutrophils % (A) 85.2 %; Platelet Count 374 X 10*3/uL (140-440); RBC 3.49 X 10*6/uL (4.40-5.60); WBC 18.54 X 10*3/uL (4.50-10.00)
[2021-01-06] MEDS: PANTOPRAZOLE 40 MG/10 ML VIAL IVP SCH ×2 (11:04→20:45)
[2021-01-06] MEDS: ENOXAPARIN 40 MG/0.4 ML SYRINGE SQ SCH (11:04)
[2021-01-06] MEDS: PIPERACILLIN-TAZOBACTAM 3.375 GM in SODIUM CHLORIDE 0.9% 100 ML IVPB SCH ×2 (11:04→16:00)
[2021-01-06] MEDS: KETOROLAC 15 MG/ML 1 ML VIAL IVP PRN (11:34)
[2021-01-06 11:39] LABS: Glucose,Whole Blood 200 mg/dL (75-99)
[2021-01-06 11:41] LABS: African American GFR (CKD) 128.6 (60.0-200.0); Magnesium 2.4 mg/dL (1.5-2.4); Phosphorus 4.6 mg/dL (2.4-5.1); Potassium 5.6 mmol/L (3.5-5.5)
--- NOTE | 2021-01-06 14:19 | P.PN ---
Subjective Progress Note Date: 01/06/21 Pneumoperitoneum Fulminant ulcerative colitis Septic shock Covid19 infection in November 2020 48-year-old male came in with complaints of nausea vomiting diarrhea patient states he has multiple episodes around 20-30 episodes of diarrhea every day. Patient started having symptoms of diarrhea and fever on sulma fever resolved but the diarrhea continued. Patient was diagnosed with the hope did 19 shortly after. Patient is still having some body aches and pains patient is comparing of severe crampy lower abdominal pain patient was seen in ER about 3 days ago at that time patient had a CT of the abdomen which showed a colon colitis. C. diff will be obtained patient is bit hyponatremic and receiving IV fluids at this time. 12/31/2020 Patient is seen and evaluated in room at bedside; patient is demanding to be transferred to here; her social worker assistant talked to the patient and recommended possible transfer to [facility] due to possibility of patient being accepted today; patient is agreeable; Arrangements were made for patient's transferred to [facility] under Dr. Khalil, however abdominal x-ray done this afternoon reveals pneumoperitoneum; surgery was notified; Dr. Deal we will see the patient with possibility of OR tonight; fluid was called and spoke with RN and canceled patient transferred to [facility] 01/01/2021 Patient is seen and evaluated in ICU that he was transferred post exploratory laparotomy with colectomy with ileostomy; patient was able to be successfully extubated the patient's on O2 at 4 L by nasal cannula, saline at 75 mL an hour, and TPN at 75 mL an hour. Prior to this episode, according to his medical records, the patient has no prior medical history, and no prior surgical history. He wasn't really taking any medication at home on a regular basis. Abdominal and pelvic computed tomography scan on December 27 showed large bowel wall thickening consistent with colitis, mild abdominal ascites, distended small bowel loops with air-fluid levels consistent with ileus, and small bilateral pleural effusions and basilar atelectasis. Current white count is 20.9, hemoglobin 10.3, hematocrit 30.4, and platelet count 298,000. Sodium 134, potassium 3.8, chlorides 105, CO2 23, anion gap 6, BUN 14, and creatinine 0.89. Albumin is 1.5. Patient remains on IV antibiotics in form of Flagyl and Rocephin 01/03/2021 Patient is currently lying in the bed. Pain is daily controlled. Status post expiratory laparotomy with subtotal colectomy and creation of end ileostomy due to fulminant ulcerative colitis, pneumoperitoneum and septic shock. Postoperative day 3 Patient is on antibiotics in the form of Zosyn. Patient does have nausea and episode of vomiting O overnight. Currently being continued on NG tube. Sahni catheter is in place due to urinary retention. Patient is on TPN currently. Pulmonary, GI and general surgery is on board. Laboratory data showed WBC 17.420 down from 23.4, hemoglobin 9.0, BUN 20 and creatinine 0.6 calcium 6.9 01/04/2021 Patient is currently sitting up in the chair working with physical therapy. Patient continues to be extremely weak requiring assistance and the use of a walker. Continue with NG tube along with indwelling Sahni catheter and NG tube is currently clamped at this time. Multiple medical consultations including pulmonary, GI, and surgery following. Small amount of gas was heard and noted in the ostomy along with a scant amount of stool as well. Discussed with the today about treatment plan. Patient to continue with IV antibiotics and infectious disease is following. Patient to continue TPN until surgery clearance and then will slowly advance diet as tolerated. Hemoglobin is 8.5, white blood count is 12.9 and trending down, current sodium is 141 with a potassium of 4.7 and creatinine is stable at 0.6. Magnesium is 2.1. Continues to have abdominal tenderness although no reports of nausea and vomiting today. 01/05/2021 Patient is seen and evaluated in follow-up this morning stating he continues to have abdominal discomfort and tenderness at the surgical site although has improved from yesterday. Patient was up and walking with physical therapy and nursing staff and was able to walk the halls. Patient is having active gas noted in large amounts of output in the ostomy. Patient continues with NG and will continue at this time. Abdominal distention noted although no worse than previous. Patient continues to have some discomfort although does not like the effects of the narcotics and requesting something different. Patient did all right Toradol although discussed with patient and nursing staff to defer to surgeon on proper medications to administer. He functions are stable and creatinine is 0.7 with a BUN of 19, blood sugars being monitored and treated with sliding scale and will continue. Calcium is 7.4 improved and technetium is 1.8. Patient states he was given a popsicle yesterday although unsure if tolerated as he continued to have abdominal discomfort. Patient is maintained on TPN and will continue and will need to discuss with surgery and GI about weaning attempts once diet is more tolerated. 01/06/2021 Patient is seen and evaluated this morning and states he is exhausted as he had a rough night with no sleep. Patient was continuing to have abdominal discomfort with nausea and an episode of vomiting. Patient is continued with the NG tube with bilious output. Continued gas and output noted in the il eostomy. Ostomy nurse is following and has been working with the patient and educating about ostomy care and use. White blood count trending up and is 18.54 today, hemoglobin is 10.2, sodium is 136, potassium is 4.6, current creatinine is 0.8. Toradol has been resumed as patient was not tolerating narcotics and did not like the feel of them. Patient is continued on TPN and pharmacy to dose. Patient to continue with nothing by mouth with occasional sips of clears. Instructed the patient to continue using incentive spirometer and increasing activity as tolerated. Review of systems: Constitutional: No reports of fatigue, fever, or chills Cardiovascular: No reports of chest pain or palpitations Respiratory: No reports of shortness of breath or cough GI: Reports intermittent periods of nausea, reported vomiting earlier this morning, reports abdominal tenderness continued on exam : No reports of dysuria or retention, continued indwelling Sahni catheter for strict intake and output Neurovascular: Reports generalized weakness, although improved and has been up and walking the halls All medications have been reviewed Objective - Vital Signs Vital signs: Vital Signs Temp 99.2 F 01/06/21 05:20 Pulse 90 01/06/21 05:20 Resp 18 01/06/21 05:20 BP 100/64 01/06/21 05:20 Pulse Ox 95 01/06/21 05:20 Intake & Output 01/05/21 01/06/21 01/06/21 18:59 06:59 18:59 Output Total 2162 2325 400 Balance -2165 -2325 -400 Weight 94.6 kg Output: Gastric Drainage 300 300 Drainage 15 0 Abdomen 15 0 Urine 1850 300 100 Uretheral (Sahni) 650 Stool 300 1625 Emesis 100 Other: Voiding Method Indwelling Catheter Indwelling Catheter - Exam GENERAL: The patient is alert and oriented x3, not in any acute distress. Well developed, well nourished. lethargic although easily arousable. HEENT: Pupils are round and equally reacting to light. EOMI. No scleral icterus. No conjunctival pallor. Normocephalic, atraumatic. No pharyngeal erythema. No thyromegaly. NG tube noted and currently clamped CARDIOVASCULAR: S1 and S2 present. No murmurs, rubs, or gallops. PULMONARY: Chest is clear to auscultation, no wheezing or crackles. ABDOMEN: Abdomen is tender on palpation, bowel sounds are present, as noted to be heard on exam and in the ostomy with scant brown stool noted as well MUSCULOSKELETAL: No joint swelling or deformity. EXTREMITIES: No cyanosis, clubbing, or pedal edema. NEUROLOGICAL: Gross neurological examination did not reveal any focal deficits. SKIN: No rashes. - Labs CBC & Chem 7: 01/06/21 07:33 01/06/21 13:36 Labs: Abnormal Lab Results - Last 24 Hours (Table) 01/05/21 01/05/21 01/05/21 Range/Units 06:43 11:22 17:57 Carbon Dioxide 33.7 H (21.6-31.8) mmol/L BUN/Creatinine Ratio 27.14 H (12.00-20.00) Ratio Glucose 152 H (70-110) mg/dL POC Glucose (mg/dL) 154 H 170 H (75-99) mg/dL Calcium 7.4 L (8.7-10.3) mg/dL 01/05/21 01/06/21 Range/Units 23:10 06:06 Carbon Dioxide (21.6-31.8) mmol/L BUN/Creatinine Ratio (12.00-20.00) Ratio Glucose (70-110) mg/dL POC Glucose (mg/dL) 187 H 194 H (75-99) mg/dL Calcium (8.7-10.3) mg/dL Assessment and Plan Assessment: -Fulminant Colitis with pneumoperitoneum on abdominal x-ray: Secondary to possibly covid 19, status post subtotal colectomy with creation of end ileostomy and surgery following closely. -Severe diffuse colitis with mucosal erythema and cobblestoning of the mucosa consistent with IBS as noted on sigmoidoscopy, GI is following -Acute renal failure improved with IV fluids -Hypovolemic hyponatremia: Improved -Covid 19 infection -DVT prophylaxis with Lovenox -GI prophylaxis Protonix -Full code Plan: Continue with current medications and continue with IV antibiotics. Infectious disease, surgery, and pulmonary following along with GI. Patient is currently receiving TPN and will continue with NG tube at this time. Surgery Dr. estrella following. Patient is status post subtotal colectomy with creation of end ileostomy due to pneumoperitoneum. Gas and stool noted in the ostomy. Abdominal discomfort and tenderness noted on exam. To continue with NPO at this time. Will repeat a.m. labs. Continue to encourage Incentive spirometer. Patient instructed to increase activity as tolerated. Further Recommendations to follow based on the clinical course of the patient. Guarded prognosis.
--- NOTE | 2021-01-06 14:21 | P.PN ---
Subjective Progress Note Date: 01/06/21 Patient seen and examined, vitals are stable, pain is well tolerated, more gas and bile output from ileostomy. NGT in place. Serosang from [facility]. Patient failed the clamp trial overnight and had an episode of emesis. Objective - Vital Signs Vital signs: Vital Signs Temp 98.5 F 01/06/21 10:00 Pulse 88 01/06/21 10:00 Resp 16 01/06/21 10:00 BP 102/65 01/06/21 10:00 Pulse Ox 95 01/06/21 10:00 Intake & Output 01/05/21 01/06/21 01/06/21 18:59 06:59 18:59 Output Total 2165 2325 1300 Balance -2165 -2325 -1300 Weight 94.6 kg Output: Gastric Drainage 300 900 Drainage 15 0 Abdomen 15 0 Urine 1850 300 100 Uretheral (Sahni) 650 Stool 300 1625 300 Emesis 100 Other: Voiding Method Indwelling Catheter Indwelling Catheter - Constitutional General appearance: Present: cooperative - Cardiovascular Rhythm: regular - Gastrointestinal Gastrointestinal Comment(s): Abdomen s/nt/nd incision CDI ileostomy with bile in bag - Labs CBC & Chem 7: 01/06/21 07:33 01/06/21 13:36 Labs: Abnormal Lab Results - Last 24 Hours (Table) 01/05/21 01/05/21 01/06/21 Range/Units 17:57 23:10 06:06 WBC (4.50-10.00) X 10*3/uL RBC (4.40-5.60) X 10*6/uL Hgb (13.0-17.0) g/dL Hct (39.6-50.0) % Absolute Nucleated RBC (0.00-0.00) X 10*3/uL Immature Gran # (0.00-0.04) X 10*3/uL Neutrophils # (1.80-7.70) X 10*3/uL Eosinophils # (0.04-0.35) X 10*3/uL NRBC/100 WBC Diff (0.0-0.0) /100 WBCS Potassium (3.5-5.5) mmol/L Carbon Dioxide (21.6-31.8) mmol/L BUN/Creatinine Ratio (12.00-20.00) Ratio Glucose (70-110) mg/dL POC Glucose (mg/dL) 170 H 187 H 194 H (75-99) mg/dL Calcium (8.7-10.3) mg/dL 01/06/21 01/06/21 01/06/21 Range/Units 07:33 07:33 11:37 WBC 18.54 H (4.50-10.00) X 10*3/uL RBC 3.49 L (4.40-5.60) X 10*6/uL Hgb 10.2 L (13.0-17.0) g/dL Hct 31.3 L (39.6-50.0) % Absolute Nucleated RBC 0.02 H (0.00-0.00) X 10*3/uL Immature Gran # 0.80 H (0.00-0.04) X 10*3/uL Neutrophils # 15.79 H (1.80-7.70) X 10*3/uL Eosinophils # 0 L (0.04-0.35) X 10*3/uL NRBC/100 WBC Diff 0.1 H (0.0-0.0) /100 WBCS Potassium 5.6 H (3.5-5.5) mmol/L Carbon Dioxide 33.0 H (21.6-31.8) mmol/L BUN/Creatinine Ratio 30.00 H (12.00-20.00) Ratio Glucose 199 H (70-110) mg/dL POC Glucose (mg/dL) 200 H (75-99) mg/dL Calcium 8.0 L (8.7-10.3) mg/dL Assessment and Plan Assessment: POD#5 Ex lap subtotal colectomy with creation of end ileostomy Fulminant ulcerative colitis Septic shock Pneumoperitoneum Plan: Continue NGT, patient is still having some nausea likely related to some degree an ileus despite some function from the ileosotomy. Continue reglan and zofran as needed.
--- NOTE | 2021-01-06 14:42 | P.PN ---
Subjective Progress Note Date: 01/06/21 Principal diagnosis: Colitis, abdominal pain, nausea and vomiting Seen and examined lying in bed. NG tube in place with intermittent suction. An approximately 150 and output. States he had a bad night. States he still has some abdominal pain. He is having output from his ostomy. Denies any bloody stool. He still remains nothing by mouth with just ice chips. Denies any fevers through the night. Objective - Vital Signs Vital signs: Vital Signs Temp 99.2 F 01/06/21 05:20 Pulse 90 01/06/21 05:20 Resp 18 01/06/21 05:20 BP 100/64 01/06/21 05:20 Pulse Ox 95 01/06/21 05:20 Intake & Output 01/05/21 01/06/21 01/06/21 18:59 06:59 18:59 Output Total 2165 2325 400 Balance -2165 -2325 -400 Weight 94.6 kg Output: Gastric Drainage 300 300 Drainage 15 0 Abdomen 15 0 Urine 1850 300 100 Uretheral (Sahni) 650 Stool 300 1625 Emesis 100 Other: Voiding Method Indwelling Catheter Indwelling Catheter - Exam General appearance: The patient is alert, oriented, appears in no acute distress. HET: Head is normocephalic and atraumatic. Conjunctiva pink. Sclera anicteric. NG tube intact with suction. Neck: Supple without lymphadenopathy. Abdomen: Soft, ileostomy intact with stool output, incision with dressing clean dry and intact. Positive bowel sounds. No guarding or rigidity. Extremities: Normal skin color and turgor. Bilateral pedal edema. Neurological: No focal deficits. Alert and oriented 3. - Labs CBC & Chem 7: 01/06/21 07:33 01/06/21 13:36 Labs: Abnormal Lab Results - Last 24 Hours (Table) 01/05/21 01/05/21 01/05/21 Range/Units 06:43 11:22 17:57 Carbon Dioxide 33.7 H (21.6-31.8) mmol/L BUN/Creatinine Ratio 27.14 H (12.00-20.00) Ratio Glucose 152 H (70-110) mg/dL POC Glucose (mg/dL) 154 H 170 H (75-99) mg/dL Calcium 7.4 L (8.7-10.3) mg/dL 01/05/21 01/06/21 Range/Units 23:10 06:06 Carbon Dioxide (21.6-31.8) mmol/L BUN/Creatinine Ratio (12.00-20.00) Ratio Glucose (70-110) mg/dL POC Glucose (mg/dL) 187 H 194 H (75-99) mg/dL Calcium (8.7-10.3) mg/dL Assessment and Plan (1) Colitis Narrative/Plan: 40-year-old male presenting to the hospital with complaints of nausea, vomiting, diarrhea and abdominal pain. Previous diagnosis of infection with Covid 19 a presented back to the hospital with complaints of frequent loose bowel movements up to 20-30 daily with associated nausea and vomiting and diffuse abdominal dalia n. CT scan of the abdomen performed on 12/22/2020 consistent with diffuse colitis with hepatosplenomegaly and hepatic steatosis. Concern was for possible Clostridium difficile toxin with initial EIA negative for C. diff toxin. The patient has been started on broad-spectrum antibiotic therapy. He was taken for flexible sigmoidoscopy with biopsy consistent with ulcerative colitis. Initially patient did well on steroid therapy and antibiotic therapy however subsequently had worsened being in his condition and imaging suggestive of perforation. The patient was taken for colectomy with end ileostomy formation. Current Visit: Yes Status: Acute Code(s): K52.9 - NONINFECTIVE GASTROENTERITIS AND COLITIS, UNSPECIFIED SNOMED Code(s): 40761138 (2) Abdominal pain Current Visit: Yes Status: Acute Code(s): R10.9 - UNSPECIFIED ABDOMINAL PAIN SNOMED Code(s): 97760830 (3) Nausea, vomiting, and diarrhea Current Visit: Yes Status: Acute Code(s): R11.2 - NAUSEA WITH VOMITING, UNSPECIFIED; R19.7 - DIARRHEA, UNSPECIFIED SNOMED Code(s): 4263503 Plan: Supportive care Nothing by mouth, advance diet per recommendations by surgical services Continue antiemetic therapy as needed for nausea Protonix twice daily Encourage to increase ambulation and incentive spirometer use TPN started per dietitian Thank you for allowing us to participate in the care of the patient no further indication for gastroenterology workup. We will sign off at this time. Continue medical management per surgical services. Dr. Hubbard I agree with the dictator's note, documented as a scribe by Radha Rodas.
[2021-01-06 16:58] LABS: Glucose,Whole Blood 182 mg/dL (75-99)
[2021-01-06] MEDS: METOCLOPRAMIDE 5 MG/ML 2 ML VIAL IVP SCH (18:18)
[2021-01-06] MEDS: SODIUM CHLORIDE 0.9% 1,000 ML IV SCH (20:46)
--- NOTE | 2021-01-06 23:12 | PN ---
PROGRESS NOTE DATE OF SERVICE: 01/06/2021 REASON FOR FOLLOWUP: Secondary peritonitis from perforated bowel. INTERVAL HISTORY: The patient is currently afebrile. The patient is breathing comfortably. Denies having any chest pain, shortness of breath or cough. No nausea, no vomiting. Abdominal pain is currently controlled. PHYSICAL EXAMINATION: Blood pressure 105/69 with a pulse of 86, temperature 97.6. He is 100% on room air. General description is a young male up in the chair in no distress. RESPIRATORY SYSTEM: Unlabored breathing. Clear to auscultation anteriorly. HEART: S1, S2. Regular rate and rhythm. ABDOMEN: Soft. No tenderness. LABS: Hemoglobin is 10.2, white count 18.54. BUN of 24, creatinine 0.8. DIAGNOSTIC IMPRESSION AND PLAN: Patient with secondary peritonitis from perforated bowel in this patient subtotal colectomy and ileostomy. Patient is covered with Zosyn. He did have a slight jump in the white count. That will be monitored closely. Will continue with supportive care. MMODL / CHELAN: [id number] /
[2021-01-07 00:08] LABS: Glucose,Whole Blood 206 mg/dL (75-99)
[2021-01-07] MEDS: KETOROLAC 15 MG/ML 1 ML VIAL IVP PRN ×3 (00:22→23:00)
[2021-01-07] MEDS: METOCLOPRAMIDE 5 MG/ML 2 ML VIAL IVP SCH ×5 (00:22→23:47)
[2021-01-07] MEDS: INSULIN ASPART (NovoLOG) 100 UNIT/ML VIAL SQ SCH ×5 (00:22→23:46)
[2021-01-07] MEDS: PIPERACILLIN-TAZOBACTAM 3.375 GM in SODIUM CHLORIDE 0.9% 100 ML IVPB SCH ×4 (00:23→23:46)
[2021-01-07 06:07] LABS: Glucose,Whole Blood 209 mg/dL (75-99)
[2021-01-07] MEDS: ENOXAPARIN 40 MG/0.4 ML SYRINGE SQ SCH (08:20)
[2021-01-07] MEDS: [UNRECOGNIZED DRUG - REMARK] IV SCH ×8 (08:20→21:39)
[2021-01-07] MEDS: PANTOPRAZOLE 40 MG/10 ML VIAL IVP SCH ×2 (08:20→20:24)
[2021-01-07] MEDS: FAT EMULSION 20% 250 ML in EMPTY BAG 1 BAG IV SCH (08:20)
[2021-01-07] MEDS ORDERED: ACETAMINOPHEN IV (For NPO) 1,000 MG in EMPTY BAG 1 BAG IVPB PRN (11:14)
[2021-01-07 11:43] LABS: Glucose,Whole Blood 170 mg/dL (75-99)
--- NOTE | 2021-01-07 12:24 | P.PN ---
Subjective Progress Note Date: 01/07/21 Patient seen and examined, vitals are stable, pain is well tolerated, more gas and bile output from ileostomy. NGT in place. Serosang from [facility]. Objective - Vital Signs Vital signs: Vital Signs Temp 97.5 F L 01/07/21 07:21 Pulse 85 01/07/21 07:21 Resp 17 01/07/21 07:21 BP 101/64 01/07/21 07:21 Pulse Ox 98 01/07/21 07:21 Intake & Output 01/06/21 01/07/21 01/07/21 18:59 06:59 18:59 Intake Total 1015 Output Total 2600 510 1650 Balance -1585 -510 -1650 Intake: Intake, IV Titration 1015 Amount Potassium Chloride 30 meq 1015 In Amino Acid 5%-D20w+ Lytes*E* 1,000 ml @ 75 mls/hr IV .BY DURATION GAUDENCIO Rx#:[id number] Output: Gastric Drainage 1200 Drainage 10 650 Abdomen 10 650 Urine 793 920 3708 Stool 700 Other: Voiding Method Indwelling Catheter Indwelling Catheter Indwelling Catheter - Constitutional General appearance: Present: cooperative - Cardiovascular Rhythm: regular - Gastrointestinal Gastrointestinal Comment(s): soft, mild distention, mild TTP expected and incisional [facility] serosang Ileostomy intact pink patent with bile in bag - Labs CBC & Chem 7: 01/06/21 07:33 01/06/21 13:36 Labs: Abnormal Lab Results - Last 24 Hours (Table) 01/06/21 01/07/21 01/07/21 Range/Units 16:56 00:07 06:05 POC Glucose (mg/dL) 182 H 206 H 209 H (75-99) mg/dL 01/07/21 Range/Units 11:42 POC Glucose (mg/dL) 170 H (75-99) mg/dL Assessment and Plan Assessment: POD#6 Ex lap subtotal colectomy with creation of end ileostomy Fulminant ulcerative colitis Septic shock Pneumoperitoneum Plan: Continue NGT, attempt clamp trial this afternoon, patient is still having some nausea likely related to some degree an ileus despite some function from the ileosotomy. Continue reglan and zofran as needed.
--- NOTE | 2021-01-07 14:24 | P.PN ---
Subjective Progress Note Date: 01/07/21 Pneumoperitoneum Fulminant ulcerative colitis Septic shock Covid19 infection in November 2020 48-year-old male came in with complaints of nausea vomiting diarrhea patient states he has multiple episodes around 20-30 episodes of diarrhea every day. Patient started having symptoms of diarrhea and fever on sulma fever resolved but the diarrhea continued. Patient was diagnosed with the hope did 19 shortly after. Patient is still having some body aches and pains patient is comparing of severe crampy lower abdominal pain patient was seen in ER about 3 days ago at that time patient had a CT of the abdomen which showed a colon colitis. C. diff will be obtained patient is bit hyponatremic and receiving IV fluids at this time. 12/31/2020 Patient is seen and evaluated in room at bedside; patient is demanding to be transferred to here; her social science professor talked to the patient and recommended possible transfer to [facility] due to possibility of patient being accepted today; patient is agreeable; Arrangements were made for patient's transferred to [facility] under Dr. Khalil, however abdominal x-ray done this afternoon reveals pneumoperitoneum; surgery was notified; Dr. Deal we will see the patient with possibility of OR tonight; fluid was called and spoke with RN and canceled patient transferred to [facility] 01/01/2021 Patient is seen and evaluated in ICU that he was transferred post exploratory laparotomy with colectomy with ileostomy; patient was able to be successfully extubated the patient's on O2 at 4 L by nasal cannula, saline at 75 mL an hour, and TPN at 75 mL an hour. Prior to this episode, according to his medical records, the patient has no prior medical history, and no prior surgical history. He wasn't really taking any medication at home on a regular basis. Abdominal and pelvic computed tomography scan on December 27 showed large bowel wall thickening consistent with colitis, mild abdominal ascites, distended small bowel loops with air-fluid levels consistent with ileus, and small bilateral pleural effusions and basilar atelectasis. Current white count is 20.9, hemoglobin 10.3, hematocrit 30.4, and platelet count 298,000. Sodium 134, potassium 3.8, chlorides 105, CO2 23, anion gap 6, BUN 14, and creatinine 0.89. Albumin is 1.5. Patient remains on IV antibiotics in form of Flagyl and Rocephin 01/03/2021 Patient is currently lying in the bed. Pain is daily controlled. Status post expiratory laparotomy with subtotal colectomy and creation of end ileostomy due to fulminant ulcerative colitis, pneumoperitoneum and septic shock. Postoperative day 3 Patient is on antibiotics in the form of Zosyn. Patient does have nausea and episode of vomiting O overnight. Currently being continued on NG tube. Sahni catheter is in place due to urinary retention. Patient is on TPN currently. Pulmonary, GI and general surgery is on board. Laboratory data showed WBC 17.420 down from 23.4, hemoglobin 9.0, BUN 20 and creatinine 0.6 calcium 6.9 01/04/2021 Patient is currently sitting up in the chair working with physical therapy. Patient continues to be extremely weak requiring assistance and the use of a walker. Continue with NG tube along with indwelling Sahni catheter and NG tube is currently clamped at this time. Multiple medical consultations including pulmonary, GI, and surgery following. Small amount of gas was heard and noted in the ostomy along with a scant amount of stool as well. Discussed with the today about treatment plan. Patient to continue with IV antibiotics and infectious disease is following. Patient to continue TPN until surgery clearance and then will slowly advance diet as tolerated. Hemoglobin is 8.5, white blood count is 12.9 and trending down, current sodium is 141 with a potassium of 4.7 and creatinine is stable at 0.6. Magnesium is 2.1. Continues to have abdominal tenderness although no reports of nausea and vomiting today. 01/05/2021 Patient is seen and evaluated in follow-up this morning stating he continues to have abdominal discomfort and tenderness at the surgical site although has improved from yesterday. Patient was up and walking with physical therapy and nursing staff and was able to walk the halls. Patient is having active gas noted in large amounts of output in the ostomy. Patient continues with NG and will continue at this time. Abdominal distention noted although no worse than previous. Patient continues to have some discomfort although does not like the effects of the narcotics and requesting something different. Patient did all right Toradol although discussed with patient and nursing staff to defer to surgeon on proper medications to administer. He functions are stable and creatinine is 0.7 with a BUN of 19, blood sugars being monitored and treated with sliding scale and will continue. Calcium is 7.4 improved and technetium is 1.8. Patient states he was given a popsicle yesterday although unsure if tolerated as he continued to have abdominal discomfort. Patient is maintained on TPN and will continue and will need to discuss with surgery and GI about weaning attempts once diet is more tolerated. 01/06/2021 Patient is seen and evaluated this morning and states he is exhausted as he had a rough night with no sleep. Patient was continuing to have abdominal discomfort with nausea and an episode of vomiting. Patient is continued with the NG tube with bilious output. Continued gas and output noted in the il eostomy. Ostomy nurse is following and has been working with the patient and educating about ostomy care and use. White blood count trending up and is 18.54 today, hemoglobin is 10.2, sodium is 136, potassium is 4.6, current creatinine is 0.8. Toradol has been resumed as patient was not tolerating narcotics and did not like the feel of them. Patient is continued on TPN and pharmacy to dose. Patient to continue with nothing by mouth with occasional sips of clears. Instructed the patient to continue using incentive spirometer and increasing activity as tolerated. 01/07/2021 Patient is seen and evaluated today currently sitting up in the chair resting but easily arousable. Patient continues to have some abdominal discomfort and tenderness at the incisional site. Will add IV Tylenol and continue with Toradol and morphine as needed. Patient continues to have some nausea noted and will continue with Zofran and Reglan. NG tube is currently clamped at this time although continues to have bilious drainage noted when hooked to suction. Patient has been attempting popsicles and clears although states he feels an abdominal fullness and lump in the upper left and right quadrant after eating. Will continue with TPN for now. Surgery is following closely as well. Appreciate surgical recommendations. Continue to encourage increase in activity as tolerated. Review of systems: Constitutional: Reports fatigue, no reports of fever, or chills Cardiovascular: No reports of chest pain or palpitations Respiratory: No reports of shortness of breath or cough GI: Reports intermittent periods of nausea, reports abdominal tenderness continued on exam : No reports of dysuria or retention, continued indwelling Sahni catheter for strict intake and output Neurovascular: Reports generalized weakness, although improved and has been up and walking the halls All medications have been reviewed Objective - Vital Signs Vital signs: Vital Signs Temp 97.5 F L 01/07/21 07:21 Pulse 85 01/07/21 07:21 Resp 17 01/07/21 07:21 BP 101/64 01/07/21 07:21 Pulse Ox 98 01/07/21 07:21 Intake & Output 01/06/21 01/07/21 01/07/21 18:59 06:59 18:59 Intake Total 1015 Output Total 2600 510 1650 Balance -1585 -510 -1650 Intake: Intake, IV Titration 1015 Amount Potassium Chloride 30 meq 1015 In Amino Acid 5%-D20w+ Lytes*E* 1,000 ml @ 75 mls/hr IV .BY DURATION [facility] Rx#:[id number] Output: Gastric Drainage 1200 Drainage 10 650 Abdomen 10 650 Urine 261 688 5287 Stool 700 Other: Voiding Method Indwelling Catheter Indwelling Catheter Indwelling Catheter - Exam GENERAL: The patient is alert and oriented x3, not in any acute distress. Well developed, well nourished. Sitting up in the chair. lethargic although easily arousable. HEENT: Pupils are round and equally reacting to light. EOMI. No scleral icterus. No conjunctival pallor. Normocephalic, atraumatic. No pharyngeal erythema. No thyromegaly. NG tube noted and currently clamped CARDIOVASCULAR: S1 and S2 present. No murmurs, rubs, or gallops. PULMONARY: Chest is clear to auscultation, no wheezing or crackles. ABDOMEN: Abdomen is tender on palpation, bowel sounds are present, as noted to be heard on exam and in the ostomy with moderate brown liquid stool noted as well MUSCULOSKELETAL: No joint swelling or deformity. EXTREMITIES: No cyanosis, clubbing, or pedal edema. NEUROLOGICAL: Gross neurological examination did not reveal any focal deficits. SKIN: No rashes. - Labs CBC & Chem 7: 01/06/21 07:33 01/06/21 13:36 Labs: Abnormal Lab Results - Last 24 Hours (Table) 01/06/21 01/07/21 01/07/21 Range/Units 16:56 00:07 06:05 POC Glucose (mg/dL) 182 H 206 H 209 H (75-99) mg/dL 01/07/21 Range/Units 11:42 POC Glucose (mg/dL) 170 H (75-99) mg/dL Assessment and Plan Assessment: -Fulminant Colitis with pneumoperitoneum on abdominal x-ray: Secondary to possibly covid 19, status post subtotal colectomy with creation of end ileostomy and surgery following closely. -Severe diffuse colitis with mucosal erythema and cobblestoning of the mucosa consistent with IBS as noted on sigmoidoscopy, GI is following -Acute renal failure improved with IV fluids -Hypovolemic hyponatremia: Improved -Covid 19 infection -DVT prophylaxis with Lovenox -GI prophylaxis Protonix -Full code Plan: Continue with current medications and continue with IV antibiotics. Infectious disease, surgery, and pulmonary following along with GI. Patient is currently receiving TPN and will continue with NG tube at this time. Surgery Dr. Chris following. Patient is status post subtotal colectomy with creation of end ileostomy due to pneumoperitoneum. Gas and stool noted in the ostomy. Abdominal discomfort and tenderness noted on exam. To continue with NPO at this time. Will repeat a.m. labs. Continue to encourage Incentive spirometer. Patient instructed to increase activity as tolerated. Patient needs encouragement of increasing activity as he continues to feel fatigued and have a lot of abdominal discomfort. Discussed with nursing staff. Further Recommendations to follow based on the clinical course of the patient. Guarded prognosis.
--- NOTE | 2021-01-07 15:32 | P.PN ---
Subjective Progress Note Date: 01/07/21 Principal diagnosis: Colitis, abdominal pain, nausea and vomiting This a 40-year-old male patient who is being seen for follow-up. He was admitted to the hospital with a Coban 19 infection and colitis, later was found to have ulcerative colitis. The patient underwent a subtotal colectomy and creation of end ileostomy week ago. He states his pain has improved, however still has some pain in the abdomen. He is having output from his ileostomy. NG tube is intact with intermittent suction. He remains nothing by mouth with just sips. He is getting TPN for nutrition. Objective - Vital Signs Vital signs: Vital Signs Temp 98.1 F 01/07/21 14:00 Pulse 76 01/07/21 14:00 Resp 19 01/07/21 14:00 BP 103/58 01/07/21 14:00 Pulse Ox 99 01/07/21 14:00 Intake & Output 01/06/21 01/07/21 01/07/21 18:59 06:59 18:59 Intake Total 1015 Output Total 2600 510 1650 Balance -1585 -510 -1650 Intake: Intake, IV Titration 1015 Amount Potassium Chloride 30 meq 1015 In Amino Acid 5%-D20w+ Lytes*E* 1,000 ml @ 75 mls/hr IV .BY DURATION [facility] Rx#:[id number] Output: Gastric Drainage 1200 Drainage 10 650 Abdomen 10 650 Urine 976 493 6050 Stool 700 Other: Voiding Method Indwelling Catheter Indwelling Catheter Indwelling Catheter - Exam General appearance: The patient is alert, oriented, appears in no acute distress. HET: Head is normocephalic and atraumatic. Conjunctiva pink. Sclera anicteric. NG tube intact with suction. Neck: Supple without lymphadenopathy. Abdomen: Soft, ileostomy intact with stool output, incision with dressing clean dry and intact. Positive bowel sounds. No guarding or rigidity. Extremities: Normal skin color and turgor. Bilateral pedal edema. Neurological: No focal deficits. Alert and oriented 3. - Labs CBC & Chem 7: 01/06/21 07:33 01/06/21 13:36 Labs: Abnormal Lab Results - Last 24 Hours (Table) 01/06/21 01/07/21 01/07/21 Range/Units 16:56 00:07 06:05 POC Glucose (mg/dL) 182 H 206 H 209 H (75-99) mg/dL 01/07/21 Range/Units 11:42 POC Glucose (mg/dL) 170 H (75-99) mg/dL Assessment and Plan (1) Colitis Narrative/Plan: 40-year-old male presenting to the hospital with complaints of nausea, vomiting, diarrhea and abdominal pain. Previous diagnosis of infection with Covid 19 a presented back to the hospital with complaints of frequent loose bowel movements up to 20-30 daily with associated nausea and vomiting and diffuse abdominal pain. CT scan of the abdomen performed on 12/22/2020 consistent with diffuse colitis with hepatosplenomegaly and hepatic steatosis. Concern was for possible Clostridium difficile toxin with initial EIA negative for C. diff toxin. The patient has been started on broad-spectrum antibiotic therapy. He was taken for flexible sigmoidoscopy with biopsy consistent with ulcerative colitis. Initially patient did well on steroid therapy and antibiotic therapy however subsequently had worsening in his condition and imaging suggestive of perforation. The patient was taken for colectomy with end ileostomy formation. Current Visit: Yes Status: Acute Code(s): K52.9 - NONINFECTIVE GASTROENTERITIS AND COLITIS, UNSPECIFIED SNOMED Code(s): 56314596 (2) Abdominal pain Current Visit: Yes Status: Acute Code(s): R10.9 - UNSPECIFIED ABDOMINAL PAIN SNOMED Code(s): 27370311 (3) Nausea, vomiting, and diarrhea Current Visit: Yes Status: Acute Code(s): R11.2 - NAUSEA WITH VOMITING, UNSPECIFIED; R19.7 - DIARRHEA, UNSPECIFIED SNOMED Code(s): 9928198 Plan: Supportive care Nothing by mouth, advance diet per recommendations by surgical services Continue antiemetic therapy as needed for nausea Protonix twice daily Encourage to increase ambulation and incentive spirometer use TPN started per dietitian Thank you for allowing us to participate in the care of the patient no further indication for gastroenterology workup. We will sign off at this time. Continue medical management per surgical services. Dr. Mir Eng I agree with the dictator's note, documented as a scribe by Radha Rodas.
[2021-01-07 17:08] LABS: Glucose,Whole Blood 242 mg/dL (75-99)
[2021-01-07 18:36] LABS: African American GFR (CKD) 128.6 (60.0-200.0); Anion Gap 3.6 mmol/L (4.00-12.00); BUN/Creat Ratio 23.75 Ratio (12.00-20.00); Calcium 7.9 mg/dL (8.7-10.3); Carbon Dioxide 31.4 mmol/L (21.6-31.8); Magnesium 2.3 mg/dL (1.5-2.4); Phosphorus 3.6 mg/dL (2.4-5.1); Potassium 5.7 mmol/L (3.5-5.5)
[2021-01-07] MEDS: SODIUM CHLORIDE 0.9% 1,000 ML IV SCH (21:14)
[2021-01-07 23:42] LABS: Glucose,Whole Blood 148 mg/dL (75-99)
[2021-01-08 05:36] LABS: Glucose,Whole Blood 178 mg/dL (75-99)
[2021-01-08] MEDS: KETOROLAC 15 MG/ML 1 ML VIAL IVP PRN (05:42)
[2021-01-08] MEDS: METOCLOPRAMIDE 5 MG/ML 2 ML VIAL IVP SCH ×3 (05:42→17:08)
[2021-01-08] MEDS: INSULIN ASPART (NovoLOG) 100 UNIT/ML VIAL SQ SCH ×3 (05:42→17:57)
[2021-01-08 06:51] LABS: ALT 70 U/L (4-49); AST 43 U/L (17-59); African American GFR (CKD) >90 (>60 ml/min/1.73 sqM); Albumin 2.2 g/dL (3.5-5.0); Albumin/Globulin Ratio 0.8; Alkaline Phosphatase 288 U/L (38-126); Anion Gap 3 mmol/L; Blood Urea Nitrogen 17 mg/dL (9-20); Calcium 7.9 mg/dL (8.4-10.2); Carbon Dioxide 27 mmol/L (22-30); Chloride 101 mmol/L (98-107); Globulin 2.8 g/dL; Glucose 155 mg/dL (74-99); Magnesium 2.3 mg/dL (1.6-2.3); Non-African American GFR(CKD) >90 (>60 ml/min/1.73 sqM); Phosphorus 3.7 mg/dL (2.5-4.5); Potassium 5.5 mmol/L (3.5-5.1); Sodium 131 mmol/L (137-145); Triglycerides 103 mg/dL (<150)
[2021-01-08] MEDS: PANTOPRAZOLE 40 MG/10 ML VIAL IVP SCH ×2 (06:58→20:52)
[2021-01-08] MEDS: ENOXAPARIN 40 MG/0.4 ML SYRINGE SQ SCH (06:59)
[2021-01-08] MEDS: PIPERACILLIN-TAZOBACTAM 3.375 GM in SODIUM CHLORIDE 0.9% 100 ML IVPB SCH ×2 (06:59→17:08)
[2021-01-08 08:50] LABS: Basophils # (A) 0.02 X 10*3/uL (0.00-0.10); Basophils % (A) 0.2 %; Eosinophils # (A) 0 X 10*3/uL (0.04-0.35); Eosinophils % (A) 0 %; HCT 25.9 % (39.6-50.0); HGB 8.4 g/dL (13.0-17.0); Lymphocytes # (A) 1.08 X 10*3/uL (0.90-5.00); Lymphocytes % (A) 8.4 %; MCH 29.3 pg (27.0-32.0); MCHC 32.4 g/dL (32.0-37.0); MCV 90.2 fL (80.0-97.0); Mean Platelet Volume 9.9 fL (9.5-12.2); Monocytes % (A) 5.4 %; Neutrophils # (A) 10.88 X 10*3/uL (1.80-7.70); Neutrophils % (A) 84.7 %; Platelet Count 341 X 10*3/uL (140-440); RBC 2.87 X 10*6/uL (4.40-5.60); RDW 13.8 % (11.5-14.5); WBC 12.85 X 10*3/uL (4.50-10.00)
[2021-01-08] MEDS: [UNRECOGNIZED DRUG - REMARK] IV SCH ×4 (10:53)
[2021-01-08] MEDS ORDERED: DEXTROSE 50% SYRINGE 50 ML IVP STA (11:17)
[2021-01-08] MEDS ORDERED: INSULIN REGULAR 100 UNIT/ML VIAL IV ONE (11:17)
--- NOTE | 2021-01-08 11:59 | PN ---
PROGRESS NOTE DATE OF SERVICE: 01/08/2021 Patient is a 40-year-old white male who is status post subtotal colectomy for perforated colon a week ago with an ileostomy. He was also diagnosed with COVID-19 infection. He continues to have NG tube in place. He is feeling better today. Abdominal pain has improved. NG tube has been clamped for 24 hours. No nausea, no vomiting. Ileostomy bag had approximately 300 cc of liquid stool. No fever, chills, night sweats. PHYSICAL EXAMINATION: GENERAL: Appears comfortable. VITAL SIGNS: Stable. Blood pressure 108/86, pulse rate 81, temperature 98.1. HEENT: Examination unremarkable. Conjunctivae are pink. Sclerae anicteric. Oral cavity no lesions. NECK: No JVD or lymph node enlargement. CHEST: Clear to auscultation. HEART: Regular rate and rhythm. ABDOMEN: Soft. Ileostomy bag in place. It was benign. It was slightly distended. EXTREMITIES: No pedal edema. NEURO: He is alert and oriented x3. No focal deficits. LABS: WBC 12.8, hemoglobin 8.4, platelets normal. Basic metabolic panel is within normal limits. BUN 17, creatinine 0.79, sodium 131, potassium 5.5, BUN and creatinine normal. AST 43, ALT 70, T bilirubin is 2 and alkaline phosphatase 288. IMPRESSION: Severe ulcerative colitis with perforated colon, status post exploratory laparotomy with subtotal colectomy and ileostomy done a week ago. Patient gradually improving. He still has mild ileus. NG tube is clamped. Overall doing better. RECOMMENDATIONS: 1. Continue management as per the surgical team. 2. Continue with Protonix 40 mg daily. 3. Antiemetics as needed. 4. Monitor labs closely. 5. We will follow with you. Thank you for this consultation. MMODL / IJN: [id number] /
[2021-01-08] MEDS ORDERED: [UNRECOGNIZED DRUG - REMARK] IV SCH ×4 (12:00)
[2021-01-08 12:13] LABS: Glucose,Whole Blood 128 mg/dL (75-99)
--- NOTE | 2021-01-08 12:17 | P.PN ---
Subjective Progress Note Date: 01/08/21 The patient is a 40-year-old man who is postop day 8 from a subtotal colectomy with ileostomy formation due to fulminant ulcerative colitis with perforation. The NG tube has been clamped since yesterday. He is tolerating with no nausea or vomiting. He feels rumbling in his abdomen is having flatus and liquid stool the ostomy appliance. Requesting Tylenol for pain control. Objective - Vital Signs Vital signs: Vital Signs Temp 98.5 F 01/08/21 07:32 Pulse 82 01/08/21 07:32 Resp 16 01/08/21 07:32 BP 99/56 01/08/21 07:32 Pulse Ox 96 01/08/21 07:32 Intake & Output 01/07/21 01/08/21 01/08/21 18:59 06:59 18:59 Output Total 1999 1310 Balance -1999 -1310 Weight 94.6 kg Output: Drainage 1000 360 Abdomen 1000 10 ileostomy 350 Urine 1000 950 Other: Voiding Method Indwelling Catheter Indwelling Catheter Indwelling Catheter - Constitutional General appearance: Present: cooperative, no acute distress - Respiratory Respiratory: bilateral: CTA - Cardiovascular Rhythm: regular - Gastrointestinal General gastrointestinal: Present: normal bowel sounds, soft Localized gastrointestinal: surgical scar: diffuse (The incision is intact. There are some drainage from the inferior aspect with minimal erythema. Ileostomy is patent viable. JUANCHO is serosanguineous. Ostomy output is bilious) - Labs CBC & Chem 7: 01/08/21 05:30 01/08/21 05:30 Labs: Abnormal Lab Results - Last 24 Hours (Table) 01/07/21 01/07/21 01/07/21 Range/Units 06:50 17:06 23:41 WBC (4.50-10.00) X 10*3/uL RBC (4.40-5.60) X 10*6/uL Hgb (13.0-17.0) g/dL Hct (39.6-50.0) % Immature Gran # (0.00-0.04) X 10*3/uL Neutrophils # (1.80-7.70) X 10*3/uL Eosinophils # (0.04-0.35) X 10*3/uL Sodium (137-145) mmol/L Potassium 5.7 H (3.5-5.5) mmol/L Anion Gap 3.60 L (4.00-12.00) mmol/L BUN/Creatinine Ratio 23.75 H (12.00-20.00) Ratio Glucose 123 H (70-110) mg/dL POC Glucose (mg/dL) 242 H 148 H (75-99) mg/dL Calcium 7.9 L (8.7-10.3) mg/dL Total Bilirubin (0.2-1.3) mg/dL ALT (4-49) U/L Alkaline Phosphatase (38-126) U/L Total Protein (6.3-8.2) g/dL Albumin (3.5-5.0) g/dL 01/08/21 01/08/21 01/08/21 Range/Units 05:30 05:30 05:35 WBC 12.85 H (4.50-10.00) X 10*3/uL RBC 2.87 L (4.40-5.60) X 10*6/uL Hgb 8.4 L (13.0-17.0) g/dL Hct 25.9 L (39.6-50.0) % Immature Gran # 0.17 H (0.00-0.04) X 10*3/uL Neutrophils # 10.88 H (1.80-7.70) X 10*3/uL Eosinophils # 0 L (0.04-0.35) X 10*3/uL Sodium 131 L (137-145) mmol/L Potassium 5.5 H (3.5-5.5) mmol/L Anion Gap (4.00-12.00) mmol/L BUN/Creatinine Ratio (12.00-20.00) Ratio Glucose 155 H (70-110) mg/dL POC Glucose (mg/dL) 178 H (75-99) mg/dL Calcium 7.9 L (8.7-10.3) mg/dL Total Bilirubin 2.0 H (0.2-1.3) mg/dL ALT 70 H (4-49) U/L Alkaline Phosphatase 288 H (38-126) U/L Total Protein 5.0 L (6.3-8.2) g/dL Albumin 2.2 L (3.5-5.0) g/dL Assessment and Plan (1) Ulcerative colitis with complication Current Visit: Yes Status: Acute Code(s): K51.919 - ULCERATIVE COLITIS, UNSP WITH UNSPECIFIED COMPLICATIONS SNOMED Code(s): 38880107 Plan: The patient has tolerated the NG tube being clamped. He has good flatus and liquid output from the ileostomy. He'll be started on a clear liquid diet. If he is is able to tolerate clear liquids the NG tube will be removed later today. The lower few sierra will be removed and will put some packing in there. Mon itor ostomy output. Patient progressing slowly
[2021-01-08] MEDS: ACETAMINOPHEN IV (For NPO) 1,000 MG in EMPTY BAG 1 BAG IVPB PRN ×2 (12:30→19:48)
--- NOTE | 2021-01-08 13:01 | P.PN ---
Subjective Progress Note Date: 01/07/21 HISTORY OF PRESENT ILLNESS This is a 40-year-old male patient treated for fever and colitis and subsequent care tinnitus perforated bowel status post subtotal colectomy and ileostomy. Patient is currently on Zosyn. He is afebrile, heart rate 76, blood pressure 103/58, pulse ox 99% on room air. The patient denies any shortness of breath. Pain is currently controlled. He states his nausea is not too bad today. PHYSICAL EXAMINATION Gen: This is a 40-year-old male patient. He is resting but appears to be comfortable. HEENT: Head is atraumatic, normocephalic. Pupils equal, round. Sclerae is ani cteric. NECK: Supple. No JVD. No lymphadenopathy. LUNGS: Clear to auscultation. No wheezes or rhonchi. No intercostal retractions. HEART: Regular rate and rhythm. No murmur. ABDOMEN: Soft. No tenderness. EXTREMITIES: No pedal edema. No calf tenderness. NEUROLOGICAL: Patient is awake, alert and oriented x3. ASSESSMENT Colitis Ileus Peritonitis and perforated bowel status post subtotal colectomy and ileostomy COVID-19 infection PLAN Continue Zosyn Continue supportive care Monitor leukocytosis Further recommendations based on patient's clinical course The above dictated assessment and findings were discussed with Dr. Pantoja. The impression and plan of care have been directed as dictated. Tamanna Goodson nurse practitioner acting as scribe for Dr. Pantoja. Objective - Vital Signs Vital signs: Vital Signs Temp 97.5 F L 01/07/21 07:21 Pulse 85 01/07/21 07:21 Resp 17 01/07/21 07:21 BP 101/64 01/07/21 07:21 Pulse Ox 98 01/07/21 07:21 Intake & Output 01/06/21 01/07/21 01/07/21 18:59 06:59 18:59 Intake Total 1015 Output Total 2600 510 1650 Balance -1919 -510 1651 Intake: Intake, IV Titration 1015 Amount Potassium Chloride 30 meq 1015 In Amino Acid 5%-D20w+ Lytes*E* 1,000 ml @ 75 mls/hr IV .BY DURATION [facility] Rx#:[id number] Output: Gastric Drainage 1200 Drainage 10 650 Abdomen 10 650 Urine 609 398 0025 Stool 700 Other: Voiding Method Indwelling Catheter Indwelling Catheter Indwelling Catheter - Labs CBC & Chem 7: 01/08/21 05:30 01/08/21 05:30 Labs: Abnormal Lab Results - Last 24 Hours (Table) 01/06/21 01/07/21 01/07/21 Range/Units 16:56 00:07 06:05 POC Glucose (mg/dL) 182 H 206 H 209 H (75-99) mg/dL 01/07/21 Range/Units 11:42 POC Glucose (mg/dL) 170 H (75-99) mg/dL
[2021-01-08 17:51] LABS: Glucose,Whole Blood 126 mg/dL (75-99)
[2021-01-08] MEDS: SODIUM CHLORIDE 0.9% 1,000 ML IV SCH (22:06)
--- NOTE | 2021-01-08 23:48 | PN ---
PROGRESS NOTE DATE OF SERVICE: 01/08/2021. REASON FOR FOLLOW UP: Secondary peritonitis and perforated bowel. INTERVAL HISTORY: The patient is currently afebrile, has been breathing comfortably. Denies having any chest pain. No shortness of breath or cough. NG has been clamped. No nausea. No vomiting. PHYSICAL EXAMINATION: Blood pressure is 102/55, pulse 77, temperature 98.5, he is 99% on room air. General description: The patient is a middle-aged male up in the chair in no distress. Respiratory system: Unlabored breathing. Clear to auscultation. HEART: S1, S2. Regular rate and rhythm. ABDOMEN: Soft, no tenderness. LABS: White count down to 28.5 with creatinine 0.79. DIAGNOSTIC IMPRESSION AND PLAN: Patient with perforated bowel, status post subtotal colectomy with and diverting ileostomy. The patient is currently covered with Zosyn. White count showing a downward trend and continue supportive care. MMODL / IJN: [id number] /
[2021-01-09 00:34] LABS: Glucose,Whole Blood 153 mg/dL (75-99)
[2021-01-09] MEDS: INSULIN ASPART (NovoLOG) 100 UNIT/ML VIAL SQ SCH ×5 (00:38→23:57)
[2021-01-09] MEDS: PIPERACILLIN-TAZOBACTAM 3.375 GM in SODIUM CHLORIDE 0.9% 100 ML IVPB SCH ×4 (00:39→23:59)
[2021-01-09] MEDS: METOCLOPRAMIDE 5 MG/ML 2 ML VIAL IVP SCH ×5 (00:39→23:59)
[2021-01-09] MEDS: KETOROLAC 15 MG/ML 1 ML VIAL IVP PRN ×3 (02:11→19:25)
[2021-01-09 05:51] LABS: Glucose,Whole Blood 171 mg/dL (75-99)
[2021-01-09] MEDS: ENOXAPARIN 40 MG/0.4 ML SYRINGE SQ SCH (07:06)
[2021-01-09] MEDS: PANTOPRAZOLE 40 MG/10 ML VIAL IVP SCH ×2 (07:06→19:26)
[2021-01-09 07:32] LABS: ALT 68 U/L (4-49); AST 44 U/L (17-59); African American GFR (CKD) >90 (>60 ml/min/1.73 sqM); Albumin 2.2 g/dL (3.5-5.0); Albumin/Globulin Ratio 0.7; Alkaline Phosphatase 350 U/L (38-126); Anion Gap 6 mmol/L; Blood Urea Nitrogen 15 mg/dL (9-20); Calcium 7.7 mg/dL (8.4-10.2); Carbon Dioxide 22 mmol/L (22-30); Chloride 101 mmol/L (98-107); Glucose 142 mg/dL (74-99); Magnesium 2.2 mg/dL (1.6-2.3); Non-African American GFR(CKD) >90 (>60 ml/min/1.73 sqM); Phosphorus 4.4 mg/dL (2.5-4.5); Potassium 4.9 mmol/L (3.5-5.1); Sodium 129 mmol/L (137-145); Total Bilirubin 1.4 mg/dL (0.2-1.3); Total Protein 5.2 g/dL (6.3-8.2)
--- NOTE | 2021-01-09 11:33 | PN ---
PROGRESS NOTE DATE OF SERVICE: 01/09/2021 The patient is a 40-year-old white male with acute fulminant ulcerative colitis, status post subtotal colectomy with ileostomy, postop day #7. He is doing well. He was started on clear liquid diet by Dr. Patricia yesterday and tolerating well. This morning, he is doing much better. No abdominal pain. No nausea, no vomiting. Ileostomy output looking good. No fever, no chills. PHYSICAL EXAMINATION: GENERAL: Appears comfortable. VITAL SIGNS: Stable. Blood pressure 108/92, pulse rate 78, temperature 98.6. HEENT: Examination unremarkable. Conjunctivae are pink. Sclerae anicteric. Oral cavity no lesions. NECK: No JVD or lymph node enlargement. CHEST: Clear to auscultation. HEART: Regular rate and rhythm. ABDOMEN: Soft. Bowel sounds are positive. Ileostomy in place. It was slightly distended but was nontender. EXTREMITIES: No pedal edema. NEURO: He is alert and oriented x3. No focal deficits. LABS: From today: CBC is not done. Sodium 129, potassium 4.9, BUN and creatinine normal. AST and ALT of 44 and 68 respectively. T bilirubin is 1.4 and alkaline phosphatase is 350. IMPRESSION: 1. Acute fulminant prominent ulcerative colitis with colonic perforation, status post subtotal colectomy with ileostomy, day #7. Patient gradually improving. 2. Mild elevation of serum transaminases, probably related to TPN. 3. COVID-19 infection with no pulmonary symptoms. RECOMMENDATIONS: 1. Continue with a clear liquid diet as per surgical recommendations. 2. In regard to the elevated LFTs, we will monitor them closely. 3. We will stop the TPN once his oral intake is somewhat improved hopefully in the next 2 or 3 days. 4. Monitor LFTs closely. We will follow with you. Thank you for this consultation. MMODL / IJN: [id number] /
[2021-01-09 11:51] LABS: Glucose,Whole Blood 147 mg/dL (75-99)
[2021-01-09] MEDS ORDERED: TEMAZEPAM 15 MG CAP PO PRN (12:55)
--- NOTE | 2021-01-09 13:00 | P.PN ---
Subjective Progress Note Date: 01/09/21 The patient is status post subtotal colectomy for fulminant ulcerative colitis. He is doing well. Tolerating clear liquid diet. No nausea, vomiting or heartburn. Complaining of sleeplessness. He also had some discomfort in his left shoulder Objective - Vital Signs Vital signs: Vital Signs Temp 98.5 F 01/09/21 07:45 Pulse 78 01/09/21 07:45 Resp 20 01/09/21 07:45 BP 105/92 01/09/21 07:45 Pulse Ox 99 01/09/21 07:45 Intake & Output 01/08/21 01/09/21 01/09/21 18:59 06:59 18:59 Intake Total 320 Output Total 2200 Balance -2200 320 Intake: Oral 320 Output: Drainage 900 ileostomy 900 Urine 1300 Other: Voiding Method Indwelling Catheter Urinal - Constitutional General appearance: Present: cooperative, no acute distress - Respiratory Respiratory: bilateral: CTA - Gastrointestinal General gastrointestinal: Present: normal bowel sounds, soft Localized gastrointestinal: surgical scar: diffuse (Ostomy is pink and viable, bilious output. There is some drainage from the inferior aspect of this inc ision but overall looks better than yesterday) - Labs CBC & Chem 7: 01/08/21 05:30 01/09/21 06:41 Labs: Abnormal Lab Results - Last 24 Hours (Table) 01/08/21 01/09/21 01/09/21 Range/Units 16:57 00:33 05:49 Sodium (137-145) mmol/L Glucose (74-99) mg/dL POC Glucose (mg/dL) 126 H 153 H 171 H (75-99) mg/dL Calcium (8.4-10.2) mg/dL Total Bilirubin (0.2-1.3) mg/dL ALT (4-49) U/L Alkaline Phosphatase (38-126) U/L Total Protein (6.3-8.2) g/dL Albumin (3.5-5.0) g/dL 01/09/21 01/09/21 Range/Units 06:41 11:39 Sodium 129 L (137-145) mmol/L Glucose 142 H (74-99) mg/dL POC Glucose (mg/dL) 147 H (75-99) mg/dL Calcium 7.7 L (8.4-10.2) mg/dL Total Bilirubin 1.4 H (0.2-1.3) mg/dL ALT 68 H (4-49) U/L Alkaline Phosphatase 350 H (38-126) U/L Total Protein 5.2 L (6.3-8.2) g/dL Albumin 2.2 L (3.5-5.0) g/dL Assessment and Plan (1) Ulcerative colitis with complication Current Visit: Yes Status: Acute Code(s): K51.919 - ULCERATIVE COLITIS, UNSP WITH UNSPECIFIED COMPLICATIONS SNOMED Code(s): 97278064 (2) Hyponatremia Current Visit: Yes Status: Acute Code(s): E87.1 - HYPO-OSMOLALITY AND HYPONATREMIA SNOMED Code(s): 25452510 Plan: We'll advance the patient's diet. Monitor the ileostomy output. Explained to him consistency needs to be less watery. We'll give him something for sleep. Monitor his sodium. Progressing slowly.
[2021-01-09 17:39] LABS: Glucose,Whole Blood 132 mg/dL (75-99)
--- NOTE | 2021-01-09 22:55 | PN ---
PROGRESS NOTE DATE OF SERVICE: 01/09/2021 REASON FOR FOLLOWUP: Secondary peritonitis from perforated bowel. INTERVAL HISTORY: The patient is currently afebrile. The patient's NG has been discontinued. Has been started on a clear liquid diet. The patient has been tolerating. The patient denies having any chest pain. No shortness of breath or cough. Abdominal pain is currently controlled. PHYSICAL EXAMINATION: Blood pressure 110/69, pulse of 84, temperature 98.8. He is 95% on room air. GENERAL DESCRIPTION: The patient is a middle-aged male lying in bed in no distress. RESPIRATORY system: Unlabored breathing. Clear to auscultation anteriorly. HEART: S1, S2. Regular rate and rhythm. ABDOMEN: Soft. No tenderness. LABS: BUN of 15, creatinine 0.69. DIAGNOSTIC IMPRESSION AND PLAN: Patient with secondary peritonitis from perforated bowel, status post subtotal colectomy and diverting colostomy. The patient is currently covered with Zosyn antibiotic once his oral intake has improved. Continue supportive care. MMODL / IJN: [id number] /
[2021-01-09 23:56] LABS: Glucose,Whole Blood 124 mg/dL (75-99)
[2021-01-09] MEDS: SODIUM CHLORIDE 0.9% 1,000 ML IV SCH (23:59)
[2021-01-09] MEDS: PARENTERAL ELECTROLYTES IV SCH ×7 (23:59)
[2021-01-09] MEDS: POTASSIUM CHLORIDE IV SCH ×7 (23:59)
[2021-01-09] MEDS: SODIUM PHOSPHATE IV SCH ×7 (23:59)
[2021-01-09] MEDS: [UNRECOGNIZED DRUG - OTHER] IV SCH ×7 (23:59)
--- NOTE | 2021-01-10 02:10 | P.PN ---
Subjective Progress Note Date: 01/08/21 Principal diagnosis: Pneumoperitoneum Fulminant ulcerative colitis Septic shock Covid19 infection in November 2020 48-year-old male came in with complaints of nausea vomiting diarrhea patient states he has multiple episodes around 20-30 episodes of diarrhea every day. Patient started having symptoms of diarrhea and fever on new sulma fever resolved but the diarrhea continued. Patient was diagnosed with the hope did 19 shortly after. Patient is still having some body aches and pains patient is comparing of severe crampy lower abdominal pain patient was seen in ER about 3 days ago at that time patient had a CT of the abdomen which showed a colon colitis. C. diff will be obtained patient is bit hyponatremic and receiving IV fluids at this time. 12/31/2020 Patient is seen and evaluated in room at bedside; patient is demanding to be transferred to here; her mental health social worker talked to the patient and recommended possible transfer to [facility] due to possibility of patient being accepted today; patient is agreeable; Arrangements were made for patient's transferred to [facility] under Dr. Khalil, however abdominal x-ray done this afternoon reveals pneumoperitoneum; surgery was notified; Dr. Deal we will see the patient with possibility of OR tonight; fluid was called and spoke with RN and canceled patient transferred to [facility] 01/01/2021 Patient is seen and evaluated in ICU that he was transferred post exploratory laparotomy with colectomy with ileostomy; patient was able to be successfully extubated the patient's on O2 at 4 L by nasal cannula, saline at 75 mL an hour, and TPN at 75 mL an hour. Prior to this episode, according to his medical records, the patient has no prior medical history, and no prior surgical history. He wasn't really taking any medication at home on a regular basis. Abdominal and pelvic computed tomography scan on December 27 showed large bowel wall thickening consistent with colitis, mild abdominal ascites, distended small bowel loops with air-fluid levels consistent with ileus, and small bilateral pleural effusions and basilar atelectasis. Current white count is 20.9, hemoglobin 10.3, hematocrit 30.4, and platelet count 298,000. Sodium 134, potassium 3.8, chlorides 105, CO2 23, anion gap 6, BUN 14, and creatinine 0.89. Albumin is 1.5. Patient remains on IV antibiotics in form of Flagyl and Rocephin 01/03/2021 Patient is currently lying in the bed. Pain is daily controlled. Status post expiratory laparotomy with subtotal colectomy and creation of end ileostomy due to fulminant ulcerative colitis, pneumoperitoneum and septic shock. Postoperative day 3 Patient is on antibiotics in the form of Zosyn. Patient does have nausea and episode of vomiting O overnight. Currently being continued on NG tube. Sahni catheter is in place due to urinary retention. Patient is on TPN currently. Pulmonary, GI and general surgery is on board. Laboratory data showed WBC 17.420 down from 23.4, hemoglobin 9.0, BUN 20 and creatinine 0.6 calcium 6.9 01/08/2021 Patient is currently lying in the bed awake and alert. Patient is tolerating liquids and NG tube was clamped. Planning for removal of NG tube today. Otherwise patient is having liquid stool from the ostomy. No complaints of chest pain or shortness breath. Abdominal pain is better today. Laboratory showed WBC 12.85, hemoglobin 8.4 Sodium 131 potassium 5.5 and AST 40 ALT 17 alk phos 288 blood sugar is controlled. Patient is being continued TPN. Grandmother is on board. Current medications reviewed. Objective - Vital Signs Vital signs: Vital Signs Temp 98.5 F 01/08/21 07:32 Pulse 82 01/08/21 07:32 Resp 16 01/08/21 07:32 BP 99/56 01/08/21 07:32 Pulse Ox 96 01/08/21 07:32 Intake & Output 01/07/21 01/08/21 01/08/21 18:59 06:59 18:59 Output Total 1999 1310 Balance -2000 -1310 Weight 94.6 kg Output: Drainage 1000 360 Abdomen 1000 10 ileostomy 350 Urine 1000 950 Other: Voiding Method Indwelling Catheter Indwelling Catheter Indwelling Catheter - Exam - Exam GENERAL: The patient is alert and oriented x3, not in any acute distress. Lethargic and drowsy. Well developed, well nourished. HEENT: Pupils are round and equally reacting to light. EOMI. No scleral icterus. No conjunctival pallor. Normocephalic, atraumatic. No pharyngeal erythema. No thyromegaly. NG tube is present. CARDIOVASCULAR: S1 and S2 present. No murmurs, rubs, or gallops. PULMONARY: Chest is clear to auscultation, no wheezing or crackles. ABDOMEN: Abdomen soft with minimal distention and tenderness. Ostomy with liquid stool. No guarding. MUSCULOSKELETAL: No joint swelling or deformity. EXTREMITIES: No cyanosis, clubbing, or pedal edema. NEUROLOGICAL: Gross neurological examination did not reveal any focal deficits. SKIN: No rashes. - Labs CBC & Chem 7: 01/08/21 05:30 01/09/21 06:41 Labs: Abnormal Lab Results - Last 24 Hours (Table) 01/07/21 01/07/21 01/07/21 Range/Units 06:50 11:42 17:06 WBC (4.50-10.00) X 10*3/uL RBC (4.40-5.60) X 10*6/uL Hgb (13.0-17.0) g/dL Hct (39.6-50.0) % Immature Gran # (0.00-0.04) X 10*3/uL Neutrophils # (1.80-7.70) X 10*3/uL Eosinophils # (0.04-0.35) X 10*3/uL Sodium (137-145) mmol/L Potassium 5.7 H (3.5-5.5) mmol/L Anion Gap 3.60 L (4.00-12.00) mmol/L BUN/Creatinine Ratio 23.75 H (12.00-20.00) Ratio Glucose 123 H (70-110) mg/dL POC Glucose (mg/dL) 170 H 242 H (75-99) mg/dL Calcium 7.9 L (8.7-10.3) mg/dL Total Bilirubin (0.2-1.3) mg/dL ALT (4-49) U/L Alkaline Phosphatase (38-126) U/L Total Protein (6.3-8.2) g/dL Albumin (3.5-5.0) g/dL 01/07/21 01/08/21 01/08/21 Range/Units 23:41 05:30 05:30 WBC 12.85 H (4.50-10.00) X 10*3/uL RBC 2.87 L (4.40-5.60) X 10*6/uL Hgb 8.4 L (13.0-17.0) g/dL Hct 25.9 L (39.6-50.0) % Immature Gran # 0.17 H (0.00-0.04) X 10*3/uL Neutrophils # 10.88 H (1.80-7.70) X 10*3/uL Eosinophils # 0 L (0.04-0.35) X 10*3/uL Sodium 131 L (137-145) mmol/L Potassium 5.5 H (3.5-5.5) mmol/L Anion Gap (4.00-12.00) mmol/L BUN/Creatinine Ratio (12.00-20.00) Ratio Glucose 155 H (70-110) mg/dL POC Glucose (mg/dL) 148 H (75-99) mg/dL Calcium 7.9 L (8.7-10.3) mg/dL Total Bilirubin 2.0 H (0.2-1.3) mg/dL ALT 70 H (4-49) U/L Alkaline Phosphatase 288 H (38-126) U/L Total Protein 5.0 L (6.3-8.2) g/dL Albumin 2.2 L (3.5-5.0) g/dL 01/08/21 Range/Units 05:35 WBC (4.50-10.00) X 10*3/uL RBC (4.40-5.60) X 10*6/uL Hgb (13.0-17.0) g/dL Hct (39.6-50.0) % Immature Gran # (0.00-0.04) X 10*3/uL Neutrophils # (1.80-7.70) X 10*3/uL Eosinophils # (0.04-0.35) X 10*3/uL Sodium (137-145) mmol/L Potassium (3.5-5.5) mmol/L Anion Gap (4.00-12.00) mmol/L BUN/Creatinine Ratio (12.00-20.00) Ratio Glucose (70-110) mg/dL POC Glucose (mg/dL) 178 H (75-99) mg/dL Calcium (8.7-10.3) mg/dL Total Bilirubin (0.2-1.3) mg/dL ALT (4-49) U/L Alkaline Phosphatase (38-126) U/L Total Protein (6.3-8.2) g/dL Albumin (3.5-5.0) g/dL Assessment and Plan Assessment: -Fulminant colitis with Pneumoperitoneum on abdominal x-ray; was planning to transfer patient to [facility] but needed urgent evaluation by surgical team. Patient underwent flex sigmoidoscopy with GI as mentioned previously. Continue with NG tube and bowel rest and IV fluids along with antibiotic in the form of Zosyn. -Status post subtotal colectomy with creation of endileostomy by general surgery. -Severe diffuse colitis with mucosal erythema and cobblestoning of the mucosa consistent with IBS as noted on sigmoidoscopy, GI is following, patient maintained on IV steroids -Acute renal failure improved with IV fluids -Hypovolemic hyponatremia: Continue with IV fluids -Covid 19 infection -DVT prophylaxis with Lovenox -GI prophylaxis Protonix -Full code Plan: Continue with current medications and continue with IV antibiotics. Patient underwent flex sigmoidoscopy with GI showing severe diffuse colitis involving the entire colon with mucosal erythema, friability, and cobblestoning of the mucosa involving the entire colon except the cecum and mild involvement in the rectum all consistent with IBS. Patient was seen by general surgery due to pneumoperitoneum. Status post subtotal colectomy and ostomy placement. c/w TPN and continue with bowel rest. Will repeat CBC with a.m. labs. Continue to encourage Incentive spirometer. Pulmonary, GI and general surgery is on board. Time with Patient: Greater than 30
--- NOTE | 2021-01-10 02:13 | P.PN ---
Subjective Progress Note Date: 01/09/21 Principal diagnosis: Pneumoperitoneum Fulminant ulcerative colitis Septic shock Covid19 infection in November 2020 48-year-old male came in with complaints of nausea vomiting diarrhea patient states he has multiple episodes around 20-30 episodes of diarrhea every day. Patient started having symptoms of diarrhea and fever on new sulma fever resolved but the diarrhea continued. Patient was diagnosed with the hope did 19 shortly after. Patient is still having some body aches and pains patient is comparing of severe crampy lower abdominal pain patient was seen in ER about 3 days ago at that time patient had a CT of the abdomen which showed a colon colitis. C. diff will be obtained patient is bit hyponatremic and receiving IV fluids at this time. 12/31/2020 Patient is seen and evaluated in room at bedside; patient is demanding to be transferred to here; her case management social worker talked to the patient and recommended possible transfer to [facility] due to possibility of patient being accepted today; patient is agreeable; Arrangements were made for patient's transferred to [facility] under Dr. Khalil, however abdominal x-ray done this afternoon reveals pneumoperitoneum; surgery was notified; Dr. Deal we will see the patient with possibility of OR tonight; fluid was called and spoke with RN and canceled patient transferred to [facility] 01/01/2021 Patient is seen and evaluated in ICU that he was transferred post exploratory laparotomy with colectomy with ileostomy; patient was able to be successfully extubated the patient's on O2 at 4 L by nasal cannula, saline at 75 mL an hour, and TPN at 75 mL an hour. Prior to this episode, according to his medical records, the patient has no prior medical history, and no prior surgical history. He wasn't really taking any medication at home on a regular basis. Abdominal and pelvic computed tomography scan on December 27 showed large bowel wall thickening consistent with colitis, mild abdominal ascites, distended small bowel loops with air-fluid levels consistent with ileus, and small bilateral pleural effusions and basilar atelectasis. Current white count is 20.9, hemoglobin 10.3, hematocrit 30.4, and platelet count 298,000. Sodium 134, potassium 3.8, chlorides 105, CO2 23, anion gap 6, BUN 14, and creatinine 0.89. Albumin is 1.5. Patient remains on IV antibiotics in form of Flagyl and Rocephin 01/03/2021 Patient is currently lying in the bed. Pain is daily controlled. Status post expiratory laparotomy with subtotal colectomy and creation of end ileostomy due to fulminant ulcerative colitis, pneumoperitoneum and septic shock. Postoperative day 3 Patient is on antibiotics in the form of Zosyn. Patient does have nausea and episode of vomiting O overnight. Currently being continued on NG tube. Sahni catheter is in place due to urinary retention. Patient is on TPN currently. Pulmonary, GI and general surgery is on board. Laboratory data showed WBC 17.420 down from 23.4, hemoglobin 9.0, BUN 20 and creatinine 0.6 calcium 6.9 01/08/2021 Patient is currently lying in the bed awake and alert. Patient is tolerating liquids and NG tube was clamped. Planning for removal of NG tube today. Otherwise patient is having liquid stool from the ostomy. No complaints of chest pain or shortness breath. Abdominal pain is better today. Laboratory showed WBC 12.85, hemoglobin 8.4 Sodium 131 potassium 5.5 and AST 40 ALT 17 alk phos 288 blood sugar is controlled. Patient is being continued TPN. Grandmother is on board. 01/09/2021 Patient is more awake alert and oriented x3. NGT was removed and patient is to lerating liquids. Advance diet as tolerated. Ostomy with green-colored liquid stool. No nausea or vomiting. Abdominal discomfort is better. Patient did complain of left upper abdominal pain and left shoulder discomfort. Otherwise patient is afebrile. Laboratory data showed sodium 129 potassium 4.9. BUN 15 and creatinine 0.69 Current TPN currently. Current medications reviewed. Objective - Vital Signs Vital signs: Vital Signs Temp 98.2 F 01/09/21 14:00 Pulse 85 01/09/21 14:00 Resp 20 01/09/21 14:00 BP 97/61 01/09/21 14:00 Pulse Ox 98 01/09/21 14:00 Intake & Output 01/08/21 01/09/21 01/09/21 18:59 06:59 18:59 Intake Total 320 Output Total 2200 900 Balance -2200 -580 Intake: Oral 320 Output: Drainage 900 ileostomy 900 Urine 1300 900 Other: Voiding Method Indwelling Catheter Urinal - Exam - Exam GENERAL: The patient is alert and oriented x3, not in any acute distress. Lethargic and drowsy. Well developed, well nourished. HEENT: Pupils are round and equally reacting to light. EOMI. No scleral icterus. No conjunctival pallor. Normocephalic, atraumatic. No pharyngeal erythema. No thyromegaly. CARDIOVASCULAR: S1 and S2 present. No murmurs, rubs, or gallops. PULMONARY: Chest is clear to auscultation, no wheezing or crackles. ABDOMEN: Abdomen soft with minimal distention and tenderness. Ostomy with liquid stool. No guarding. MUSCULOSKELETAL: No joint swelling or deformity. EXTREMITIES: No cyanosis, clubbing, or pedal edema. NEUROLOGICAL: Gross neurological examination did not reveal any focal deficits. SKIN: No rashes. - Labs CBC & Chem 7: 01/08/21 05:30 01/09/21 06:41 Labs: Abnormal Lab Results - Last 24 Hours (Table) 01/08/21 01/09/21 01/09/21 Range/Units 16:57 00:33 05:49 Sodium (137-145) mmol/L Glucose (74-99) mg/dL POC Glucose (mg/dL) 126 H 153 H 171 H (75-99) mg/dL Calcium (8.4-10.2) mg/dL Total Bilirubin (0.2-1.3) mg/dL ALT (4-49) U/L Alkaline Phosphatase (38-126) U/L Total Protein (6.3-8.2) g/dL Albumin (3.5-5.0) g/dL 01/09/21 01/09/21 01/09/21 Range/Units 06:41 11:39 17:14 Sodium 129 L (137-145) mmol/L Glucose 142 H (74-99) mg/dL POC Glucose (mg/dL) 147 H 132 H (75-99) mg/dL Calcium 7.7 L (8.4-10.2) mg/dL Total Bilirubin 1.4 H (0.2-1.3) mg/dL ALT 68 H (4-49) U/L Alkaline Phosphatase 350 H (38-126) U/L Total Protein 5.2 L (6.3-8.2) g/dL Albumin 2.2 L (3.5-5.0) g/dL Assessment and Plan Assessment: -Fulminant colitis with Pneumoperitoneum on abdominal x-ray; was planning to transfer patient to [facility] but needed urgent evaluation by surgical team. Patient underwent flex sigmoidoscopy with GI as mentioned previously. Continue with NG tube and bowel rest and IV fluids along with antibiotic in the form of Zosyn. -Status post subtotal colectomy with creation of endileostomy by general surgery. -Severe diffuse colitis with mucosal erythema and cobblestoning of the mucosa consistent with IBS as noted on sigmoidoscopy, GI is following, patient maintai nakul on IV steroids -Acute renal failure improved with IV fluids -Hypovolemic hyponatremia: Continue with IV fluids -Covid 19 infection -DVT prophylaxis with Lovenox -GI prophylaxis Protonix -Full code Plan: Continue with current medications and continue with IV antibiotics. Advance diet as tolerated. NG tube was removed. Patient underwent flex sigmoidoscopy with GI showing severe diffuse colitis involving the entire colon with mucosal erythema, friability, and cobblestoning of the mucosa involving the entire colon except the cecum and mild involvement in the rectum all consistent with IBS. Patient was seen by general surgery due to pneumoperitoneum. Status post subtotal colectomy and ostomy placement. c/w TPN and continue with bowel rest. Will repeat CBC with a.m. labs. Continue to encourage Incentive spirometer. Pulmonary, GI and general surgery is on board. Time with Patient: Greater than 30
[2021-01-10] MEDS: [UNRECOGNIZED DRUG - OTHER] IV SCH ×7 (03:55)
[2021-01-10] MEDS: POTASSIUM CHLORIDE IV SCH ×7 (03:55)
[2021-01-10] MEDS: PARENTERAL ELECTROLYTES IV SCH ×7 (03:55)
[2021-01-10] MEDS: SODIUM PHOSPHATE IV SCH ×7 (03:55)
[2021-01-10 05:51] LABS: Glucose,Whole Blood 141 mg/dL (75-99)
[2021-01-10] MEDS: METOCLOPRAMIDE 5 MG/ML 2 ML VIAL IVP SCH ×4 (05:59→23:36)
[2021-01-10] MEDS: INSULIN ASPART (NovoLOG) 100 UNIT/ML VIAL SQ SCH ×3 (05:59→18:33)
[2021-01-10] MEDS: KETOROLAC 15 MG/ML 1 ML VIAL IVP PRN ×2 (06:22→18:31)
[2021-01-10 09:52] LABS: Basophils % (A) 0 %; Eosinophils # (A) 0.1 k/uL (0-0.7); Eosinophils % (A) 1 %; HCT 29.3 % (39.0-53.0); HGB 9.2 gm/dL (13.0-17.5); Hypochromasia Slight; Lymphocytes # (A) 1.3 k/uL (1.0-4.8); Lymphocytes % (A) 9 %; MCHC 31.4 g/dL (31.0-37.0); MCV 92.2 fL (80.0-100.0); Mean Platelet Volume 7.1; Monocytes # (A) 0.7 k/uL (0-1.0); Monocytes % (A) 5 %; Neutrophils # (A) 11.8 k/uL (1.3-7.7); Neutrophils % (A) 84 %; Platelet Count 380 k/uL (150-450); RBC 3.18 m/uL (4.30-5.90)
[2021-01-10 09:58] LABS: ALT 74 U/L (4-49); AST 37 U/L (17-59); African American GFR (CKD) >90 (>60 ml/min/1.73 sqM); Albumin 2.6 g/dL (3.5-5.0); Albumin/Globulin Ratio 0.8; Alkaline Phosphatase 416 U/L (38-126); Anion Gap 6 mmol/L; Blood Urea Nitrogen 18 mg/dL (9-20); Calcium 8.1 mg/dL (8.4-10.2); Carbon Dioxide 27 mmol/L (22-30); Chloride 98 mmol/L (98-107); Globulin 3.2 g/dL; Glucose 131 mg/dL (74-99); Magnesium 2.1 mg/dL (1.6-2.3); Non-African American GFR(CKD) >90 (>60 ml/min/1.73 sqM); Phosphorus 4.6 mg/dL (2.5-4.5); Potassium 4.9 mmol/L (3.5-5.1); Sodium 131 mmol/L (137-145); Total Bilirubin 1.1 mg/dL (0.2-1.3); Total Protein 5.8 g/dL (6.3-8.2)
[2021-01-10] MEDS: PIPERACILLIN-TAZOBACTAM 3.375 GM in SODIUM CHLORIDE 0.9% 100 ML IVPB SCH ×3 (10:19→23:36)
[2021-01-10] MEDS: FAT EMULSION 20% 250 ML in EMPTY BAG 1 BAG IV SCH (10:20)
[2021-01-10] MEDS: ENOXAPARIN 40 MG/0.4 ML SYRINGE SQ SCH (10:20)
[2021-01-10] MEDS: PANTOPRAZOLE 40 MG/10 ML VIAL IVP SCH ×2 (10:20→19:59)
[2021-01-10 11:51] LABS: Glucose,Whole Blood 123 mg/dL (75-99)
--- NOTE | 2021-01-10 13:24 | P.PN ---
Subjective Progress Note Date: 01/10/21 Pneumoperitoneum Fulminant ulcerative colitis Septic shock Covid19 infection in November 2020 48-year-old male came in with complaints of nausea vomiting diarrhea patient states he has multiple episodes around 20-30 episodes of diarrhea every day. Patient started having symptoms of diarrhea and fever on sulma fever resolved but the diarrhea continued. Patient was diagnosed with the hope did 19 shortly after. Patient is still having some body aches and pains patient is comparing of severe crampy lower abdominal pain patient was seen in ER about 3 days ago at that time patient had a CT of the abdomen which showed a colon colitis. C. diff will be obtained patient is bit hyponatremic and receiving IV fluids at this time. 12/31/2020 Patient is seen and evaluated in room at bedside; patient is demanding to be transferred to here; her social sciences lecturer talked to the patient and recommended possible transfer to [facility] due to possibility of patient being accepted today; patient is agreeable; Arrangements were made for patient's transferred to [facility] under Dr. Khalil, however abdominal x-ray done this afternoon reveals pneumoperitoneum; surgery was notified; Dr. Deal we will see the patient with possibility of OR tonight; fluid was called and spoke with RN and canceled patient transferred to [facility] 01/01/2021 Patient is seen and evaluated in ICU that he was transferred post exploratory laparotomy with colectomy with ileostomy; patient was able to be successfully extubated the patient's on O2 at 4 L by nasal cannula, saline at 75 mL an hour, and TPN at 75 mL an hour. Prior to this episode, according to his medical records, the patient has no prior medical history, and no prior surgical history. He wasn't really taking any medication at home on a regular basis. Abdominal and pelvic computed tomography scan on December 27 showed large bowel wall thickening consistent with colitis, mild abdominal ascites, distended small bowel loops with air-fluid levels consistent with ileus, and small bilateral pleural effusions and basilar atelectasis. Current white count is 20.9, hemoglobin 10.3, hematocrit 30.4, and platelet count 298,000. Sodium 134, potassium 3.8, chlorides 105, CO2 23, anion gap 6, BUN 14, and creatinine 0.89. Albumin is 1.5. Patient remains on IV antibiotics in form of Flagyl and Rocephin 01/03/2021 Patient is currently lying in the bed. Pain is daily controlled. Status post expiratory laparotomy with subtotal colectomy and creation of end ileostomy due to fulminant ulcerative colitis, pneumoperitoneum and septic shock. Postoperative day 3 Patient is on antibiotics in the form of Zosyn. Patient does have nausea and episode of vomiting O overnight. Currently being continued on NG tube. Sahni catheter is in place due to urinary retention. Patient is on TPN currently. Pulmonary, GI and general surgery is on board. Laboratory data showed WBC 17.420 down from 23.4, hemoglobin 9.0, BUN 20 and creatinine 0.6 calcium 6.9 01/04/2021 Patient is currently sitting up in the chair working with physical therapy. Patient continues to be extremely weak requiring assistance and the use of a walker. Continue with NG tube along with indwelling Sahni catheter and NG tube is currently clamped at this time. Multiple medical consultations including pulmonary, GI, and surgery following. Small amount of gas was heard and noted in the ostomy along with a scant amount of stool as well. Discussed with the today about treatment plan. Patient to continue with IV antibiotics and infectious disease is following. Patient to continue TPN until surgery clearance and then will slowly advance diet as tolerated. Hemoglobin is 8.5, white blood count is 12.9 and trending down, current sodium is 141 with a potassium of 4.7 and creatinine is stable at 0.6. Magnesium is 2.1. Continues to have abdominal tenderness although no reports of nausea and vomiting today. 01/05/2021 Patient is seen and evaluated in follow-up this morning stating he continues to have abdominal discomfort and tenderness at the surgical site although has improved from yesterday. Patient was up and walking with physical therapy and nursing staff and was able to walk the halls. Patient is having active gas noted in large amounts of output in the ostomy. Patient continues with NG and will continue at this time. Abdominal distention noted although no worse than previous. Patient continues to have some discomfort although does not like the effects of the narcotics and requesting something different. Patient did all right Toradol although discussed with patient and nursing staff to defer to surgeon on proper medications to administer. He functions are stable and creatinine is 0.7 with a BUN of 19, blood sugars being monitored and treated with sliding scale and will continue. Calcium is 7.4 improved and technetium is 1.8. Patient states he was given a popsicle yesterday although unsure if tolerated as he continued to have abdominal discomfort. Patient is maintained on TPN and will continue and will need to discuss with surgery and GI about weaning attempts once diet is more tolerated. 01/06/2021 Patient is seen and evaluated this morning and states he is exhausted as he had a rough night with no sleep. Patient was continuing to have abdominal discomfort with nausea and an episode of vomiting. Patient is continued with the NG tube with bilious output. Continued gas and output noted in the il eostomy. Ostomy nurse is following and has been working with the patient and educating about ostomy care and use. White blood count trending up and is 18.54 today, hemoglobin is 10.2, sodium is 136, potassium is 4.6, current creatinine is 0.8. Toradol has been resumed as patient was not tolerating narcotics and did not like the feel of them. Patient is continued on TPN and pharmacy to dose. Patient to continue with nothing by mouth with occasional sips of clears. Instructed the patient to continue using incentive spirometer and increasing activity as tolerated. 01/07/2021 Patient is seen and evaluated today currently sitting up in the chair resting but easily arousable. Patient continues to have some abdominal discomfort and tenderness at the incisional site. Will add IV Tylenol and continue with Toradol and morphine as needed. Patient continues to have some nausea noted and will continue with Zofran and Reglan. NG tube is currently clamped at this time although continues to have bilious drainage noted when hooked to suction. Patient has been attempting popsicles and clears although states he feels an abdominal fullness and lump in the upper left and right quadrant after eating. Will continue with TPN for now. Surgery is following closely as well. Appreciate surgical recommendations. Continue to encourage increase in activity as tolerated. 01/08/2021 Patient is currently lying in the bed awake and alert. Patient is tolerating liquids and NG tube was clamped. Planning for removal of NG tube today. Otherwise patient is having liquid stool from the ostomy. No complaints of chest pain or shortness breath. Abdominal pain is better today. Laboratory showed WBC 12.85, hemoglobin 8.4 Sodium 131 potassium 5.5 and AST 40 ALT 17 alk phos 288 blood sugar is co ntrolled. Patient is being continued TPN. Grandmother is on board. 01/09/2021 Patient is more awake alert and oriented x3. NGT was removed and patient is tolerating liquids. Advance diet as tolerated. Ostomy with green-colored liquid stool. No nausea or vomiting. Abdominal discomfort is better. Patient did complain of left upper abdominal pain and left shoulder discomfort. Otherwise patient is afebrile. Laboratory data showed sodium 129 potassium 4.9. BUN 15 and creatinine 0.69 Current TPN currently. 01/10/2021 Patient is seen this morning currently sitting up in the chair increasing activity as tolerated. Patient was up and walking and is at the bedside. Patient states tolerating diet with no reports of nausea or vomiting at NG tube has been removed since yesterday. Patient is maintained on TPN although will likely the begin weaning today and continue to monitor labs and vital signs. Patient's diet has been advanced to low fiber and will monitor for tolerance. Surgery following closely. White blood count slightly elevated at 14.0, hemoglobin is 9.2, sodium improved and is 131, potassium is 4.9, current creatinine is 0.89. Patient is afebrile. Continue with IV Zosyn at this time and infectious disease is following. Review of systems: Constitutional: No reports of fatigue, no reports of fever, or chills Cardiovascular: No reports of chest pain or palpitations Respiratory: No reports of shortness of breath or cough GI: No reports of nausea, vomiting, or diarrhea : No reports of dysuria or retention Neurovascular: No reports of weakness or numbness All medications have been reviewed Objective - Vital Signs Vital signs: Vital Signs Temp 98 F 01/10/21 11:37 Pulse 77 01/10/21 11:37 Resp 16 01/10/21 11:37 BP 108/70 01/10/21 11:37 Pulse Ox 97 01/10/21 11:37 Intake & Output 01/09/21 01/10/21 01/10/21 18:59 06:59 18:59 Intake Total 320 720 Output Total 900 1250 550 Balance -580 -1250 170 Intake: Oral 320 720 Output: Drainage 300 Abdomen 0 ileostomy 300 Urine 900 950 200 Stool 350 Other: Voiding Method Urinal - Exam GENERAL: The patient is alert and oriented x3, not in any acute distress. Well developed, well nourished. Sitting up in the chair. HEENT: Pupils are round and equally reacting to light. EOMI. No scleral icterus. No conjunctival pallor. Normocephalic, atraumatic. No pharyngeal erythema. No thyromegaly. NG tube noted and currently clamped CARDIOVASCULAR: S1 and S2 present. No murmurs, rubs, or gallops. PULMONARY: Chest is clear to auscultation, no wheezing or crackles. ABDOMEN: Abdomen is tender on palpation, although improving, bowel sounds are present, gas and stool noted in the ostomy MUSCULOSKELETAL: No joint swelling or deformity. EXTREMITIES: No cyanosis, clubbing, or pedal edema. NEUROLOGICAL: Gross neurological examination did not reveal any focal deficits. SKIN: No rashes. - Labs CBC & Chem 7: 01/10/21 09:01/10/21 09:21 Labs: Abnormal Lab Results - Last 24 Hours (Table) 01/09/21 01/09/21 01/10/21 Range/Units 17:14 23:55 05:48 WBC (3.8-10.6) k/uL RBC (4.30-5.90) m/uL Hgb (13.0-17.5) gm/dL Hct (39.0-53.0) % Neutrophils # (1.3-7.7) k/uL Sodium (137-145) mmol/L Glucose (74-99) mg/dL POC Glucose (mg/dL) 132 H 124 H 141 H (75-99) mg/dL Calcium (8.4-10.2) mg/dL Phosphorus (2.5-4.5) mg/dL ALT (4-49) U/L Alkaline Phosphatase (38-126) U/L Total Protein (6.3-8.2) g/dL Albumin (3.5-5.0) g/dL 01/10/21 01/10/21 01/10/21 Range/Units 09: 09:21 11:46 WBC 14.0 H (3.8-10.6) k/uL RBC 3.18 L (4.30-5.90) m/uL Hgb 9.2 L (13.0-17.5) gm/dL Hct 29.3 L (39.0-53.0) % Neutrophils # 11.8 H (1.3-7.7) k/uL Sodium 131 L (137-145) mmol/L Glucose 131 H (74-99) mg/dL POC Glucose (mg/dL) 123 H (75-99) mg/dL Calcium 8.1 L (8.4-10.2) mg/dL Phosphorus 4.6 H (2.5-4.5) mg/dL ALT 74 H (4-49) U/L Alkaline Phosphatase 416 H (38-126) U/L Total Protein 5.8 L (6.3-8.2) g/dL Albumin 2.6 L (3.5-5.0) g/dL Assessment and Plan Assessment: -Fulminant Colitis with pneumoperitoneum on abdominal x-ray: Secondary to possibly covid 19, status post subtotal colectomy with creation of end ileostomy and surgery following closely. -Severe diffuse colitis with mucosal erythema and cobblestoning of the mucosa consistent with IBS as noted on sigmoidoscopy, GI is following -Acute renal failure, improved -Hypovolemic hyponatremia: Improved -Covid 19 infection -DVT prophylaxis with Lovenox -GI prophylaxis Protonix -Full code Plan: Continue with current medications and continue with IV antibiotics. Infectious disease, surgery, and pulmonary following along with GI. Patient is continued on TPN although weaning per surgery and diet has been advanced to low fiber and will continue to monitor for tolerance. NG tube has been removed and patient denies any nausea or vomiting at this time. Ileostomy showing output and has been receiving training and education by ostomy nurse with at the bedside. Sahni catheter has been removed and patient is urinating with no difficulties. Instructed the patient to increase activity as tolerated. Will repeat a.m. labs and replace electrolytes per protocol. Continue to encourage Incentive spirometer.
--- NOTE | 2021-01-10 15:18 | P.PN ---
Subjective Progress Note Date: 01/10/21 Patient is doing much better today, tolerating diet wtih NGT out, voiding with smith out. Objective - Vital Signs Vital signs: Vital Signs Temp 98 F 01/10/21 11:37 Pulse 77 01/10/21 11:37 Resp 16 01/10/21 11:37 BP 108/70 01/10/21 11:37 Pulse Ox 97 01/10/21 11:37 Intake & Output 01/09/21 01/10/21 01/10/21 18:59 06:59 18:59 Intake Total 320 720 Output Total 900 1250 550 Balance -580 -1250 170 Intake: Oral 320 720 Output: Drainage 300 Abdomen 0 ileostomy 300 Urine 900 950 200 Stool 350 Other: Voiding Method Urinal - Constitutional General appearance: Present: cooperative - Cardiovascular Rhythm: regular - Gastrointestinal Gastrointestinal Comment(s): S/NT/ND incision CDI Ostomy pink and patent with liquid bile output - Labs CBC & Chem 7: 01/10/21 09:21 01/10/21 09:21 Labs: Abnormal Lab Results - Last 24 Hours (Table) 01/09/21 01/09/21 01/10/21 Range/Units 17:14 23:55 05:48 WBC (3.8-10.6) k/uL RBC (4.30-5.90) m/uL Hgb (13.0-17.5) gm/dL Hct (39.0-53.0) % Neutrophils # (1.3-7.7) k/uL Sodium (137-145) mmol/L Glucose (74-99) mg/dL POC Glucose (mg/dL) 132 H 124 H 141 H (75-99) mg/dL Calcium (8.4-10.2) mg/dL Phosphorus (2.5-4.5) mg/dL ALT (4-49) U/L Alkaline Phosphatase (38-126) U/L Total Protein (6.3-8.2) g/dL Albumin (3.5-5.0) g/dL 01/10/21 01/10/21 01/10/21 Range/Units 09:21 09:21 11:46 WBC 14.0 H (3.8-10.6) k/uL RBC 3.18 L (4.30-5.90) m/uL Hgb 9.2 L (13.0-17.5) gm/dL Hct 29.3 L (39.0-53.0) % Neutrophils # 11.8 H (1.3-7.7) k/uL Sodium 131 L (137-145) mmol/L Glucose 131 H (74-99) mg/dL POC Glucose (mg/dL) 123 H (75-99) mg/dL Calcium 8.1 L (8.4-10.2) mg/dL Phosphorus 4.6 H (2.5-4.5) mg/dL ALT 74 H (4-49) U/L Alkaline Phosphatase 416 H (38-126) U/L Total Protein 5.8 L (6.3-8.2) g/dL Albumin 2.6 L (3.5-5.0) g/dL Assessment and Plan Assessment: S/P Ex lap subtotal colectomy with creation of end ileostomy Fulminant ulcerative colitis Septic shock Pneumoperitoneum Plan: Continue with strict Is and Os to give a better idea of ostomy output over 24 hours. DC TPN as patient tolerating diet.
--- NOTE | 2021-01-10 15:57 | P.PN ---
Subjective Progress Note Date: 01/10/21 Principal diagnosis: Colitis, abdominal pain, nausea and vomiting This a 40-year-old male patient who is being seen for follow-up. He was admitted to the hospital with a Coban 19 infection and colitis, later was found to have ulcerative colitis. The patient underwent a subtotal colectomy and creation of end ileostomy over a week ago. He is having output from his ileostomy, NG tube has been discontinued and he is on a full liquid diet. He states abdominal pain has improved, denies any nausea, or vomiting. There is mild elevation in his liver enzymes likely related to TPN. Objective - Vital Signs Vital signs: Vital Signs Temp 98.0 F 01/10/21 08:00 Pulse 72 01/10/21 08:00 Resp 18 01/10/21 08:00 BP 99/60 01/10/21 08:00 Pulse Ox 98 01/10/21 08:00 Intake & Output 01/09/21 01/10/21 01/10/21 18:59 06:59 18:59 Intake Total 320 120 Output Total 900 1250 200 Balance -580 -1250 -80 Intake: Oral 320 120 Output: Drainage 300 Abdomen 0 ileostomy 300 Urine 900 950 Stool 200 Other: Voiding Method Urinal - Exam General appearance: The patient is alert, oriented, appears in no acute distress. HET: Head is normocephalic and atraumatic. Conjunctiva pink. Sclera anicteric. Neck: Supple without lymphadenopathy. Abdomen: Soft, ileostomy intact with stool output, incision with dressing clean dry and intact. Positive bowel sounds. No guarding or rigidity. Extremities: Normal skin color and turgor. No pedal edema. Neurological: No focal deficits. Alert and oriented 3. - Labs CBC & Chem 7: 01/10/21 09:21 01/10/21 09:21 Labs: Abnormal Lab Results - Last 24 Hours (Table) 01/09/21 01/09/21 01/09/21 Range/Units 11:39 17:14 23:55 WBC (3.8-10.6) k/uL RBC (4.30-5.90) m/uL Hgb (13.0-17.5) gm/dL Hct (39.0-53.0) % Neutrophils # (1.3-7.7) k/uL POC Glucose (mg/dL) 147 H 132 H 124 H (75-99) mg/dL 01/10/21 01/10/21 Range/Units 05:48 09:21 WBC 14.0 H (3.8-10.6) k/uL RBC 3.18 L (4.30-5.90) m/uL Hgb 9.2 L (13.0-17.5) gm/dL Hct 29.3 L (39.0-53.0) % Neutrophils # 11.8 H (1.3-7.7) k/uL POC Glucose (mg/dL) 141 H (75-99) mg/dL Assessment and Plan (1) Colitis Narrative/Plan: 40-year-old male presenting to the hospital with complaints of nausea, vomiting, diarrhea and abdominal pain. Previous diagnosis of infection with Covid 19 a presented back to the hospital with complaints of frequent loose bowel movements up to 20-30 daily with associated nausea and vomiting and diffuse abdominal pain. CT scan of the abdomen performed on 12/22/2020 consistent with diffuse colitis with hepatosplenomegaly and hepatic steatosis. Concern was for possible Clostridium difficile toxin with initial EIA negative for C. diff toxin. The patient has been started on broad-spectrum antibiotic therapy. He was taken for flexible sigmoidoscopy with biopsy consistent with ulcerative colitis. Initially patient did well on steroid therapy and antibiotic therapy however subsequently had worsening in his condition and imaging suggestive of perforation. The patient was taken for colectomy with end ileostomy formation. Current Visit: Yes Status: Acute Code(s): K52.9 - NONINFECTIVE GASTROENTERITIS AND COLITIS, UNSPECIFIED SNOMED Code(s): 38043770 (2) Abdominal pain Current Visit: Yes Status: Acute Code(s): R10.9 - UNSPECIFIED ABDOMINAL PAIN SNOMED Code(s): 09625261 (3) Nausea, vomiting, and diarrhea Current Visit: Yes Status: Acute Code(s): R11.2 - NAUSEA WITH VOMITING, UNSPECIFIED; R19.7 - DIARRHEA, UNSPECIFIED SNOMED Code(s): 9062890 (4) Elevated liver enzymes Narrative/Plan: Mild elevation of serum transaminases, probably related to TPN Current Visit: Yes Status: Acute Code(s): R74.8 - ABNORMAL LEVELS OF OTHER SERUM ENZYMES SNOMED Code(s): 788240320 Plan: 1. Continue with diet per surgical recommendations 2. Continue to monitor CMP daily 3. Once oral intake has improved, would recommend stopping TPN Thank you for this consultation we will continue to follow closely Dr. Mir Eng I agree with the dictator's note, documented as a scribe by Radha Rodas.
[2021-01-10 17:03] LABS: Glucose,Whole Blood 89 mg/dL (75-99)
[2021-01-10 19:58] LABS: Glucose,Whole Blood 88 mg/dL (75-99)
--- NOTE | 2021-01-10 23:29 | PN ---
PROGRESS NOTE DATE OF SERVICE: 01/10/2021 REASON FOR FOLLOWUP: Secondary peritonitis from perforated bowel. INTERVAL HISTORY: The patient is currently afebrile. The patient is breathing comfortably. The patient denies having any chest pain or shortness of breath or cough. No abdominal pain. Did have output in his ileostomy. EXAM: Blood pressure 108/66, pulse 84, temperature 98. He is 97% on room air. General description is a middle-aged male up in the bed in no distress. Respiratory system: Unlabored breathing. Clear to auscultation anteriorly. HEART S1, S2. Regular rate and rhythm. ABDOMEN: Soft. Midline lower incision did have slight significant purulent drainage noticed. LABS: Hemoglobin of 11.1, white count 14, BUN of 18, creatinine 0.89. DIAGNOSTIC IMPRESSION AND PLAN: Patient with secondary peritonitis and perforated bowel in this patient with status post subtotal colectomy and diverting colostomy. The patient is covered with Zosyn monitor closely. Did have slight incision but no significant monitor. Family at the bedside. Questions were answered. Examination. MMODL / IJN: [id number] /
[2021-01-10] MEDS: SODIUM CHLORIDE 0.9% 1,000 ML IV SCH (23:37)
[2021-01-11] MEDS: KETOROLAC 15 MG/ML 1 ML VIAL IVP PRN (05:35)
[2021-01-11] MEDS: METOCLOPRAMIDE 5 MG/ML 2 ML VIAL IVP SCH ×4 (05:35→23:47)
[2021-01-11] MEDS: PANTOPRAZOLE 40 MG/10 ML VIAL IVP SCH ×2 (10:32→20:37)
[2021-01-11] MEDS: PIPERACILLIN-TAZOBACTAM 3.375 GM in SODIUM CHLORIDE 0.9% 100 ML IVPB SCH ×3 (10:33→23:47)
[2021-01-11] MEDS: ENOXAPARIN 40 MG/0.4 ML SYRINGE SQ SCH (10:33)
[2021-01-11 11:55] LABS: Basophils # (A) 0.03 X 10*3/uL (0.00-0.10); Basophils % (A) 0.3 %; Eosinophils # (A) 0 X 10*3/uL (0.04-0.35); Eosinophils % (A) 0 %; HCT 26.1 % (39.6-50.0); HGB 8.4 g/dL (13.0-17.0); Lymphocytes # (A) 1.16 X 10*3/uL (0.90-5.00); Lymphocytes % (A) 10.8 %; MCHC 32.2 g/dL (32.0-37.0); Mean Platelet Volume 9.8 fL (9.5-12.2); Monocytes # (A) 0.81 X 10*3/uL (0.20-1.00); Monocytes % (A) 7.5 %; Neutrophils # (A) 8.66 X 10*3/uL (1.80-7.70); Neutrophils % (A) 80.7 %; Platelet Count 363 X 10*3/uL (140-440); RDW 13.6 % (11.5-14.5); WBC 10.74 X 10*3/uL (4.50-10.00)
[2021-01-11 12:13] LABS: African American GFR (CKD) 128.6 (60.0-200.0); Anion Gap 11.8 mmol/L (4.00-12.00); BUN/Creat Ratio 23.75 Ratio (12.00-20.00); Calcium 8.1 mg/dL (8.7-10.3); Carbon Dioxide 24.2 mmol/L (21.6-31.8); Phosphorus 5.4 mg/dL (2.4-5.1); Potassium 4.6 mmol/L (3.5-5.5)
--- NOTE | 2021-01-11 14:33 | P.PN ---
Subjective Progress Note Date: 01/11/21 Pneumoperitoneum Fulminant ulcerative colitis Septic shock Covid19 infection in November 2020 48-year-old male came in with complaints of nausea vomiting diarrhea patient states he has multiple episodes around 20-30 episodes of diarrhea every day. Patient started having symptoms of diarrhea and fever on sulma fever resolved but the diarrhea continued. Patient was diagnosed with the hope did 19 shortly after. Patient is still having some body aches and pains patient is comparing of severe crampy lower abdominal pain patient was seen in ER about 3 days ago at that time patient had a CT of the abdomen which showed a colon colitis. C. diff will be obtained patient is bit hyponatremic and receiving IV fluids at this time. 12/31/2020 Patient is seen and evaluated in room at bedside; patient is demanding to be transferred to here; her criminal justice social worker talked to the patient and recommended possible transfer to [facility] due to possibility of patient being accepted today; patient is agreeable; Arrangements were made for patient's transferred to [facility] under Dr. Khalil, however abdominal x-ray done this afternoon reveals pneumoperitoneum; surgery was notified; Dr. Deal we will see the patient with possibility of OR tonight; fluid was called and spoke with RN and canceled patient transferred to [facility] 01/01/2021 Patient is seen and evaluated in ICU that he was transferred post exploratory laparotomy with colectomy with ileostomy; patient was able to be successfully extubated the patient's on O2 at 4 L by nasal cannula, saline at 75 mL an hour, and TPN at 75 mL an hour. Prior to this episode, according to his medical records, the patient has no prior medical history, and no prior surgical history. He wasn't really taking any medication at home on a regular basis. Abdominal and pelvic computed tomography scan on December 27 showed large bowel wall thickening consistent with colitis, mild abdominal ascites, distended small bowel loops with air-fluid levels consistent with ileus, and small bilateral pleural effusions and basilar atelectasis. Current white count is 20.9, hemoglobin 10.3, hematocrit 30.4, and platelet count 298,000. Sodium 134, potassium 3.8, chlorides 105, CO2 23, anion gap 6, BUN 14, and creatinine 0.89. Albumin is 1.5. Patient remains on IV antibiotics in form of Flagyl and Rocephin 01/03/2021 Patient is currently lying in the bed. Pain is daily controlled. Status post expiratory laparotomy with subtotal colectomy and creation of end ileostomy due to fulminant ulcerative colitis, pneumoperitoneum and septic shock. Postoperative day 3 Patient is on antibiotics in the form of Zosyn. Patient does have nausea and episode of vomiting O overnight. Currently being continued on NG tube. Sahni catheter is in place due to urinary retention. Patient is on TPN currently. Pulmonary, GI and general surgery is on board. Laboratory data showed WBC 17.420 down from 23.4, hemoglobin 9.0, BUN 20 and creatinine 0.6 calcium 6.9 01/04/2021 Patient is currently sitting up in the chair working with physical therapy. Patient continues to be extremely weak requiring assistance and the use of a walker. Continue with NG tube along with indwelling Sahni catheter and NG tube is currently clamped at this time. Multiple medical consultations including pulmonary, GI, and surgery following. Small amount of gas was heard and noted in the ostomy along with a scant amount of stool as well. Discussed with the today about treatment plan. Patient to continue with IV antibiotics and infectious disease is following. Patient to continue TPN until surgery clearance and then will slowly advance diet as tolerated. Hemoglobin is 8.5, white blood count is 12.9 and trending down, current sodium is 141 with a potassium of 4.7 and creatinine is stable at 0.6. Magnesium is 2.1. Continues to have abdominal tenderness although no reports of nausea and vomiting today. 01/05/2021 Patient is seen and evaluated in follow-up this morning stating he continues to have abdominal discomfort and tenderness at the surgical site although has improved from yesterday. Patient was up and walking with physical therapy and nursing staff and was able to walk the halls. Patient is having active gas noted in large amounts of output in the ostomy. Patient continues with NG and will continue at this time. Abdominal distention noted although no worse than previous. Patient continues to have some discomfort although does not like the effects of the narcotics and requesting something different. Patient did all right Toradol although discussed with patient and nursing staff to defer to surgeon on proper medications to administer. He functions are stable and creatinine is 0.7 with a BUN of 19, blood sugars being monitored and treated with sliding scale and will continue. Calcium is 7.4 improved and technetium is 1.8. Patient states he was given a popsicle yesterday although unsure if tolerated as he continued to have abdominal discomfort. Patient is maintained on TPN and will continue and will need to discuss with surgery and GI about weaning attempts once diet is more tolerated. 01/06/2021 Patient is seen and evaluated this morning and states he is exhausted as he had a rough night with no sleep. Patient was continuing to have abdominal discomfort with nausea and an episode of vomiting. Patient is continued with the NG tube with bilious output. Continued gas and output noted in the il eostomy. Ostomy nurse is following and has been working with the patient and educating about ostomy care and use. White blood count trending up and is 18.54 today, hemoglobin is 10.2, sodium is 136, potassium is 4.6, current creatinine is 0.8. Toradol has been resumed as patient was not tolerating narcotics and did not like the feel of them. Patient is continued on TPN and pharmacy to dose. Patient to continue with nothing by mouth with occasional sips of clears. Instructed the patient to continue using incentive spirometer and increasing activity as tolerated. 01/07/2021 Patient is seen and evaluated today currently sitting up in the chair resting but easily arousable. Patient continues to have some abdominal discomfort and tenderness at the incisional site. Will add IV Tylenol and continue with Toradol and morphine as needed. Patient continues to have some nausea noted and will continue with Zofran and Reglan. NG tube is currently clamped at this time although continues to have bilious drainage noted when hooked to suction. Patient has been attempting popsicles and clears although states he feels an abdominal fullness and lump in the upper left and right quadrant after eating. Will continue with TPN for now. Surgery is following closely as well. Appreciate surgical recommendations. Continue to encourage increase in activity as tolerated. 01/08/2021 Patient is currently lying in the bed awake and alert. Patient is tolerating liquids and NG tube was clamped. Planning for removal of NG tube today. Otherwise patient is having liquid stool from the ostomy. No complaints of chest pain or shortness breath. Abdominal pain is better today. Laboratory showed WBC 12.85, hemoglobin 8.4 Sodium 131 potassium 5.5 and AST 40 ALT 17 alk phos 288 blood sugar is co ntrolled. Patient is being continued TPN. Grandmother is on board. 01/09/2021 Patient is more awake alert and oriented x3. NGT was removed and patient is tolerating liquids. Advance diet as tolerated. Ostomy with green-colored liquid stool. No nausea or vomiting. Abdominal discomfort is better. Patient did complain of left upper abdominal pain and left shoulder discomfort. Otherwise patient is afebrile. Laboratory data showed sodium 129 potassium 4.9. BUN 15 and creatinine 0.69 Current TPN currently. 01/10/2021 Patient is seen this morning currently sitting up in the chair increasing activity as tolerated. Patient was up and walking and is at the bedside. Patient states tolerating diet with no reports of nausea or vomiting at NG tube has been removed since yesterday. Patient is maintained on TPN although will likely the begin weaning today and continue to monitor labs and vital signs. Patient's diet has been advanced to low fiber and will monitor for tolerance. Surgery following closely. White blood count slightly elevated at 14.0, hemoglobin is 9.2, sodium improved and is 131, potassium is 4.9, current creatinine is 0.89. Patient is afebrile. Continue with IV Zosyn at this time and infectious disease is following. 01/11/2021 Patient is seen this morning currently maintained on low fiber diet and tolerating well. Ileostomy noted to have stool output. TPN has been weaned. Surgery continues to follow closely. White blood count continues to trend down and is 10.74, hemoglobin is stable at 8.4 with no active bleeding noted. Sodium is improved at 135 and potassium is 4.6 current creatinine is 0.8. Magnesium is 2.0. Patient is up and walking and continues to increase activity as tolerated. Infectious disease following and patient is continued with IV Zosyn and will discuss with them about discharge antibiotic recommendations. Review of systems: Constitutional: No reports of fatigue, no reports of fever, or chills Cardiovascular: No reports of chest pain or palpitations Respiratory: No reports of shortness of breath or cough GI: No reports of nausea, vomiting, or diarrhea : No reports of dysuria or retention Neurovascular: No reports of weakness or numbness All medications have been reviewed Objective - Vital Signs Vital signs: Vital Signs Temp 98.3 F 01/11/21 06:20 Pulse 87 01/11/21 06:20 Resp 15 01/11/21 06:20 BP 91/53 01/11/21 06:20 Pulse Ox 96 01/11/21 06:20 Intake & Output 01/10/21 01/11/21 01/11/21 18:59 06:59 18:59 Intake Total 720 1160 Output Total 750 1508 Balance -30 -348 Intake: Oral 720 1160 Output: Drainage 178 Abdomen 8 ileostomy 170 Urine 200 850 Stool 550 480 Other: Voiding Method Toilet Urinal # Voids 3 - Exam GENERAL: The patient is alert and oriented x3, not in any acute distress. Well developed, well nourished. Sitting up in the chair. HEENT: Pupils are round and equally reacting to light. EOMI. No scleral icterus. No conjunctival pallor. Normocephalic, atraumatic. No pharyngeal erythema. No thyromegaly. CARDIOVASCULAR: S1 and S2 present. No murmurs, rubs, or gallops. PULMONARY: Chest is clear to auscultation, no wheezing or crackles. ABDOMEN: Abdomen is tender on palpation at the surgical incision site, bowel sounds are present, gas and stool noted in the ostomy MUSCULOSKELETAL: No joint swelling or deformity. EXTREMITIES: No cyanosis, clubbing, or pedal edema. NEUROLOGICAL: Gross neurological examination did not reveal any focal deficits. SKIN: No rashes. - Labs CBC & Chem 7: 01/11/21 05:40 01/11/21 05:40 Labs: Abnormal Lab Results - Last 24 Hours (Table) 01/11/21 Range/Units 05:40 WBC 10.74 H (4.50-10.00) X 10*3/uL RBC 2.90 L (4.40-5.60) X 10*6/uL Hgb 8.4 L (13.0-17.0) g/dL Hct 26.1 L (39.6-50.0) % Immature Gran # 0.08 H (0.00-0.04) X 10*3/uL Neutrophils # 8.66 H (1.80-7.70) X 10*3/uL Eosinophils # 0 L (0.04-0.35) X 10*3/uL Assessment and Plan Assessment: -Fulminant Colitis with pneumoperitoneum on abdominal x-ray: Secondary to possibly covid 19, status post subtotal colectomy with creation of end ileostomy and surgery following closely. -Severe diffuse colitis with mucosal erythema and cobblestoning of the mucosa consistent with IBS as noted on sigmoidoscopy, GI is following -Acute renal failure, improved -Hypovolemic hyponatremia: Improved -Covid 19 infection -DVT prophylaxis with Lovenox -GI prophylaxis Protonix -Full code Plan: Continue with current medications and continue with IV antibiotics. Infectious disease, surgery, and pulmonary following along with GI. Patient has been weaned off TPN and tolerating a low fiber diet. Ileostomy showing output and has been receiving training and education by ostomy nurse with at the bedside. Patient is voiding with no difficulties. Instructed the patient to increase activity as tolerated. Repeat labs within normal limits, white blood count is trending down. Patient is maintained on IV Zosyn and will need to discuss with surgery along with infectious disease if antibiotics upon discharge as needed. Continue to encourage Incentive spirometer and increase activity. Possible discharge in 24-48 hours.
[2021-01-11 15:01] VITALS: RESP 18
--- NOTE | 2021-01-11 16:15 | P.PN ---
Subjective Progress Note Date: 01/11/21 Principal diagnosis: Colitis, abdominal pain, nausea and vomiting This a 40-year-old male patient who is being seen for follow-up. He was admitted to the hospital with a Coban 19 infection and colitis, later was found to have ulcerative colitis. The patient underwent a subtotal colectomy and creation of end ileostomy over a week ago. He is having output from his ileostomy, NG tube has and smith catheter have been discontinued. He states abdominal pain has improved, denies any nausea, or vomiting. There is mild elevation in his liver enzymes likely related to TPN. He was advanced to low fiber diet, no nausea or vomiting. TPN is being weaned and plan is likely for d ischarge tomorrow. Objective - Vital Signs Vital signs: Vital Signs Temp 98.0 F 01/11/21 15:00 Pulse 91 01/11/21 15:00 Resp 18 01/11/21 15:00 BP 101/65 01/11/21 15:00 Pulse Ox 98 01/11/21 15:00 Intake & Output 01/10/21 01/11/21 01/11/21 18:59 06:59 18:59 Intake Total 720 1160 480 Output Total 750 1508 700 Balance -30 -348 -220 Intake: Oral 720 1160 480 Output: Drainage 178 150 Abdomen 8 ileostomy 170 150 Urine 200 850 400 Stool 550 480 150 Other: Voiding Method Toilet Urinal # Voids 3 - Exam General appearance: The patient is alert, oriented, appears in no acute distress. HET: Head is normocephalic and atraumatic. Conjunctiva pink. Sclera anicteric. Neck: Supple without lymphadenopathy. Abdomen: Soft, ileostomy intact with stool output, incision with dressing cl lexi dry and intact. Positive bowel sounds. No guarding or rigidity. Extremities: Normal skin color and turgor. No pedal edema. Neurological: No focal deficits. Alert and oriented 3. - Labs CBC & Chem 7: 01/11/21 05:40 01/11/21 05:40 Labs: Abnormal Lab Results - Last 24 Hours (Table) 01/11/21 01/11/21 Range/Units 05:40 05:40 WBC 10.74 H (4.50-10.00) X 10*3/uL RBC 2.90 L (4.40-5.60) X 10*6/uL Hgb 8.4 L (13.0-17.0) g/dL Hct 26.1 L (39.6-50.0) % Immature Gran # 0.08 H (0.00-0.04) X 10*3/uL Neutrophils # 8.66 H (1.80-7.70) X 10*3/uL Eosinophils # 0 L (0.04-0.35) X 10*3/uL BUN/Creatinine Ratio 23.75 H (12.00-20.00) Ratio Calcium 8.1 L (8.7-10.3) mg/dL Phosphorus 5.4 H (2.4-5.1) mg/dL Assessment and Plan (1) Colitis Narrative/Plan: 40-year-old male presenting to the hospital with complaints of nausea, vomiting, diarrhea and abdominal pain. Previous diagnosis of infection with Covid 19 a presented back to the hospital with complaints of frequent loose bowel movements up to 20-30 daily with associated nausea and vomiting and diffuse abdominal pain. CT scan of the abdomen performed on 12/22/2020 consistent with diffuse colitis with hepatosplenomegaly and hepatic steatosis. Concern was for possible Clostridium difficile toxin with initial EIA negative for C. diff toxin. The patient has been started on broad-spectrum antibiotic therapy. He was taken for flexible sigmoidoscopy with biopsy consistent with ulcerative colitis. Initially patient did well on steroid therapy and antibiotic therapy however subsequently had worsening in his condition and imaging suggestive of perforation. The patient was taken for colectomy with end ileostomy formation. Current Visit: Yes Status: Acute Code(s): K52.9 - NONINFECTIVE GASTROENTERITIS AND COLITIS, UNSPECIFIED SNOMED Code(s): 34875457 (2) Abdominal pain Current Visit: Yes Status: Acute Code(s): R10.9 - UNSPECIFIED ABDOMINAL PAIN SNOMED Code(s): 15583827 (3) Nausea, vomiting, and diarrhea Current Visit: Yes Status: Acute Code(s): R11.2 - NAUSEA WITH VOMITING, UNSPECIFIED; R19.7 - DIARRHEA, UNSPECIFIED SNOMED Code(s): 1196981 (4) Elevated liver enzymes Narrative/Plan: Mild elevation of serum transaminases, probably related to TPN Current Visit: Yes Status: Acute Code(s): R74.8 - ABNORMAL LEVELS OF OTHER SERUM ENZYMES SNOMED Code(s): 073865476 Plan: 1. Continue with diet per surgical recommendations 2. Continue to monitor CMP daily 3. Once oral intake has improved, would recommend stopping TPN Thank you for this consultation we will sign off at this time Dr. Mir Eng I agree with the dictator's note, documented as a scribe by Radha Rodas.
--- NOTE | 2021-01-11 16:48 | CDI ---
Documentation Clarification Form Date: 01/11/2021 03:37:49 PM From: Ewa Jacome RN CCDS Admit Date: 12/24/2020 12:27:00 AM Patient Name: Arcenio Giordano Visit Number: [id number] Discharge Date: ATTENTION: The Clinical Documentation Specialists (CDI) and [facility] Coding Staff appreciate your assistance in clarifying documentation. Please respond to the clarification below the line at the bottom and electronically sign. The CDI & [facility] Coding staff will review the response and follow-up if needed. Please note: Queries are made part of the Legal Health Record. If you have any questions, please contact the author of this message via ITS. Dr. Lesia Schumacher Septic shock is documented in the internal medicine progress notes 01/03 through 01/11/2021 History/Risk Factors: 40-year-old male presents to the ED with body aches and pains with severe crampy lower abdominal pain nausea, vomiting and diarrhea about 20 30 episodes a day. The patient had a CT of abdomen 3 days prior to admission which showed colon colitis. Per H&P 12/24. Medical History: None listed per the H&P 12/24 Clinical Indicators: Labs 12/23: Wbc 10, Neutrophil 8.30, NA 132, Lactic Acid 1.0, Ferritin 738.4, CRP 372.7, LDH 406. Scanned into the medical record patient was positive 12/06 for [place] virus; 12/27 [place] test - detected and 01/06 [place] tested negative. 01/01 Wbc 20.52 Vital signs on admission12/23: B/P132/78; HR 103; Temp 100.4 F Oral; RR 18 99% RA CT ABD 12/27: Large bowel wall thickening consistent with colitis that appears worse than recent CT. Mild abdominal ascites fluid slightly increased compared to old exam. Mildly distended small bowel loops with fluid levels consistent with ileus. Procedure note 12/31: Fulminant ulcerative colitis. Perforated viscus pneumoperitoneum. ID Progress note 01/01: Perforated colon with secondary peritonitis. Treatment: Surgical Consult 12/31: Fulminant ulcerative colitis, Septic shock and Pneumoperitoneum. Abdominal distention with diffuse abdominal pain. ID Consult 12/24: Though most of his gastrointestinal symptoms are more likely related to infectious etiology, question related to Covid versus other bacterial versus viral infection. Antibiotics: 12/24 Ceftriaxone 2gm IVPB Q24HR D/C 01/01; 12/24 Flagyl 500mg IVPB Q6HR d/c 01/01. IV Bolus: 12/23 1 L 0.9 NS Bolus followed by 130 CC/HR changed 12/24 to 150 CC/HR discontinued on 12/30. In your professional opinion, please clarify if these findings signify one of the following conditions, whether the condition is POA, and cause, if known: Sepsis with Shock POA Sepsis with Shock Not POA Other, please specify Unable to determine Identify the (suspected) organism Link or clarify if there is associated (due to/with): Organ failure Shock SIRS Criteria (2 or more of the following may indicate SIRS): -Temperature < 96.8F (36C) or > 101.0F (38.3C) -Heart Rate > 90 bpm -Respiratory Rate > 20 breaths/min or PaCO2 < 32 mmHg -White Blood Cell Count > 12,000 or < 4,000 cells/mm3 or > 10% bands -Lactate >2.0 mmol/L (>4.0 is equivalent to septic shock) (Last Revision: February 2018) Sepsis with Shock Not POA MTDD
[2021-01-11] MEDS ORDERED: HYDROcodone/APAP 5-325MG 1 EACH TAB PO PRN (17:06)
[2021-01-11] MEDS: HYDROcodone/APAP 5-325MG 1 EACH TAB PO PRN (17:44)
--- NOTE | 2021-01-11 22:48 | PN ---
PROGRESS NOTE DATE OF SERVICE: 01/11/2021 REASON FOR FOLLOWUP: Secondary peritonitis from perforated bowel. INTERVAL HISTORY: The patient is currently afebrile. The patient denies having any chest pain, shortness of breath or cough. Abdominal pain is currently controlled. No nausea or vomiting. He has been tolerating his diet. PHYSICAL EXAMINATION: Blood pressure is 101/65, pulse of 91, temperature 98. He is 98% on room air. General description is a middle-aged male up in the bed in no distress. RESPIRATORY SYSTEM: Unlabored breathing. Clear to auscultation anteriorly. HEART: S1, S2. Regular rate and rhythm. ABDOMEN: Soft. No tenderness. No guarding or rigidity. LABS: Hemoglobin is 8.4, white count 10.74, BUN of 19, creatinine 0.8. DIAGNOSTIC IMPRESSION AND PLAN: Patient with secondary peritonitis from perforated bowel in this patient who is status post subtotal colectomy and ileostomy. The patient is covered with Zosyn. White count has normalized. If the oral intake improves, we may be able to transition him to oral antibiotic on discharge, short course, and continue supportive care. MMODL / IJN: [id number] /
[2021-01-12] MEDS: SODIUM CHLORIDE 0.9% 1,000 ML IV SCH (03:46)
[2021-01-12] MEDS: METOCLOPRAMIDE 5 MG/ML 2 ML VIAL IVP SCH ×2 (05:30→12:21)
[2021-01-12] MEDS: HYDROcodone/APAP 5-325MG 1 EACH TAB PO PRN ×3 (05:40→15:54)
[2021-01-12] MEDS: PIPERACILLIN-TAZOBACTAM 3.375 GM in SODIUM CHLORIDE 0.9% 100 ML IVPB SCH (07:21)
[2021-01-12] MEDS: PANTOPRAZOLE 40 MG/10 ML VIAL IVP SCH (07:21)
[2021-01-12] MEDS: ENOXAPARIN 40 MG/0.4 ML SYRINGE SQ SCH (07:22)
[2021-01-12 09:48] LABS: African American GFR (CKD) 128.6 (60.0-200.0); Anion Gap 7.8 mmol/L (4.00-12.00); BUN/Creat Ratio 18.75 Ratio (12.00-20.00); Calcium 8.2 mg/dL (8.7-10.3); Carbon Dioxide 27.2 mmol/L (21.6-31.8); Phosphorus 4.6 mg/dL (2.4-5.1); Potassium 4.8 mmol/L (3.5-5.5)
--- NOTE | 2021-01-12 13:52 | P.PN ---
Subjective 40-year-old the female was admitted for colitis which was initially believed secondary to covid as patient was positive for this, later found out that he has severe pancolitis from ulcerative colitis. Patient was subsequently started on steroids and patient the head after rupture and patient had emergent laparotomy with removal of entire large bowel with little left for small bowel in the terminally later area and irrigation of large amount of stool. Patient presently has a surgical drain and the colostomy. Patient is off TPN. Patient is having output from the colostomy. The limited doing well. And may not require any subacute rehabilitation in spite of 30 day of hospital physician Constitutional: Denied any fatigue denied any fever. Cardio vascular: denied any chest pain, palpitations Gastrointestinal denied any nausea vomiting Pulmonary: Denied any shortness of breath cough Neurologic denied any new focal deficits All inpatient medications were reviewed and appropriate changes in these medications as dictated in the interval history and assessment and plan. Objective - Vital Signs Vital signs: Vital Signs Temp 98.7 F 01/12/21 08:00 Pulse 103 H 01/12/21 08:00 Resp 18 01/12/21 08:00 BP 107/66 01/12/21 08:00 Pulse Ox 98 01/12/21 08:00 Intake & Output 01/11/21 01/12/21 01/12/21 18:59 06:59 18:59 Intake Total 480 998 Output Total 1200 1851 Balance -720 -853 Intake: Oral 480 998 Output: Gastric Drainage 400 Drainage 150 1 Abdomen 1 ileostomy 150 Urine 700 1270 Stool 350 180 Other: Voiding Method Toilet Toilet Urinal Urinal - Exam GENERAL: The patient is alert and oriented x3, not in any acute distress. Well developed, well nourished. Sitting up in the chair. HEENT: Pupils are round and equally reacting to light. EOMI. No scleral icterus. No conjunctival pallor. Normocephalic, atraumatic. No pharyngeal erythema. No thyromegaly. CARDIOVASCULAR: S1 and S2 present. No murmurs, rubs, or gallops. PULMONARY: Chest is clear to auscultation, no wheezing or crackles. ABDOMEN: Abdomen is tender on palpation at the surgical incision site, bowel sounds are present, gas and stool noted in the ostomy MUSCULOSKELETAL: No joint swelling or deformity. EXTREMITIES: No cyanosis, clubbing, or pedal edema. NEUROLOGICAL: Gross neurological examination did not reveal any focal deficits. SKIN: No rashes. - Labs CBC & Chem 7: 01/11/21 05:40 01/12/21 05:35 Labs: Abnormal Lab Results - Last 24 Hours (Table) 01/12/21 Range/Units 05:35 Sodium 132 L (135-145) mmol/L Calcium 8.2 L (8.7-10.3) mg/dL Assessment and Plan Plan: -Fulminant Colitis, pancolitis secondary to ulcerative colitis : status post subtotal colectomy with creation of end ileostomy and surgery following closely. -Acute renal failure, improved -Hypovolemic hyponatremia: Improved -Covid 19 infection -DVT prophylaxis with Lovenox -GI prophylaxis Protonix -Full code
--- NOTE | 2021-01-12 14:07 | P.DS ---
Providers Date of admission: 12/24/20 00:27 Attending physician: Lesia Schumacher Consults: 12/24/20 00:26 Consult Physician Routine Consulting Provider: Vinicius Pantoja Consult Reason/Comments: covid Do you want consulting provider notified?: Yes 12/31/20 18:12 Consult Physician Routine Consulting Provider: Shyam Chris Consult Reason/Comments: surgical emergency Do you want consulting provider notified?: Already Contacted 01/01/21 08:25 Consult Physician Routine Consulting Provider: Nish Parks Consult Reason/Comments: hypotension Do you want consulting provider notified?: Already Contacted Primary care physician: [facility] Course: 40-year-old the female was admitted for colitis which was initially believed secondary to covid as patient was positive for this, later found out that he has severe pancolitis from ulcerative colitis. Patient was subsequently started on steroids and patient the head after rupture and patient had emergent laparotomy with removal of entire large bowel with little left for small bowel in the terminally later area and irrigation of large amount of stool. Patient presently has a surgical drain and the colostomy. Patient is off TPN. Patient is having output from the colostomy. The limited doing well. And may not require any subacute rehabilitation in spite of 30 day of hospital physician. Patient is cleared from surgical perspective will be discharged today on Augmentin and Victoria. GENERAL: The patient is alert and oriented x3, not in any acute distress. Well developed, well nourished. Sitting up in the chair. HEENT: Pupils are round and equally reacting to light. EOMI. No scleral icterus. No conjunctival pallor. Normocephalic, atraumatic. No pharyngeal erythema. No thyromegaly. CARDIOVASCULAR: S1 and S2 present. No murmurs, rubs, or gallops. PULMONARY: Chest is clear to auscultation, no wheezing or crackles. ABDOMEN: Abdomen is tender on palpation at the surgical incision site, bowel sounds are present, gas and stool noted in the ostomy MUSCULOSKELETAL: No joint swelling or deformity. EXTREMITIES: No cyanosis, clubbing, or pedal edema. NEUROLOGICAL: Gross neurological examination did not reveal any focal deficits. Assessment and Plan Plan: -Fulminant Colitis, pancolitis secondary to ulcerative colitis : status post subtotal colectomy with creation of end ileostomy -Acute renal failure, improved -Hypovolemic hyponatremia: Improved -Covid 19 infection recent Patient Condition at Discharge: Fair Plan - Discharge Summary Discharge Rx Participant: Yes New Discharge Prescriptions: New HYDROcodone/APAP 5-325MG [Victoria 5-325] 1 each PO Q6HR PRN #20 tab PRN Reason: Mild To Moderate Pain Amoxic-Pot Clav 875-125Mg [Augmentin 875-125] 1 tab PO Q12HR 5 Days #10 tab Continue Ondansetron [Zofran ODT] 4 mg PO Q8HR PRN #15 tab PRN Reason: Nausea Discharge Medication List Ondansetron [Zofran ODT] 4 mg PO Q8HR PRN #15 tab 12/22/20 [Rx] Amoxic-Pot Clav 875-125Mg [Augmentin 875-125] 1 tab PO Q12HR 5 Days #10 tab 01/12/21 [Rx] HYDROcodone/APAP 5-325MG [Victoria 5-325] 1 each PO Q6HR PRN #20 tab 01/12/21 [Rx] Follow up Appointment(s)/Referral(s): Shyam Chris DO [Doctor of Osteopathic Medicine] - 1 Week Jamey Rodriguez MD [Primary Care Provider] - 1-2 days Aleyda Eng MD [STAFF PHYSICIAN] - 2 Weeks [facility], [NON-STAFF] - As Needed Patient Instructions/Handouts: Ileostomy Care (GEN), Ulcerative Colitis (ED), Ileostomy Diet (ED) Activity/Diet/Wound Care/Special Instructions: Abdominal Incision Care: Ileostomy Care recommendations for home: Last pouching system change: 01.10.2021 The following ileostomy supplies will be supplied by the hospital for discharge to home: Convatec flanges #[id number] moldable (three from the hospital) Convatec pouches #[id number] with filter (three from the hospital) Convatec pouches highoutput with filter #[id number] (three from the hospital) No sting prep pads (12 from the hospital) Ostomy powder (one from the hospital) Mr Giordano is to change the entire pouching system every 3-5 days in the timber estimator Mr Giordano is to empty the pouch in the bathroom sitting on the toilet or straddling the toilet when it is 1/2 to 1/3 full Home Health please assist Mr Giordano to order ileostomy supplies in 2-3 weeks with a precut flange system for his new ileostomy Discharge Disposition: HOME SELF-CARE
--- NOTE | 2021-01-12 15:09 | PN ---
PROGRESS NOTE DATE OF SERVICE: 01/12/2021 REASON FOR FOLLOWUP: Secondary peritonitis from perforated bowel. INTERVAL HISTORY: The patient is currently afebrile. The patient is breathing comfortably. The patient denies having any chest pain. No shortness of breath or cough. Abdominal pain is currently controlled. No nausea, no vomiting. PHYSICAL EXAMINATION: Blood pressure 107/66, pulse 103, temperature 98.7. He is 98% room air. General description is a middle-aged male lying in bed in no distress. RESPIRATORY SYSTEM: Unlabored breathing, clear to auscultation anteriorly. HEART: S1, S2. Regular rate and rhythm. ABDOMEN: Soft, no tenderness. LABS: BUN of 15, creatinine 0.8. DIAGNOSTIC IMPRESSION AND PLAN: Patient with perforated bowel with status post subtotal colectomy in this patient who did have fulminant ulcerative colitis. The patient is currently covered with Zosyn, may transition to short course of oral Augmentin on discharge. Continue supportive care. MMODL / IJN: [id number] /
[2021-01-12 15:42] VITALS: BP 103/63; PULSE 91; TEMP 97.5
--- NOTE | 2021-01-12 16:49 | P.PN ---
Subjective Progress Note Date: 01/12/21 Patient is doing much better today, tolerating diet Objective - Vital Signs Vital signs: Vital Signs Temp 97.5 F L 01/12/21 14:00 Pulse 91 01/12/21 14:00 Resp 18 01/12/21 14:00 BP 103/63 01/12/21 14:00 Pulse Ox 98 01/12/21 14:00 Intake & Output 01/11/21 01/12/21 01/12/21 18:59 06:59 18:59 Intake Total 480 998 540 Output Total 1200 1851 3 Balance -720 -853 537 Weight 94.6 kg Intake: Oral 480 998 540 Output: Gastric Drainage 400 Drainage 150 1 Abdomen 1 ileostomy 150 Urine 700 1270 3 Stool 350 180 Other: Voiding Method Toilet Toilet Urinal Urinal - Constitutional General appearance: Present: cooperative - Cardiovascular Rhythm: regular - Gastrointestinal Gastrointestinal Comment(s): S/NT/ND. ostomy pink patent with stool in bag Incision is open inferiorly with clear drainage no purulent drainage - Labs CBC & Chem 7: 01/11/21 05:40 01/12/21 05:35 Labs: Abnormal Lab Results - Last 24 Hours (Table) 01/12/21 Range/Units 05:35 Sodium 132 L (135-145) mmol/L Calcium 8.2 L (8.7-10.3) mg/dL Assessment and Plan Assessment: S/P Ex lap subtotal colectomy with creation of end ileostomy Fulminant ulcerative colitis Septic shock Pneumoperitoneum Plan: Stable from surgical standpoint for DC to follow up in office next week. Patient instructed to watch and record ostomy output, if it goes over 1 to 1.5 liters in a day patient instructed to return or contact my office.
[2021-01-12] MEDS ORDERED: PANTOPRAZOLE 40 MG TABLET PO SCH (21:00)
== END 2021-01-12 16:44 | disposition home health service (06) | DRG 329 ==
LOC: EC 22:06 → 4SSUR 12-24 00:27 → 2SICU 12-31 21:37 → 4SSUR 01-02 10:53
PROVIDERS: ADMIT Internal Medicine; ATTEND Internal Medicine
PROC: 0D9670Z Drainage of Stomach with Drainage Device, Via Natural or Artificial Opening (ICD-10-PCS; 2020-12-26)
PROC: 3E0336Z Introduction of Nutritional Substance into Peripheral Vein, Percutaneous Approach (ICD-10-PCS; 2020-12-29)
PROC: 0DBK8ZX Excision of Ascending Colon, Via Natural or Artificial Opening Endoscopic, Diagnostic (ICD-10-PCS; 2020-12-29)
PROC: 0DBL8ZX Excision of Transverse Colon, Via Natural or Artificial Opening Endoscopic, Diagnostic (ICD-10-PCS; 2020-12-29)
PROC: 0DBP8ZX Excision of Rectum, Via Natural or Artificial Opening Endoscopic, Diagnostic (ICD-10-PCS; 2020-12-29)
PROC: 0DBM8ZX Excision of Descending Colon, Via Natural or Artificial Opening Endoscopic, Diagnostic (ICD-10-PCS; 2020-12-29)
PROC: 02H633Z Insertion of Infusion Device into Right Atrium, Percutaneous Approach (ICD-10-PCS; 2020-12-30)
PROC: 0DTN0ZZ Resection of Sigmoid Colon, Open Approach (ICD-10-PCS; 2020-12-31)
PROC: 0D1B0Z4 Bypass Ileum to Cutaneous, Open Approach (ICD-10-PCS; principal; 2020-12-31 19:00)
DX: K51.012 Ulcerative (chronic) pancolitis with intestinal obstruction (principal); U07.1 COVID-19; R65.21 Severe sepsis with septic shock; K63.1 Perforation of intestine (nontraumatic); A41.9 Sepsis, unspecified organism; K65.9 Peritonitis, unspecified; N17.9 Acute kidney failure, unspecified; R18.8 Other ascites; E87.1 Hypo-osmolality and hyponatremia; A08.39 Other viral enteritis; K56.7 Ileus, unspecified; J98.11 Atelectasis; K76.0 Fatty (change of) liver, not elsewhere classified; E86.1 Hypovolemia; E87.6 Hypokalemia; R33.9 Retention of urine, unspecified; K62.89 Other specified diseases of anus and rectum; Z71.3 Dietary counseling and surveillance; Z88.5 Allergy status to narcotic agent
CPT/HCPCS: 36415; 36573; 45380; 71045; 74018; 74022; 74177; 80048; 80053; 81001; 82040; 82150; 82330; 82728; 83605; 83615; 83690; 83735; 84100; 84132; 84145; 84478; 85025; 85027; 85610; 85652; 86140; 86850; 86900; 86901; 87045; 87046; 87324; 87493; 87635; 88305; 88309; 93005; 94760; 96361; 96374; 96375; 99284; 99285